=== PATIENT | female | born 1955 | race Caucasian/White ===

== ENCOUNTER 2020-02-15 12:47 | Outpatient (CLI) | payer OTHER, SELFPAY ==
--- NOTE | ~2020-02-15 | CT_ITS ---
EXAMINATION: CT abdomen pelvis wo con EXAM DATE: 02/15/2020 13:27 INDICATION: Acute bilateral flank pain. TECHNIQUE: Spiral CT of the abdomen and pelvis was performed without contrast. Axial, coronal and sag ittal images were reviewed. The dose-length product (DLP) for this examination was 982.00 mGy-cm. T he exposure was tailored according to patient size (auto mA exposure control), and iterative reconstr uction (ASIR) was used as additional dose reduction technique. Comparison is made to prior examinatio n from 05/05/2019. FINDINGS: Small region of left renal cortical scarring. There is no nephrolithiasis or hydronephrosi s. The uterus is unremarkable. The bladder is unremarkable. The liver, spleen, adrenal glands an d pancreas are unremarkable. Gallbladder is unremarkable. No biliary obstruction. There is no retr operitoneal or pelvic lymphadenopathy. There is mild scattered arteriosclerotic disease. The appendix is not positively visualized. There is no pericecal inflammatory change to suggest appe ndicitis. There is small sliding gastroesophageal hiatal hernia. There is expected amount of colon ic stool. No free intraperitoneal gas. The heart is normal in size. There are no pericardial or pleural effusions. There is a 4 mm right lower lobe noncalcified granuloma unchanged. There are no osteoblastic or osteolytic lesions identified. IMPRESSION: 1. Chronic findings as above. Reviewed, dictated and finalized at location G.
--- NOTE | ~2020-02-15 | XR_ITS ---
EXAMINATION: XR abdomen/kub 1V INDICATION: Acute flank pain TECHNIQUE: Supine views of the abdomen were obtained on 2 radiographs. COMPARISON: None FINDINGS: No abnormal calcifications are identified. The bowel gas pattern is normal. There is mild b ilateral hip osteoarthritis. Moderate lumbar spondylosis is noted. There are phleboliths in the pelvi s. IMPRESSION: 1. No radiographic correlate for the patient's symptoms. Reviewed, dictated and finalized at location A.
== END 2020-02-15 12:48 | disposition home or self-care (01) ==
PROVIDERS: Visit Provider Urology
DX: R10.9 Unspecified abdominal pain (principal)
CPT/HCPCS: 74018; 74176

== ENCOUNTER → 2020-06-02 14:35 | Outpatient (CLI) | payer OTHER, SELFPAY ==
--- NOTE | ~2020-06-02 | MM_ITS ---
EXAMINATION: MM screening mariusz BI w sunil HISTORY: Screening TECHNIQUE: Craniocaudal and mediolateral oblique 3-D tomosynthesis images were obtained and synthetic 2-D images were generated. CAD analysis was submitted and interpreted. COMPARISON: Comparison to multiple prior studies sequentially, with oldest reviewed study dated 05/09. BREAST PARENCHYMAL COMPOSITION: There are scattered areas of fibroglandular density. FINDINGS: There is no evidence of suspicious mass, calcification, or architectural distortion to sugg est malignancy in either breast. There has been no suspicious interval change. IMPRESSION: 1. No mammographic evidence of malignancy. 2. Recommend routine screening mammography in one year. BI-RADS Category 1: Negative Reviewed, dictated and finalized at location A.
== END ==
PROVIDERS: Visit Provider Advanced Practice Midwife
DX: Z12.31 Encounter for screening mammogram for malignant neoplasm of breast (principal)
CPT/HCPCS: 77063; 77067

== ENCOUNTER 2020-11-01 14:58 | Emergency (ER) | payer OTHER, SELFPAY ==
--- NOTE | 2020-11-01 15:01 | ED.GENADULT ---
HPI - General Adult General Chief complaint: Skin/Abscess/Foreign Body Stated complaint: INJURED R THUMB Time Seen by Provider: 11/01/20 15:02 Source: patient Mode of arrival: ambulatory Limitations: no limitations History of Present Illness HPI narrative: 65-year-old female patient presents to the [facility] with complaints of right thumb pain for the past 3 weeks. Patient states about 2 and half to 3 weeks ago she slightly cut the medial side of her right thumb with a sharp knife. Patient states it was not deep enough to need sutures. Patient states then about 2 weeks ago her dog kind of bit her by accident on the thumb as well. Patient states it has been sore last night her got some pus out of it. Patient states she has been just using lotion with some gloves on and this morning did put a little bit of Neosporin on it. Denies any fevers, body aches or chills. Denies any history of diabetes Related Data Home Medications Medication Instructions Recorded Confirmed bupropion HCl [Wellbutrin SR] 200 mg PO DAILY 09/27/19 11/01/20 gabapentin 600 mg PO BID 09/27/19 11/01/20 thyroid (pork) [Violet Thyroid] 30 mg PO DAILY 09/27/19 09/27/19 trazodone 100 mg PO HS PRN 09/27/19 11/01/20 Allergies Allergy/AdvReac Type Severity Reaction Status Date / Time Chocolate AdvReac Unknown INCREASES Uncoded 11/01/20 15:16 INFLAMMATION Review of Systems Review of Systems: Narrative: CONSTITUTIONAL: Denies fever, chills, or sweats. EYES: Denies visual changes, redness, or discharge. ENT: Denies rhinorrhea, congestion, sore throat, or otalgia. CARDIOVASCULAR: Denies chest pain, palpitations, or edema. RESPIRATORY: Denies cough or dyspnea. GASTROINTESTINAL: Denies abdominal pain, nausea, vomiting, or diarrhea. GENITOURINARY: Denies dysuria or hematuria. SKIN: Denies rash or itching. Positive wound to right thumb x3 weeks MUSCULOSKELETAL: Denies back pain, joint pain, or myalgia. NEUROLOGIC: Denies headache, numbness, or weakness. PSYCHIATRIC: Denies anxiety or depression. [facility] Past Medical History Medical History (Updated 11/01/20 @ 15:18 by MARÍA Castle) Abnormal uterine bleeding Arthritis Depression Fibromyalgia Hypercholesterolemia Hypothyroidism Lactose intolerance Lupus Lyme disease 1982 Musculoskeletal disorder Right knee medial meniscus tear Postmenopausal Seasonal allergies Sleep apnea Surgical History Surgical History (Updated 11/01/20 @ 15:04 by MARÍA Castle) Delivery by section Hx of tonsillectomy Family History Family History Mother Family history of Alzheimer's disease Father Family history of osteoarthritis Social History Social History Smoking status: Never smoker Alcohol intake: never Comments At the time of my signature I agree with nursing past medical history, surgical, social, and family history. There is no relevant family history pertinent to the presenting complaint. Exam Narrative: Exam Narrative: GENERAL: Well-appearing, well-nourished, and in no acute distress. HEAD: Normocephalic, atraumatic. EYES: PERRLA and EOMI. ENT: Nares clear, no rhinorrhea or epistaxis. Mucous membranes moist. NECK: Supple. No lymphadenopathy CHEST: Clear to auscultation. No respiratory distress. HEART: Regular rate and rhythm. No murmur heard. Normal peripheral pulses. ABDOMEN: Soft, nontender, nondistended, normal active bowel sounds. EXTREMITIES: Normal range of motion. No edema. SKIN: Warm, dry, no rash. Patient has what appears to be a paronychia to the medial side of the right thumb. There is a little tenderness as well as a slight erythema no active pus or draining at this time. No streaking up the hand. No warmth present. NEURO: No focal deficits. Alert and oriented x3. Course Vital Signs Vital signs: Vital Signs Temperature 36.0 C L 01
[2020-11-01 15:06] VITALS: BP 127/62; PULSE 76; RESP 16; TEMP 36; O2SAT 100
[2020-11-01 15:15] VITALS: BP 127/62; PULSE 76; RESP 16; TEMP 36; O2SAT 100
== END 2020-11-01 15:20 | disposition home or self-care (01) ==
PROVIDERS: Emergency Provider Nurse Practitioner Family; PCP Family Medicine
DX: L03.011 Cellulitis of right finger (principal); M19.90 Unspecified osteoarthritis, unspecified site; M79.7 Fibromyalgia; F32.9 Major depressive disorder, single episode, unspecified; E78.00 Pure hypercholesterolemia, unspecified; E03.9 Hypothyroidism, unspecified; G47.30 Sleep apnea, unspecified
CPT/HCPCS: 99213; G0463

== ENCOUNTER 2021-02-28 08:35 | Outpatient (CLI) | payer OTHER, SELFPAY ==
--- NOTE | ~2021-02-28 | US_ITS ---
EXAMINATION: US abdomen complete EXAM DATE: 02/28/2021 09:07 INDICATION: Epigastric pain. TECHNIQUE: Multiple grayscale and Doppler images of the complete abdomen were obtained (by a technolo gist who performed the scan) and subsequently reviewed. Comparison is made to prior examination from 02/09/2013. FINDINGS: The abdominal aorta is normal in caliber. Visualized portion IVC is patent. The pancreatic head a nd body are normal in appearance. The pancreatic tail is not visualized. The liver has normal echogenicity and contour. There are no focal liver lesions identified. There is no evidence of intrahepatic biliary duct dilation. Portal venous flow was seen in the hepatopedal , normal direction and has normal Doppler waveform. Common bile duct measures 3 mm, which is normal. The gallbladder wall is normal in thickness, with ex pected amount of distention. No sonographic evidence of pericholecystic fluid. There is no cholelit hiases. Technologist performing exam reports patient did not demonstrate sonographic Chambers's sign. Please note that this sign is less reliable in patients who have received pain medication. Right kidney: There is normal contour and echogenicity. It measures 13.1 x 4.7 x 6.0 centimeters. There are no focal renal lesions identified. There is no hydronephrosis. Left kidney: There is normal contour and echogenicity. It measures 12.2 x 6.3 x 5.5 centimeters. T here are no focal renal lesions identified. There is no hydronephrosis. The spleen measures 12 centimeters and is morphologically normal. IMPRESSION: Unremarkable complete abdominal ultrasound exam. Reviewed, dictated and finalized at location B.
== END 2021-02-28 08:36 | disposition home or self-care (01) ==
PROVIDERS: PCP Family Medicine; Visit Provider Family Medicine
DX: R10.13 Epigastric pain (principal)
CPT/HCPCS: 76700

== ENCOUNTER → 2021-09-07 16:17 | Outpatient (CLI) | payer OTHER, SELFPAY ==
--- NOTE | ~2021-09-07 | MM_ITS ---
EXAMINATION: MM screening mariusz BI w sunil HISTORY: Screening mammogram TECHNIQUE: Craniocaudal and mediolateral oblique 3-D tomosynthesis images were obtained and synthetic 2-D images were generated. CAD analysis was submitted and interpreted. COMPARISON: , 03/15/2019, 09/14/2017 bilateral screening mammogram examinations BREAST PARENCHYMAL COMPOSITION: There are scattered areas of fibroglandular density. FINDINGS: There is no evidence of suspicious mass, calcification, or architectural distortion to sugg est malignancy in either breast. There has been no suspicious interval change. IMPRESSION: 1. No mammographic evidence of malignancy. 2. Recommend routine screening mammography in one year. BI-RADS Category 1: Negative Reviewed, dictated and finalized at location A. TRIMMER
== END ==
PROVIDERS: Visit Provider Advanced Practice Midwife
DX: Z12.31 Encounter for screening mammogram for malignant neoplasm of breast (principal)
CPT/HCPCS: 77063; 77067

== ENCOUNTER 2021-12-01 19:11 | Emergency (ER) | payer OTHER, SELFPAY ==
[2021-12-01 19:18] VITALS: BP 148/81; PULSE 73; RESP 16; TEMP 36.2; O2SAT 100
--- NOTE | 2021-12-01 19:20 | ED.WOUNDLAC ---
HPI - Wound/Laceration General Chief Complaint: Wound/Laceration Stated Complaint: Cat bit Time Seen by Provider: 12/01/21 19:20 Source: patient Mode of arrival: ambulatory Limitations: no limitations History of Present Illness HPI narrative: 66-year-old female presented for complaint of cat bite to the right wrist, onset today around 1300. She states the cat is a feral cat, but is up-to-date on shots and her tetanus is up-to-date. She had leftover doxycycline and took 2 tablets. Endorses pain is throbbing, rates it 6 out of 10. States on think will be up to sleep. Bleeding is controlled. Related Data Home Medications Medication Instructions Recorded Confirmed bupropion HCl [Wellbutrin SR] 200 mg PO DAILY 09/27/19 11/01/20 gabapentin 600 mg PO BID 09/27/19 11/01/20 thyroid (pork) [Medora Thyroid] 30 mg PO DAILY 09/27/19 09/27/19 trazodone 100 mg PO HS PRN 09/27/19 11/01/20 Allergies Allergy/AdvReac Type Severity Reaction Status Date / Time Chocolate AdvReac Unknown INCREASES Uncoded 11/01/20 15:16 INFLAMMATION Review of Systems Review of Systems: CONSTITUTIONAL: Denies body aches, fever, chills, or sweats. EYES: Denies visual changes, redness, or discharge. ENT: Denies rhinorrhea, congestion, sore throat, or otalgia. CARDIOVASCULAR: Denies chest pain, palpitations, or edema. RESPIRATORY: Denies cough or dyspnea. GASTROINTESTINAL: Denies abdominal pain, nausea, vomiting, or diarrhea. GENITOURINARY: Denies dysuria or hematuria. SKIN: cat bite to write wrist MUSCULOSKELETAL: Denies back pain, joint pain, or myalgia. NEUROLOGIC: Denies headache, numbness, tingling, or weakness. PSYCH: Denies depression or anxiety. [facility] Past Medical History Medical History (Updated 12/01/21 @ 19:24 by Karen Travis APRN) Abnormal uterine bleeding Arthritis Depression Fibromyalgia Hypercholesterolemia Hypothyroidism Lactose intolerance Lupus Lyme disease 1983 Musculoskeletal disorder Right knee medial meniscus tear Postmenopausal Seasonal allergies Sleep apnea Surgical History Surgical History Delivery by section Hx of tonsillectomy Family History Family History Mother Family history of Alzheimer's disease Father Family history of osteoarthritis Social History Social History Smoking status: Never smoker Alcohol intake: never Comments At time of signature, I have reviewed and agree with nursing past medical, surgical, social and family history unless otherwise noted. Please see nursing chart for further information. There is no relevant family history pertinent to the presenting complaint Exam Narrative: GENERAL: Well-appearing, well-nourished, and in no acute distress. HEAD: Normocephalic, atraumatic. EYES: PERRLA, conjunctivae clear, and EOMI. ENT: Mucous membranes moist. Oropharynx without edema, erythema or lesions. NECK: Supple. No lymphadenopathy CHEST: Clear to auscultation. No respiratory distress. HEART: Regular rate and rhythm. SKIN: Warm, dry. right wrist dorsal surface puncture wound with mild swelling surrounding site, scattered lacerations over right hand dorsal and palmar surfaces, bleeding controlled NEURO: Alert and oriented x3. PSYCH: Normal mood and affect Course Course Emergency Course: Patient is aware of diagnosis, understands and agrees to treatment plan. Anticipatory guidance given. Patient agrees to follow-up as directed and is aware of reasons to seek care at the emergency department. Portions of this record may have been created with voice recognition software Level of Care: Express Care Visit Vital Signs Vital signs: Vital Signs Temperature 97.2 F L 12/01/21 19:18 Pulse Rate 73 12/01/21 19:18 Respiratory Rate 16 12/01/21 19:18 Blood Pressure 148/81 H 12/01/21
[2021-12-01 19:21] VITALS: BP 148/81; PULSE 73; RESP 16; TEMP 36.2; O2SAT 100
== END 2021-12-01 19:39 | disposition home or self-care (01) ==
PROVIDERS: Emergency Provider Nurse Practitioner Family; PCP Family Medicine
DX: S61.411A Laceration without foreign body of right hand, initial encounter (principal); S61.531A Puncture wound without foreign body of right wrist, initial encounter; W55.01XA Bitten by cat, initial encounter; M19.90 Unspecified osteoarthritis, unspecified site; M79.7 Fibromyalgia; E03.9 Hypothyroidism, unspecified; G47.30 Sleep apnea, unspecified; F32.A Depression, unspecified
CPT/HCPCS: 99213; G0463

== ENCOUNTER → 2022-01-11 11:46 | Outpatient (CLI) | payer OTHER, SELFPAY ==
--- NOTE | ~2022-01-11 | XR_ITS ---
EXAMINATION: XR knee RT 3V DATE: 01/11/2022 12:25 INDICATION: Right knee injury. TECHNIQUE: 3 views of right knee including standing views were obtained. COMPARISON: Right knee radiographs 08/05/2017 FINDINGS: Bone alignment is normal. No fracture. There is moderate osteoarthritis of medial compartme nt and mild osteoarthritis of lateral and patellofemoral compartments. No knee joint effusion. IMPRESSION: 1. Moderate right knee osteoarthritis. Reviewed, dictated and finalized at location A.
== END ==
PROVIDERS: PCP Family Medicine; Visit Provider Family Medicine
DX: M17.11 Unilateral primary osteoarthritis, right knee (principal)
CPT/HCPCS: 73562

== ENCOUNTER → 2022-01-16 12:03 | Outpatient (CLI) | payer OTHER, SELFPAY ==
--- NOTE | ~2022-01-16 | US_ITS ---
EXAMINATION: US venous doppler LE RT DATE: 01/16/2022 12:28 INDICATION: Right lower limb pain TECHNIQUE: Torres scale images without and with compression and Doppler images of the right lower extre mity veins were obtained. COMPARISON: None FINDINGS: The right common femoral vein, profunda femoral vein, femoral vein, popliteal vein, peronea l trunk, posterior tibial veins, and greater saphenous vein are patent. IMPRESSION: 1. Patent right lower extremity veins. No evidence of deep venous thrombosis. Reviewed, dictated and finalized at location B.
== END ==
PROVIDERS: PCP Family Medicine; Visit Provider Family Medicine
DX: S89.91XA Unspecified injury of right lower leg, initial encounter (principal)
CPT/HCPCS: 93971

== ENCOUNTER 2022-03-13 13:02 | Emergency (ER) | payer OTHER, SELFPAY ==
[2022-03-13 13:09] VITALS: BP 124/77; PULSE 84; RESP 16; TEMP 36.1; O2SAT 99
--- NOTE | 2022-03-13 13:12 | ED.URI ---
HPI - URI/Sore Throat General Chief Complaint: Upper Respiratory Infection Stated Complaint: CHEST CONGESTION Time Seen by Provider: 03/13/22 13:12 Source: patient and RN notes reviewed History of Present Illness HPI Narrative: Patient is a 66-year-old female who presents the urgent care with complaints of chest congestion and intermittent dyspnea. Patient states that she has had a cough with nasal congestion that started on Friday that has since moved to her chest. Patient states she has been using Mucinex. Denies any known fevers or exposures to COVID or influenza however states that she has had some chills and fatigue. No other acute complaints. No acute distress noted. Patient aware of the plan of care. Some parts of this dictation were generated by voice recognition software and may contain typographical and/or grammatical inaccuracies. Related Data Home Medications Medication Instructions Recorded Confirmed bupropion HCl [Wellbutrin SR] 200 mg PO DAILY 09/27/19 11/01/20 gabapentin 600 mg PO BID 09/27/19 11/01/20 thyroid (pork) [Ruby Thyroid] 30 mg PO DAILY 09/27/19 09/27/19 trazodone 100 mg PO HS PRN 09/27/19 11/01/20 duloxetine mg PO 03/13/22 famotidine 03/13/22 Allergies Allergy/AdvReac Type Severity Reaction Status Date / Time Chocolate AdvReac Unknown INCREASES Uncoded 11/01/20 15:16 INFLAMMATION Review of Systems Review of Systems: CONSTITUTIONAL: Reports of chills and fatigue EYES: Denies visual changes, redness, or discharge. ENT: Reports of congestion, postnasal drainage CARDIOVASCULAR: Denies chest pain, palpitations, or edema. RESPIRATORY: Reports of harsh cough with intermittent dyspnea and chest congestion GASTROINTESTINAL: Denies abdominal pain, nausea, vomiting, or diarrhea. GENITOURINARY: Denies dysuria or hematuria. SKIN: Denies rash or itching. MUSCULOSKELETAL: Denies back pain, joint pain, or myalgia. NEUROLOGIC: Denies headache, numbness, or weakness. All other systems reviewed are negative, except as documented in HPI. [facility] Past Medical History Medical History (Updated 03/13/22 @ 13:18 by MARÍA Funk) Abnormal uterine bleeding Arthritis Depression Fibromyalgia Hypercholesterolemia Hypothyroidism Lactose intolerance Lupus Lyme disease 1983 Musculoskeletal disorder Right knee medial meniscus tear Postmenopausal Seasonal allergies Sleep apnea Surgical History Surgical History Delivery by section Hx of tonsillectomy Family History Family History Mother Family history of Alzheimer's disease Father Family history of osteoarthritis Social History Social History Smoking status: Never smoker Alcohol intake: never Comments At the time of my signature, I reviewed and agree with the nursing past medical, surgical, social, and family history. There is no relevant family history pertinent to the patient complaint. Exam Narrative: GENERAL: This is a well-nourished, well-developed patient, in no apparent distress. HEAD: normocephalic, atraumatic. EYES: PERRL. Sclera clear/white. Vision is grossly intact. EARS: External ears normal, auditory canals clear and without drainage, TMs normal without perforation. Hearing grossly intact. NOSE: External nose normal with no obvious nasal discharge, nares without redness, no rhinorrhea. THROAT: Mucous membranes moist, posterior pharynx clear. Moderate postnasal drainage NECK: Neck supple, non-tender without lymphadenopathy CARDIOVASCULAR: Regular rate and rhythm RESPIRATORY: Bibasilar crackles with slight expiratory wheezes. Harsh cough noted throughout exam SKIN: warm, intact with no suspicious lesions or rash, good texture and turgor. NEURO: awake, alert, and oriented to person, place and time. There were no obvious focal neurologi
== END 2022-03-13 13:25 | disposition home or self-care (01) ==
PROVIDERS: Emergency Provider Nurse Practitioner Family; PCP Family Medicine
DX: J40 Bronchitis, not specified as acute or chronic (principal); M19.90 Unspecified osteoarthritis, unspecified site; M79.7 Fibromyalgia; E78.00 Pure hypercholesterolemia, unspecified; E03.9 Hypothyroidism, unspecified; G47.30 Sleep apnea, unspecified; F32.A Depression, unspecified
CPT/HCPCS: 99213; G0463

== ENCOUNTER → 2022-07-22 12:07 | Outpatient (CLI) | payer OTHER, SELFPAY ==
--- NOTE | ~2022-07-22 | XR_ITS ---
EXAMINATION:XR cervical spine 4-5V DATE: 07/22/2022 12:25 INDICATION: Neck pain TECHNIQUE: AP, lateral, lateral swimmers and odontoid views of the cervical spine are provided. COMPARISON: None FINDINGS: There is reversal of the normal cervical lordosis. There are 2 mm of anterolisthesis of C3 on C4 and C4 on C5. The odontoid is intact. No fracture is identified. There is severe loss of interv ertebral disc space height at C5-6 and C6-7. Small degenerative osteophytes project from the anterior endplates of multiple vertebral bodies. There is severe facet and uncovertebral joint osteoarthritis at multiple levels in the cervical spine. Prevertebral soft tissues are normal. IMPRESSION: 1. Severe cervical spondylosis without acute findings. Reviewed, dictated and finalized at location A.
== END ==
PROVIDERS: PCP Family Medicine; Visit Provider Family Medicine
DX: M47.812 Spondylosis without myelopathy or radiculopathy, cervical region (principal)
CPT/HCPCS: 72050

== ENCOUNTER → 2023-01-15 14:11 | Outpatient (CLI) | payer MEDICARE, SELFPAY ==
--- NOTE | ~2023-01-15 | DEXA_ITS ---
Bone Density Report Name: SUKHI SALOMON Age: 67 Sex: Female Ethnicity: White Date of : 1955 Indication: postmenopausal; screening for osteoporosis; parental hip fracture; height loss; prior fracture; anorexia or bulimia; Referring Provider: Leah Galloway Study: Bone densitometry was performed. Exam Date: January 15, 2023 Accession number: [id number] Bone Density: Region BMD T-score Z-score Classification AP Spine (L1, L4) 1.185 1.3 3.1 Normal Femoral Neck (Left) 1.008 1.4 2.9 Normal Total Hip (Left) 1.097 1.3 2.5 Normal Femoral Neck (Right) 1.076 2.0 3.6 Normal Total Hip (Right) 1.104 1.3 2.6 Normal Total Hip Mean 1.101 1.3 2.6 Normal World Health Organization criteria for BMD impression classify patients as: Normal (T-score at or above -1.0), Osteopenia (T-score between -1.0 and -2.5), or Osteoporosis (T-score at or below -2.5). 10-year Fracture Risk: FRAX not reported because: All T-scores for Spine Total, Hip Total, Femoral Neck at or above -1.0 Previous Exams: Region Exam Age BMD T-score BMD Change BMD Change Date g/cm2 vs Baseline vs Previous AP Spine(L1, L4) 01/15/2023 67 1.185 1.3 0.000 -0.005 03/23/2019 63 1.190 1.4 0.006 -0.011 06/27/2015 59 1.201 1.5 0.017 0.017 05/29/2009 53 1.185 1.3 Total Hip(Left) 01/15/2023 67 1.097 1.3 -0.022 -0.010 03/23/2019 63 1.107 1.3 -0.012 -0.048 06/27/2015 59 1.155 1.7 0.036* 0.036* 05/29/2009 53 1.119 1.4 Total Hip(Right) 01/15/2023 67 1.104 1.3 -0.036 -0.042* 03/23/2019 63 1.146 1.7 0.006 0.001 06/27/2015 59 1.146 1.7 0.005 0.005 05/29/2009 53 1.140 1.6 *Denotes significance at 95% confidence level, LSC for AP Spine = 0.022 g/cm2, LSC for Total Hip = 0.027 g/cm2 Clinical Information Provided by Patient: Has had a low trauma fracture Parent has had a hip fracture Has used the following medications: Vitamin D, Calcium Has the following medical conditions: Anorexia or Bulimia Patient maximum height was 69 Menopause Age: 53 Does not regularly consume dairy products Drinks caffeinated beverages Onset of menses at age 15 Number of children 1 Missed period for more than 6 months in a row Impression: The patient has normal bone mass. The patient has r
== END ==
PROVIDERS: PCP Family Medicine; Visit Provider Advanced Practice Midwife
DX: Z78.0 Asymptomatic menopausal state (principal)
CPT/HCPCS: 77080

== ENCOUNTER 2023-01-23 10:15 | Emergency (ER) | payer MEDICARE, SELFPAY ==
--- NOTE | ~2023-01-23 | US_ITS ---
EXAMINATION: US venous doppler UE RT DATE: 01/23/2023 12:01 INDICATION: Right upper limb pain. TECHNIQUE: Grayscale ultrasound images without and with compression and Doppler ultrasound images of the right upper extremity veins were obtained. COMPARISON: None. FINDINGS: The visualized portions of the right internal jugular vein, subclavian vein, axillary vein, brachial veins, basilic vein, cephalic vein, radial vein, and ulnar vein are patent. IMPRESSION: 1. No deep venous thrombosis. Reviewed, dictated and finalized at location L.
[2023-01-23 10:19] VITALS: BP 119/73; PULSE 70; RESP 16; TEMP 36.4; O2SAT 98
--- NOTE | 2023-01-23 10:59 | ED.GENADULT ---
HPI - General Adult General Chief complaint: Extremity Injury, Upper Stated complaint: right arm swelling Time Seen by Provider: 01/23/23 10:20 History of Present Illness HPI narrative: 67-year-old female presents to the emergency room for evaluation of right upper arm pain. Patient states that she had a massage yesterday, woke up this morning complaining of pain to her right bicep. Denies any injury or trauma. Patient does admit to history of thrombocythemia. States this morning the area was warm and swollen. Concerned over DVT. Denies any shortness of breath or difficulty breathing. No chest pain. No history of PEs. No recent injury or trauma. No history of recent cancer. Denies recent periods of immobility. Patient does endorse history of lupus and Lyme disease. Related Data Home Medications Medication Instructions Recorded Confirmed bupropion HCl 200 mg tablet,12 hr 200 mg PO DAILY 09/27/19 11/28/22 sustained-release (Wellbutrin SR) gabapentin 600 mg tablet 600 mg PO BID 09/27/19 11/28/22 thyroid (pork) 30 mg tablet 30 mg PO DAILY 09/27/19 11/28/22 (Jane Lew Thyroid) trazodone 100 mg tablet 100 mg PO HS PRN Sleep 09/27/19 11/28/22 duloxetine 30 mg capsule,delayed mg PO 03/13/22 11/28/22 release famotidine 20 mg tablet 03/13/22 11/28/22 Allergies Allergy/AdvReac Type Severity Reaction Status Date / Time Chocolate AdvReac Unknown INCREASES Uncoded 01/23/23 10:23 INFLAMMATION Review of Systems Review of Systems: CONSTITUTIONAL: Denies fever, chills, or sweats. EYES: Denies visual changes, redness, or discharge. ENT: Denies rhinorrhea, congestion, sore throat, or otalgia. CARDIOVASCULAR: Denies chest pain, palpitations, or edema. RESPIRATORY: Denies cough or dyspnea. GASTROINTESTINAL: Denies abdominal pain, nausea, vomiting, or diarrhea. GENITOURINARY: Denies dysuria or hematuria. SKIN: Denies rash or itching. MUSCULOSKELETAL: Denies back pain, joint pain, or myalgia. NEUROLOGIC: Denies headache, numbness, dizziness, or weakness. PSYCHIATRIC: Denies anxiety or depression. [facility] Past Medical History Medical History Abnormal uterine bleeding Arthritis Depression Fibromyalgia Hypercholesterolemia Hypothyroidism Lactose intolerance Lupus Lyme disease 1982 Musculoskeletal disorder Right knee medial meniscus tear Postmenopausal Seasonal allergies Sleep apnea Surgical History Surgical History Delivery by section Hx of tonsillectomy Family History Family History Mother Family history of Alzheimer's disease Father Family history of osteoarthritis Social History Social History Smoking status: Never smoker Alcohol intake: never Lack of Transportation: No Lack of Food: Never True Current Housing: I Have Housing Concerned About Future Housing: No Difficulty Paying Gas/Electric Bills: No Difficulty Paying for Meds: No Currently Unemployed: No Education: Master's Degree or Higher Difficulty w/ Childcare or Family Care: No Exam Narrative: GENERAL: Well-appearing, well-nourished, no physical limitations, and in no acute distress. HEAD: Normocephalic, atraumatic. EYES: Conjunctivae normal, PERRLA and EOMI. CHEST: Clear to auscultation. No respiratory distress. No wheezes rales or rhonchi. No tenderness. HEART: Regular rate and rhythm. No murmur heard. Normal peripheral pulses. BACK: No CVA tenderness; No cervical/thoracic/lumbar tenderness, step-offs, bony abnormality; FROM EXTREMITIES: Normal range of motion. No edema. No clubbing or cyanosis. RUE: mild TTP to bicep, no signs of injury. No STS. Skin PWD. SKIN: Warm, dry, no rash. No noted wounds NEURO: No focal deficits. Alert and oriented x3. MAEW. CN's II-XI intact bilaterally,
[2023-01-23 13:09] VITALS: BP 111/72; PULSE 66; RESP 16; O2SAT 98
[2023-01-23 15:20] VITALS: BP 120/70; PULSE 72; RESP 16; O2SAT 99
== END 2023-01-23 15:21 | disposition home or self-care (01) ==
PROVIDERS: Emergency Provider Nurse Practitioner Family; PCP Family Medicine
DX: M79.621 Pain in right upper arm (principal); E78.00 Pure hypercholesterolemia, unspecified; E03.9 Hypothyroidism, unspecified; M19.90 Unspecified osteoarthritis, unspecified site; M79.7 Fibromyalgia; G47.30 Sleep apnea, unspecified; F32.A Depression, unspecified
CPT/HCPCS: 93971; 99284

== ENCOUNTER → 2023-02-26 11:46 | Outpatient (CLI) | payer MEDICARE, SELFPAY ==
--- NOTE | ~2023-02-26 | MM_ITS ---
EXAMINATION: MM screening [facility] BI w sunil HISTORY: Screening mammogram TECHNIQUE: Craniocaudal and mediolateral oblique 3-D tomosynthesis images were obtained and synthetic 2-D images were generated. CAD analysis was submitted and interpreted. COMPARISON: 09/07/2021, 06/02/2020, 03/23/2019 BREAST PARENCHYMAL COMPOSITION: There are scattered areas of fibroglandular density. FINDINGS: No suspicious mass, calcification, or architectural distortion are identified in either hoda ast to suggest malignancy. There has been no suspicious interval change. IMPRESSION: 1. No mammographic evidence of malignancy. 2. Recommend routine screening mammography in one year. BI-RADS Category 1: Negative Reviewed, dictated and finalized at location A.
== END ==
PROVIDERS: PCP Family Medicine; Visit Provider Obstetrics & Gynecology
DX: Z12.31 Encounter for screening mammogram for malignant neoplasm of breast (principal)
CPT/HCPCS: 77063; 77067

== ENCOUNTER 2023-08-25 15:03 | Emergency (ER) | payer MEDICARE, SELFPAY ==
--- NOTE | ~2023-08-25 | XR_ITS ---
[XR ribs LT 2V w CXR 2V ] INDICATION: Status post fall from horse 5 days ago. Left chest pain. TECHNIQUE: Frontal projection of the upper left ribs, frontal projection of the lower left ribs, obli que projection of all the left ribs, frontal inspiratory chest x-ray for interpretation. FINDINGS: Possible left eighth rib fracture anteriorly. No pneumothorax. Heart size normal. Mild tho racic spondylosis. No significant effusion. 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 IMPRESSION: 1: Possible nondisplaced fracture left eighth rib anteriorly.. Reviewed, dictated and finalized at location A.
[2023-08-25 15:15] VITALS: BP 123/68; PULSE 80; RESP 16; TEMP 36.3; O2SAT 99
--- NOTE | 2023-08-25 15:16 | ED.FALL ---
HPI - Fall General Chief Complaint: Fall Stated Complaint: Rib pain Time Seen by Provider: 08/25/23 15:16 Source: patient Mode of arrival: ambulatory Limitations: no limitations History of Present Illness HPI Narrative: 67 yo F presents with c/o pain to L ribs for 5 days. States she fell off horse. Horse bucked and saddle was loose and she fell approx. 4ft from horse onto back. Did not hit head. Denies LOC. Has had sore area to anterior L chestwall since injury. Is concerned she has rib fracture. Ambulatory with steady gait. Denies SOB. All systems reviewed and negative except as noted above. Related Data Home Medications Medication Instructions Recorded Confirmed bupropion HCl 200 mg tablet,12 hr 200 mg PO DAILY 09/27/19 08/25/23 sustained-release (Wellbutrin SR) gabapentin 600 mg tablet 600 mg PO BID 09/27/19 08/25/23 trazodone 100 mg tablet 100 mg PO HS PRN Sleep 09/27/19 08/25/23 duloxetine 30 mg capsule,delayed 30 mg PO DAILY 03/13/22 08/25/23 release Allergies Allergy/AdvReac Type Severity Reaction Status Date / Time Chocolate AdvReac Unknown INCREASES Uncoded 01/23/23 10:23 INFLAMMATION Review of Systems Review of Systems: CONSTITUTIONAL: Denies fever, chills, or sweats. EYES: Denies visual changes, redness, or discharge. ENT: Denies rhinorrhea, congestion, sore throat, or otalgia. CARDIOVASCULAR: Denies chest pain, palpitations, or edema. RESPIRATORY: Denies cough or dyspnea. GASTROINTESTINAL: Denies abdominal pain, nausea, vomiting, or diarrhea. GENITOURINARY: Denies dysuria or hematuria. SKIN: Denies rash or itching. MUSCULOSKELETAL: Denies back pain, joint pain, or myalgia. Reports L sided anterior chestwall pain NEUROLOGIC: Denies headache, numbness, or weakness. PSYCHIATRIC: Denies anxiety or depression. All other systems reviewed are negative, except as documented in HPI. [facility] Past Medical History Medical History Abnormal uterine bleeding Arthritis Depression Fibromyalgia Hypercholesterolemia Hypothyroidism Lactose intolerance Lupus Lyme disease 1982 Musculoskeletal disorder Right knee medial meniscus tear Postmenopausal Seasonal allergies Sleep apnea Surgical History Surgical History Delivery by section Hx of tonsillectomy Family History Family History Mother Family history of Alzheimer's disease Father Family history of osteoarthritis Social History Social History Smoking status: Never smoker Alcohol intake: never Lack of Transportation: No Lack of Food: Never True Current Housing: I Have Housing Concerned About Future Housing: No Difficulty Paying Gas/Electric Bills: No Difficulty Paying for Meds: No Currently Unemployed: No Education: Master's Degree or Higher Difficulty w/ Childcare or Family Care: No Comments At time of signature, agree with nursing past medical, surgical, social and family history. There is no relevant family history pertinent to the presenting complaint. Exam Narrative: GENERAL: This is a well-nourished, well-developed patient, in no apparent distress. HEAD: normocephalic, atraumatic. EYES: PERRL. Sclera clear/white. Vision is grossly intact. EARS: External ears normal NOSE: External nose normal NECK: Neck supple, non-tender without lymphadenopathy, masses or thyromegaly. CARDIOVASCULAR: Regular rate and rhythm without murmurs, gallops, or rubs. RESPIRATORY: Clear to auscultation. Breath sounds equal bilaterally. No wheezes, rales, or rhonchi. SKIN: warm, Dry, intact with no suspicious lesions or rash, good texture and turgor. NEURO: awake, alert, and oriented to person, place and time. There were no obvious focal neurologic abnormalities. EXTREMITIES: No joint tendernes
== END 2023-08-25 16:02 | disposition home or self-care (01) ==
PROVIDERS: Emergency Provider Nurse Practitioner Family; PCP Family Medicine
DX: S22.32XA Fracture of one rib, left side, initial encounter for closed fracture (principal); V80.010A Animal-rider injured by fall from or being thrown from horse in noncollision accident, initial encounter; M19.90 Unspecified osteoarthritis, unspecified site; M79.7 Fibromyalgia; E78.00 Pure hypercholesterolemia, unspecified; E03.9 Hypothyroidism, unspecified; F32.A Depression, unspecified
CPT/HCPCS: 71046; 71100; 99213; G0463

== ENCOUNTER 2023-12-01 11:30 | Outpatient (CLI) | payer MEDICARE, SELFPAY ==
--- NOTE | ~2023-12-01 | XR_ITS ---
XR hand LT min 3V DATE: 12/01/2023 11:51 INDICATION: Metacarpophalangeal joint sprain TECHNIQUE: 3 views COMPARISON: None FINDINGS: No fracture or dislocation, periosteal reaction or bone destruction or erosive change or ch ondrocalcinosis is noted. IMPRESSION: No significant abnormality Reviewed, dictated and finalized at location B. AGE COLLECTOR IMPRESSION: No significant abnormality
== END 2023-12-01 11:31 | disposition home or self-care (01) ==
PROVIDERS: PCP Family Medicine; Visit Provider Plastic Surgery
DX: S63.642A Sprain of metacarpophalangeal joint of left thumb, initial encounter (principal); X58.XXXA Exposure to other specified factors, initial encounter
CPT/HCPCS: 73130

== ENCOUNTER → 2023-12-04 09:15 | Outpatient (CLI) | payer MEDICARE, SELFPAY ==
--- NOTE | ~2023-12-04 | MR_ITS ---
EXAMINATION: MR hand LT wo con DATE: 12/04/2023 09:48 INDICATION: Sprain of the metacarpophalangeal joints of the left thumb TECHNIQUE: Magnetic resonance imaging (MRI) of the left hand centered at the thumb was performed with out intravenous contrast excluding the majority of the carpus, the fifth digit and portions of the se cond-fourth digits. Sequences included axial, sagittal and coronal T1-weighted FSE, axial and sagitta l T2-weighted FS FSE and coronal PD-weighted FS FSE. COMPARISON: Radiograph dated 12/01/2023 FINDINGS: There is a complete tear/avulsion of the of the proximal, first metacarpal attachment of the ulnar co llateral ligament. There is no displacement of the torn ligament. The contour of the head of the firs t metatarsal at the site of the torn ligament suggests either a chronic erosion and/or small enthesop hyte. The remaining visualized collateral ligament complex at the metacarpophalangeal and interphalan geal joints are normal. Bone alignment is normal. No fracture or pathologic marrow replacing process. Mild polyarticular osteoarthritis at the first carpometacarpal and multiple metacarpophalangeal and interphalangeal joints are normal. The flexor and extensor tendons are normal. Intrinsic musculature of the hand is unremarkable. IMPRESSION: 1. Complete tear of the proximal metacarpal origin of the first metacarpophalangeal ulnar collateral ligament which is nondisplaced. Reviewed, dictated and finalized at location A. TENANCE ASSISTANT IMPRESSION: 1. Complete tear of the proximal metacarpal origin of the first metacarpophalan geal ulnar collateral ligament which is nondisplaced.
== END ==
PROVIDERS: PCP Plastic Surgery; Visit Provider Plastic Surgery
DX: S63.642A Sprain of metacarpophalangeal joint of left thumb, initial encounter (principal); X58.XXXA Exposure to other specified factors, initial encounter
CPT/HCPCS: 73218

== ENCOUNTER → 2023-12-29 13:10 | Outpatient (CLI) | payer MEDICARE, SELFPAY ==
--- NOTE | ~2023-12-29 | XR_ITS ---
EXAMINATION: XR thoracic spine 3V DATE: 12/29/2023 13:31 INDICATION: Thoracic back pain TECHNIQUE: AP, lateral and lateral swimmer's views of the thoracic spine were obtained. COMPARISON: 08/25/2023 FINDINGS: Bone alignment is normal. There is no fracture. There is mild loss of intervertebral disc s pace height throughout the thoracic spine. There is chronic mild anterior vertebral body wedging at t he lower thoracic/upper lumbar spine. The vertebral body heights are otherwise maintained. Severe cer vical spondylosis is noted. IMPRESSION: 1. Moderate thoracic spondylosis without acute findings. Reviewed, dictated and finalized at location B. E DEGREASER
== END ==
PROVIDERS: PCP Family Medicine; Visit Provider Family Medicine
DX: M47.894 Other spondylosis, thoracic region (principal)
CPT/HCPCS: 72072

== ENCOUNTER 2024-01-21 00:19 | Day surgery (SDC) | payer MEDICARE, SELFPAY ==
--- NOTE | 2024-01-12 14:17 | PC.NURSE ---
Report to the Outpatient Waiting Room, entrance under the green pavilion located off [facility], at time __07 on date __01/21/24 . Planned Procedure Time: __914 . Time changes happen often and if your time is changed the preop area will call you the afternoon before. - You and your visitor will be asked to self-screen and do not enter if you have any COVID symptoms. - A mask is optional within the hospital at this time. NOTHING EAT OR DRINK 8 HOURS PRIOR TO SURGERY PER DR OLMEDO Take the following medications with a SIP of water the morning of surgery: __WELLBUTRIN ,THYROID DO NOT STOP ANY OF YOUR OTHER PRESCRIPTION MEDICATIONS PRIOR TO SURGERY ?EXCEPT THE FOLLOWING Medications to discontinue per physician ___HOLD ALL VITAMINS AND SUPPLEMENTS 3 DAYS PRE OP.LAST DOSE 01/17/24 Please no make-up, nail brazilian, hairspray, perfume, deodorant, or body powder the day of surgery. No jewelry (including any body piercings) or valuables the day of surgery, leave them at home. Please take a shower or bath the night before, or the morning of, surgery with an antibacterial soap. Wear comfortable, loose fitting clothing. Children are encouraged to wear pajamas. - Jewelry must be removed prior to entering the operating room. Rings and piercings that are not removed may be cut off. - The hospital will not accept responsibility for valuables. - Please leave all valuables, including medications, at home the day of surgery. If you are going home after surgery, a licensed cdl team truck driver must drive you home. - NO public transportation without another adult if you receive anesthesia. - We recommend that an adult stay with you for 24 hours following discharge. - We also recommend that you do not drive, make important decision, drink alcoholic beverages, or take any drugs that were not prescribed by your health care provider for at least 24 hours after your discharge time. Follow any additional instructions given to you from your surgeon. If you or anyone in your household have experienced Covid symptoms in the past week, please notify your surgeon or the nurse liaison at the phone number below for possible testing. Telephone instructions given to __PATIENT and asked if any additional questions and then verbalized understanding. Patient advised to call surgeon office or pre surgery nurse liaison [phone] if any additional questions. Report to the Outpatient Waiting Room, entrance under the green pavilion located off [facility], at time on date . Planned Procedure Time: . Time changes happen often and if your time is changed the preop area will call you the afternoon before. - You and your visitor will be asked to self-screen and do not enter if you have any COVID symptoms. - A mask is optional within the hospital at this time. Patients may have clear liquids (water, carbonated beverages, clear teas, apple juice) until 3 hours prior to surgery with a maximum of 20 ounces. - No food from midnight until time of surgery - Infants may have breast milk until 4 hours before surgery, infant formula 6 hours prior to surgery. - Children will be allowed to drink immediately following surgery. If applicable, please bring a bottle or sippy cup to assist with drinking. Juice, water, soda, and popsicles are readily available. For infants on formula, please bring formula the day of surgery. Pacifiers are allowed. Take the following medications with a SIP of water the morning of surgery: DO NOT STOP ANY OF YOUR OTHER PRESCRIPTION MEDICATIONS PRIOR TO SURGERY ?EXCEPT THE FOLLOWING Medications to discontinue per physician Date to take last dose Please no make-up, nail brazilian, hairspray, perfume, deodorant, or body powder the day of surgery. No jewelry (including any body piercings) or valuables the day of
[2024-01-12 14:23] VITALS: BMI 35.1
[2024-01-21] VITALS (7 sets, daily range): BP systolic 103–136; BP diastolic 56–89; PULSE 63–75; RESP 12–20; TEMP 36.6; O2SAT 97–100; BMI 34.7
--- NOTE | ~2024-01-21 | XR_ITS ---
EXAMINATION: XR surgery orthopedic DATE: 01/21/2024 10:16 INDICATION: Left hand ligament repair TECHNIQUE: 5 fluoroscopic images of the left thumb were obtained during procedure performed by Dr. Ab levi. Radiologist was not present for the imaging or procedure. The amount of fluoroscopy time us ed during this procedure was 0.1 minutes. COMPARISON: None. FINDINGS: Images demonstrate lucent tracks at the base of the left first proximal phalanx and the head of the f irst metacarpal with location consistent with ulnar collateral ligament repair. Alignment appears nor mal. No fractures. Joint spaces are normal. IMPRESSION: 1. Fluoroscopy utilized during likely ulnar collateral ligament repair at the left first metacarpopha langeal joint. See procedure note for further detail. Reviewed, dictated and finalized at location A. IMPRESSION: 1. Fluoroscopy utilized during likely ulnar collateral ligament repair at the l eft first metacarpophalangeal joint. See procedure note for further detail.
--- NOTE | 2024-01-21 07:08 | PM.HPGS ---
History of Present Illness History of Present Illness Chief complaint: sprain metacarpophalangeal joint left thumb Narrative: Patient seen and examined in pre-operative holding area. No interval change in medical history or symptoms. Patient recalls previous discussion of benefits and alternatives to procedure. Continues to desire to proceed with left thumb ulnar collateral ligament repair possible reconstrutcion. Reviewed procedure, post-op expectations and risks including but not limited to bleeding, infection, injury to tendon/nerve/vessel, decreased hand function, stiffness, RSD, no change or worsening of symptoms, failure of repair, donor site complications. I discussed the possible use of assistants and their participation in the case. Patient stated understanding and signed the consent form wishing to proceed. Review of Systems Review of Systems: All systems reviewed & are unremarkable except as noted in HPI and below PMFSH Past Medical History Medical History Abnormal uterine bleeding Arthritis Depression Fibromyalgia Hypercholesterolemia Hypothyroidism Lactose intolerance Lupus Lyme disease 1983 Musculoskeletal disorder Right knee medial meniscus tear Postmenopausal Seasonal allergies Sleep apnea Surgical History Surgical History Delivery by section Hx of tonsillectomy Family History Family History Mother Family history of Alzheimer's disease Father Family history of osteoarthritis Social History Social History Smoking status: Never smoker Alcohol intake: current Drinks per week: 2 Lack of Transportation: No Lack of Food: Never True Current Housing: I Have Housing Concerned About Future Housing: No Difficulty Paying Gas/Electric Bills: No Difficulty Paying for Meds: No Currently Unemployed: No Education: Master's Degree or Higher Difficulty w/ Childcare or Family Care: No Living arrangements: with family Spiritual care concerns: No Meds Home Medications and Allergies Home Medications Medication Instructions Recorded Confirmed Type bupropion HCl 200 mg tablet,12 hr 200 mg PO DAILY 09/27/19 01/12/24 History sustained-release (Wellbutrin SR) trazodone 100 mg tablet 100 mg PO HS PRN Sleep 09/27/19 01/12/24 History duloxetine 30 mg capsule,delayed 60 mg PO HS 03/13/22 01/12/24 History release thyroid (pork) 30 mg tablet (AUT[employer]ER 30 mg PO DAILY 12/01/23 01/12/24 History Thyroid) ascorbic acid (vitamin C) 1,500 mg 1,500 mg PO DAILY 01/12/24 01/12/24 History tablet,extended release meloxicam 15 mg tablet 15 mg PO DAILY 01/12/24 01/12/24 History minerals 1 tablet PO DAILY 01/12/24 01/12/24 History omeprazole magnesium 20 mg 20 mg PO DAILY 01/12/24 01/12/24 History tablet,delayed release (Prilosec OTC) prasterone (dhea) 25 mg capsule 25 mg PO DAILY 01/12/24 01/12/24 History (DHEA) spironolactone 100 mg tablet 100 mg PO DAILY ACNE 01/12/24 01/12/24 History vitamin E 400 unit tablet 45 mg PO DAILY 01/12/24 01/12/24 History Allergies Allergy/AdvReac Type Severity Reaction Status Date / Time Chocolate AdvReac Unknown INCREASES Uncoded 01/12/24 14:02 INFLAMMATION Exam Narrative: unchanged Assessment and Plan Assessment and plan (1) Sprain of metacarpophalangeal joint of left thumb: Qualifiers: Encounter type: initial encounter Qualified Code(s): S63.642A - Sprain of metacarpophalangeal joint of left thumb, initial encounter Code(s): S63.642A - Sprain of metacarpophalangeal joint of left thumb, initial encounter Status: Acute Assessment and Plan: cont as above
--- NOTE | 2024-01-21 07:09 | P.OP_ITS ---
Procedure Note - Detailed Date of Procedure 01/21/24 Pre-op Diagnosis sprain metacarpophalangeal joint left thumb Post-op Diagnosis Same Procedure Performed left thumb UCL repair Surgeon Zulema Pizarro MD Inspector Brake Lining Jamel Mccall PA-C Anesthesia MAC Description of Procedure INFORMED CONSENT: The patient was seen and examined and marked in the pre-op area.? The patient signed the consent form. PROCEDURE IN DETAIL:The patient taken back to OR on the stretcher in supine position. Time out performed with anesthesia, surgeon and staff agreeing on patient's name site and surgery to be performed SCDs were placed on the lower extremities and inflated. A tourniquet was placed on {left} upper extremity and antibiotics given IV After anesthesia administered sedation I injected {6}cc 1%lido with epi and 0.5% marcaine plain for digital block in the palm. The?{left upper extremity}?was prepped and draped in sterile fashion the??{left upper extremity} was? exsanguinated with Esmarch bandage and tourniquet inflated to 250mmHg I made a sigmoid incision over the ulnar collateral ligament left thumb through skin and dermis with a 15 blade scalpel. Littler scissors were used to spread through subq down to adductor aponeurosis. A dorsal branch of dorsal radial nerve was identified and retracted dorsally and protected throughout the procedure. I made an incision in the adductor and proceeded with dissection to joint capsule. I made an incision in the ulnar MPJoint capsule and identiifed the completely torn ulnar collateral ligament that was detached proximally. I proceeded with placing 3-0 fiberwire through the ligament and then proceeded with placeing an arthrex swivel lock anchor proximally in standard fashion using the 3-0 fiberwire as well as internal brace while the thumb mpjoint was reduced. There was good resistance to radial deviation. I proceeded with placing another arthrex swivel lock in the proximal phalanx in standard fashion verifying k-wire placement with mini c-arm and secured one strand of the internal brace to the proximal phalanx with the swivel lock anchor. Placement and maintenance of reduction was verified on mini c-arm. I irrigated with noramal saline and repaired the capsule with 4-0 vicryl 5-0 prolene was used to repair the adductor aponeurosis. Skin was closed with 4-0 monocryl for dermis and subcuticular. A dressing of Dermabond, 4x4, meka, and a thumb spica splint was applied for patient safety, security, and comfort and secured with an cari bandage after the tourniquet was let down noting the hand was warm and well perfused. The patient was then awaken from anesthesia and transferred to the recovery room in stable condition.? Complications - none EBL- 0cc Disposition - home in stable conditions Jamel Mccall PA-C was essential for positioning, retraction, closure and dressing placement G Billing Surgery - Charge Forward: Surgery Billing ([id number] for jamel)
--- NOTE | 2024-01-21 08:24 | WPDANESEPPF ---
Anes - Initial Pre Proc Eval Procedure: Operation Date: 01/21/24 09:15 Proposed Procedures p Left Thumb Ulnar Collateral Ligament Repair, Possible Reconstruction - Zulema Pizarro MD Date/Time: 01/21/24 08:24 Surgeon: Zulema Pizarro MD Pre Op Diagnosis: sprain metacarpophalangeal joint left thumb Patient Data Age: 68 Gender: F Height: 1.73 m Weight: 104.8 kg Allergies Allergy/AdvReac Type Severity Reaction Status Date / Time Chocolate AdvReac Unknown INCREASES Uncoded 01/21/24 08:19 INFLAMMATION Home Medications Medication Instructions Recorded Confirmed Type bupropion HCl 200 mg tablet,12 hr 200 mg PO DAILY 09/27/19 01/12/24 History sustained-release (Wellbutrin SR) trazodone 100 mg tablet 100 mg PO HS PRN Sleep 09/27/19 01/12/24 History duloxetine 30 mg capsule,delayed 60 mg PO HS 03/13/22 01/12/24 History release thyroid (pork) 30 mg tablet (SCRUM MASTER 30 mg PO DAILY 12/01/23 01/21/24 History Thyroid) ascorbic acid (vitamin C) 1,500 mg 1,500 mg PO DAILY 01/12/24 01/12/24 History tablet,extended release meloxicam 15 mg tablet 15 mg PO DAILY 01/12/24 01/12/24 History minerals 1 tablet PO DAILY 01/12/24 01/12/24 History omeprazole magnesium 20 mg 20 mg PO DAILY 01/12/24 01/12/24 History tablet,delayed release (Prilosec OTC) prasterone (dhea) 25 mg capsule 25 mg PO DAILY 01/12/24 01/12/24 History (DHEA) spironolactone 100 mg tablet 100 mg PO DAILY ACNE 01/12/24 01/12/24 History vitamin E 400 unit tablet 45 mg PO DAILY 01/12/24 01/12/24 History oxycodone-acetaminophen 5 mg-325 1 tablet PO Q6H PRN pain #8 tabs 01/21/24 Rx mg tablet Patient hx anesthesia problems: none Family hx anesthesia problems: none Results Review: All pre-operative results and documents have been reviewed as part of the pre-operative evaluation. [facility] Past Medical History Medical History Abnormal uterine bleeding Arthritis Depression Fibromyalgia Hypercholesterolemia Hypothyroidism Lactose intolerance Lupus Lyme disease 1983 Musculoskeletal disorder Right knee medial meniscus tear Postmenopausal Seasonal allergies Sleep apnea Surgical History Surgical History Delivery by section Hx of tonsillectomy Family History Family History Mother Family history of Alzheimer's disease Father Family history of osteoarthritis Social History Social History Smoking status: Never smoker Alcohol intake: current Drinks per week: 2 Lack of Transportation: No Lack of Food: Never True Current Housing: I Have Housing Concerned About Future Housing: No Difficulty Paying Gas/Electric Bills: No Difficulty Paying for Meds: No Currently Unemployed: No Education: Master's Degree or Higher Difficulty w/ Childcare or Family Care: No Living arrangements: with family Spiritual care concerns: No Anes - Eval Final PreProcedure Day of Procedure 01/21/24 08:24 Patient weight: obese Heart: regular rate and rhythm Lungs: clear to auscultation Airway: Mallampati scale class II Neurological: alert and oriented Last oral intake: >/= 8 hours ASA classification: III Emergent: no Anesthetic plan: proceed Anesthesia type and monitoring: general LMA and standard monitoring Results Review: All pre-operative results and documents have been reviewed as part of the pre-operative evaluation. Informed Consent: The patient's anesthetic plan and its attendant risks and benefits were discussed with the patient/family/POA. Questions were solicited and answers provided to the satisfaction of the patient/family/POA.
[2024-01-21] MEDS: ceFAZolin 2 GM/D5W 50 ML 2 GM/50 ML BAG IVPB (09:05)
[2024-01-21] MEDS: LIDO 1%/EPINEPHRINE/PF 1:200,000 30 ML VIAL 10 ML XX (09:11)
[2024-01-21] MEDS: BUPivacaine HCL 0.5% 10 ML AMP INFILTRATE (09:11)
[2024-01-21] MEDS: LACTATED RINGERS 1,000 ML 30 ML IV CONT (10:05)
[2024-01-21] MEDS: fentaNYL CITRATE INJ (*CRX) 100 MCG/2 ML VIAL 25 MCG IV PUSH ×4 (10:17→10:27)
== END 2024-01-21 11:21 | disposition home or self-care (01) ==
PROVIDERS: PCP Family Medicine; Visit Provider Plastic Surgery
PROC: (CPT 26540; principal; 2024-01-21 09:15)
DX: S63.642A Sprain of metacarpophalangeal joint of left thumb, initial encounter (principal); V80.010A Animal-rider injured by fall from or being thrown from horse in noncollision accident, initial encounter; E78.00 Pure hypercholesterolemia, unspecified; E03.9 Hypothyroidism, unspecified; M79.7 Fibromyalgia; F32.A Depression, unspecified; G47.30 Sleep apnea, unspecified; M32.9 Systemic lupus erythematosus, unspecified; E66.9 Obesity, unspecified; Z68.34 Body mass index [BMI] 34.0-34.9, adult
CPT/HCPCS: 26540; 99199; C1713; J0690; J1100; J2250; J2405; J2704; J3010; J7120

== ENCOUNTER 2024-02-19 11:50 | Emergency (ER) | payer MEDICARE, SELFPAY ==
--- NOTE | ~2024-02-19 | XR_ITS ---
Right wrist Technique: PA, oblique, lateral, and ulnar deviation views were obtained. Clinical History: Pain Findings: No acute fracture or dislocation is seen. Prior ORIF hardware partially imaged at the dista l ulnar shaft. Osseous alignment is anatomic. Joint spaces are preserved. Soft tissues are unremarkab le. Impression: No acute abnormality. Prior ORIF of the distal ulnar shaft, partially included in the [id number]. Reviewed, dictated and finalized at location M. Impression: No acute abnormality. Prior ORIF of the distal ulnar shaft, partially included in the [id number].
[2024-02-19 12:11] VITALS: BP 115/74; PULSE 62; RESP 20; TEMP 36.4; O2SAT 97
--- NOTE | 2024-02-19 12:16 | ED.GENADULT ---
HPI - General Adult General Chief complaint: Extremity Problem,Nontraumatic Stated complaint: R WRIST PAIN Source: patient, RN notes reviewed and old records reviewed Mode of arrival: ambulatory Limitations: no limitations History of Present Illness HPI narrative: 68-year-old female presents to [facility] with complaints of right wrist pain that started few days ago. patient denies injury. Patient states has been picking up in tearing limbs down from a fall injury. Patient states also to be have slept on arm wrong. Patient not tried anything for pain. Related Data Home Medications Medication Instructions Recorded Confirmed bupropion HCl 200 mg tablet,12 hr 200 mg PO DAILY 09/27/19 02/19/24 sustained-release (Wellbutrin SR) trazodone 100 mg tablet 100 mg PO HS PRN Sleep 09/27/19 02/19/24 duloxetine 30 mg capsule,delayed 60 mg PO HS 03/13/22 02/19/24 release thyroid (pork) 30 mg tablet ([employer] 30 mg PO DAILY 12/01/23 02/19/24 Thyroid) ascorbic acid (vitamin C) 1,500 mg 1,500 mg PO DAILY 01/12/24 02/19/24 tablet,extended release minerals 1 tablet PO DAILY 01/12/24 02/19/24 omeprazole magnesium 20 mg 20 mg PO DAILY 01/12/24 02/19/24 tablet,delayed release (Prilosec OTC) prasterone (dhea) 25 mg capsule 25 mg PO DAILY 01/12/24 02/19/24 (DHEA) spironolactone 100 mg tablet 100 mg PO DAILY ACNE 01/12/24 02/19/24 vitamin E 400 unit tablet 45 mg PO DAILY 01/12/24 02/19/24 Allergies Allergy/AdvReac Type Severity Reaction Status Date / Time Chocolate AdvReac Unknown INCREASES Uncoded 02/19/24 12:28 INFLAMMATION Review of Systems Constitutional: Constitutional: Reports no additional constitutional complaints, Denies body ache(s), Denies chills, Denies fatigue, Denies fever(s) and Denies headache(s) Eyes: Eyes: Reports no additional eye complaints and Denies blurry vision ENT: Reports system reviewed and no additional complaints, except as documented, Denies vertigo, Denies dizziness, Denies ear discharge, Denies otalgia, Denies facial pain, Denies headache(s), Denies nasal congestion, Denies nasal discharge, Denies sinus pain, Denies sinus pressure and Denies sore throat Cardiovascular: Cardiovascular: Reports no additional cardiovascular complaints, Denies chest pain, Denies chest pain at rest, Denies rapid heart rate and Denies dyspnea Respiratory: Respiratory: Reports no additional respiratory complaints, Denies chest congestion, Denies cough, Denies pain on inspiration, Denies pain with cough and Denies dyspnea Gastrointestinal: Gastrointestinal: Denies abdominal pain, Denies diarrhea, Denies nausea and Denies vomiting Musculoskeletal: Musculoskeletal: Reports as per HPI Comments: Right wrist pain Integumentary/Breasts: Skin/Breast: Denies rash Neurologic: Reports system reviewed and no additional complaints, except as documented, Denies vertigo, Denies dizziness and Denies headache(s) Endocrine: Endocrine: Denies fatigue PMFSH Past Medical History Medical History Abnormal uterine bleeding Arthritis Depression Fibromyalgia Hypercholesterolemia Hypothyroidism Lactose intolerance Lupus Lyme disease 1982 Musculoskeletal disorder Right knee medial meniscus tear Postmenopausal Seasonal allergies Sleep apnea Surgical History Surgical History Delivery by section Hx of tonsillectomy Family History Family History Mother Family history of Alzheimer's disease Father Family history of osteoarthritis Social History Social History Smoking status: Never smoker Alcohol intake: current Drinks per week: 2 Lack of Transportation: No Lack of Food: Never True Current Housing: I Have Housing Concerned About Future Housing: No Difficulty Pay
== END 2024-02-19 12:54 | disposition home or self-care (01) ==
PROVIDERS: Emergency Provider Registered Nurse; PCP Family Medicine
DX: S66.911A Strain of unspecified muscle, fascia and tendon at wrist and hand level, right hand, initial encounter (principal); X58.XXXA Exposure to other specified factors, initial encounter; M19.90 Unspecified osteoarthritis, unspecified site; M79.7 Fibromyalgia; E78.00 Pure hypercholesterolemia, unspecified; E03.9 Hypothyroidism, unspecified
CPT/HCPCS: 73110; 99213; G0463

== ENCOUNTER 2024-03-19 10:00 | Outpatient (RCR) | payer MEDICARE, SELFPAY ==
--- NOTE | 2024-02-10 11:54 | OTOPEVAL1 ---
Assessment and note entered by Klaus Joe, GELACIO/Arley, CHT Evaluation Information Assessment Status Evaluation Diagnosis s/p left thumb UCL repair Onset 01/21/24 Subjective Information The injury occurred in July when she fell off a horse. Delayed repair (01/21/24). She presents today for fabrication of a removable splint. She is right handed. Reports no pain. Reported Pain Level Pain Score 0: Self Report Assessment OT Clinical Summary Patient presents ~3 weeks following left thumb UCL repair. Today a custom fitted forearm based thumb spica was fabricated to support and protect the repaired structures. Forearm based appeared to be the best option for the patient as she is very active in manual tasks at home. Continued follow up indicated to progress functional ROM, strength, and use of her left hand/thumb. Plan of Care Interventions Therapeutic Exercise,Manual Therapy,Therapeutic Activities,Hot Pack/Cold Pack,Paraffin OT Services Indicated Yes Treatment Frequency and 1-2x/week for 6 visits Duration These treatments will address the objective and functional deficits as defined above. The patient will be advanced safely and appropriately in order for the patient to progress towards his/her prior level of function. Additional exercises will be introduced and as well as a comprehensive home exercise program upon discharge, if needed, ?to ensure carryover of functional gains achieved in the clinic. This treatment plan has been reviewed and agreement upon by the patient.
--- NOTE | 2024-02-10 11:54 | OPREHPOC ---
Outpatient Therapy Plan of Care This is a Multidisciplinary Plan of Care that may contain components documented by all disciplines (PT, OT, and ST.) OT Problem 1 OT Problem #1 Knowledge Deficit OT Goal 1 Goal 1. Patient to be compliant with splint wearing schedule. 2. Patient to be independent with instructed materials. Target Visit 7 OT Problem 2 OT Problem #2 Impaired Range of Motion OT Goal 1 Goal 1. Patient to be able to complete composite flexion of the thumb, being able to touch the thumb to the base of digit V. Target Visit 7 OT Problem 3 OT Problem #3 Impaired Strength OT Goal 1 Goal 1. 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 Target Visit 7
--- NOTE | 2024-02-19 14:03 | PCOTNOTE ---
Patient called & cancelled scheduled appointment this date due to being at urgent care for her right wrist.
--- NOTE | 2024-03-26 11:50 | PCOTNOTE ---
Patient did not show up for scheduled appointment this date. Called patient to inform her of her missed appt and to remind her of her next.
--- NOTE | 2024-04-19 12:49 | OTOPDC ---
Assessment and note entered by Klaus Joe, GELACIO/Arley, CHT OT Discharge Notification 04/19/24 OT Clinical Summary Patient referred to OT following left thumb UCL repair. She did not show to her last appointment and we are unable to contact her. Therapy was overall going well. She had regained normal ROM of the thumb and had been working on light pinching tasks in the clinic. She is being discharged from OT services due to lack of attendance.
== END 2024-04-19 16:23 | disposition home or self-care (01) ==
LOC: ANHOT 10:00
PROVIDERS: PCP Family Medicine; Visit Provider Physician Assistant Surgical
DX: S63.642D Sprain of metacarpophalangeal joint of left thumb, subsequent encounter (principal)
CPT/HCPCS: 97018; 97110; 97165; 97763; L3806

== ENCOUNTER 2024-04-30 15:40 | Outpatient (CLI) | payer MEDICARE, SELFPAY ==
--- NOTE | ~2024-04-30 | MM_ITS ---
EXAMINATION: MM screening mariusz BI w sunil HISTORY: Screening TECHNIQUE: Craniocaudal and mediolateral oblique 3-D tomosynthesis images were obtained and synthetic 2-D images were generated. CAD analysis was submitted and interpreted. COMPARISON: 02/26/2023 BREAST PARENCHYMAL COMPOSITION: Not dense: There are scattered areas of fibroglandular density. FINDINGS: There is no evidence of suspicious mass, calcification, or architectural distortion to sugg est malignancy in either breast. There has been no suspicious interval change. IMPRESSION: 1. No mammographic evidence of malignancy. 2. Recommend routine screening mammography in one year. BI-RADS Category 1: Negative Reviewed, dictated and finalized at location B.
== END 2024-04-30 15:41 ==
LOC: MICIMG 15:41
PROVIDERS: PCP Family Medicine; Visit Provider Family Medicine
DX: Z12.31 Encounter for screening mammogram for malignant neoplasm of breast (principal)
CPT/HCPCS: 77063; 77067

== ENCOUNTER 2024-08-27 11:59 | Outpatient (CLI) | payer MEDICARE, SELFPAY ==
--- NOTE | ~2024-08-27 | XR_ITS ---
Left Knee Technique: AP, lateral, and sunrise views were obtained. Clinical History: Arthritis Findings: No fracture or dislocation is seen. There is mild medial compartment narrowing with mild me dial joint line osteophyte formation. There is minimal patellar spurring. Soft tissues are unremarkab le. No joint effusion is seen. Impression: Degenerative changes, as above, worst in the medial compartment. Reviewed, dictated and finalized at location M. Impression: Degenerative changes, as above, worst in the medial compartment.
--- NOTE | ~2024-08-27 | XR_ITS ---
Right Knee Technique: AP, lateral, and sunrise views were obtained. Clinical History: Arthritis Findings: No fracture or dislocation is seen. There is mild medial compartment narrowing. Minimal med ial joint line osteophyte formation present.. Soft tissues are unremarkable. No joint effusion is see n. Impression: Mild to mild/moderate degenerative change of the medial compartment. Reviewed, dictated and finalized at location M. Impression: Mild to mild/moderate degenerative change of the medial compartment.
== END 2024-08-27 12:00 | disposition home or self-care (01) ==
PROVIDERS: PCP Orthopaedic Surgery; Visit Provider Orthopaedic Surgery
DX: M17.0 Bilateral primary osteoarthritis of knee (principal)
CPT/HCPCS: 73564

== ENCOUNTER 2024-11-30 13:40 | Outpatient (CLI) | payer MEDICARE, SELFPAY ==
--- OUTSIDE RECORDS SUMMARY | 2024-11-30 13:39 | XMS_ITS | Data Portability ---
Author Organization [facility] [place] Address [address] [place] [address] Care Team Providers Care Exterminator Helper Termite Name Role Phone GERALD KHAN Primary Care Provider Assessment Encounter Date Assessment Date Assessment LastModified by Organization Details LastModified Time 07/17/2021 07/17/2021 pt jose f well f/u pending pathology Not available 07/18/2021 09:34:17 08/21/2022 08/21/2022 Annual gynecological exam performed. Patient will come back in a year unless there are new symptoms. Suggest Calcium with Vitamin D if not eating in diet. Patient advised to get annual flu shot. Recommend yearly physicals and preform monthly breast exams. Genetic testing is available for patients with family history of cancer. Engage in safe sexual practices, use condoms. Encouraged to have daily exercise. Avoid tobacco and illicit drugs, moderation of alcohol. If BMI greater than 25 dietary consult advised. If you have any questions please call or email. may have refill of steroid cream if needed Not available 08/21/2022 15:37:47 09/02/2023 09/02/2023 Annual gynecological exam performed. Patient will come back in a year unless there are new symptoms. [email or web address] Not available 09/02/2023 09:05:12 Plan of Treatment Reminders Order Date Submit Date Provider Last Modified By Organization Details Last Modified Time Details Appointments None recorded. Lab culture, urine 2019 020 [facility]), [address], [address], [place], [address], 0 12:16:16 culture, urine 2020 021 [facility] (Lab), [address], [place], [address], 1 22:42:07 urinalysis , dipstick 2020 021 lemuel [facility], [address], [address], [place], [address], 1 12:00:30 Referral None recorded. Procedures None recorded. Surgeries None recorded. Imaging MAMMO, screening, digital, bilateral 2022 023 [facility], [address], [address], [place], [address], 4 05:01:41 Medication Orders None recorded. Patient TargetsNo targets recorded. Patient InstructionsNo instructions recorded. Reason for Referral None Reported. Results Created Date Observation Date Name Description Value Unit Range Abnormal Flag Note LastModifiedBy Organization Detail LastModifiedTime 04/06/20 20 04/10/2020 pap, LB Pap test thin prep Negati ve for Intrae pithel ial Lesion or Malign shannon normal ACCES JUDY #: [id number] [facility] e: Cervi robles/E ndoce rvica l LMP: 10/27 Date Taken : 04/06 Speci men Type: ThinP rep Vial Date Repor barron: 2019 Clini robles Data: Cytot ech: Wilmar Silver x, CT( CP) Date Repor barron: 2019 Speci men Adequ acy: Satis facto ry for evalu ation Gener al Categ oriza tion: NEGAT ANDREINA FOR INTRA EPITH ELIAL LESIO N OR MALIG NIKKI Inter preta tion/ Resul t: Atrop hy This speci men has been checo zed by the ThinP rep Imagi ng Syste m, an inter activ e compu ter syste m which luis ts the lab in the scree arnold of ThinP rep Pap Test slide s. Follo wing imagi ng, the slide was revie wed by a Cytot stevie logis t and/o r Patho logis t. D N A A S S A Y S R E P O R T TEST NAME RESUL AGAPITO ----- ---- ----- -- HPV High Risk Jerad caballero (TMA) ThinP rep Vial The human papil lomav irus (HPV) High Risk Jerad caballero is an FDA-a pprov ed in-vi tro ampli fied nucle ic acid test for the quali tativ e detec tion of E6/E7 viral mRNA. Resul ts shoul d be corre lated with patie nt prese ntati on, histo ry, cervi robles cytol ogy and other clini robles and labor atory findi ngs. See https ://SeroMatch/s ites/ defau lt/fi les/ 018-0 3AW- [id number] _002_ 01.pd f for [facility] alan infor matnettie n. Test perfo rmed by [facility] [employer], d/b/a [facility], [address], [place] [address] , Abril Arredondo ra, DO, Labor atory [facility]. HPV High Risk *HPV NOT DETEC BARRON (TYPE S 16, 18, 31, 33, 35, 39, 45, 51, 52, 56, 58, 59, 66, 68) *HPV: The human papil lomav irus (HPV) High Risk Jerad caballero is an FDA-a pprov ed in-vi tro ampli fied nucle ic acid test for the quali tativ e detec tion of E6/E7 viral mRNA. Resul ts shoul d be corre lated with patie nt prese ntati on, histo ry, cervi robles cytol ogy and other clini robles and labor atory findi ngs. See https ://SeroMatch/s ites/ defau lt/fi les/ 018-0 3/AW- [id number] _002_ 01.pd f for [facility] er infor matio n. Test perfo rmed by [facility] [employer], d/b/a [facility], [address], [place] [address] , Abril Arredondo ra, DO, Labor ator [facility]. End of Repor t Techn ical servi steven provi ded by [facility] iated [facility]o logis [employer], d/[employer] [facility], [address] [place] [address] Mark Lawson MD, [facility]. Case revie wed and diagn osis rende red at [facility] [employer], [employer], d/[employer]/[facility], [address] [place] [address] Mark Lawson MD, [facility]. CONFI DENTI AL Not Available [facility]) [address] [place] [address] [address], [place], [address], 04/10/2020 14:23:57 04/06/20 20 04/07/2020 HPV DNA, high- risk HPV high risk NOT DETECT ED normal Not Available [facility]) [address] [place] [address] [address], [place], [address], 04/10/2020 14:23:58 04/07/20 20 04/09/2020 cultu re, urine specimen source Urine - Void Not Available [facility]) [address] [place] [address] [address], [place], [address], 04/09/2020 12:16:16 04/07/20 20 04/09/2020 cultu re, urine culture, urine See Below No growt h Not Available [facility]) [address] [place] [address] [address], [place], [address], 04/09/2020 12:16:16 07/11/20 21 07/11/2021 CULTU RE: URINE result report SEE RESULT S BELOW Test: Cultu re: Urine Speci men Sourc e: Urine Voide d Speci men Type: Urine Speci men Date: 2020 1:13 PM Resul t Date: 2020 9:39 PM Resul t Statu s: Final resul t Abnor mal: No Resul ting Lab: [facility] [address] [facility] [address] Tel: CULTU RE ----- ----- ----- --- No growt h in 1 day (dete ction level of 10,00 0 colon ies / ml.) Not Available [facility] (Lab) [address] [facility] [facility], [place], [address], 07/12/2021 22:42:07 07/11/20 21 07/11/2021 IMAGE GUIDE D PAP AND HPV REGAR DLESS image guided Pap, HPV regardless of Pap result SEE RESULT S BELOW CASE REPOR T: Cytol ogy Gynec ologi robles Repor t Case: [id number] Autho kieran shah Provi reynold: Halima Douglas, GUANACO Colle cted: 07/11 1310 Order ing Locat ion: [place] Patho logy Recei kaylan: 07/11 2357 First Scree n: Saurabh Manzanares , CT Rescr een: Cortney Wyatt, CT Speci men: Scree arnold Pap - Image d, Cervi x STATE MENT OF ADEQU ACY: Satis facto ry for evalu ation Trans forma tion zone compo nent canno t be defin itive ly ident ified due to the prese nce of atrop hy or other hormo nal heath es Parti ally obscu ring blood prese nt. FINAL DIAGN OSIS: Negat andreina for Intra epith elial Ruth n or Rachelle keller (NIL) Atrop hic cell damari kaminski Elect navjot gonzales marisela d by Cortney Wyatt, CT on 2020 at 6:39 AM ----- ----- ----- ----- ----- ----- ----- ----- ----- ----- ----- ----- ----- ----- ----- ----- ----- ---- HPV RESUL TS: HPV mRNA E6/E7 : No HPV mRNA Detec barron NOTE: This high risk HPV mRNA assay detec ts fourt een high- risk HPV types (16, 18, 31, 33, 35, 39, 45, 51, 52, 56, 58, 59, 66, 68) witho ut diffe renti ation . COMME NT: Note: This speci men was revie wed by a Cytot echno logis t and/o r Patho logis t (as indic ated in this repor t) after evalu ation using the Thinp rep Imagi ng Syste m. CLINI ROBLES INFOR MATIO N: Menst rual Statu s: LMP (if appli cable ): 010 Clini robles Histo ry/Pr eviou s Pap: Type of Neopl quinn (if appli cable ): Signi fican t Clini robles Findi ngs: Other Histo ry: Hormo alexandre (if appli cable ): PAP EDUCA DIANA L NOTE: The Pap Test is a scree arnold test with an inher ent false negat andreina rate. Liqui d-bas e sampl ing may decre ase, but will not elimi glenn, false negat andreina resul ts. A negat andreina resul t does not precl ude the prese nce and/o r devel opmen t of disea se, since the prese nce of abnor mal cells in the sampl e depen ds on the locat ion of the lesio n and sampl ing techn ique. Kin nued regul ar scree arnold is the best metho d of cance r preve ntion . If repor barron cytol ogic findi ng do not corre late with physi robles and/o r histo rical findi ngs, furth er inves tigat ion is recom judith d, as clini florencio yadav nted. Not Available [facility] (Lab) [address], [place], [address], 07/16/2021 07:41:56 07/11/20 21 07/11/2021 urina lysis , dipst ick Leukocytes + Not Available Antonio menjivar [address], [place], [address], 07/11/2021 11:57:23 07/17/20 21 07/17/2021 SURGI ROBLES PATHO LOGY surgical pathology SEE RESULT S BELOW CASE REPOR T: Surgi robles Patho logy Repor t Case: [id number] Autho kieran shah Provi reynold: Leah Lara, SALVAGE MEND WORKER Colle cted: 07/17 1454 Order ing Locat ion: [place] Patho logy Recei kaylan: 07/18 0051 Patho logis t: Harvey Dupont MD Speci men: labia bx FINAL DIAGN OSIS: Labia , biops y: -Psor iasif orm and spong iotic derma titis with parak erato sis, see comme nt. -Nega tive for dyspl quinn and carci noma. -PAS- D stain is negat andreina for funga l organ isms. -Mult iple addit ional level s exami bessy. Elect navjot gonzales marisela d by Harvey Dupont MD on 2020 at 10:02 AM ----- ----- ----- ----- ----- ----- ----- ----- ----- ----- ----- ----- ----- ----- ----- ----- ----- ---- COMME NT: The histo logic findi ngs are nonsp ecifi c. The diffe renti al diagn osis inclu aleah eczem atous proce sses, infec tious etiol ogies , and less likel y psori asis. There is no compe lling evide nce of liche n scler osus in this biops y. Recom mend clini robles corre latio n. This case was seen in intra depar tment al revie w with agree ment on the above diagn osis on . CLINI ROBLES INFOR MATIO N: not provi ded MICRO SCOPI C DESCR IPTIO N: A micro scopi c exami natio n was perfo rmed. GROSS DESCR IPTIO N: A. U. The speci men is label ed with the patie nt's name, demog julia cs and labi a BX . Recei kaylan in forma doris is a 0.3 cm piece of white -herrera tissu e. The entir e speci men is submi tted in one casse tte. Gross ed by Naheed batista Not Available [facility] (Lab) [address] [facility], [place], [address], 07/19/2021 11:05:16 08/21/20 22 08/21/2022 IMAGE GUIDE D PAP AND HPV REGAR DLESS image guided Pap, HPV regardless of Pap result SEE RESULT S BELOW CASE REPOR T: Cytol ogy Gynec ologi robles Repor t Case: [id number] Autho kieran shah Provi reynold: Leah Lara, RUSTAM Colle cted: 08/21 1738 Order ing Locat ion: [place] Patho logy Recei kaylan: 08/22 0428 First Scree n: Elma green, Ankush moreira, CT Speci men: Scree arnold Pap - Image d, Cervi x STATE MENT OF ADEQU ACY: Satis facto ry for evalu ation Trans forma tion zone compo nent canno t be defin itive ly ident ified due to the prese nce of atrop hy or other hormo nal heath es FINAL DIAGN OSIS: Negat andreina for Intra epith elial Lesnettie caballero or Rachelle keller (NIL) . Atrop hic nathen wetzel rn. Amy antonio d by Ankush Hooper am, CT on 2021 at 7:06 AM ----- ----- ----- ----- ----- ----- ----- ----- ----- ----- ----- ----- ----- ----- ----- ----- ----- ---- HPV RESUL TS: HPV mRNA E6/E7 : No HPV mRNA Detec barron NOTE: This high risk HPV mRNA assay detec ts fourt een high- risk HPV types (16, 18, 31, 33, 35, 39, 45, 51, 52, 56, 58, 59, 66, 68) witho ut diffe renti ation . COMME NT: Note: This speci men was revie wed by a Cytot echno logis t and/o r Patho logis t (as indic ated in this repor t) after evalu ation using the Thinp rep Imagi ng Syste m. CLINI ROBLES INFOR MATIO N: Menst rual Statu s: LMP (if appli cable ): Clini robles Histo ry/Pr eviou s Pap: Type of Neopl quinn (if appli cable ): Signi fican t Clini robles Findi ngs: Other Histo ry: Hormo alexandre (if appli cable ): PAP EDUCA DIANA L NOTE: The Pap Test is a scree arnold test with an inher ent false negat andreina rate. Liqui d-bas ed sampl ing may decre ase, but will not elimi glenn, false negat andreina resul ts. A negat andreina resul t does not precl ude the prese nce and/o r devel opmen t of disea se, since the prese nce of abnor mal cells in the sampl e depen ds on the locat ion of the lesio n and sampl ing techn ique. Kin nued regul ar scree arnold is the best metho d of cance r preve ntion . If repor barron cytol ogic findi ng do not corre late with physi robles and/o r histo rical findi ngs, furth er inves tigat ion is recom judith d, as clini florencio yadav nted. Not Available [facility] (Lab) [address], [place], [address], 08/27/2022 08:10:49 06/02/20 20 06/02/2020 MAMMO , scree arnold, bilat eral No observ ation record ed. [facility] [address], [place], [address], 06/20/2020 20:18:29 09/07/20 21 09/07/2021 MAMMO , scree arnold, bilat eral No observ ation record ed. [facility] [address], [place], [address], 09/13/2021 10:18:57 01/30/20 23 01/15/2023 DEXA, axial skele ton + verte bral fract ure asses sment No observ ation record ed. [facility] [address], [place], [address], 02/02/2023 23:41:45 02/06/20 DEXA, axial skele ton + verte bral fract ure asses sment No observ ation record ed. [facility] [address], [place], [address], 02/06/2023 15:57:04 02/27/20 23 02/26/2023 MAMMO , scree arnold, bilat eral No observ ation record ed. [email or web address] [facility] [address], [place], [address], 08/25/2023 14:15:39 02/27/20 23 02/26/2023 MAMMO , scree arnold, bilat eral No observ ation record ed. [facility] [address], [place], [address], 03/13/2023 05:29:32 Result Notes None recorded. Problems Name Problem SNOMED Code Status Onset Date Resolution Date Notes Provider Name and Address Organization Details Recorded Time Anxiety state 455155345 Completed 201307/10/2021 Anxiety; Recorded Elsewher e: No Locat ion: [facility] S ource: E[employer] gerber: N Panchitoti ce ID: 0001 Crispin lable Time: 10:30:00 AM Trena leon [facility] 14:49:06 Depressi ve disorder [id number] Completed 201307/10/2021 Depressi on;Recor ded Elsewher e: No Locat ion: [facility] N Panchitoti ce ID: 0001 Crispin lable Time: 10:30:00 AM Trena leon [facility] 14:49:20 Screenin g for malignan t neoplasm of rectum Completed 201507/10/2021 Encounte r for screenin g for malignan t neoplasm of rectum;R ecorded Elsewher e: No Locat ion: [facility] N Panchitoti ce ID: 0001 Crispin lable Time: 10:00:00 AM Trena leon [facility] 14:49:13 Evaluati on finding Completed 201607/10/2021 Unspecif ied abnormal cytologi robles findings in specimen s from cervix uteri;Re corded Elsewher e: No Locat ion: [facility]: N Panchitoti ce ID: 0001 Crispin lable Time: 11:15:00 AM Trena leon [facility] 14:49:11 Blood leukocyt e number above referenc e range [id number] Completed 201807/10/2021 Elevated white blood cell count, unspecif ied;Antony rded Elsewher e: No Locat ion: [facility] N Panchitoti ce ID: 0001 Crispin lable Time: 01:00:00 PM Trena leon [facility] 14:49:21 Sexually transmit barron infectio us disease 1932175 Completed 201307/10/2021 SPECIAL SCREEN EXAM HPV;Antony rded Elsewher e: No Locat ion: [facility] S ource: E[employer] gerber: N Dilan ce ID: 0001 Crispin lable Time: 11:30:00 AM Trena Lopez [facility] 14:49:31 Speciali zed medical examinat ion Completed 201307/10/2021 Gynecolo gical Examinat ion;Antony rded Elsewher e: No Locat ion: [facility] S ource: [employer] gerber: N Dilan ce ID: 0001 Crispin lable Time: 11:30:00 AM Trena Lopez [facility] 14:49:29 Atypical glandula r cells on cervical Papanico laou smear [id number] Completed 201407/10/2021 Abnormal glandula r Papanico laou smear of cervix;R ecorded Elsewher e: No Locat ion: [facility] S ource: [employer] gerber: Rico Kong ce ID: 0001 Crispin lable Time: 02:30:00 PM Trena Lopez [facility] 14:49:27 Adult health examinat ion Completed 201407/10/2021 ROUTINE MEDICAL EXAM;Rec orded Elsewher e: No Locat ion: [facility] S ource: E[employer] gerber: N Dilan ce ID: 0001 Crispin lable Time: 03:00:00 PM Trena Lopez [facility] 14:49:[address] Concept Completed 201607/10/2021 Encntr for sports intern exam (general ) (routine ) w/o abn findings ;Recorde d Elsewher e: No Locat ion: [facility] S ource: EHR [employer] gerber: N Dilan ce ID: 0001 Crispin lable Time: 10:00:00 AM Trena leon [facility] 14:49:[address] Concept Completed 201607/10/2021 Encntr for general adult medical exam w/o abnormal findings ;Recorde d Elsewher e: No Locat ion: [facility] S ource: EHR [employer] gerber: N Dilan ce ID: 0001 Crispin lable Time: 10:00:00 AM Trena leon [facility] 14:49:15 Body mass index 30+ - obesity [id number] Completed 201807/10/2021 Body mass index (BMI) 35.0-35. 9, adult;Re corded Elsewher e: No Locat ion: [facility] S ource: EHR [employer] gerber: N Dilan ce ID: 0001 Crispin lable Time: 01:00:00 PM Trena leon [facility] 14:49:03 Pregnanc y test negative [id number] Completed 201407/10/2021 Pregnanc y examinat ion or test, negative result;R ecorded Elsewher e: No Locat ion: [facility] S ource: EHR [employer] gerber: N Dilan ce ID: 0001 Crispin lable Time: 02:30:00 PM Trena leon [facility] 14:49:09 Obesity [id number] Completed 201307/10/2021 Obesity; Recorded Elsewher e: No Locat ion: [facility] S ource: EHR [employer] gerber: N Panchitoti ce ID: 0001 Crispin lable Time: 09:30:00 AM Trena leon [facility] 14:49:22 Leukocyt osis [id number] Completed 201107/10/2021 LEUKOCYT OSIS NOS;Antony rded Elsewher e: No Locat ion: [facility] S ource: EHR [employer] gerber: N Practi ce ID: 0001 Crispin lable Time: 10:00:00 AM Trena leon [facility] 14:49:02 Screenin g for malignan t neoplasm of cervix Completed 201107/10/2021 Screenin g for malignan t neoplasm s of the cervix;R ecorded Elsewher e: No Locat ion: [facility] S ource: EHR Set Up [employer] gerber: N Practi ce ID: 0001 Crispin lable Time: 10:00:00 AM Trena leon, [facility] 14:49:05 Ill-defi bessy intestin al infectio n Completed 201207/10/2021 No Show Fee;Prac elicia ID: 0001 Trena leon, [facility] 14:49:[address] Concept Completed 201807/10/2021 Encounte r for general adult medical exam w abnormal findings ;Practic e ID: 0001 [facility] 14:49:17 Problem Notes None recorded. Procedures Surgical History Date Name Laterality Status Provider Name and Address Organization Details Recorded Time 08/21/20 22 Date of Last Pap Smear completed Betty Argueta [facility] 08/21/2022 15:11:32 07/17/20 21 Punch Biopsies, Multiple completed Leah Galloway CNM [address], [place], [address], [facility] 07/18/2021 09:34:01 03/02/20 19 Date of Last Mammogram completed Trena Lopez [facility] 07/10/2021 15:00:36 07/06/20 15 Colposcopy completed Betty Argueta [facility] 07/23/2021 15:27:57 03/05/20 15 Colposcopy completed Betty Argueta [facility] 08/21/2022 13:45:32 10/27/18 91 delivery completed [facility] 04/05/2020 13:37:46 10/27/18 90 termination of [facility] 07/23/2021 15:29:40 10/27/18 90 Dilation and Curettage completed [facility] 04/05/2020 13:37:24 Imaging Results Imaging Date Name Status LastModified by Organiz ation Details LastModified Time 06/02/2020 MAMMO, screening, bilateral completed [facility] [address], [place], [address], 06/20/2020 20:18:29 09/07/2021 MAMMO, screening, bilateral completed [facility] [address], [place], [address], 09/13/2021 10:18:57 01/15/2023 DEXA, axial skeleton + vertebral fracture assessment completed [facility] [address], [place], [address], 02/02/2023 23:41:45 02/05/2023 DEXA, axial skeleton + vertebral fracture assessment completed [facility] [address], [place], [address], 02/06/2023 15:57:04 02/26/2023 MAMMO, screening, bilateral completed [address] [facility] [address], [place], [address], 08/25/2023 14:15:39 02/26/2023 MAMMO, screening, bilateral active [facility] [address], [place], [address], 03/13/2023 05:29:32 Procedure Notes None recorded. Medical Equipment None Reported. Allergies Allergen ID Allergen Name Allergen Category Reaction Reaction Severity Criticality Documentation Date Start Date Code Code System Note Provider Name and Address Organization Details Recorded Time 953 Product containin g penicilli n and antibioti c (product) medicatio n Not available Not available Not available 04/05/2020 01967 05 SNOMED Betty Argueta [place], [place] - [facility] 2 15:11:11 Medications Name Sig Start Date Stop Date Status Note LastModified by Organization Details LastModified Time prednison e 10 mg tablet TAKE 4 TABS DAILY DAYS 1-3, 3 TABS DAILY DAYS 4-6, 2 TABS DAILY DAYS 7-9, 1 TAB DAILY DAYS 10-12 08/21 completed Not Available Not Available Not Available esterifie d estrogens -methylte stosteron e 0.625 mg-1.25 mg tablet take 1 tablet by oral route for 21 consecut andreina days, followed by 7 days off 01/28 completed Prescrib ed Elsewher e: Yes Loca tion: [facility] odify By: jesusita castro DateTime : 04/28/20 14 01:00:41 PM Not Available Not Available Not Available trazodone 50 mg tablet take 1 tablet by oral route 3 times every day after meals 07/10 completed Prescrib ed Elsewher e: Yes Loca tion: [facility] odify By: ryland z Encoun ter DateTime : 03/02/20 19 01:00:00 PM Not Available Not Available Not Available fluconazo le 150 mg tablet take 1 tablet by oral route once 07/10 completed Prescrib ed Elsewher e: Yes Loca tion: [facility] odify By: ryland z Encoun ter DateTime : 03/02/20 19 01:00:00 PM Not Available Not Available Not Available fluconazo le 200 mg tablet PLEASE SEE ATTACHED FOR DETAILED DIRECTIO NS 07/10 completed Not Available Not Available Not Available spironola ctone 100 mg tablet TAKE 1 TABLET BY MOUTH EVERY DAY active Not Available Not Available No t Available nystatin 500,000 unit tablet TAKE 2 TABLETS TWICE A DAY BY ORAL ROUTE. 07/10 completed Not Available Not Available Not Available omeprazol e 40 mg capsule,d elayed release TAKE 1 CAPSULE BY MOUTH EVERY DAY BEFORE A MEAL 2020 active Not Available Not Available Not Avai lable vancomyci n 125 mg capsule take 1 capsule by oral route every 6 hours 07/10 completed Prescrib ed Elsewher e: Yes Loca tion: Trish gamez [facility] odify By: ryland camp DateTime : 03/02/20 19 01:00:00 PM Not Available Not Available Not Available baclofen 20 mg tablet take 1 tablet by oral route 4 times every day 04/28 completed Prescrib ed Elsewher e: Yes Loca tion: Francieelsielester gamez [facility] odify By: gerard camp DateTime : 01/16/20 12 08:05:30 PM Not Available Not Available Not Available [place] Thyroid 15 mg tablet 07/10 completed Prescrib ed Elsewher e: Yes Loca tion: Francieelsielester gamez [facility] odify By: gerard camp DateTime : 04/28/20 14 01:00:41 PM Not Available Not Available Not Available progester one 50 mg/mL intramusc ular oil inject 0.1 millilit er by intramus cular route every day 01/28 completed Prescrib ed Elsewher e: Yes Loca tion: Trish gamez [facility] odify By: jesusita castro DateTime : 04/28/20 14 01:00:41 PM Not Available Not Available Not Available famotidin e 20 mg tablet TAKE 1 TABLET BY MOUTH TWICE A DAY 08/21 completed Not Available Not Available Not Available amitripty line 25 mg tablet take 1 tablet by oral route every day at bedtime 01/28 completed Prescrib ed Elsewher e: No Locat ion: Trish ade [facility] odify By: jesusita castro DateTime : 07/19/20 14 08:45:00 AM Not Available Not Available Not Available Zoloft 50 mg tablet take 1 tablet by oral route every day 06/06 completed Prescrib ed Elsewher e: No Locat ion: Trish gamez [facility] javierify By: jesusita castro DateTime : 09/15/20 14 10:30:00 AM Not Available Not Available Not Available cefaclor 250 mg capsule TAKE 1 CAPSULE BY MOUTH TWICE A DAY 07/10 completed Not Available Not Available Not Available rifampin 150 mg capsule take by oral route every day up to 600 mg 1 hour before a meal or 2 hours after a meal 06/06 completed Prescrib ed Elsewher e: Yes Loca tion: Trish gamez [facility] odify By: jesusita castro DateTime : 07/19/20 14 08:45:00 AM Not Available Not Available Not Available trazodone 100 mg tablet TAKE 1 TABLET BY MOUTH EVERYDAY AT BEDTIME active Not Available Not Available No t Available doxycycli ne monohydra te 100 mg capsule TAKE 1 CAPSULE BY MOUTH TWICE A DAY 08/21 completed Not Available Not Available Not Available Ponaris nasal solution DIRECTED DAILY NASALLY 30 DAYS 07/10 completed Not Available Not Available Not Available triamcino lone acetonide 0.1 % topical ointment APPLY THIN COAT TO AFFECTED AREA TWICE A DAY active Not Available Not Available No t Available Flagyl 375 mg capsule take 1 capsule by oral route every 6 hours 07/19 completed Prescrib ed Elsewher e: Yes Loca tion: Trish gamez [facility] odify By: gerard camp DateTime : 04/28/20 14 01:00:41 PM Not Available Not Available Not Available Wellbutri n 75 mg tablet take 1 tablet by oral route 3 times every day 07/10 completed Prescrib ed Elsewher e: Yes Loca tion: Trish gamez [facility] odify By: jesusita castro DateTime : 06/10/20 16 10:00:00 AM Not Available Not Available Not Available ranitidin e 150 mg capsule take 1 capsule by oral route 2 times every day 07/10 completed Prescrib ed Elsewher e: Yes Loca tion: Trish gaemz [facility] odify By: ryland z Encoun ter DateTime : 03/02/20 19 01:00:00 PM Not Available Not Available Not Available gabapenti n 100 mg capsule take 1 by oral route 2 times every day 07/10 completed Prescrib ed Elsewher e: Yes [facility] odify By: cmselia z Encoun ter DateTime : 03/02/20 19 01:00:00 PM Not Available Not Available Not Available albuterol sulfate HFA 90 mcg/actua tion aerosol inhaler TAKE 2 PUFFS BY MOUTH 4 TIMES A DAY NEEDED FOR SHORTNES S OF BREATH OR WHEEZING active Not Available Not Available No t Available sertralin e 20 mg/mL oral concentra te take 2.5 millilit er by oral route every day and mix with 4 oz. (1/2 cup) of water, brennan brandi, lemon/li me soda, lemonade or orange juice ONLY 07/06 completed Prescrib ed Elsewher e: Yes Loca tion: [facility] odify By: sameer malikunter DateTime : 06/06/20 15 03:00:00 PM Not Available Not Available Not Available fludrocor tisone 0.1 mg tablet TAKE 1 TABLET BY MOUTH EVERY FRIDAY/W /FRIDAY, MAY INCREASE TO 1 TABLET EVERY DAY IF NEEDED 07/10 completed Not Available Not Available Not Available amoxicill in 875 mg-potass ium clavulana te 125 mg tablet TAKE 1 TABLET BY MOUTH EVERY 12 HOURS FOR 7 DAYS 08/21 completed Not Available Not Available Not Available Denta 5000 Plus 1.1 % cream BRUSH WITH TWICE DAILY 07/10 completed Not Available Not Available Not Available bupropion HCl SR 200 mg tablet,12 hr sustained -release TAKE 1 TABLET BY MOUTH EVERY DAY IN THE MORNING active Not Available Not Available No t Available Testim 50 mg/5 gram (1 %) transderm al gel apply by topical route every day (1 tube = 50 mg) 06/06 completed Prescrib ed Elsewher e: Yes Loca tion: [facility] odify By: jesusita Gamez ncounter DateTime : 04/28/20 14 01:00:41 PM Not Available Not Available Not Available duloxetin e 30 mg capsule,d elayed release TAKE 1 CAPSULE BY MOUTH EVERY DAY active Not Available Not Available No t Available duloxetin e 60 mg capsule,d elayed release TAKE 1 CAPSULE BY MOUTH EVERY DAY FOR 90 DAYS active Not Available Not Available No t Available [place] Thyroid 08/21 completed Not Available Not Available Not Available fluconazo le 07/10 completed Not Available Not Available Not Available fludrocor tisone 07/10 completed Not Available Not Available Not Available Flagyl 07/10 completed Not Available Not Available Not Available trazodone 08/21 completed Not Available Not Available Not Available Wellbutri n 08/21 completed Not Available Not Available Not Available gabapenti n 07/10 completed Not Available Not Available Not Available sodium fluoride 1.1 % dental paste BRUSH TEETH WITH MEDICATE D TOOTHPAS TE TWICE DAILY 07/10 completed Not Available Not Available Not Available Savella 12.5 mg tablet take 2 tablet by oral route 2 times every day 04/28 completed Prescrib ed Elsewher e: Yes Loca tion: [facility] odify By: gerard camp DateTime : 01/17/20 12 10:00:00 AM Not Available Not Available Not Available heparin (porcine) 5,000 unit/mL (1 mL) injection cartridge inject 1 millilit er by subcutan eous route every 12 hours 01/28 completed Prescrib ed Elsewher e: Yes Loca tion: [facility] odify By: jesusita castro DateTime : 07/06/20 15 02:30:00 PM Not Available Not Available Not Available SALVAGE [employer] Thyroid 30 mg tablet TAKE 5 TABLETS EVERY DAY BY ORAL ROUTE IN THE MORNING. active Not Available Not Available No t Available Aczone 7.5 % topical gel with pump 07/10 completed Not Available Not Available Not Available Aklief 0.005 % topical cream active Not Available Not Available Not Available Vitals Date Recorded Body height Body mass index (BMI) Body weight Systolic blood pressure Diastolic blood pressure Provider Name and Address Organization Details Last Updated DateTime 07/11/2021 173.99 cm 35.5 kg/m2 541717.3 9 g 137 mm[Hg] 53 mm[Hg] Trena Lopez [facility] 1 11:44:31 Date Recorded Body height Body mass index (BMI) Body weight Systolic blood pressure Diastolic blood pressure Provider Name and Address Organization Details Last Updated DateTime 07/17/2021 173.99 cm 35.7 kg/m2 880526.9 8 g 111 mm[Hg] 73 mm[Hg] Betty Argueta [facility] 1 12:58:48 Date Recorded Body height Body mass index (BMI) Body weight Systolic blood pressure Diastolic blood pressure Provider Name and Address Organization Details Last Updated DateTime 04/06/2020 173.99 cm 34.9 kg/m2 733403.0 2 g 111 mm[Hg] 71 mm[Hg] Sabine Choi [facility] 0 14:54:35 Date Recorded Body height Body mass index (BMI) Body weight Systolic blood pressure Diastolic blood pressure Provider Name and Address Organization Details Last Updated DateTime 08/21/2022 173.99 cm 34.6 kg/m2 814517.8 4 g 118 mm[Hg] 76 mm[Hg] Betty Argueta [facility] 2 15:09:57 Date Recorded Body weight Systolic blood pressure Diastolic blood pressure Provider Name and Address Organization Details Last Updated DateTime 09/02/2023 806288.27 g 126 mm[Hg] 72 mm[Hg] Lindsay Ramirez [facility] 09/02/2023 14:10:24 Social History Question Answer Notes LastModified by Organizat ion Details LastModified Time Tobacco Smoking Status Never Smoker Betty Argueta [facility], [facility] 08/21/2022 15:12:42 Do You Have An Advance Directive? Yes [email or web address] Information not available 08/21/2022 What Is Your Level Of Alcohol Consumption? Occasional [email or web address] Information not available 07/11/2021 How Many Years Have You Consumed Alcohol? 40 [email or web address] Information not available 07/11/2021 Are You Blind Or Do You Have Difficulty Seeing? No [email or web address] Information not available 07/11/2021 What Is Your Level Of Caffeine Consumption? Heavy [email or web address] Information not available 07/11/2021 In The 14 Days Before Symptom Onset, Have You Had Close Contact With A Laboratory-confir med COVID-19 While That Case Was Ill? No [email or web address] Information not available 07/11/2021 In The 14 Days Before Symptom Onset, Have You Had Close Contact With A Person Who Is Under Investigation For COVID-19 While That Person Was Ill? No [email or web address] Information not available 07/11/2021 Have You Been To An Area Known To Be High Risk For COVID-19? No Information not available 07/11/2021 Are You Deaf Or Do You Have Serious Difficulty Hearing? No [email or web address] Information not available 07/11/2021 What Type Of Diet Are You Following? GLUTENFREE [email or web address] Information not available 07/11/2021 What Is The Highest Grade Or Level Of School You Have Completed Or The Highest Degree You Have Received? 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 Yes [email or web address] Information not available 07/11/2021 Do You Use Protection During Sex? No Information not available 07/11/2021 Do You Use Your Seat Belt Or Car Seat Routinely? Yes [email or web address] Information not available 07/11/2021 Do You Have Smoke And Carbon Monoxide Detectors In Your Home? Yes [email or web address] Information not available 07/11/2021 How Much Tobacco Do You Smoke? No [email or web address] Information not available 07/11/2021 Do You Feel Stressed (tense, Restless, Nervous, Or Anxious, Or Unable To Sleep At Night)? DI0744-5 [email or web address] Information not available 07/11/2021 Do You Use Any Illicit Or Recreational Drugs? No Information not available 08/21/2022 Do You Use Sunscreen Routinely? Yes [email or web address] Information not available 08/21/2022 Have You Used IV Drugs? No [email or web address] Information not available 07/11/2021 Sex: Unknown Functional Status Question Answer Note LastModified by Organizat ion Details LastModified Time Do you have difficulty walking or climbing stairs? No [email or web address] Information not available 08/21/2022 Are you able to walk? YESWOREST [email or web address] Information not available 07/11/2021 Are you able to care for yourself? Yes [email or web address] Information not available 08/21/2022 Do you have difficulty dressing or bathing? No [email or web address] Information not available 08/21/2022 What is your exercise level? Heavy [email or web address] Information not available 07/11/2021 Mental Status None recorded. Family History Relationship Description Onset Age of this Age Resolved Age Notes LastModified by Organization Details LastModified Time Maternal Grandmother Malignant tumor of cervix [email or web address] Not available 2019 13:36:03 Maternal Grandmother Diabetes mellitus type 2 [email or web address] Not available 2019 13:36:18 Paternal Grandmother Mental disorder psychi atric diseas e jgumber Not available 04/05/2020 13:36:42 Notes:Cancer risk form compl ete 07/10/2021 Medical History Condition Response Allergies (Food, seasonal, environmental ) Y Other Y Breast Cancer N Drug/Latex Allergies/Reactions Y Blood Transfusion N Dermatologic Disorders N Lung Disease N Defects or Inherited Disease N Breast Problem N Gestational Diabetes N Hematologic disorders N Anesthesia Complications N History of STI Y Deep Vein Thrombosis Y Polycystic ovary syndrome N Anxiety Disorder Y Autoimmune disease N Arthritis N Infertility N Polyps N Acid Reflux (GERD) Y History of abnormal pap Y Cancer N Stroke N Varicosities N Neurologic/Epilepsy Y Endometriosis N High Cholesterol N Headaches N Fibromyalgia N Kidney Disease N Heart Problems N Kidney or Bladder Problems N Thyroid Problems Y GI Problems N Eating Disorder N Anemia N Art (IVF or FET) N Psychiatric Illness N Diabetes N Pulmonary (TB, Asthma) N Hepatitis/Liver Disease N No Past Medical History N Eczema N Urinary Tract Infection N Abuse/Domestic Violence N Asthma Y Trauma/Violence N Depression/ depression Y Heart Disease N Pre-Eclampsia N Hypertension N Osteoporosis N Thrombophilias Y Gynecological History Statement/Question Response Date of Last Mammogram 03/02/2019 Date of LMP 10/27/2008 N STIs/STDs Y If Post Menopausal, Age at Menopause 54 Abnormal Pap Yes On BCP's at Conception? N HPV Vaccine Y Colposcopy 03/05/2015 Current Control Method Menopause 54 Age at First Child 22 Sexually Active? N Date of DEXA bone scan Age of first menstrual cycle 15 Date of Last Pap Smear 08/21/2022 Sexual Problems? N LMP Definite N 06/06/2015 Obstetrics History GPAL:G 4 P 2 0 2 2 Type Value Full Term 2 Induced 1 Spontaneous 1 Living 2 Total 4 Past Encounters Encounter ID Performer Location Encounter Start Date Encounter Closed Date Diagnosis/Indication Diagnosis SNOMED-CT Code Diagnosis ICD10 Code Diagnosis Note [id number] Halimaaiden Valles [facility] [address] [address] 04/06/2020 14:44:37 04/06/2020 16:24:16 Gynecologic examination 72230092 Z01.419 Take Calcium with Vitamin D 12-1500mg daily. Do monthly self breast exams. It is advised to get annual flu shot in the fall and she could obtain at [facility] or [facility]. If you haven't received the Tdap vaccine in the last 10 years you should obtain one as well. Have mammogram yearly, bone density every 2-3 years and colonoscop y every 5-10 years depending on findings and history. History of recent UTI. Will send urine for culture. Engage in daily exercise of low impact aerobic exercise 45-60 minutes 4-5 times weekly. Avoid tobacco and illicit drugs as well as using moderation with alcohol intake less than 1-2 8 oz beverages daily. This lifestyle behavior pattern will lead to less health conditions and longer life span. If BMI greater than 25 weight watchers or dietary consult advised. Questions have been answered. Patient appears to understand instructio ns, but if you have any further questions call or respond to this email.p [id number] Halima Valles [place] [address] [address] 07/11/2021 11:36:42 07/11/2021 13:52:44 Routine gynecologic examination done 3653190346 9101 Z01.419 Leukocytes in urine 2757 45369 R82.79 No symptoms. Will await culture. Gynecologi c examination 33374230 Z01.419 Take Calcium with Vitamin D 12-1500mg daily. Do monthly self breast exams. It is advised to get annual flu shot in the fall and she could obtain at [facility] or [facility]. If you haven't received the Tdap vaccine in the last 10 years you should obtain one as well. Have mammogram yearly, bone density every 2-3 years and colonoscop y every 5-10 years depending on findings and history. Engage in daily exercise of low impact aerobic exercise 45-60 minutes 4-5 times weekly. Avoid tobacco and illicit drugs as well as using moderation with alcohol intake less than 1-2 8 oz beverages daily. This lifestyle behavior pattern will lead to less health conditions and longer life span. If BMI greater than 25 weight watchers or dietary consult advised. Questions have been answered. Patient appears to understand instructio ns, but if you have any further questions call or respond to this email. Vaginitis [id number] N76.0 Biopsy to be scheduled. Discussed possibilit y of lichen sclerosus. Will go ahead and treat with diflucan d/t history of yeast and itching. [id number] Leah Galloway CNM [facility] [address],[place] [address] 07/17/2021 12:41:22 07/18/2021 22:54:49 Lesion of vulva 723895921 N90.89 [id number] Leah Galloway CNM [place] [address],[place] [address] 08/21/2022 14:59:54 08/21/2022 16:04:22 Gynecologic examination 29494495 Z01.419 [id number] CELINE Narayan [place] [address],[place] [address] 09/02/2023 13:22:48 09/02/2023 15:01:59 Gynecologic examination 88370755 Z01.419 WWEpostmen opausalpap updatedSTI testing declinedma mmogram order given - due 4dex a UTD - due next ologu susannah UTD / PCPUTD with routine labsRTC in 1 yr or sooner if needed Take Calcium with Vitamin D daily.Do monthly self breast exams.It is advised to get annual flu shot in the fall and she could obtain at [facility] or [facility]. If you haven't received the Tdap vaccine in the last 10 years you should obtain one as well.Have mammogram yearly, bone density every 2-3 years and colonoscop y every 5-10 years depending on findings and history.En ray in daily exercise of low impact aerobic exercise 45-60 minutes 4-5 times weekly. Avoid tobacco and illicit drugs as well as using moderation with alcohol intake less than 1-2 8 oz beverages daily. This lifestyle behavior pattern will lead to less health conditions and longer life span. If BMI greater than 25 weight watchers or dietary consult advised.Qu estions have been answered. Patient appears to understand instructio ns, but if you have any further questions call or respond to this email Screening for malignant neoplasm of breast 567487324 Z12.39 Health Concerns Section Related Observation LastModified by Organization Detai ls LastModified Time None Recorded Concern Status LastModified by Organization Details LastModified Time None Recorded Advance Directives Directive Y: Payers Encounter Date Sequence Insurance Name Policy Number Policy López Covered Member ID López Member ID Guarantor Name 04/06/2020 1 [employer] - CHOICE (POS II) [id number] 201 Deirdre Joya Abusharbain [id number] Deirdre Joya Abusharbain 07/11/2021 1 [employer] - CHOICE (POS II) [id number] 201 Deirdre Joya Abusharbain [id number] Deirdre Joya Abusharbain 07/17/2021 1 [employer] - CHOICE (POS II) [id number] 201 Deirdre Joya Abusharbain [id number] Deirdre Joya Abusharbain 08/21/2022 1 [employer] - CHOICE (POS II) [id number] 201 Deirdre Joya Abusharbain [id number] Deirdre Joya Abusharbain 09/02/2023 1 [employer] (MEDICARE REPLACEMENT PPO) [id number] Deirdre Yadavjose alfredo [id number] Deirdre Joya Abmariluarbjefe Notes Date Note Type Note Provider Name and Address Organization Details Recorded Time 04/06/2020 text/html Annual GYNReport ed bypatient.Menstrua l cycle:Normal menses Urinary symptoms:No hematuria; No incontinence; History of frequent UTI. Has seen urologist. Finished abx 1 month ago. Feels like she might have another one starting. Vulva:No genital lesion Vagina:Normal vaginal discharge Breast:No breast pain; No breast lump; No nipple discharge Sexual complaints:No sexual complaints; No pain during intercourse; Normal libido Menopausal Symptoms:No menopausal symptoms; Normal vaginal lubrication Psychological symptoms:No depression; No anxiety; No PMDD Halima leon [facility] 04/06/2020 16:12:38 07/11/2021 text/html Annual GYNReport ed bypatient.Urinary symptoms:No hematuria; No incontinence Vulva:No genital lesion Vagina:Normal vaginal discharge Breast:No breast pain; No breast lump; No nipple discharge Sexual complaints:No sexual complaints; No pain during intercourse; Normal libido Menopausal Symptoms:No menopausal symptoms; Normal vaginal lubrication Psychological symptoms:No depression; No anxiety; No PMDD Right labial irritation Halima leon [facility] 07/11/2021 13:06:36 07/17/2021 text/html pt here for labi al biopsy per CNM, reviewed risks including bleeding and infection consent signed Leah Galloway CNM [address], [place], [address], [facility] 07/18/2021 09:34:30 08/21/2022 text/html Annual GYNReport ed bypatient.Menstrua l cycle:menopause Urinary symptoms:No hematuria; No incontinence Vulva:No genital lesion Vagina:Normal vaginal discharge Breast:No breast pain; No breast lump; No nipple discharge Sexual complaints:No sexual complaints; No pain during intercourse; Normal libido Menopausal Symptoms:No menopausal symptoms; Normal vaginal lubrication Psychological symptoms:No depression; No anxiety; No PMDD Preventive measures:Encourage self breast examination; Encourage regular exercise; Encourage no tobacco use; Encourage regular mammograms starting age 42Notes:saw derm 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 08/21/2022 15:37:54 09/02/2023 text/html Annual Senior Policy Associate Post-MenopausalRep orted bypatient.Menopaus al Symptoms:no menopausal symptoms; normal vaginal lubrication Vaginal Bleeding:history of menopause having occurred; no history of post menopausal bleeding Urinary Symptoms:no hematuria; no incontinence; no nocturia; no urinary frequency Vulva:no genital lesion; no vulvar atrophy Vagina:normal vaginal discharge; no vaginal atrophy Breast:no breast lump; no nipple discharge; no breast pain Sexual Complaints:no sexual complaints Psychological Symptoms:no depression; no anxiety Preventive Measures:encourage regular mammograms starting age 40; encourage self breast examination; encourage regular exercise; encourage no tobacco use; mammogram performed within the past yearNotes:hx of ab pap 2015last pap 07/2022 - normalmammogram UTD - ologuard UTD / PCPdexa UTD - 01/2023 CELINE Narayan [address], [place], [address], [facility] 09/02/2023 14:46:04 OBGyn Episode Ob Episode Information Episode Created Date Number of Fetuses Patient Bloodtype Patient rh Status Prepregnancy Weight lbs Domestic Partner Domestic Partner Phone Father Name Iv Rn Status 04/06/20 20 1 CLOSED Fetus Data First Name Last Name Admitted to NICU Weight (g) Sex Living Outcome Pediatric Complications Fetus ID Race Codes Race Delivery Type 4309.12 4 F Full Term 2186 Primary Jose Calculation Initial Jose Date Initial Exam Date Initial Exam Provider Initial Ultrasound Date Last Menstrual Period Date Ultra Sound Weeks Gestation 0 Eighteen To Twenty Week Jose Update Ultra Sound Date Fundal Height At Umbil Quickening Date Ultra Sound Latest Weeks Gestation Final Jose Confirmed By Final Jose Confirmed Date Final Jose Date Ultra Sound Latest Days Gestation 0 0 Menstrual History Last Menstrual Date Menses Monthly On Bcp Conception Prior Menses Frequency Hcg Plus Date Menarche Onset Age Delivery Information Delivery Date Delivery Type Labor Anesthesia Weeks Gestation Incision Type Labor Labor Length Hrs Delivered By Post Complications Tubal Sterilization Discharge Date Comments 12/25/199 1 40 Discharge Information Feeding Method Contraceptive Method Maternal HG B and HCT Levels Ob Episode Information Episode Created Date Number of Fetuses Patient Bloodtype Patient rh Status Prepregnancy Weight lbs Domestic Partner Domestic Partner Phone Father Name Iv Rn Status 04/06/20 20 1 CLOSED Fetus Data First Name Last Name Admitted to NICU Weight (g) Sex Living Outcome Pediatric Complications Fetus ID Race Codes Race Delivery Type 3175.14 4 F Full Term 2187 Vaginal Delivery Jose Calculation Initial Jose Date Initial Exam Date Initial Exam Provider Initial Ultrasound Date Last Menstrual Period Date Ultra Sound Weeks Gestation 0 Eighteen To Twenty Week Jose Update Ultra Sound Date Fundal Height At Umbil Quickening Date Ultra Sound Latest Weeks Gestation Final Jose Confirmed By Final Jose Confirmed Date Final Jose Date Ultra Sound Latest Days Gestation 0 0 Menstrual History Last Menstrual Date Menses Monthly On Bcp Conception Prior Menses Frequency Hcg Plus Date Menarche Onset Age Delivery Information Delivery Date Delivery Type Labor Anesthesia Weeks Gestation Incision Type Labor Labor Length Hrs Delivered By Post Complications Tubal Sterilization Discharge Date Comments 9 40 given up for adoption Discharge Information Feeding Method Contraceptive Method Maternal HG B and HCT Levels Ob Episode Information Episode Created Date Number of Fetuses Patient Bloodtype Patient rh Status Prepregnancy Weight lbs Domestic Partner Domestic Partner Phone Father Name Iv Rn Status 04/06/20 20 1 CLOSED Fetus Data First Name Last Name Admitted to NICU Weight (g) Sex Living Outcome Pediatric Complications Fetus ID Race Codes Race Delivery Type , Spontane ous [id number] Jose Calculation Initial Jose Date Initial Exam Date Initial Exam Provider Initial Ultrasound Date Last Menstrual Period Date Ultra Sound Weeks Gestation 0 Eighteen To Twenty Week Jose Update Ultra Sound Date Fundal Height At Umbil Quickening Date Ultra Sound Latest Weeks Gestation Final Jose Confirmed By Final Jose Confirmed Date Final Jose Date Ultra Sound Latest Days Gestation 0 0 Menstrual History Last Menstrual Date Menses Monthly On Bcp Conception Prior Menses Frequency Hcg Plus Date Menarche Onset Age Delivery Information Delivery Date Delivery Type Labor Anesthesia Weeks Gestation Incision Type Labor Labor Length Hrs Delivered By Post Complications Tubal Sterilization Discharge Date Comments 0 Discharge Information Feeding Method Contraceptive Method Maternal HG B and HCT Levels Ob Episode Information Episode Created Date Number of Fetuses Patient Bloodtype Patient rh Status Prepregnancy Weight lbs Domestic Partner Domestic Partner Phone Father Name Iv Rn Status 07/10/20 21 1 CLOSED Fetus Data First Name Last Name Admitted to NICU Weight (g) Sex Living Outcome Pediatric Complications Fetus ID Race Codes Race Delivery Type , Induced [id number] Jose Calculation Initial Jose Date Initial Exam Date Initial Exam Provider Initial Ultrasound Date Last Menstrual Period Date Ultra Sound Weeks Gestation 0 Eighteen To Twenty Week Jose Update Ultra Sound Date Fundal Height At Umbil Quickening Date Ultra Sound Latest Weeks Gestation Final Jose Confirmed By Final Jose Confirmed Date Final Jose Date Ultra Sound Latest Days Gestation 0 0 Menstrual History Last Menstrual Date Menses Monthly On Bcp Conception Prior Menses Frequency Hcg Plus Date Menarche Onset Age Delivery Information Delivery Date Delivery Type Labor Anesthesia Weeks Gestation Incision Type Labor Labor Length Hrs Delivered By Post Complications Tubal Sterilization Discharge Date Comments 199 0 Discharge Information Feeding Method Contraceptive Method Maternal HG B and HCT Levels
--- OUTSIDE RECORDS SUMMARY | 2024-11-30 13:39 | XMS_ITS | Patient Health Summary ---
Author Organization [facility] Yapp Address [address] [facility] [place] [address] Care Team Providers Care Tv Technician Name Role Phone Luis Dudley MD Primary Care Provider [phone] Note from [facility],non-owned Affiliates and Associated Physician Practices is amultiple site organization consisting of ambulatory clinics and hospital sitesin [place], [place], [place] and [place]. This disclosure is being madepursuant to the Care Everywhere program and may not contain all information available regarding this patient. Last updated 18.[facility] Allergies * Penicillins Medications * Be aware that medications may not be up to date on this document. Alwaysverify current medications with the patient. * Naproxen Sodium 220 MG CAPS Take 660 mg by mouth 2 times daily. * omeprazole (PRILOSEC) 20 MG capsule(Started 08/29/2009) Take 1 Cap by mouth daily before breakfast. 2 refills left * DULoxetine (CYMBALTA) 30 MG capsule Take 90 mg by mouth daily. * baclofen (LIORESAL) 20 MG tablet Take 20 mg by mouth 3 times daily. Take 1 tab by mouth 3 times daily * vitamin D, ergocalciferol, (DRISDOL) 70091 UNIT capsule(Started 12/20/2010) Take 1 Cap by mouth. Take 1 tab daily on Friday for 16 weeks then 1 per month 4 refills left * traZODone (DESYREL) 50 MG tablet(Started 12/25/2010) Take 1 Tab by mouth at bedtime. 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 Immunizations * PNEUMOCOCCAL PPSV23(Given 06/01/2010) * TETANUS(Given 10/27/2007) Social History Tobacco Use Types Packs/Day Years Used Date Smoking Tobacco: Never Smokeless Tobacco: Never Alcohol Use Standard Drinks/Week Comments Yes 0 (1 standard drink = 0.6 oz pur e alcohol) RARE Sex and Gender Information Value Date Recorded Sex Assigned at Not on file Gender Identity Not on file Sexual Orientation Not on file Last Filed Vital Signs Vital Sign Reading Time Taken Comments Blood Pressure 126/82 09/27/2019 2:51 PM SPORTS BOOK BOARD ATTENDANT Pulse 122 09/27/2019 2:51 PM SPORTS BOOK BOARD ATTENDANT Temperature 37.1 ??C (98.7 ??F) 09/27/2019 2:51 PM CS T Respiratory Rate 18 09/27/2019 2:51 PM SPORTS BOOK BOARD ATTENDANT Oxygen Saturation 96% 09/27/2019 2:51 PM SPORTS BOOK BOARD ATTENDANT Inhaled Oxygen Concentration - - Weight 103 kg (227 lb) 09/27/2019 2:51 PM SPORTS BOOK BOARD ATTENDANT Height 172.7 cm (5' 8 ) 09/27/2019 2:51 PM SPORTS BOOK BOARD ATTENDANT Body Mass Index 34.52 09/27/2019 2:51 PM SPORTS BOOK BOARD ATTENDANT Procedures * PATHOLOGY TISSUE(Performed 12/15/2015) * HCG URINE QUALITATIVE - POCT (IP) [facility](Performed 12/15/2015) * IGG SUBCLASS 4(Performed 10/14/2015) * CBC W/O DIFFERENTIAL(Performed 10/14/2015) * COMPREHENSIVE METABOLIC PANEL(Performed 10/14/2015) * VITAMIN D 25-HYDROXY(Performed 12/06/2010) Performed for Pain in joint, multiple sites * CYCLIC CITRULLINATED PEPTIDE(CCP) AB IGG(Performed 12/06/2010) Performed for Pain in joint, multiple sites * C-REACTIVE PROTEIN SENSITIVE(Performed 12/06/2010) Performed for Pain in joint, multiple sites * LUPUS ERYTHEMATOSUS PANEL(Performed 12/06/2010) Performed for Pain in joint, multiple sites * ERYTHROCYTE SEDIMENTATION RATE(Performed 12/06/2010) Performed for Pain in joint, multiple sites * VITAMIN B12 FOLATE PANEL(Performed 12/06/2010) Performed for Pain in joint, multiple sites * RPR(Performed 12/06/2010) Performed for Pain in joint, multiple sites * TSH(Performed 12/06/2010) Performed for Pain in joint, multiple sites * CBC W AUTO DIFFERENTIAL(Performed 11/08/2010) * COMPREHENSIVE METABOLIC PANEL(Performed 11/08/2010) * LIPID PROFILE(Performed 11/08/2010) * COMPREHENSIVE METABOLIC PANEL(Performed 08/29/2009) Performed for Encounter for Long-Term (Current) Use of Other Medications, Neck Stiffness * ERYTHROCYTE SEDIMENTATION RATE(Performed 08/29/2009) Performed for Encounter for Long-Term (Current) Use of Other Medications, Neck Stiffness * CBC W AUTO DIFFERENTIAL(Performed 08/29/2009) Performed for Encounter for Long-Term (Current) Use of Other Medications, Neck Stiffness * XR CHEST 2VW(Performed 06/06/2009) Performed for Abnormal Radiographic Examination Results * PATHOLOGY TISSUE (12/15/2015 1:53 PM SPORTS BOOK BOARD ATTENDANT) Surgical Pathology Tissue CLINICAL HISTORY: Abdominal pain. FINAL DIAGNOSIS: STOMACH, BIOPSY (A): - ? ANTRAL AND OXYNTIC MUCOSA WITH CHANGES CONSISTENT WITH REACTIVE/CHEMICAL GASTROPATHY - ? NO HELICOBACTER PYLORI IDENTIFIED - ? NO INTESTINAL METAPLASIA OR DYSPLASIA IDENTIFIED ESOPHAGUS, GE JUNCTION, BIOPSY (B): - ? FOCI OF PANCREATIC HETEROTOPIA PRESENT - ? COLUMNAR (CARDIA TYPE) MUCOSA WITH FOVEOLAR HYPERPLASIA AND MILD CHRONIC INFLAMMATION - ? SQUAMOUS MUCOSA WITH REACTIVE CHANGES - ? NO DYSPLASIA OR MALIGNANCY IDENTIFIED GROSS DESCRIPTION: The specimens are received fixed in formalin in two containers for gross and microscopic examination. ??Both containers are labeled with the patient's name, Deirdre Tyler . Specimen A, gastric bx , consists of four soft, herrera-pink tissue fragments ranging in greatest dimension from 0.5 to 0.2 cm, with an aggregate measurement of 0.6 x 0.5 x 0.2 cm. The specimen is submitted in toto as A1. Specimen B, esophageal GE junction bx , consists of multiple soft, herrera-pink tissue fragments ranging in greatest dimension from 0.2 to <0.1 cm, with an aggregate measurement of 0.6 x 0.4 x 0.2 cm. ??The specimen is submitted in toto as B1. MNR for YC/edk MICROSCOPIC DESCRIPTION: Microscopic examination supports the diagnosis. JL The performance characteristics of all immunohistochemical and indirect immunofluorescence stains (if any) cited in this report were determined by the Histopathology Laboratory of [facility].?? Some of these tests were developed by our own laboratory and have not been cleared or approved by the US Food and Drug Administration.?The FDA does not require this test to go through premarket FDA review.?These tests are used for clinical purposes. They should not be regarded as investigational or for research.?? This laboratory is certified under the Clinical Laboratory Improvement Amendments (CLIA) as qualified to perform high complexity clinical laboratory testing. This case has been personally reviewed and interpreted by the attending (teaching) pathologist. Final Diagnosis performed by Jason Keith MD. Electronically signed 12/18/2015 [facility] ([facility]) Other (qualifier value) 12/15/2015 1:53 PM SPORTS BOOK BOARD ATTENDANT 12/15/2015 2:23 PM SPORTS BOOK BOARD ATTENDANT Narrative [facility] ([facility]) - 12/18/2015 11:39 AM SPORTS BOOK BOARD ATTENDANT PROBLEM LIST: The problems are not reviewed yet. Please review them in the Problem List activity and refresh this SmartLink. PRE-OP DIAGNOSIS: ??abd pain OPERATIVE PROCEDURE / FINDINGS: ??Procedure(s) with comments: EUS /reschedule EGD W/BIOPSY - Esophageal GE Junction ??Biopsy ??Gastric Biopsy ??Gastritis ??Esophagitis POST-OP DIAGNOSIS: * No post-op diagnosis entered * Collection Date->12/15/15 Collection Time-> 1:53 PM Specimen A->Stomach random gastric biopsies Specimen B->Esophagus biopsies from the esophagus at the GE junction Janes Iverson MD LAB - PATHOLOGY/CYTO LOGY ORDERABLES [facility] ([facility]) * HCG URINE QUALITATIVE - POCT (IP) [facility] (12/15/2015 10:56 AM SPORTS BOOK BOARD ATTENDANT) NEGATIVE [facility] RALS ([place]AG[place]) Comment:Corrugator Operator Helper: ISRAEL BENJAMIN 12/15/2015 10:5 6 AM SPORTS BOOK BOARD ATTENDANT Janes Iverson MD LAB - POINT OF CARE ORDERABLES [facility] [place]URI ([place]) * IGG SUBCLASS 4 (10/14/2015 10:37 AM SPORTS BOOK BOARD ATTENDANT) Pathologist [facility] IgG Subclass 4 13.9 4.0 - 86.0 mg/dL [facility] ([facility]) Comment: Test Performed at: [facility] [address] ??[phone] RACHEL BIRD MD,PHD Blood specimen (specimen) BLOOD SPECIMEN / Unknown 10/14/2015 10:37 AM SPORTS BOOK BOARD ATTENDANT 10/14/2015 10:37 AM SPORTS BOOK BOARD ATTENDANT Janes Iverson MD LAB - CHEMISTRY ORDE RABLES [facility] ([facility]) * (ABNORMAL) CBC W/O DIFFERENTIAL (10/14/2015 10:37 AM SPORTS BOOK BOARD ATTENDANT) [facility] WBC 4.9 3.8 - 10.8 Thousand/u L [facility] ([facility]) RBC 4.78 3.80 - 5.10 Million/uL [facility] ([facility]) Hemoglobin 14.9 11.7 - 15.5 g/dL [facility] ([facility]) Hematocrit 45.6(H) 35.0 - 45.0 % [facility] ([facility]) MCV 95.4 80.0 - 100.0 fL [facility] ([facility]) MCH 31.2 27.0 - 33.0 pg [facility] ([facility]) MCHC 32.7 32.0 - 36.0 g/dL [facility] ([facility]) RDW-CV 13.4 11.0 - 15.0 % [facility] ([facility]) Platelet 250 140 - 400 Thousand/u L [facility] ([facility]) Comment: Test Performed at: [facility] [address] [place], [place] ??[phone] CLAUDY SHAHID DO,MPH Blood specimen (specimen) BLOOD SPECIMEN / Unknown 10/14/2015 10:37 AM SPORTS BOOK BOARD ATTENDANT 10/14/2015 10:37 AM SPORTS BOOK BOARD ATTENDANT Janes Iverson MD LAB - HEMATOLOGY ORD ERABLES [facility] ([facility]) * (ABNORMAL) COMPREHENSIVE METABOLIC PANEL (10/14/2015 10:37 AM SPORTS BOOK BOARD ATTENDANT) Only the most recent of3 resultswithin the time period is included. Glucose 89 65 - 99 mg/dL [facility] ([facility]) Comment: ? Fasting reference interval BUN 15 7 - 25 mg/dL [facility] ([facility]) Creatinine 0.79 0.50 - 1.05 mg/dL [facility] ([facility]) Comment: For patients >49 years of age, the reference limit for Creatinine is approximately 13% higher for people identified as -Afghan. eGFR non- 83 > OR = 60 mL/min/1 .73m2 [facility] ([facility]) eGFR 96 > OR = 60 mL/min/1 .73m2 [facility] ([facility]) BUN/Creatinine Ratio NOT APPLICABLE 6 - 22 (calc) [facility] ([facility]) Sodium 136 135 - 146 mmol/L [facility] ([facility]) Potassium 4.5 3.5 - 5.3 mmol/L [facility] ([facility]) Chloride 102 98 - 110 mmol/L [facility] ([facility]) CO2 23 19 - 30 mmol/L [facility] ([facility]) Calcium 9.8 8.6 - 10.4 mg/dL [facility] ([facility]) Protein Total 7.3 6.1 - 8.1 g/dL [facility] ([facility]) Albumin 4.4 3.6 - 5.1 g/dL [facility] ([facility]) Globulin 2.9 1.9 - 3.7 g/dL (calc) [facility] ([facility]) Albumin/Globulin Ratio 1.5 1.0 - 2.5 (calc) [facility] ([facility]) Bilirubin Total 0.5 0.2 - 1.2 mg/dL [facility] ([facility]) Alkaline Phosphatase 55 33 - 130 U/L [facility] ([facility]) AST 28 10 - 35 U/L [facility] ([facility]) ALT 42(H) 6 - 29 U/L [facility] ([facility]) Comment: Test Performed at: [facility] [address] [place], [place] ??[phone] CLAUDY SHAHID DO,MPH Blood specimen (specimen) BLOOD SPECIMEN / Unknown 10/14/2015 10:37 AM SPORTS BOOK BOARD ATTENDANT 10/14/2015 10:37 AM SPORTS BOOK BOARD ATTENDANT Janes Iverson MD LAB - CHEMISTRY GABE BULLOCK [facility] ([facility]) * LUPUS ERYTHEMATOSUS PANEL (12/06/2010 3:17 PM SPORTS BOOK BOARD ATTENDANT) LILIANE Screen NEGATIVE NEGATIVE [facility] Comment: Test Performed at: [facility] [address] ??[phone] CLAUDY SHAHID DO,MPH dsDNA Antibody 1 IU/mL [facility] Comment: ? IU/mL ? Interpretation ? < or = 4 ?Negative ? 5-9 ? Indeterminate ? > or = 10 ?? Positive Sjogren's Antibodies (SSA) <1.0 NEG <1.0 NEG AI [facility] Hepatitis C Virus RNA Qualitative <1.0 NEG <1.0 NEG AI [facility] SM Antibody <1.0 NEG <1.0 NEG AI [facility] STORAGE WORKER Antibody <1.0 NEG <1.0 NEG AI [facility] Chromatin Nucleosomal Antibody <1.0 NEG <1.0 NEG AI [facility] Complement C3 143 90 - 180 mg/dL [facility] Complement C4 31 16 - 47 mg/dL [facility] Complement Total CH50 TNP U/mL [facility] Comment: * Test not performed. ?* * No suitable specimen received. * BLOOD SPECIMEN / Unknown 12/06/2010 3:17 PM SPORTS BOOK BOARD ATTENDANT 12/07/2010 5:23 AM SPORTS BOOK BOARD ATTENDANT Luis Dudley MD LAB - SEROLOGY ORDER WINIFRED Performing Organization Address [facility] de Phone Number [facility] [address] [place] [address] * (ABNORMAL) C-REACTIVE PROTEIN SENSITIVE (12/06/2010 3:17 PM SPORTS BOOK BOARD ATTENDANT) C-Reactive Protein High Sensitivity 3.9(H) mg/L [facility] Comment: Higher relative cardiovascular risk according to AHA/CDC guidelines. Consider retesting in 1 to 2 weeks to exclude a benign transient elevation in the baseline CRP value secondary to infection or inflammation. For ages >17 Years: cCRP mg/L ?Risk According to AHA/CDC Guidelines <1.0 ? Lower relative cardiovascular risk. 1.0-3.0 ?Average relative cardiovascular risk. 3.1-10.0 ? Higher relative cardiovascular risk. ? Consider retesting in 1 to 2 weeks to ? exclude a benign transient elevation ? in the baseline CRP value secondary ? to infection or inflammation. >10.0 ?Persistent elevation, upon retesting, ? may be associated with infection and ? inflammation. Test Performed at: [facility] ??[phone] CLAUDY SHAHID DO,MPH BLOOD SPECIMEN / Unknown 12/06/2010 3:17 PM SPORTS BOOK BOARD ATTENDANT 12/07/2010 5:23 AM SPORTS BOOK BOARD ATTENDANT Luis Dudley MD LAB - CHEMISTRY ORDFranco BULLOCK Performing Organization Address [facility] Co de Phone Number [facility] [address] [place] [address] * RPR (12/06/2010 3:17 PM SPORTS BOOK BOARD ATTENDANT) [facility] RPR NON-REACT ANDREINA NON - REACTIVE [facility] Comment: Test Performed at: [facility] [address] [facility] [place] [place] ??[phone] CLAUDY SHAHID DO,MPH BLOOD SPECIMEN / Unknown 12/06/2010 3:17 PM SPORTS BOOK BOARD ATTENDANT 12/07/2010 5:23 AM SPORTS BOOK BOARD ATTENDANT Luis Dudley MD LAB - CHEMISTRY GABE BULLOCK Performing Organization Address [facility] de Phone Number [facility] [phone] [place] [address] * (ABNORMAL) VITAMIN D 25-HYDROXY (12/06/2010 3:17 PM SPORTS BOOK BOARD ATTENDANT) [facility] Vitamin D, 25 Hydroxy 17(L) 30 - 100 ng/mL [facility] Vitamin D, 25 Hydroxy D2 <4 ng/mL [facility] Vitamin D, 25 Hydroxy D3 17 ng/mL [facility] Comment: 25-OHD3 indicates both endogenous production and supplementation. 25-OHD2 is an indicator of exogenous sources such as diet or supplementation. Therapy is based on measurement of Total 25-OHD, with levels <20 ng/mL indicative of Vitamin D deficiency while levels between 20 ng/mL and 30 ng/mL suggest insufficiency. Optimal levels are >/=30 ng/mL. Test Performed at: [facility] [address] ??[phone] BULMARO ZAVALA MD,FCAP BLOOD SPECIMEN / Unknown 12/06/2010 3:17 PM SPORTS BOOK BOARD ATTENDANT 12/07/2010 5:23 AM SPORTS BOOK BOARD ATTENDANT Luis Dudley MD LAB - CHEMISTRY GABE BULLOCK Performing Organization Address [facility] Co de Phone Number [facility] [phone] [place] [phone] * CYCLIC CITRUL PEPTIDE AB IGG (CCP) (12/06/2010 3:17 PM SPORTS BOOK BOARD ATTENDANT) [facility] Cyclic Citrullinated Peptide Antibody IgG <16 UNITS [facility] Comment: Reference Range Negative: ?<20 Weak Positive: ? 20-39 Moderate Positive: ?? 40-59 Strong Positive: ? >59 Test Performed at: [facility] [address] [place], [place] ??[phone] CLAUDY SHAHID DO,MPH BLOOD SPECIMEN / Unknown 12/06/2010 3:17 PM SPORTS BOOK BOARD ATTENDANT 12/07/2010 5:23 AM SPORTS BOOK BOARD ATTENDANT Luis Dudley MD LAB - CHEMISTRY G[facility] Performing Organization Address [facility] de Phone Number [facility] [address] [place] [address] * SED RATE WESTERGREN AUTO (12/06/2010 3:17 PM SPORTS BOOK BOARD ATTENDANT) Only the most recent of2 resultswithin the time period is included. Erythrocyte Sedimentation Rate Westergren 22 < OR = 30 mm/h [facility] Comment: Test Performed at: [facility] [address] [place], [place] ??[phone] CLAUDY SHAHID DO,MPH BLOOD SPECIMEN / Unknown 12/06/2010 3:17 PM SPORTS BOOK BOARD ATTENDANT 12/07/2010 5:23 AM SPORTS BOOK BOARD ATTENDANT Luis Dudley MD LAB - HEMATOLOGY [facility] Performing Organization Address [facility] de Phone Number [facility] [address] [place] [address] * VITAMIN B12 FOLATE PANEL (12/06/2010 3:17 PM SPORTS BOOK BOARD ATTENDANT) Vitamin B12 593 200 - 1100 pg/mL [facility] Folate 15.3 ng/mL [facility] Comment: ? Reference Range ? Low: ? <3.4 ? Borderline: ?3.4-5.4 ? Normal: ?>5.4 Test Performed at: [facility] [address] [place] ??[phone] CLAUDY SHAHID DO,MPH BLOOD SPECIMEN / Unknown 12/06/2010 3:17 PM SPORTS BOOK BOARD ATTENDANT 12/07/2010 5:23 AM SPORTS BOOK BOARD ATTENDANT Luis Dudley MD LAB - CHEMISTRY GABE BULLOCK Performing Organization Address [facility] de Phone Number [facility] [address] [place] [address] * TSH (12/06/2010 3:17 PM SPORTS BOOK BOARD ATTENDANT) [facility] TSH 1.17 mIU/L [facility] Comment: Reference Range > or = 20 Years ??0.40-4.50 ? Ranges First trimester ?0.20-4.70 Second trimester ?? 0.30-4.10 Third trimester ?0.40-2.70 Test Performed at: [facility] [address] [place] ??[phone] CLAUDY SHAHID DO,MPH BLOOD SPECIMEN / Unknown 12/06/2010 3:17 PM SPORTS BOOK BOARD ATTENDANT 12/07/2010 5:23 AM SPORTS BOOK BOARD ATTENDANT Luis Dudley MD LAB - CHEMISTRY GABE BULLOCK Performing Organization Address [facility] de Phone Number [facility] [address] [place] [address] * CBC W AUTO DIFFERENTIAL (11/08/2010 1:05 PM SPORTS BOOK BOARD ATTENDANT) Only the most recent of2 resultswithin the time period is included. [facility] White Blood Cell Count 5.0 3.8 - 10.8 Thousand/u L [facility] RBC 4.25 3.80 - 5.10 Million/uL [facility] Hemoglobin 13.8 11.7 - 15.5 g/dL [facility] Hematocrit 39.6 35.0 - 45.0 % [facility] MCV 93.3 80.0 - 100.0 fL [facility] MCH 32.4 27.0 - 33.0 pg [facility] MCHC 34.8 32.0 - 36.0 g/dL [facility] RDW 12.6 11.0 - 15.0 % [facility] Platelet Count 265 140 - 400 Thousand/u L [facility] Neutrophil Absolute 3020 1500 - 7800 cells/uL [facility] Lymphocytes Absolute 1550 850 - 3900 cells/uL [facility] Absolute Monocytes 265 200 - 950 cells/uL [facility] Eosinophils Absolute 150 15 - 500 cells/uL [facility] Basophils Absolute 15 0 - 200 cells/uL [facility] Granulocytes % 60.4 % [facility] Lymphocytes % 31.0 % [facility] Monocytes % 5.3 % [facility] Eosinophils % 3.0 % [facility] Basophils % 0.3 % [facility] Comment: Test Performed at: [employer] [address] [place], [place] ??[phone] CLAUDY SHAHID DO,MPH 11/08/2010 1:05 PM SPORTS BOOK BOARD ATTENDANT 11/09/2010 6:21 AM SPORTS BOOK BOARD ATTENDANT Luis Dudley MD LAB - HEMATOLOGY ORD ERABLES Performing Organization Address [facility] de Phone Number [facility] [address] [place] [address] * (ABNORMAL) LIPID PROFILE (11/08/2010 1:05 PM SPORTS BOOK BOARD ATTENDANT) Cholesterol 251(H) 125 - 200 mg/dL [facility] Comment: Test Performed at: [employer] [address] [place], [place] ??[phone] CLAUDY SHAHID DO,MPH HDL Cholesterol 55 > OR = 46 mg/dL [facility] Triglycerides 153(H) <150 mg/dL [facility] LDL Calculated 165(H) <130 mg/dL (calc) [facility] Comment: Desirable range <100 mg/dL for patients with CHD or diabetes and <70 mg/dL for diabetic patients with known heart disease. CHOL/HDLC RATIO 4.6 < OR = 5.0 (calc) [facility] 11/08/2010 1:05 PM SPORTS BOOK BOARD ATTENDANT 11/09/2010 6:21 AM SPORTS BOOK BOARD ATTENDANT Luis Dudley MD LAB - CHEMISTRY ORDFranco BULLOCK Performing Organization Address [facility] de Phone Number [facility] [address] [place] [address] * XR CHEST PA AND LATERAL (06/06/2009) Anatomical Region Laterality Modality Chest Other Luis Dudley MD [facility]NOSTIC [facility] Care Teams Tv Technician Relationship Specialty Start Date End Date Luis Dudley MD [address] [facility] [address] [place] [id number] PCP - General 05/26/09
--- OUTSIDE RECORDS SUMMARY | 2024-11-30 13:39 | XMS_ITS | Referral Summary ---
Author Organization [facility] lto Address [address] [place] [address] Care Team Providers Care Aircraft Maintenance Supervisor Name Role Phone Unavailable Primary Care Provider Unavailabl e Allergies Active Allergy Reactions Criticality Noted Date Comments Penicillins Rash Reaction: Rash, Medications buPROPion SR (WELLBUTRIN SR) 200 mg 12 hr tablet bupropion HCl SR 200 mg tablet,12 hr sustained-release TAKE 1 TABLET BY MOUTH EVERY DAY IN THE MORNING [address] (CYMBALTA) 60 mg capsule duloxetine 60 mg capsule,delayed release TAKE 1 CAPSULE BY MOUTH EVERY DAY FOR 90 DAYS 9 Active traZODone (DESYREL) 100 mg tablet trazodone 100 mg tablet TAKE 1 TABLET BY MOUTH EVERYDAY AT BEDTIME 3 Active spironolactone (ALDACTONE) 100 mg tablet spironolactone 100 mg tablet TAKE 1 TABLET BY MOUTH EVERY DAY 3 Active PERFECT BIND MACHINE OPERATOR Thyroid 30 mg tablet PERFECT BIND MACHINE OPERATOR Thyroid 30 mg tablet TAKE 5 TABLETS EVERY DAY BY ORAL ROUTE IN THE MORNING. 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 03/01/2013 Chronic infection of sinus 06/30/2012 Notalgia 05/11/2012 Bunion 02/13/2012 Acquired hallux rigidus 12/26/2011 Pain of foot 12/23/2011 Fibromyalgia 02/13/2010 Cervicalgia 02/13/2010 Social History Tobacco Use Types Packs/Day Years Used Date Smoking Tobacco: Never Tobacco Cessation:Counseling Given: Not Answered Comments Unknown Sex and Gender Information Value Date Recorded Sex Assigned at Not on file Legal Sex Female 7:13 PM AUDIOVISUAL LIBRARIAN Gender Identity Not on file Sexual Orientation Not on file Last Filed Vital Signs Vital Sign Reading Time Taken Comments Blood Pressure 96/65 04/02/2023 9:12 AM CDT Pulse 62 04/02/2023 9:12 AM CDT Temperature 36.8 ??C (98.3 ??F) 04/02/2023 9:12 AM CD T Respiratory Rate - - Oxygen Saturation - - Inhaled Oxygen Concentration - - Weight 105.3 kg (232 lb 3.2 oz) 04/02/2023 9:12 AM CDT Height 174 cm (5' 8.5 ) 04/02/2023 9:12 AM CDT Body Mass Index 34.79 04/02/2023 9:12 AM CDT Plan of Treatment Not on file Insurance [facility] on file [employer] MEDICARE A[employer] MEDICARE
--- OUTSIDE RECORDS SUMMARY | 2024-11-30 13:39 | XMS_ITS | Encounter Summary ---
Author Organization [facility] Address [address] [place] [address]. [place] [address] [place] [address] Care Team Providers Care Advanced Manufacturing Technician Name Role Phone Cliff Syed MD Primary Care Provider [phone] Encounter Details Date Type Department Care Team (Late st Contact Info) Description 06/27/2019 RX Orders Only [facility] [address] [place] [address] Ethel Montoya, PharmD Social History Tobacco Use Types Packs/Day Years Used Date Smoking Tobacco: Never Assessed Comments Unknown Sex and Gender Information Value Date Recorded Sex Assigned at Not on file Legal Sex Female 2:53 PM CDT Gender Identity Not on file Sexual Orientation Not on file documented as of this encounter Plan of Treatment Not on file documented as of this encounter Visit Diagnoses Not on filedocumented in this encounter Care Teams Advanced Manufacturing Technician Relationship Specialty Start Date End Date Cliff Syed MD [address] [place] [address] PCP - General FAMILY PRACTICE 03/25/19 documented as of this encounter
--- OUTSIDE RECORDS SUMMARY | 2024-11-30 13:39 | XMS_ITS | Clinical Summary ---
Author Organization [facility] Address [address] [place] [address] Care Team Providers Care Professor Of Oceanography Name Role Phone Luis Dudley MD Primary Care Provider [phone] Source Comments [facility],non-owned Affiliates and Associated Physician Practices is amultiple site organization consisting of ambulatory clinics and hospital sitesin [place], [place], [place] and [place]. This disclosure is being madepursuant to the Care Everywhere program and may not contain all information available regarding this patient. Last updated 18.[facility] Allergies Active Allergy Reactions Criticality Noted Date Comments Penicillins 05/26/2009 Medications * Be aware that medications may not be up to date on this document. Alwaysverify current medications with the patient. Medication Sig Dispensed Refills Start Date End Date Status Naproxen Sodium 220 MG CAPSIndications:Abnor mal radiographic examination Take 660 mg by mouth 2 times daily. Active omeprazole (PRILOSEC) 20 MG capsuleIndications:Dy spepsia Take 1 Cap by mouth daily before breakfast. 30 2 08/29/2009 Active Additional Information Patient not taking.Reported on 09/27/2019 DULoxetine (CYMBALTA) 30 MG capsule Take 90 mg by mouth daily. Active baclofen (LIORESAL) 20 MG tablet Take 20 mg by mouth 3 times daily. Take 1 tab by mouth 3 times daily Active vitamin D, ergocalciferol, (DRISDOL) 76074 UNIT capsuleIndications:Vi tamin d deficiency Take 1 Cap by mouth. Take 1 tab daily on Friday for 16 weeks then 1 per month 16 Cap 4 12/20/2010 Active traZODone (DESYREL) 50 MG tablet Take 1 Tab by mouth at bedtime. 30 Tab 9 12/25/2010 Active gabapentin (NEURONTIN) 100 MG capsule Take 100 mg by mouth 3 times daily Active Active Problems Problem Noted Date Diagnosed Date Neck pain 11/21/2010 Overview (11/21/2010): Dr. Doyle treats, ?fibromyalgia Ulnar shaft fracture 01/08/2010 Overview (03/20/2015): Fall Stiffness of joint, not else where classified, other specified site 07/11/2009 Overview (06/01/2010): Neck and upper body/torso. 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 Immunizations Name Administration Dates Next Due PNEUMOCOCCAL PPSV23 06/01/2010 TETANUS 10/27/2007 Family History Medical History Relation Name Comments Heart Failure Father Diabetes Maternal Grandmother Arthritis Paternal Grandmother Cancer Paternal Grandmother Relation Name Status Comments Father (Age 73) Maternal Grandmother Mother Alive Paternal Grandmother Social History Tobacco Use Types Packs/Day Years [...] Comments Blood Pressure 126/82 09/27/2019 2:51 PM GALVANIZER Pulse 122 09/27/2019 2:51 PM GALVANIZER Temperature 37.1 ??C (98.7 ??F) 09/27/2019 2:51 PM CS T Respiratory Rate 18 09/27/2019 2:51 PM GALVANIZER Oxygen Saturation 96% 09/27/2019 2:51 PM GALVANIZER Inhaled Oxygen Concentration - - Weight 103 kg (227 lb) 09/27/2019 2:51 PM GALVANIZER Height 172.7 cm (5' 8 ) 09/27/2019 2:51 PM GALVANIZER Body Mass Index 34.52 09/27/2019 2:51 PM GALVANIZER Plan of Treatment Health Maintenance Due Date Last Done Comments BONE DENSITY TESTING 1955 COLOGUARD (AGES 45-75) - COL ON CA SCREENING 1957 COLON MONITORING 1957 COLONOSCOPY - COLON CA SCREENING 1957 CT COLONOGRAPHY - COLON CA SCREENING 1957 Colorectal Cancer Screening 1957 FIT - COLON CA SCREENING 1957 FLEX SIG - COLON CA SCREENING 1957 HEPATITIS C SCREENING 10/13/1975 ZOSTER VACCINE (1 of 2) 2007 PNEUMOCOCCAL VACCINE 50+ (2 of 2 - PCV) 06/01/2011 06/01/2010 MAMMOGRAM 11/21/2012 11/21/2010, 11/21/2010, 04/04/2009 LIPID TESTING 11/08/2015 11/08/2010 DTAP/TDAP/TD VACCINES (2 - T d or Tdap) 10/27/2017 10/27/2007 SCREENING FOR DIABETES 09/27/2019 5, 11/08/2010, 08/29/2009 COVID-19 VACCINE (1 - 2023-2 5 season) 2024 INFLUENZA VACCINE (#1) 2024 DEPRESSION SCREENING 10/27/2024 Respiratory Syncytial Virus (RSV) Vaccine Pt: or over 60 yrs (1 - 1-dose 75+ series) 2032 HEPATITIS B VACCINE Aged Out No longe r eligible based on patient's age to complete this topic HIB VACCINE Aged Out No longer eligi ble based on patient's age to complete this topic HPV VACCINE Aged Out No longer eligi ble based on patient's age to complete this topic MENINGOCOCCAL (Group B) VACCINE Aged Out No longer eligible b ased on patient's age to complete this topic MENINGOCOCCAL VACCINE Aged Out No bry winnie eligible based on patient's age to complete this topic Procedures Procedure Name Priority Date/Time Associated Diagnosis Comments COMPREHENSIVE METABOLIC PANEL Routine 10/14/2015 10:37 AM GALVANIZER LIPID PROFILE 11/08/2010 1:05 PM GALVANIZER from Last 3 Months or Most Recently Relevant to Health Maintenance Results * (ABNORMAL) COMPREHENSIVE METABOLIC PANEL (10/14/2015 10:37 AM GALVANIZER) [facility] Glucose 89 65 - 99 mg/dL [facility] ([facility]) Comment: ? Fasting reference interval BUN 15 7 - 25 mg/dL [facility] ([facility]) Creatinine 0.79 0.50 - 1.05 mg/dL [facility] ([facility]) Comment: For patients >49 years of age, the reference limit for Creatinine is approximately 13% higher for people identified as -Chinese. eGFR non- 83 > OR = 60 mL/min/1 .73m2 [facility] ([facility]) eGFR 96 > OR = 60 mL/min/1 .73m2 [facility] ([facility]) BUN/Creatinine Ratio NOT APPLICABLE 6 - 22 (calc) [facility] ([facility]) Sodium 136 135 - 146 mmol/L [facility] ([facility]) Potassium 4.5 3.5 - 5.3 mmol/L [facility] ([facility]) Chloride 102 98 - 110 mmol/L [facility] ([facility]) CO2 23 19 - 30 mmol/L [facility] ([facility]) Calcium 9.8 8.6 - 10.4 mg/dL [facility] ([facility]) Protein Total 7.3 6.1 - 8.1 g/dL [facility] ([facility]) Albumin 4.4 3.6 - 5.1 g/dL [facility] ([facility]) Globulin 2.9 1.9 - 3.7 g/dL (calc) [facility] ([facility]) Albumin/Globulin Ratio 1.5 1.0 - 2.5 (calc) [facility] ([facility]) Bilirubin Total 0.5 0.2 - 1.2 mg/dL [facility] ([facility]) Alkaline Phosphatase 55 33 - 130 U/L [facility] ([facility]) AST 28 10 - 35 U/L [facility] ([facility]) ALT 42(H) 6 - 29 U/L [facility] ([facility]) Comment: Test Performed at: [facility] [address] ??[phone] CLAUDY SHAHID DO,MPH Blood specimen (specimen) BLOOD SPECIMEN / Unknown 10/14/2015 10:37 AM GALVANIZER 10/14/2015 10:37 AM GALVANIZER Janes Iverson MD LAB - CHEMISTRY [facility] Performing Organization Address City/[facility] Co de Phone Number [facility] ([facility]) * (ABNORMAL) LIPID PROFILE (11/08/2010 1:05 PM GALVANIZER) Cholesterol 251(H) 125 - 200 mg/dL [facility] Comment: Test Performed at: [facility] [address] [address] [facility] ??[phone] CLAUDY SHAHIDDO,MPH HDL Cholesterol 55 > OR = 46 mg/dL [facility] Triglycerides 153(H) <150 mg/dL [facility] LDL Calculated 165(H) <130 mg/dL (calc) [facility] Comment: Desirable range <100 mg/dL for patients with CHD or diabetes and <70 mg/dL for diabetic patients with known heart disease. CHOL/HDLC RATIO 4.6 < OR = 5.0 (calc) [facility] 11/08/2010 1:05 PM GALVANIZER 11/09/2010 6:21 AM GALVANIZER Luis Dudley MD LAB - CHEMISTRY [facility] Performing Organization Address [facility]/ZIP Co de Phone Number [facility] [address] [place] [address] from Last 3 Months or Most Recently Relevant to Health Maintenance Care Teams Professor Of Oceanography Relationship Specialty Start Date End Date Luis Dudley MD [address] [address] PCP - General 05/26/09
--- OUTSIDE RECORDS SUMMARY | 2024-11-30 13:39 | XMS_ITS | Encounter Summary ---
Author Organization [facility] Address [address] [place] [address]. [place] [address] [place] [address] Care Team Providers Care Sky Cap Name Role Phone Cliff Syed MD Primary Care Provider [phone] Encounter Details Date Type Department Care Team (Late st Contact Info) Description 04/08/2019 Hospital Orders Only [facility] [address] [place] [address] Cliff Syed MD [address] [place] [address] Social History Tobacco Use Types Packs/Day Years [...] on filedocumented in this encounter Care Teams Sky Cap Relationship Specialty Start Date End Date Cliff Syed MD [address] [place] [address] PCP - General FAMILY PRACTICE 03/25/19 documented as of this encounter
--- OUTSIDE RECORDS SUMMARY | 2024-11-30 13:39 | XMS_ITS | Referral Summary ---
Author Organization [facility] Address [address] [place] [address] Care Team Providers Care Senior Quality Control Technician Name Role Phone Luis Dudley MD Primary Care Provider [phone] Source Comments [facility],non-owned Affiliates and Associated Physician Practices is amultiple site organization consisting of ambulatory clinics and hospital sitesin [place], [place], [place] and [place]. This disclosure is being madepursuant to the Care Everywhere program and may not contain all information available regarding this patient. Last updated 18.[facility] Allergies Active Allergy Reactions Criticality Noted Date [...] times daily Active vitamin D, ergocalciferol, (DRISDOL) 61788 UNIT capsuleIndications:Vi tamin d deficiency Take 1 [...] Next Due PNEUMOCOCCAL PPSV23 06/01/2010 TETANUS 10/27/2007 Social History Tobacco Use Types Packs/Day Years [...] Comments Blood Pressure 126/82 09/27/2019 2:51 PM ACCOUNTANT TAX Pulse 122 09/27/2019 2:51 PM ACCOUNTANT TAX Temperature 37.1 ??C (98.7 ??F) 09/27/2019 2:51 PM CS T Respiratory Rate 18 09/27/2019 2:51 PM ACCOUNTANT TAX Oxygen Saturation 96% 09/27/2019 2:51 PM ACCOUNTANT TAX Inhaled Oxygen Concentration - - Weight 103 kg (227 lb) 09/27/2019 2:51 PM ACCOUNTANT TAX Height 172.7 cm (5' 8 ) 09/27/2019 2:51 PM ACCOUNTANT TAX Body Mass Index 34.52 09/27/2019 2:51 PM ACCOUNTANT TAX Plan of Treatment Not on file Procedures Procedure Name Priority Date/Time Associated Diagnosis Comments COMPREHENSIVE METABOLIC PANEL Routine 10/14/2015 10:37 AM ACCOUNTANT TAX LIPID PROFILE 11/08/2010 1:05 PM ACCOUNTANT TAX from Last 3 Months or Most Recently Relevant to Health Maintenance Results * (ABNORMAL) COMPREHENSIVE METABOLIC PANEL (10/14/2015 10:37 AM ACCOUNTANT TAX) Glucose 89 65 - 99 mg/dL [facility] ([facility]) Comment: ? Fasting reference interval BUN 15 7 - 25 mg/dL [facility] ([facility]) Creatinine 0.79 0.50 - 1.05 mg/dL [facility] ([facility]) Comment: For patients >49 years of age, the reference limit for Creatinine is approximately 13% higher for people identified as -Uruguayan. eGFR non- 83 > OR = 60 mL/min/1 .73m2 [facility] ([facility]) eGFR 96 > OR = 60 mL/min/1 .73m2 [facility] ([facility]) BUN/Creatinine Ratio NOT APPLICABLE 6 - 22 (calc) [facility] ([facility]) Sodium 136 135 - 146 mmol/L [facility] ([facility]) Potassium 4.5 3.5 - 5.3 mmol/L [facility] ([facility]) Chloride 102 98 - 110 mmol/L [facility] ([facility]) CO2 23 19 - 30 mmol/L [facility] ([facility]) Calcium 9.8 8.6 - 10.4 mg/dL [facility] ([facility]) Protein Total 7.3 6.1 - 8.1 g/dL [facility] ([facility]) Albumin 4.4 3.6 - 5.1 g/dL [facility] ([facility]) Globulin 2.9 1.9 - 3.7 g/dL (calc) [facility] ([facility]) Albumin/Globulin Ratio 1.5 1.0 - 2.5 (calc) [facility] ([facility]) Bilirubin Total 0.5 0.2 - 1.2 mg/dL [facility] ([facility]) Alkaline Phosphatase 55 33 - 130 U/L [facility] ([facility]) AST 28 10 - 35 U/L [facility] ([facility]) ALT 42(H) 6 - 29 U/L [facility] ([facility]) Comment: Test Performed at: [facility] [place] [address] [place], [place] ??[phone] CLAUDY SHAHID DO,MPH Blood specimen (specimen) BLOOD SPECIMEN / Unknown 10/14/2015 10:37 AM ACCOUNTANT TAX 10/14/2015 10:37 AM ACCOUNTANT TAX Janes Iverson MD LAB - CHEMISTRY [facility] ([facility]) * (ABNORMAL) LIPID PROFILE (11/08/2010 1:05 PM ACCOUNTANT TAX) Cholesterol 251(H) 125 - 200 mg/dL [facility] Comment: Test Performed at: [facility] [address] [place], [place] ??[phone] CLAUDY SHAHID DO,MPH HDL Cholesterol 55 > OR = 46 mg/dL [facility] Triglycerides 153(H) <150 mg/dL [facility] LDL Calculated 165(H) <130 mg/dL (calc) [facility] Comment: Desirable range <100 mg/dL for patients with CHD or diabetes and <70 mg/dL for diabetic patients with known heart disease. CHOL/HDLC RATIO 4.6 < OR = 5.0 (calc) [facility] 11/08/2010 1:05 PM ACCOUNTANT TAX 11/09/2010 6:21 AM ACCOUNTANT TAX Luis Dudley MD LAB - CHEMISTRY [facility]OCK Performing Organization Address [facility] Co de Phone Number [facility] [address] [place] [phone] from Last 3 Months or Most Recently Relevant to Health Maintenance Care Teams Senior Quality Control Technician Relationship Specialty Start Date End Date Luis Dudley MD [address] [address] PCP - General 05/26/09
--- OUTSIDE RECORDS SUMMARY | 2024-11-30 13:39 | XMS_ITS | Clinical Summary ---
Author Organization [facility] [address] [facility] Address [address] [place] [address] Care Team Providers Care Oil Lease Operator Name Role Phone Unavailable Primary Care Provider [...] TABLET BY MOUTH EVERY DAY 3 Active BROACH TROUBLE SHOOTER Thyroid 30 mg tablet BROACH TROUBLE SHOOTER Thyroid 30 mg tablet TAKE 5 TABLETS [...] of foot 12/23/2011 Fibromyalgia 02/13/2010 Cervicalgia 02/13/2010 Surgical History Surgery Date Site/Laterality Comments NM DELIVERY ONLY Section - 1990 (Added by TW Conv) NM DILATION & CURETTAGE DX&/ THER NONOBSTETRIC Dilation And Curettage - 1989 (Added by TW Conv) SINUS SURGERY Sinus Surgery - 1993 (Added by TW Conv) SECTION TONSILLECTOMY Medical History Medical History Date Comments 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 - (Added by TW Conv) Disease of pancreas Pancreatic d isorder - (Added by TW Conv) Family History Medical History Relation Name Comments Cancer Maternal Grandmother Diabetes Maternal Grandmother Cancer Paternal Grandmother Relation Name Status Comments Maternal Grandmother Paternal Grandmother Social History Tobacco Use Types Packs/Day Years Used Date Smoking Tobacco: Never Tobacco Cessation:Counseling Given: Not Answered Comments Unknown Sex and Gender Information Value Date Recorded Sex Assigned at Not on file Legal Sex Female 7:13 PM OWNER 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 Gender Identity Not on file Sexual Orientation Not on file Obstetrics History Last Filed Vital Signs Vital Sign Reading [...] 04/02/2023 9:12 AM CDT Plan of Treatment Health Maintenance Due Date Last Done Comments Breast Cancer Screening-Mammogram 1957 Colon Cancer Screening-Colonoscopy 1957 Depression Screening 1957 Fall Risk Assessment 1957 Hepatitis C Screening 1957 Osteoporosis Screening-Bone Density Scan 1957 Hepatitis B Screening 1975 Well Visit 65+ 2022 Zoster Vaccine (2 of 2) 02/04/2023 12/10/2022 Covid-19 Vaccine (6 - 2023-2 5 season) 2024 11/18/2022, 07/18/2022, 04/16/2022, Additional history exists Influenza Vaccine (#1) 2024 07/18/2022, 2020 DTaP/Tdap/Td Vaccine (2 - Td or Tdap) 08/12/2027 08/12/2017, 04/26/2014 Pneumococcal vaccine 65+ Completed 023, 08/20/2021, 04/01/2018, Additional history exists Insurance AETNA MEDICARE on file AETNA MEDICARE AETNA MEDICARE
--- OUTSIDE RECORDS SUMMARY | 2024-11-30 13:39 | XMS_ITS | Clinical Summary ---
Author Organization [facility] Address [address] [place] [address] [place] [address] Care Team Providers Care Sewing Demonstrator Name Role Phone Cliff Syed MD Primary Care Provider [phone] Allergies Active Allergy Reactions Criticality Noted Date Comments Chocolate Rash Medium 04/15/2019 Yeast Rash Medium 04/15/2019 Medications acetaZOLAMIDE 250 MG tabletIndications :Muscle Cramps Take 1,250 mg by mouth 2 (two) times daily. 04/19/20 Active thyroid (ED,CUTTER BARREL DRUM) 30 MG OR tabletIndications :Thyroid Disease Take 30 mg by mouth daily. 04/19/20 Active loratadine (CLARITIN) 10 MG tabletIndications :Allergic Reaction Take 30 mg by mouth 2 (two) times a day. TAKE 30 MINUTES PRIOR TO VANCOMYCIN INFUSION TO PREVENT RASH 04/19/20 Active Cranberry 400 MG TabIndications:Pr evention of Bacteriuria Take 400 mg by mouth daily. 04/19/20 Active Succimer (DIMERCAPTOSUCCIN IC ACID) CrystalsIndicatio ns:Renal Pain Take 700 mg by mouth daily. 04/19/20 Active diphenhydrAMINE HCl, Sleep, 25 MG TabIndications:Al lergic Reaction Take 50 mg by mouth 2 (two) times daily. TAKE 30 MINUTES PRIOR TO VANCOMYCIN DOSE 04/19/20 Active EPINEPHrine (EPIPEN 2-WILSON) 0.3 MG/0.3ML injectionIndicati ons:Anaphylaxis Inject 0.3 mg into the muscle as needed for Anaphylaxis. 04/19/20 Active erythromycin 5 MG/GM (0.5%) ophthalmic ointmentIndicatio ns:Drainage Place 1 Application into both eyes every 4 (four) hours as needed (DRAINAGE). 2 DROPS EACH EYE 04/19/20 Active Estradiol 0.5 MG/0.5GM GelIndications:Ho rmone Replacement Therapy Place 0.5 mLs vaginally daily. 04/19/20 Active fluconazole 200 MG tabletIndications :Yeast Infection (Inactive) Take 200 mg by mouth daily as needed (YEAST OUTBREAK). 04/19/20 Active fludrocortisone 0.1 MG tabletIndications :Hypotension Take 0.1 mg by mouth 3 (three) times a week. 04/19/20 Active Gabapentin, Once-Daily, 300 MG TabIndications:Ne uropathic Pain Take 600 mg by mouth 3 (three) times daily with meals. 04/19/20 Active heparinIndication s:Patency Maintenance of Indwelling Catheter 3-5 mLs by Intracatheter route see administration instructions. 100 UNITS/ML 3-5 ML AFTER IV MED OR LAB DRAW. 04/19/20 Active M2 MAGNESIUM ORIndications:Vit robert and/or Mineral Deficiency Take 145 mg by mouth 2 (two) times daily. 04/19/20 Active METHYLCOBALAMIN IJIndications:Vit robert B12 Deficiency Anemia Inject 0.2 mLs into the skin every 3 (three) days. 25 MG/ML 04/19/20 Active MUPIROCIN CALCIUM NAIndications:Pre vention of Bacterial Infection 1 spray by Each Nostril route 4 (four) times daily. 04/19/20 Active nystatin 565369 units tabletIndications :Yeast Take 500,000 Units by mouth 4 (four) times daily as needed (YEAST OUTBREAK). 04/19/20 Active ofloxacin 0.3 % ophthalmic solutionIndicatio ns:Drainage Place 2 drops into both eyes every 4 (four) hours. 04/19/20 Active progesterone 100 MG capsuleIndication s:Hormone Replacement Therapy Take 200 mg by mouth nightly at bedtime. 04/19/20 Active cholestyramine 4 G packetIndications :Vitamin Deficiency Take 4 g by mouth 2 (two) times daily with meals. 04/19/20 Active ranitidine 150 MG tabletIndications :Esophageal reflux Take 150 mg by mouth nightly at bedtime. 04/19/20 Active Sodium Chloride Flush (SALINE FLUSH IV)Indications:PI CC AWS SOFTWARE DEVELOPMENT ENGINEER Inject 10 mLs into the vein see administration instructions. 10 ML BEFORE AND AFTER INFUSION AND BEFORE BLOOD DRAW VIA PICC LINE. 20 ML AFTER BLOOD DRAW. 04/19/20 Active Sulfacetamide in Bakuchiol (SODIUM SULFACETAMIDE WASH) 10 % LiquidIndications :EYE DRAINAGE Place 1 drop into both eyes every 3 (three) hours as needed (EYE DRAINAGE). 04/19/20 Active cimetidine 200 MG tabletIndications :Allergic Reaction Take 200 mg by mouth 2 (two) times daily. ONE HOUR BEFORE VANCOMYCIN DOSE 04/19/20 Active testosterone 1% gelIndications:Ho rmone Replacement Therapy Place 0.5 mLs onto the skin 2 (two) times daily. 04/19/20 Active trazodone 100 MG tabletIndications :Sleep Disturbance Take 100 mg by mouth nightly at bedtime. 04/19/20 Active Pyridoxine HCl (VITAMIN B6 OR)Indications:Vi tamin B Deficiency Take 500 mg by mouth daily. 04/19/20 Active buPROPion 100 MG tabletIndications :Depression Take 100 mg by mouth daily. 04/19/20 Active ursodiol 300 MG capsuleIndication s:liver disorder Take 300 mg by mouth 2 (two) times daily. 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 Occluded PICC line 06/01/2019 Social History Tobacco Use Types Packs/Day Years Used Date Smoking Tobacco: Never Assessed Comments Unknown Sex and Gender Information Value Date Recorded Sex Assigned at Not on file Legal Sex Female 2:53 PM CDT Gender Identity Not on file Sexual Orientation Not on file Last Filed Vital Signs Vital Sign Reading Time Taken Comments Blood Pressure 112/68 09/06/2019 12:51 PM RESIDENTIAL PROGRAM WORKER Pulse 72 09/06/2019 12:51 PM RESIDENTIAL PROGRAM WORKER Temperature 35.8 ??C (96.5 ??F) 09/06/2019 12:[address] Respiratory Rate 18 09/06/2019 12:51 PM RESIDENTIAL PROGRAM WORKER Oxygen Saturation 98% 09/06/2019 12:51 PM RESIDENTIAL PROGRAM WORKER Inhaled Oxygen Concentration - - Weight 107.5 kg (237 lb) 04/15/2019 10:55 AM CDT Height 175.3 cm (5' 9 ) 04/15/2019 10:55 AM CDT Body Mass Index 35 04/15/2019 10:55 AM CDT Plan of Treatment Health Maintenance Due Date Last Done Comments Colorectal Cancer Screening Colonoscopy (10 Years) 1957 Hepatitis C 1975 DTaP, Tdap and Td Vaccines ( 1 - Tdap) 1976 Mammogram Screening 1997 Zoster Vaccines (1 of 2) 2007 Dexa Scan (General) 2022 Pneumococcal Vaccine: 65+ Ye ars (2 of 2 - PCV) 2022 06/01/2010 COVID-19 Vaccine ( - 2023-2 5 season) 2024 Influenza Adult (#1) 2024 RSV Immunization or 60+ Years (1 - 1-dose 75+ series) 2032 Meningococcal B Vaccine Aged Out No l onger eligible based on patient's age to complete this topic Meningococcal Vaccine Aged Out No bry winnie eligible based on patient's age to complete this topic RSV Immunizations Under 20 Months Aged Out No longer eligible based on patient's age to complete this topic Insurance Care Teams Sewing Demonstrator Relationship Specialty Start Date End Date Cliff Syed MD [address] [place] [address] PCP - General FAMILY PRACTICE 03/25/19
--- OUTSIDE RECORDS SUMMARY | 2024-11-30 13:39 | XMS_ITS | Encounter Summary ---
Author Organization [facility] Address [address] [place] [address]. [place] [address] [place] [address] Care Team Providers Care Hand Sewer Name Role Phone Cliff Syed MD Primary Care Provider [phone] Encounter Details Date Type Department Care Team (Late st Contact Info) Description 06/01/2019 Therapy Plan [facility] [address] [place] [address] Cliff Syed MD [address] [place] [address] Social History Tobacco Use Types Packs/Day Years [...] on filedocumented in this encounter Care Teams Hand Sewer Relationship Specialty Start Date End Date Cliff Syed MD [address] [place] [address] PCP - General FAMILY PRACTICE 03/25/19 documented as of this encounter
--- OUTSIDE RECORDS SUMMARY | 2024-11-30 13:39 | XMS_ITS | Data Portability ---
Author Organization [employer], [facility] Address [address] [address] Assessment No assessment recorded. Plan of Treatment Reminders Order Date Submit Date Provider Last Modified By Organization Details Last Modified Time Details Appointments None record ed. Lab None record ed. Referral None record ed. Procedures None record ed. Surgeries None record ed. Imaging XR, knee - rm 10 022 01/30/20 ksavides Not available 09:03:15 Medication Orders None record ed. Patient TargetsNo targets recorded. Patient InstructionsNo instructions recorded. Reason for Referral None Reported. Results Created Date Observation Date Name Description Value Unit Range Abnormal Flag Note LastModifiedBy Organization Detail LastModifiedTime 01/31/20 22 01/16/2022 US, lower extre mity No observ ation record ed. BARCODE Not Available 2021 09:43:14 Result Notes None recorded. Problems No Known Problems Procedures Surgical History None recorded. Imaging Results Imaging Date Name Status LastModified by Organiz ation Details LastModified Time 01/16/2022 US, lower extremity completed BARCODE Information not available 01/30/2022 09:43:14 Procedure Notes None recorded. Medical Equipment None Reported. Allergies No known drug allergies Medications Name Sig Start Date Stop Date Status Note LastModified by Organization Details LastModified Time nystatin 500,000 unit tablet TAKE 2 TABLETS TWICE A DAY BY ORAL ROUTE. 01/29 completed Not Available Not Available Not Available omeprazole 40 mg capsule,del ayed release TAKE 1 CAPSULE BY MOUTH EVERY DAY BEFORE A MEAL 01/29 completed Not Available Not Available Not Available famotidine 20 mg tablet TAKE 1 TABLET BY MOUTH TWICE A DAY active Not Available Not Available No t Available cefaclor 250 mg capsule TAKE 1 CAPSULE BY MOUTH TWICE A DAY 01/29 completed Not Available Not Available Not Available trazodone 100 mg tablet TAKE 1 TABLET BY MOUTH EVERYDAY AT BEDTIME active Not Available Not Available No t Available Ponaris nasal solution DIRECTED DAILY NASALLY 30 DAYS 01/29 completed Not Available Not Available Not Available triamcinolo ne acetonide 0.1 % topical ointment APPLY THIN COAT TO AFFECTED AREA TWICE A DAY 01/29 completed Not Available Not Available Not Available [place] Thyroid 30 mg tablet TAKE 6 TABLETS BY MOUTH EVERY DAY active Not Available Not Available No t Available fludrocorti sone 0.1 mg tablet TAKE 1 TABLET BY MOUTH EVERY FRIDAY//, MAY INCREASE TO 1 TABLET EVERY DAY IF NEEDED 01/29 completed Not Available Not Available Not Available amoxicillin 875 mg-potassiu m clavulanate 125 mg tablet TAKE 1 TABLET BY MOUTH EVERY 12 HOURS FOR 7 DAYS active Not Available Not Available No t Available bupropion HCl SR 200 mg tablet,12 hr sustained-r elease TAKE 1 TABLET BY MOUTH TWICE A DAY active Not Available Not Available No t Available duloxetine 30 mg capsule,del ayed release TAKE 1 CAPSULE BY MOUTH EVERY DAY active Not Available Not Available No t Available Aczone 7.5 % topical gel with pump 01/29 completed Not Available Not Available Not Available Vitals Date Recorded Body height Body mass index (BMI) Body weight Heart rate Systolic blood pressure Diastolic blood pressure Provider Name and Address Organization Details Last Updated DateTime 2 175.26 cm 34 kg/m2 953153. 25 g 66 /min 117 mm[Hg] 77 mm[Hg] [facility] 2 15:28:24 Date Recorded Body height Body mass index (BMI) Body weight Provider Name and Address Organization Details Last Updated DateTime 02/05/2022 175.26 cm 34 kg/m2 478307.25 g [facility] 02/05/2022 11:47:24 Social History None recorded. Functional Status None recorded. Mental Status None recorded. Family History Nothing Reported. Medical History Condition Response Other Cancer N Coronary Artery Disease N HIV or AIDS N Gout N Kidney Stones N Hyperthyroidism N Breast Cancer N Head Trauma/Injury N Hernia N Lung Cancer N COPD N Blood Clots N Depression N Lung Disease N Hypothyroidism N Pacemaker N Parkinson's N Anxiety Disorder N Arthritis N Alcohol / Substance Abuse N Kidney Cancer N Cancer N Stroke N Melanoma N Neck Injury N Leg or Foot Ulcers N High Cholesterol N Skin Cancer N Liver Disease N Rheumatoid Arthritis N Fibromyalgia N Headaches N Concussion N Kidney Disease N Heart Problems N Chronic use of Pain Medication N Prostate Cancer N Migraines N Thyroid Problems N Alzheimers N Autoimmune Disorder N Anemia N Multiple Sclerosis N Tendon Tear N Ulcers N Heart Attack ([place]) N Osteopenia N Diabetes N Bleeding Disorder N Seizures/Epilepsy N Cardiac Stent N Tuberculosis N A-FIB N Urinary Tract Infection N Back Problems N Diverticulitis N Asthma N Lupus N Peripheral Vascular Disease N Sleep Disorder N GERD/Reflux N Hepatitis N Aneurysm N Thyroid Cancer N Heart Disease N Pulmonary Embolism N Hypertension N Osteoporosis N Gynecological HistoryNo gynecological history recorded. Obstetrics History GPAL:G 0 P 0 0 0 0 Past Encounters Encounter ID Performer Location Encounter Start Date Encounter Closed Date Diagnosis/Indication Diagnosis SNOMED-CT Code Diagnosis ICD10 Code Diagnosis Note [facility] [id number] [place] [place] [id number] 01/29/2022 15:04:11 01/30/2022 09:03:15 Pain of right knee joint 7390726336 22340 M25.561 [id number] [facility] [id number] [place] [place] [id number] 02/05/2022 11:35:46 02/05/2022 15:17:12 Health Concerns Section Related Observation LastModified by Organization Detai ls LastModified Time None Recorded Concern Status LastModified by Organization Details LastModified Time None Recorded Advance Directives Directive None Recorded Payers Encounter Date Sequence Insurance Name Policy Number Policy López Covered Member ID López Member ID Guarantor Name 01/29/2022 1 [employer]) [id number] Deirdre M Abusharbain [id number] Deirdre Abusharbain 02/05/2022 1 [employer]) [id number] Deirdre M Abusharbain [id number] Deirdre Abusharbain OBGyn Episode No OBEpisode recorded.
--- OUTSIDE RECORDS SUMMARY | 2024-11-30 13:39 | XMS_ITS | Encounter Summary ---
Author Organization [facility] Address [address] [place] [address]. [place] [address] [place] [address] Care Team Providers Care Red Cap Name Role Phone Cliff Syed MD Primary Care Provider [phone] Encounter Details Date Type Department Care Team (Late st Contact Info) Description 12/28/2018 Abstract [facility] CONVERSION [id number] [place] [address] , Generic MD Fransisca Social History Tobacco Use Types Packs/Day Years [...] on filedocumented in this encounter Care Teams Red Cap Relationship Specialty Start Date End Date Cliff Syed MD [address] [place] [address] PCP - General FAMILY PRACTICE 03/25/19 documented as of this encounter
--- NOTE | 2024-11-30 13:51 | ECG_ITS ---
Test Date: 2024-11-30 13:59:02 Measurements Intervals [place] Rate: 70 P: 41 AL: 153 QRS: 31 QRSD: 86 T: 42 QT: 377 QTc: 409 Interpretive Statements SINUS RHYTHM LOW QRS VOLTAGE IN PRECORDIAL LEADS CANNOT R/O SEPTAL INFARCT, AGE INDETERMINATE ABNORMAL ECG No previous ECG available for comparison Electronically Signed On 11-30-2024 14:03:10 AIRCRAFT DISPATCHER by Harley Benedict D.O.
[2024-11-30 14:28] LABS: Hematocrit 40.7 % (37.0-47.0); Hemoglobin 13.9 g/dL (12.0-15.0)
[2024-11-30 16:25] LABS: Albumin Level 4.6 g/dL (3.5-5.1); Estimated Glomerular Filt Rate > 60
== END 2024-11-30 13:41 | disposition home or self-care (01) ==
PROVIDERS: PCP Orthopaedic Surgery; Visit Provider Orthopaedic Surgery
DX: M17.0 Bilateral primary osteoarthritis of knee (principal); R94.31 Abnormal electrocardiogram [ECG] [EKG]
CPT/HCPCS: 36415; 82040; 82565; 85014; 85018; 93005

== ENCOUNTER 2025-04-15 11:56 | Outpatient (CLI) | payer MEDICARE, SELFPAY ==
[2025-04-15 13:21] LABS: Basophils Percent Auto 0.6 % (0.2-1.2); Eosinophils Absolute Auto 0.1 K/mm3 (0-0.3); Eosinophils Percent Auto 2.8 % (0-4.4); Hematocrit 42.6 % (37.0-47.0); Hemoglobin 14.5 g/dL (12.0-15.0); Immature Granulocyte Absolute 0.02 K/mm3 (0.00-0.031); Immature Granulocyte Percent A 0.4 % (0-0.5); Lymphocytes Absolute Auto 1.47 K/mm3 (0.9-3.2); Lymphocytes Percent Auto 29.3 % (18.3-44.2); Mean Corpuscular Hemoglobin 31.6 pg (26-34); Mean Corpuscular Volume 92.8 fl (80-100); Mean Platelet Volume 9.7 fl (7.4-10.4); Monocytes Absolute Auto 0.6 K/mm3 (0.1-0.6); Neutrophils Absolute Auto 2.8 K/mm3 (1.3-6.7); Neutrophils Percent Auto 55.9 % (45.5-73.1); Platelet Count Result 197 k/mm3 (150-375); Red Blood Count 4.59 M/mm3 (4.2-5.4); Red Cell Distribution Width 12.6 % (11.5-14.5)
[2025-04-15 13:29] LABS: Albumin Level 4.7 g/dL (3.5-5.1)
[2025-04-15 13:32] LABS: Anion Gap 7 mmol/L (4-12); Blood Urea Nitrogen 13 mg/dL (7-17); Calcium 9.8 mg/dL (8.4-10.2); Carbon Dioxide 29 mmol/L (22-30); Chloride 101 mmol/L (98-107); Estimated Glomerular Filt Rate > 60; Glucose 92 mg/dL (65-110); Potassium 4.8 mmol/L (3.4-5.0); Sodium 137 mmol/L (137-145)
[2025-04-15 13:36] LABS: Hemoglobin A1C 5.3 % (<5.7)
[2025-04-15 13:41] LABS: Urine Cotinine NEGATIVE
[2025-04-15 14:33] LABS: MRSA (PCR) NOT DETECTED (NOT DETECTE)
== END 2025-04-15 11:57 | disposition home or self-care (01) ==
LOC: ANHSURGERY 12:02
PROVIDERS: Anesthesiology; PCP Family Medicine; Visit Provider Orthopaedic Surgery
DX: Z01.818 Encounter for other preprocedural examination (principal); Z51.81 Encounter for therapeutic drug level monitoring; M17.12 Unilateral primary osteoarthritis, left knee
CPT/HCPCS: 36415; 80048; 80307; 82040; 83036; 85025; 87641

== ENCOUNTER 2025-05-12 00:52 | Day surgery (SDC) | payer MEDICARE, SELFPAY ==
[2025-04-15 12:15] VITALS: BP 131/69; PULSE 63; RESP 16; TEMP 36.8; O2SAT 98; BMI 35.4
--- NOTE | 2025-04-15 12:39 | PC.NURSE ---
Report to the Outpatient Waiting Room, entrance under the green pavilion located off [facility], at time __8:30AM____ on date ___05/12/25____. Planned Procedure Time: ___10:30AM____.? Time changes happen often and if your time is changed the preop area will call you the afternoon before. - You and your visitor will be asked to self-screen and do not enter if you have any COVID symptoms. Please call surgeon if you need to reschedule. - A mask is optional within the hospital at this time. Patients may have clear liquids (water, carbonated beverages, clear teas, apple juice) until 3 hours prior to surgery (7:30am) with a maximum of 20 ounces. - No food from midnight until time of surgery and no smoking, or chewing tobacco (or any form of nicotine). No chewing gum, candy or mints. Take only the following medications with a SIP of water on the morning of surgery: __BUPROPION, PRASTERONE(DHEA), THYROID MEDICATION DO NOT STOP ANY OF YOUR OTHER PRESCRIPTION MEDICATIONS PRIOR TO SURGERY EXCEPT THE FOLLOWING HOLD MOUNJARO 10 DAYS PRE-OP PER ANESTHESIA. LAST DOSE 05/01/25. Medications to discontinue per physician ____HOLD MELOXICAM (ALL NSAIDS) AND ALL VITAMINS/SUPPLEMENTS 7 DAYS PRE-OP PER DR GUZMAN.__ Date to take last dose 05/04/25 Please no make-up, nail georgian, hairspray, perfume, deodorant, or body powder the day of surgery.? No jewelry (including any body piercings) or valuables the day of surgery, leave them at home.? Please take a shower or bath the night before, or the morning of, surgery with an antibacterial soap.? Wear comfortable, loose fitting clothing.? - Jewelry must be removed prior to entering the operating room.? Rings and piercings that are not removed may be cut off. - The hospital will not accept responsibility for valuables.? - Please leave all valuables, including medications, at home the day of surgery. If you are going home after surgery, a licensed otr flatbed company truck driver must drive you home.? - NO public transportation without another adult if you receive anesthesia. - We recommend that an adult stay with you for 24 hours following discharge. - We also recommend that you do not drive, make important decision, drink alcoholic beverages, or take any drugs that were not prescribed by your health care provider for at least 24 hours after your discharge time. Follow any additional instructions given to you from your surgeon. Telephone instructions given to ____PATIENT and asked if any additional questions and then verbalized understanding. Patient advised to call surgeon office or pre surgery nurse liaison [phone] if any additional questions.
[2025-05-12] VITALS (18 sets, daily range): BP systolic 107–153; BP diastolic 65–96; PULSE 61–91; RESP 12–20; TEMP 36.1–36.6; O2SAT 92–100
--- NOTE | ~2025-05-12 | XR_ITS ---
[id number] Ordering provider: Fidel Fine MD History: . POST-OP, LEFT TKA . Comparison: None. FINDINGS/impression: Left total knee arthroplasty. Subcutaneous soft tissues postoperative changes. Reviewed, dictated and finalized at location A.
--- OUTSIDE RECORDS SUMMARY | 2025-05-12 00:56 | XMS_ITS | Referral Summary ---
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 Gender Identity Not on file Sexual Orientation Not on file Last Filed Vital Signs Vital Sign Reading Time Taken Comments Blood Pressure 96/65 04/02/2023 9:12 AM CDT Pulse 62 04/02/2023 9:12 AM CDT Temperature 36.8 C (98.3 F) 04/02/2023 9:12 AM CDT Respiratory Rate - - Oxygen Saturation - - Inhaled Oxygen Concentration - - Weight 105.3 kg (232 lb 3.2 oz) 04/02/2023 9:12 AM CDT Height 174 cm (5' 8.5) 04/02/2023 9:12 AM CDT Body Mass Index 34.79 04/02/2023 9:12 AM CDT Plan of Treatment Not on file Insurance [employer] MEDICARE on file [facility] MEDICARE AET[employer] MEDICARE [facility] MEDIC[facility] Address: [facility] [id number] [place] [phone]
--- OUTSIDE RECORDS SUMMARY | 2025-05-12 00:56 | XMS_ITS | Data Portability ---
Author Organization [facility] Address [address] [place] [address] Care Team Providers Care Bacteriologist Industrial Name Role Phone GERALD KHAN Primary Care [...] Details Appointments None recorded. Lab culture, urine 2020 021 [facility] (Lab), [address], [place], [address], 09/16/202 1 22:42:07 urinalysis , dipstick 2020 021 [facility] [place], [address], [address], [place], [address], 1 12:00:30 culture, urine 2019 020 [place] [facility] ([facility]), [address], [place], [address], 0 12:16:16 Referral None recorded. Procedures None recorded. Surgeries None recorded. Imaging MAMMO, screening, digital, bilateral 2022 023 [facility], [address], [place], [address], 4 05:01:41 Medication Orders None recorded. Patient TargetsNo targets recorded. Patient InstructionsNo instructions recorded. Reason for Referral None Reported. Results Created Date Observation Date Name Description Value Unit Range Abnormal Flag Note LastModifiedBy Organization Detail LastModifiedTime 04/06/20 20 04/10/2020 pap, LB Pap test thin prep Negati ve for Intrae pithel ial Lesion or Malign shannon normal ACCES JUDY #: [id number] Sourc e: Cervi robles/E ndoce rvica l LMP: [...] which luis ts the lab in [facility] of ThinP rep Pap Test slide s. Follo wing imagi ng, the slide was revie wed by a Cytot echno logis t and/o r Patho logis tClaudette Caballero A A S S A Y S R E P O R T TEST NAME NGUYEN ALTMAN ----- ---- ----- -- HPV High Risk [...] and labor atory findi ngs. See https ://[employer] Registry/s ites/ defau lt/fi les/2 018-0 3/AW- 04404 _002_ 01.pd f for [facility] waqas infor matnettie n. Test perfo rmed by [facility] d/[facility], [address], [place] [address] , Abril Arredondo ra, DO, Labor atory [facility]. HPV High Risk *HPV NOT DETEC [...] and labor atory findi ngs. See https ://[employer] Registry/s ites/ defau lt/fi les/2 018-0 3/AW- 14018 _002_ 01.pd f for [facility] infor matio n. Test perfo rmed by [facility], d/b/a [facility], [address], [place] [address] , Abril Arredondo ra, DO, [facility]. End of t Techn ical servi steven provi ded by [facility] iated Patho logis [facility], [facility], d/b/a [facility], [address] [place] [address] Mark Lawson MD, [facility]. Case revie wed and diagn osis rende red at [facility] iated Patho logis [employer], [facility], d/b/a [facility], [address] [place] [address] Mark Lawson MD, [facility]. CONFI DENTI AL Not Available [email or web address] ([facility]) [address] [place] [address] [address], [place], [address], 04/10/2020 14:23:57 04/06/20 20 04/07/2020 HPV DNA, high- risk HPV high risk NOT DETECT ED normal Not Available [facility] ([facility]) [address] [place] [address] [address], [place], [address], 04/10/2020 14:23:58 04/07/20 20 04/09/2020 cultu re, urine specimen source Urine - Void Not Available [email or web address] ([facility]) [address] [place] [address] [address], [place], [address], 04/09/2020 12:16:16 04/07/20 20 04/09/2020 cultu re, urine culture, urine See Below No growt h Not Available [facility] ([facility]) [address] [place] [address] [address], [place], [address], 04/09/2020 12:16:16 07/11/20 21 07/11/2021 CULTU RE: URINE result report SEE RESULT S BELOW Test: Cultu re: Urine Speci men Sourc e: Urine Voide d Speci men Type: Urine Speci men Date: 2020 1:13 PM Resul t Date: 2020 9:39 PM Resul t Statu s: Final resul t Abnor mal: No Resul ting Lab: [facility] [address] [facility] [address] Tel: CULTU RE ----- ----- ----- --- No growt h in 1 day (dete ction level of 10,00 0 colon ies / ml.) Not Available [facility] (Lab) [address], [place], [address], 07/12/2021 22:42:07 07/11/20 21 07/11/2021 IMAGE GUIDE [...] Rachelle keller (NIL) Atrop hic cell damari rn Elect navjot gonzales marisela d by Cortney [...] as clini florencio yadav nted. Not Available [facility] (Lab) [address], [place], [address], 07/16/2021 07:41:56 07/11/20 21 07/11/2021 urina lysis , dipst ick Leukocytes + Not Available Antonio menjivar [address], [place], [address], 07/11/2021 11:57:23 07/17/20 21 07/17/2021 SURGI ROBLES PATHO LOGY surgical pathology SEE RESULT S BELOW CASE REPOR T: Surgi robles Patho logy Repor t Case: [id number] Autho chrishieu pablo Provi reynold: Leah Lara, [employer] Colle cted: 07/17 1454 Order ing Locat [...] ed with the patie nt's name, demog raphjonathon cs and labi a BX. Recei kaylan in forma doris is a 0.3 cm piece of white -herrera tissu e. The entir e speci men is submi tted in one casse tte. Gross ed by Naheed batista Not Available [facility] (Lab) [address], [place], [address], 07/19/2021 11:05:16 08/21/20 22 08/21/2022 IMAGE GUIDE D PAP AND HPV REGAR DLESS image guided Pap, HPV regardless of Pap result SEE RESULT S BELOW CASE REPOR T: Cytol ogy Gynec ologi robles Repor t Case: [id number] Autho kieran g Provi reynold: Leah Lara, [employer] Colle cted: 08/21 1738 Order ing Locat ion: [place] [facility] Recei kaylan: 08/22 0428 First Scree n: Elma z, Willi am, CT Speci men: Scree arnold Pap - [...] or Rachelle keller (NIL) . Atrop hic cell damari kaminski. Amy gonzales marisela d by Elma green, Willi am, CT on 2021 at 7:06 AM [...] Thinp rep Imagi ng Syste m. CLINI ROLBES INFOR MATIO N: Menst rual Statu s: [...] as clini florencio yadav nted. Not Available [facility] (Lab) [address], [place], [address], 08/27/2022 08:10:49 06/02/20 20 06/02/2020 MAMMO , scree arnold, bilat eral No observ ation record ed. [facility] [address], [place], [address], 06/20/2020 20:18:29 09/07/20 21 09/07/2021 MAMMO , scree arnold, bilat eral No observ ation record ed. [facility] [address], [place], [address], 09/13/2021 10:18:57 01/30/20 23 01/15/2023 DEXA, axial skele ton + verte bral fract ure asses sment No observ ation record ed. [facility] [address], [place], [address], 02/02/2023 23:41:45 02/06/20 DEXA, axial skele ton + verte bral fract ure asses sment No observ ation record ed. [facility] [address], [place], [address], 02/06/2023 15:57:04 02/27/20 23 02/26/2023 MAMMO , scree arnold, bilat eral No observ ation record ed. [email or web address] [address], [place], [address], 08/25/2023 14:15:39 02/27/20 23 02/26/2023 MAMMO , scree arnold, bilat eral No observ ation record ed. [facility] [address], [place], [address], 03/13/2023 05:29:32 Result Notes None recorded. Problems Name Problem SNOMED Code Status Onset Date Resolution Date Notes Provider Name and Address Organization Details Recorded Time Anxiety state 452147482 Completed 201307/10/2021 Anxiety; Recorded Elsewher e: No Locat ion: [facility] S ource: [employer] Supervisor gerber: N Panchitoti ce ID: 0001 Crispin lable Time: 10:30:00 AM Trena leon [facility] 14:49:06 Depressi ve disorder [id number] Completed 201307/10/2021 Depressi on;Recor ded Elsewher e: No Locat ion: [facility] S ource: [facility] gerber: N Panchitoti ce ID: 0001 Crispin lable Time: 10:30:00 AM Trena Lopez [facility] 14:49:20 Screenin g for malignan t neoplasm of rectum Completed 201507/10/2021 Encounte r for screenin g for malignan t neoplasm of rectum;R ecorded Elsewher e: No Locat ion: [facility] S ource: [facility] gerber: N Panchitoti ce ID: 0001 Crispin lable Time: 10:00:00 AM Trena leon [facility] 14:49:13 Evaluati on finding Completed 201607/10/2021 Unspecif ied abnormal cytologi robles findings in specimen s from cervix uteri;Re corded Elsewher e: No Locat ion: [facility] N Panchitoti ce ID: 0001 Crispin lable Time: 11:15:00 AM Trena leon [facility] 14:49:11 Blood leukocyt e number above referenc e range [id number] Completed 201807/10/2021 Elevated white blood cell count, unspecif ied;Antony rded Elsewher e: No Locat ion: [facility] S ource: [employer] gerber: N Practi ce ID: 0001 Crispin lable Time: 01:00:00 PM Trena leon [facility] 14:49:21 Sexually transmit barron infectio us disease [id number] Completed 201307/10/2021 SPECIAL SCREEN EXAM HPV;Antony rded Elsewher e: No Locat ion: [facility] S ource: [employer] gerber: N Dilan ce ID: 0001 Crispin lable Time: 11:30:00 AM Trena leon [facility] 14:49:31 Speciali zed medical examinat ion Completed 201307/10/2021 Gynecolo gical Examinat ion;Antony rded Elsewher e: No Locat ion: [facility] S ource: [employer] gerber: N Dilan ce ID: 0001 Crispin lable Time: 11:30:00 AM Trena leon [facility] 14:49:29 Atypical glandula r cells on cervical Papanico laou smear [id number] Completed 201407/10/2021 Abnormal glandula r Papanico laou smear of cervix;R ecorded Elsewher e: No Locat ion: [facility] S ource: [employer] gerber: N Dilan ce ID: 0001 Crispin lable Time: 02:30:00 PM Trena leon [facility] 14:49:27 Adult health examinat ion Completed 201407/10/2021 ROUTINE MEDICAL EXAM;Rec orded Elsewher e: No Locat ion: [facility] S ource: [employer] gerber: N Dilan ce ID: 0001 Crispin lable Time: 03:00:00 PM Trena leon [facility] 14:49:[address] Concept Completed 201607/10/2021 Encntr for pearler exam (general ) (routine ) w/o abn findings ;Recorde d Elsewher e: No Locat ion: [facility] S ource: [employer] gerber: N Panchitosania ce ID: 0001 Crispin lable Time: 10:00:00 AM Trena leon [facility] 14:49:[address] Concept Completed 201607/10/2021 Encntr for general adult medical exam w/o abnormal findings ;Recorde d Elsewher e: No Locat ion: [facility] S ource: [employer] gerber: N Dilan ce ID: 0001 Crispin lable Time: 10:00:00 AM Trena leon [facility] 14:49:15 Body mass index 30+ - obesity 196297860 Completed 201807/10/2021 Body mass index (BMI) 35.0-35. 9, adult;Re corded Elsewher e: No Locat ion: [facility] S ource: [employer] gerber: N Dilan ce ID: 0001 Crispin lable Time: 01:00:00 PM Trena leon [facility] 14:49:03 Pregnanc y test negative [id number] Completed 201407/10/2021 Pregnanc y examinat ion or test, negative result;R ecorded Elsewher e: No Locat ion: [facility] S ource: [employer] gerber: N Dilan ce ID: 0001 Crispin lable Time: 02:30:00 PM Trena leon [facility] 14:49:09 Obesity [id number] Completed 201307/10/2021 Obesity; Recorded Elsewher e: No Locat ion: [facility] S ource: [employer] gerber: N Panchitosania ce ID: 0001 Crispin lable Time: 09:30:00 AM Trena leon [facility] 14:49:22 Leukocyt osis 576163539 Completed 201107/10/2021 LEUKOCYT OSIS NOS;Antony rded Elsewher e: No Locat ion: [facility] S ource: [employer] gerber: N Practi ce ID: 0001 Crispin lable Time: 10:00:00 AM [facility] 14:49:02 Screenin g for malignan t neoplasm of cervix Completed 201107/10/2021 Screenin g for malignan t neoplasm s of the cervix;R ecorded Elsewher e: No Locat ion: [facility] S ource: [employer] gerber: N Practi ce ID: 0001 Crispin lable Time: 10:00:00 AM Trena leon, [facility] 14:49:05 Ill-defi bessy intestin al infectio n Completed 201207/10/2021 No Show Fee;Prac elicia ID: 0001 Trena leon, [facility] 14:49:[address] Concept Completed 201807/10/2021 Encounte r for general adult medical exam w abnormal findings ;Practic e ID: 0001 Trena Lopez [facility] 14:49:17 Problem Notes None recorded. Procedures Surgical History Date Name Laterality Status Provider Name and Address Organization Details Recorded Time 08/21/20 22 Date of Last Pap Smear completed Betty Argueta [facility] 08/21/2022 15:11:32 07/17/20 21 Punch Biopsies, Multiple completed Leah Galloway CNM [address], [place], [address], [facility] 07/18/2021 09:34:01 03/02/20 19 Date of Last Mammogram completed Trena John [facility] 07/10/2021 15:00:36 07/06/20 15 Colposcopy completed [facility] 07/23/2021 15:27:57 03/05/20 15 Colposcopy completed [facility] 08/21/2022 13:45:32 10/27/[address] [facility] 04/05/2020 13:37:46 10/27/18 90 termination of completed [facility] 07/23/2021 15:29:40 10/27/18 90 [address] completed [facility] 04/05/2020 13:37:24 Imaging Results None recorded. Procedure Notes None recorded. Medical Equipment None Reported. Allergies Allergen ID Allergen Name Allergen Category Reaction Reaction Severity Criticality Documentation Date Start Date Code Code System Note Provider Name and Address Organization Details Recorded Time 953 Product containin g penicilli n (product) medicatio n Not available Not available Not available 04/05/2020 09329 8001 SNOMED [facility] 2 15:11:11 Medications Name Sig Start [...] ed Elsewher e: Yes Loca tion: Trish [facility] Mahnaz gandara By: jesusita castro DateTime : 04/28/20 14 01:00:41 PM Not Available Not Available Not Available trazodone 50 mg tablet take 1 tablet by oral route 3 times every day after meals 07/10 completed Prescrib ed Elsewher e: Yes Loca tion: Trish gamez [facility] odify By: ryland Lopes ter DateTime : 03/02/20 19 01:00:00 PM Not Available Not Available Not Available fluconazo le 150 mg tablet take 1 tablet by oral route once 07/10 completed Prescrib ed Elsewher e: Yes Loca tion: Trish gamez [facility] odify By: ryland Lopes ter DateTime : 03/02/20 19 01:00:00 PM [...] Elsewher e: Yes Loca tion: Trish gamez [facility] odify By: ryland Lopes ter DateTime : 03/02/20 19 01:00:00 PM Not Available Not Available Not Available baclofen 20 mg tablet take 1 tablet by oral route 4 times every day 04/28 completed Prescrib ed Elsewher e: Yes Loca tion: Trish gamez [facility]ify By: gerard camp DateTime : 01/16/20 12 08:05:30 PM Not Available Not Available Not Available [place] Thyroid 15 mg tablet 07/10 completed Prescrib ed Elsewher e: Yes Loca tion: Trish gamez [facility]ify By: gerard camp DateTime : 04/28/20 14 01:00:41 PM Not Available Not Available Not Available progester one 50 mg/mL intramusc ular oil inject 0.1 millilit er by intramus cular route every day 01/28 completed Prescrib ed Elsewher e: Yes Loca tion: [facility] odify By: jesusita castro DateTime : 04/28/20 14 01:00:41 PM Not Available Not Available Not Available famotidin e 20 mg tablet TAKE 1 TABLET BY MOUTH TWICE A DAY 08/21 completed Not Available Not Available Not Available amitripty line 25 mg tablet take 1 tablet by oral route every day at bedtime 01/28 completed Prescrib ed Elsewher e: No [facility] By: jesusita castro DateTime : 07/19/20 14 08:45:00 AM Not Available Not Available Not Available Zoloft 50 mg tablet take 1 tablet by oral route every day 06/06 completed Prescrib ed Elsewher e: No Locat ion: [facility] odify By: jesusita castro DateTime : 09/15/20 14 [...] Prescrib ed Elsewher e: Yes [facility] By: jesusita castro DateTime : 07/19/20 [...] Prescrib ed Elsewher e: Yes [facility] By: gerard camp DateTime : 04/28/20 14 01:00:41 PM Not Available Not Available Not Available Wellbutri n 75 mg tablet take 1 tablet by oral route 3 times every day 07/10 completed Prescrib ed Elsewher e: Yes Loca tion: Trish gamez [facility] odify By: jesusita Gamez ncounter DateTime : 06/10/20 16 10:00:00 AM Not Available Not Available Not Available ranitidin e 150 mg capsule take 1 capsule by oral route 2 times every day 07/10 completed Prescrib ed Elsewher e: Yes Loca tion: Trish gamez [facility] odify By: ryland z Encoun ter DateTime : 03/02/20 19 01:00:00 PM Not Available Not Available Not Available gabapenti n 100 mg capsule take 1 by oral route 2 times every day 07/10 completed Prescrib ed Elsewher e: Yes Loca tion: Trish gamez [facility] odify By: ryland z Encoun ter DateTime [...] Elsewher e: Yes Loca tion: Trish gamez [facility] odify By: amkramila Gamez ncounter DateTime : 06/06/20 15 03:00:00 PM Not [...] ed Elsewher e: Yes [facility] By: jesusita castro DateTime : 04/28/20 14 01:00:41 PM Not Available Not Available Not Available duloxetin e 30 mg capsule,d elayed release TAKE 1 CAPSULE BY MOUTH EVERY DAY active Not Available Not Available No t Available duloxetin e 60 mg capsule,d elayed release TAKE 1 CAPSULE BY MOUTH EVERY DAY FOR 90 DAYS active Not Available Not Available No t Available [place] Thyroid 08/21 completed Not Available Not Available [...] Prescrib ed Elsewher e: Yes Loca tion: [facility] odify By: gerard camp DateTime : 01/17/20 12 10:00:00 AM Not Available Not Available Not Available heparin (porcine) 5,000 unit/mL (1 mL) injection cartridge inject 1 millilit er by subcutan eous route every 12 hours 01/28 completed Prescrib ed Elsewher e: Yes Loca tion: [facility] odify By: jesusita castro DateTime : 07/06/20 02:30:00 PM Not Available Not Available Not Available [employer] Thyroid 30 mg tablet TAKE 5 TABLETS EVERY DAY BY ORAL ROUTE IN THE MORNING. active Not Available Not Available No t Available Aczone 7.5 % topical gel with pump 07/10 completed Not Available Not Available Not Available Aklief 0.005 % topical cream active Not Available Not Available Not Available Vitals Date Recorded Body height Body mass index (BMI) Body weight Systolic And Diastolic Provider Name and Address Organization Details Last Updated DateTime 04/06/2020 173.99 cm 34.9 kg/m2 028537.02 g 111/71 mm[Hg] Sabine Choi [facility] 04/06/2020 14:54:35 Date Recorded Body height Body mass index (BMI) Body weight Systolic And Diastolic Provider Name and Address Organization Details Last Updated DateTime 07/11/2021 173.99 cm 35.5 kg/m2 581469.39 g 137/53 mm[Hg] Trena Lopez [facility] 07/11/2021 11:44:31 Date Recorded Body height Body mass index (BMI) Body weight Systolic And Diastolic Provider Name and Address Organization Details Last Updated DateTime 07/17/2021 173.99 cm 35.7 kg/m2 203692.98 g 111/73 mm[Hg] Betty Argueta [facility] 07/17/2021 12:58:48 Date Recorded Body height Body mass index (BMI) Body weight Systolic And Diastolic Provider Name and Address Organization Details Last Updated DateTime 08/21/2022 173.99 cm 34.6 kg/m2 278609.84 g 118/76 mm[Hg] Betty Argueta [facility] 08/21/2022 15:09:57 Date Recorded Body weight Systolic And Diastolic Provider Name and Address Organization Details Last Updated DateTime 09/02/2023 189861.27 g 126/72 mm[Hg] Lindsay Ramirez [facility] 09/02/2023 14:10:24 Social History Question Answer Notes LastModified by Organizat ion Details LastModified Time Tobacco Smoking Status Never Smoker Betty Argueta [facility] 08/21/2022 15:12:42 Do You Have An Advance Directive? Yes [email or web address] Information n ot available 08/21/2022 How Many Years Have You Consumed Alcohol? 40 [email or web address] Information not available 07/11/2021 Are You Blind Or Do You Have Difficulty Seeing? No [email or web address] Information n ot available 07/11/2021 What Is Your Level Of Caffeine Consumption? Heavy [email or web address] Information not available 07/11/2021 In The 14 Days Before Symptom Onset, Have You Had Close Contact With A Laboratory-confirm ed COVID-19 While That Case Was Ill? No Information n ot available 07/11/2021 In The 14 Days Before Symptom Onset, Have You Had Close Contact With A Person Who Is Under Investigation For COVID-19 While That Person Was Ill? No [email or web address] Information not available 07/11/2021 Have You Been To An Area Known To Be High Risk For COVID-19? No [email or web address] Information not available 07/11/2021 Are You Deaf Or Do You Have Serious Difficulty Hearing? No [email or web address] Information not available 07/11/2021 What Type Of Diet Are You Following? GLUTENFREE Information n ot available 07/11/2021 What Is The Highest Grade Or Level Of School You Have Completed Or The Highest Degree You Have Received? [id number] [email or web address] Information not available 07/11/2021 Are There Any Guns Present In Your Home? Yes Information not available 07/11/2021 Do You Use Protection During Sex? No [email or web address] Information not available 07/11/2021 Do You Use Your Seat Belt Or Car Seat Routinely? Yes [email or web address] Information not available 07/11/2021 Do You Have Smoke And Carbon Monoxide Detectors In Your Home? Yes [email or web address] Information not available 07/11/2021 How Much Tobacco Do You Smoke? No [email or web address] Information not available 07/11/2021 Do You Use Sunscreen Routinely? Yes [email or web address] Information not available 08/21/2022 Have You Used IV Drugs? No [email or web address] Information not available 07/11/2021 Do You Have Difficulty Walking Or Climbing Stairs? No [email or web address] Information not available 08/21/2022 Sex: Unknown Functional Status Question Answer Note LastModified by Organizat ion Details LastModified Time Do you use any illicit or recreational drugs? No Information not available 08/21/2022 What is your level of alcohol consumption? Occasional [email or web address] Information not available 07/11/2021 Are you able to walk? YESWOREST [email or web address] Information not available 07/11/2021 Are you able to care for yourself? 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 No [email or web address] Information not available 08/21/2022 What is your exercise level? Heavy [email or web address] Information not available 07/11/2021 Mental Status Question Answer Note LastModified by Organization D etails LastModified Time Do you feel stressed (tense, restless, nervous, or anxious, or unable to sleep at night)? [id number] [email or web address] Information not available 07/11/2021 Family History Relationship Description Onset Age of [...] (Food, seasonal, environmental ) Y Other Y Drug/Latex Allergies/Reactions Y Blood Transfusion N Breast Cancer N Dermatologic Disorders N Lung Disease N Defects or Inherited Disease N Breast Problem N Gestational Diabetes N Hematologic disorders N Anesthesia Complications N History of STI Y Deep Vein Thrombosis Y Polycystic ovary syndrome N Anxiety Disorder Y Autoimmune disease N Arthritis N Infertility N Polyps N Acid Reflux (GERD) Y History of abnormal pap Y Cancer N Varicosities N Stroke N Neurologic/Epilepsy Y Endometriosis N High Cholesterol N Fibromyalgia N Headaches N Kidney Disease N Heart Problems N Thyroid Problems Y Kidney or Bladder Problems N GI Problems N Eating Disorder N Anemia [...] Code Diagnosis ICD10 Code Diagnosis Note [id number] Halima Valles, [facility] [address] [address] 04/06/2020 14:44:37 04/06/2020 16:24:16 Gynecologic examination [id number] Z01.419 Take Calcium with Vitamin D 12-1500mg daily. Do monthly self breast exams. It is advised to get annual flu shot in the fall and she could obtain at [facility] or [facility] clinic. If you haven't received the Tdap [...] questions call or respond to this email.p [id number] Halima Valles [facility] [address],[place] [address] 07/11/2021 11:36:42 07/11/2021 13:52:44 Routine gynecologic examination done [id number] 9101 Z01.419 Leukocytes in urine 2757 49403 R82.79 No symptoms. Will await culture. Gynecologi c examination [id number] Z01.419 Take Calcium with Vitamin D 12-1500mg daily. Do monthly self breast exams. It is advised to get annual flu shot in the fall and she could obtain at [facility] or [facility] clinic. If you haven't received the Tdap [...] call or respond to this email. Vaginitis [id number] N76.0 Biopsy to be scheduled. Discussed possibilit y of lichen sclerosus. Will go ahead and treat with diflucan d/t history of yeast and itching. [id number] [facility] [address],[place] [address] 07/17/2021 12:41:22 07/18/2021 22:54:49 Lesion of vulva 790090887 N90.89 [id number] Leah Galloway CNM [place] [address],[place] [address] 08/21/2022 14:59:54 08/21/2022 16:04:22 Gynecologic examination [id number] Z01.419 [id number] CELINE Narayan [place] [address],[place] [address] 09/02/2023 13:22:48 09/02/2023 15:01:59 Gynecologic examination [id number] Z01.419 WWEpostmen opausalpap updatedSTI testing declinedma mmogram order given - due 4dex a UTD - due next ologu susannah UTD / PCPUTD with routine labsRTC in 1 yr or sooner if needed Take Calcium with Vitamin D daily.Do monthly self breast exams.It is advised to get annual flu shot in the fall and she could obtain at [facility] or [facility] care clinic. If you haven't received the [...] email Screening for malignant neoplasm of breast [id number] Z12.39 Health Concerns Section Related Observation LastModified by Organization Detai ls LastModified Time None Recorded Concern Status LastModified by Organization Details LastModified Time None Recorded Advance Directives Directive Y: Payers Insurance Date Sequence Insurance Name Policy Number Policy López Covered Member ID López Member ID Guarantor Name 09/02/2023 1 [employer] (POS II) [id number] Deirdre Joya Jayson [id number] Deirdre Joya Jayson 10/13/2023 1 [employer] (MEDICARE REPLACEMEN T/ADVANTAG E - PPO) [id number] Deirdre Joya Carlos Kim [id number] Deirdre Joya Jayson Notes Date Note Type Note Provider Name [...] depression; No anxiety; No PMDD Halima leon [facility] 04/06/2020 16:12:38 07/11/2021 text/html Annual GYNReport ed bypatient.Urinary symptoms:No hematuria; No incontinence Vulva:No genital lesion Vagina:Normal vaginal discharge Breast:No breast pain; No breast lump; No nipple discharge Sexual complaints:No sexual complaints; No pain during intercourse; Normal libido Menopausal Symptoms:No menopausal symptoms; Normal vaginal lubrication Psychological symptoms:No depression; No anxiety; No PMDD Right labial irritation Halima leon [facility] 07/11/2021 13:06:36 07/17/2021 text/html pt here for labi al biopsy per CNM, reviewed risks including bleeding and infection consent signed Leah Galloway CNM [address], [place], [address], [facility] 07/18/2021 09:34:30 08/21/2022 text/html Annual GYNReport [...] steroid cream for vaginal psoriasis, went to [place] v[place] Leah Galloway CNM [address], [place], [address], [facility] 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 09/02/2023 14:46:04 OBGyn Episode Ob Episode Information Episode Created Date Number of Fetuses Patient Bloodtype Patient rh Status Prepregnancy Weight lbs Domestic Partner Domestic Partner Phone Father Name Meeting/Event Planner Status 04/06/20 20 1 CLOSED Fetus Data [...] Post Complications Tubal Sterilization Discharge Date Comments 1 40 Discharge Information Feeding Method Contraceptive Method Maternal HG B and HCT Levels Ob Episode Information Episode Created Date Number of Fetuses Patient Bloodtype Patient rh Status Prepregnancy Weight lbs Domestic Partner Domestic Partner Phone Father Name Meeting/Event Planner Status 04/06/20 20 1 CLOSED Fetus Data [...] Domestic Partner Domestic Partner Phone Father Name Meeting/Event Planner Status 04/06/20 20 1 CLOSED Fetus Data [...] Domestic Partner Domestic Partner Phone Father Name Meeting/Event Planner Status 07/10/20 21 1 CLOSED Fetus Data First Name Last Name Admitted to NICU Weight (g) Sex Living Outcome Pediatric Complications Fetus ID Race Codes Race Delivery Type , Induced [id number] Jose Calculation Initial Jose Date Initial Exam [...]
--- OUTSIDE RECORDS SUMMARY | 2025-05-12 00:56 | XMS_ITS | Clinical Summary ---
Author Organization [facility] [address] [facility] lto Address [address] [place] [address] Care Team Providers Care Reporting Coordinator Name Role Phone Unavailable Primary Care Provider [...] TABLET BY MOUTH EVERY DAY 3 Active SANDWICH PEDDLER Thyroid 30 mg tablet SANDWICH PEDDLER Thyroid 30 mg tablet TAKE 5 TABLETS [...] 02/13/2010 Surgical History Surgery Date Site/Laterality Comments [place] DELIVERY ONLY Section - 1990 (Added by TW Conv) [place] DILATION & CURETTAGE DX&/ THER NONOBSTETRIC Dilation [...] on file Legal Sex Female 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
--- OUTSIDE RECORDS SUMMARY | 2025-05-12 00:56 | XMS_ITS | Clinical Summary ---
Author Organization [facility] Address [address] [place] [address] Care Team Providers Care Veterans Rehabilitation Counselor Name Role Phone Cliff Syed MD Primary Care Provider [phone] Allergies Active Allergy Reactions Criticality Noted Date Comments Chocolate Rash Medium 04/15/2019 Yeast Rash Medium 04/15/2019 Medications acetaZOLAMIDE 250 MG tabletIndications :Muscle Cramps Take 1,250 mg by mouth 2 (two) times daily. 04/19/20 Active thyroid (ED,BRIDGE RIGGER) 30 MG OR tabletIndications :Thyroid Disease Take [...] 4 (four) times daily. 04/19/20 Active nystatin 007886 units tabletIndications :Yeast Take 500,000 Units by [...] Sodium Chloride Flush (SALINE FLUSH IV)Indications:PI CC EQUIPMENT ENGINEER Inject 10 mLs into the vein [...] Comments Blood Pressure 112/68 09/06/2019 12:51 PM CIGAR TOBACCO REHANDLER Pulse 72 09/06/2019 12:51 PM CIGAR TOBACCO REHANDLER Temperature 35.8 C (96.5 F) 09/06/2019 12:51 PM CIGAR TOBACCO REHANDLER Respiratory Rate 18 09/06/2019 12:51 PM CIGAR TOBACCO REHANDLER Oxygen Saturation 98% 09/06/2019 12:51 PM CIGAR TOBACCO REHANDLER Inhaled Oxygen Concentration - - Weight 107.5 kg (237 lb) 04/15/2019 10:55 AM CDT Height 175.3 cm (5' 9) 04/15/2019 10:55 AM CDT Body Mass Index 35 04/15/2019 10:55 AM CDT Plan of Treatment Health Maintenance Due Date Last Done Comments Colorectal Cancer Screening Colonoscopy (10 Years) 1957 Hepatitis C 1975 DTaP, Tdap and Td Vaccines ( 1 - Tdap) 1976 Mammogram Screening 1997 Zoster Vaccines (1 of 2) 2007 Pneumococcal Vaccine: 50+ Ye ars (2 of 2 - PCV) 06/01/2011 06/01/2010 Dexa Scan (General) 2022 COVID-19 Vaccine (1 - 2023-2 5 season) 2024 RSV Immunization or 60+ Years (1 [...] patient's age to complete this topic Insurance AETNA [facility] Care Teams Veterans Rehabilitation Counselor Relationship Specialty Start Date End Date Cliff Syed MD [address] [place] [address] PCP - General FAMILY PRACTICE 03/25/19
--- OUTSIDE RECORDS SUMMARY | 2025-05-12 00:56 | XMS_ITS | Encounter Summary ---
Author Organization [facility] Address [address] [place] [address] Care Team Providers Care Linen Clerk Name Role Phone Cliff Syed MD Primary Care Provider Encounter Details Date Type Department Care Team (Late st Contact Info) Description 04/08/2019 Hospital Orders Only [facility] [address] [place] [address] Cliff Syed MD [address] [place] [address] Social History Tobacco Use Types Packs/Day Years [...] on filedocumented in this encounter Care Teams Linen Clerk Relationship Specialty Start Date End Date Cliff Syed MD [address] [place] [address] PCP - General FAMILY PRACTICE 03/25/19 documented as of this encounter
--- OUTSIDE RECORDS SUMMARY | 2025-05-12 00:56 | XMS_ITS | Encounter Summary ---
Author Organization [facility] Address [address] [place] [address] Care Team Providers Care Pinked Edge Sewing Machine Operator Name Role Phone Cliff Syed MD Primary Care Provider [phone] Encounter Details Date Type Department Care Team (Late st Contact Info) Description 12/28/2018 Abstract [facility] CONVERSION [address] [place] [address] , Generic ConversionMD Social History Tobacco Use Types Packs/Day Years [...] on filedocumented in this encounter Care Teams Pinked Edge Sewing Machine Operator Relationship Specialty Start Date End Date Cliff Syed MD [address] [place] [address] PCP - General FAMILY PRACTICE 03/25/19 documented as of this encounter
--- OUTSIDE RECORDS SUMMARY | 2025-05-12 00:56 | XMS_ITS | Data Portability ---
Author Organization DOTTIE - [facility] Address [address] [place] [address] Assessment No assessment recorded. Plan of Treatment Reminders Order Date Submit Date Provider Last Modified By Organization Details Last Modified Time Details Appointments None recorded. Lab LILIANE (antinucle ar antibodies ) screen, ifa, serum 2023 024 amalic [employer] [facility], [facility] [address], [place], [address], 4 07:43:59 CBC w/ auto diff 2023 024 amalic Not available 4 07:43:59 CMP, serum or plasma 2023 024 amalic Not available 4 07:43:59 HbA1c (hemoglobi n A1c), blood 2023 024 amalic Not available 4 07:43:59 TSH + free T4, serum 2023 024 amalic Not available 4 07:43:59 T3, total, serum 2023 024 amalic Not available 4 07:43:59 T3, reverse, serum 2023 024 amalic Not available 4 07:43:59 LILIANE + rf (antinucle ar antibodies + rheumatoid factor), quantitati ve, serum 2023 024 amalic Not available 4 08:00:27 hla-B27, blood 2023 024 amalic Not available 4 08:00:27 ESR (erythrocy te sedimentat ion rate), blood 2023 024 amalic Not available 4 08:00:27 CRP, high sensitivit y, serum or plasma 2023 024 amalic Not available 4 08:00:27 CBC w/ auto diff 2023 024 amalic Not available 4 08:00:28 CMP, serum or plasma 2023 024 amalic Not available 4 08:00:28 lipid panel, serum 2023 024 amalic Not available 4 08:00:28 HbA1c (hemoglobi n A1c), blood 2023 024 amalic Not available 4 08:00:28 TSH + free T4, serum 2023 024 amalic Not available 4 08:00:27 T3, total, serum 2023 024 amalic Not available 4 08:00:27 T3, reverse, serum 2023 024 amalic Not available 4 08:00:27 LILIANE + rf (antinucle ar antibodies + rheumatoid factor), quantitati ve, serum 2022 023 smimms Not available 3 18:23:25 hla-B27, blood 2022 023 smimms Not available 3 18:23:25 ESR (erythrocy te sedimentat ion rate), blood 2022 023 FERNANDA Not available 3 12:58:00 CRP, high sensitivit y, serum or plasma 2022 023 FERNANDA Not available 3 12:57:59 Referral physical therapist referral 2023 024 Pending sale to [facility], [address], [place], [address], 4 08:03:53 physical therapist referral 2022 023 Pending sale to [facility], [address], [place], [address], 3 07:19:32 physical therapist referral 2022 023 Pending sale to [facility], [address], [place], [address], 3 12:25:27 Procedures None recorded. Surgeries None recorded. Imaging XR, thoracic spine, 3 view 2023 024 [facility], [address], [place], [address], 4 07:17:21 XR, cervical spine 2021 022 [facility], [address], [place], [address], 2 17:21:07 XR, knee, 3 view 2021 022 [facility], [address], [place], [address], 2 13:46:44 US, duplex, venous, lower extremity 2021 022 [facility], [address], [place], [address], 2 14:13:59 Medication Orders compounded medication 2023 024 [facility]acy #[id number], [address], [place], [address], 4 12:27:26 compounded medication 2022 023 rlo [facility]armacy #[id number], [address] [place], [address], 4 17:54:32 Naltrexone 3.0 mg 2021 [facility], [address] [place] [address], [address], 15:25:34 compounded medication 2021 [facility], [facility], [address] [place], [address], 15:25:25 [employer] Thyroid 30 mg tablet 2021 [id number] [address] [place], [address], 16:27:53 Patient TargetsNo targets recorded. Patient Instructions Encounter Date Encounter Id Patient Instructions Last Modified By Organization Details Last Modified Time 07/16/2022 [id number] cervical spondylosis: care instructions cwessling Not available 07/16/2022 16:27:48 neck arthritis: exercises cwessling Not available 07/16/2022 16:27:48 10/12/2024 [id number] knee arthritis: care instructions cwessling Not available 10/12/2024 18:35:14 Reason for Referral Physical Therapist Referral for Cervical spondylosis Referring Physician: [facility], Encounter Date: 03/11/2023 Physical Therapist Referral for Chronic back pain Referring Physician: [facility], Encounter Date: 03/11/2023 Physical Therapist Referral for Chronic back pain Referring Physician: [facility], Encounter Date: 12/29/2023 Results Created Date Observation Date Name Description Value Unit Range Abnormal Flag Note LastModifiedBy Organization Detail LastModifiedTime 03/11/2003/11/2023 RHEUM ATOID FACTO R (RF), QUANT ITATI VE rheumatoid factor, quantitative interpretati on Negati ve negati ve Not Available [facility] (Lab) [address], [place], [address], 03/13/2023 12:57:59 03/11/20 23 03/11/2023 RHEUM ATOID FACTO R (RF), QUANT ITATI VE rf, quantitation <10 IU/mL <=14 Not Available [facility] (Lab) [address], [place], [address], 03/13/2023 12:57:59 03/11/20 23 03/11/2023 CRP, HIGH SENSI TIVIT Y (HSCR P) C-reactive protein, high sensitivity 5.67 mg/L 0.00-3 .00 high Risk Accor ding To AHA/C DC Guide lines : < 1.0 mg/L Low Cardi ovasc ular Risk 1.0-3 .0 mg/L [place] ge Cardi ovasc ular Risk > 3.0 mg/L High Cardi ovasc ular Risk > 10.0 mg/L Acute Infla mmati on Not Available [facility] (Lab) [address], [place], [address], 03/13/2023 12:57:59 03/11/20 23 03/11/2023 SEDIM ENTAT ION RATE, ESR sedimentatio n rate 3 mm/ho ur (based on docume nted legal sex) 0-30 Not Available [facility] (Lab) [address], [place], [address], 03/13/2023 12:58:00 03/11/2003/11/2023 LILIANE SCREE N/REF YOUNG TITER /BROOK COLEMAN anti-nuclear antibody Negati ve negati ve LILIANE titer s and patte rns are perfo rmed using an immun ofluo resce nce assay techn ology . Follo w up testi ng for posit andreina speci mens, if requi red, is perfo rmed using multi plex bead techn ology . Not Available [facility] (Lab) [address] [facility], [place], [address], 03/13/2023 12:58:00 03/11/20 23 03/11/2023 HLA-B 27 ANTIG EN hla B27 Negati ve Not Available [facility] (Lab) [address], [place], [address], 03/13/2023 12:58:01 03/11/20 23 03/11/2023 HLA-B 27 ANTIG EN comment hla B27 HLA-B 27 is negat andreina by flow cytom etric scree arnold test. Not Available [facility] (Lab) [address], [place], [address], 03/13/2023 12:58:01 02/25/20 24 02/27/2024 LILIANE SCREE N, IFA, W/REF L TITER AND LULÚ RN LILIANE screen, ifa POSITI VE negati ve abnormal LILIANE IFA is a first line scree n for detec ting the prese nce of up to appro ximat daniel 150 autoa ntibo dies in vario us autoi mmune disea ses. A posit andreina LILIANE IFA resul t is sugge stive of autoi mmune disea se and refle xes to titer and lulú kaminski. Furth er labor atory testi ng may be consi dered if clini florencio indic ated. For addit ional infor willian cosby e refer to http: //[facility] guille [email or web address].Que stDia gnost ics.c om/fa q/FAQ 177 (This link is being provi ded for infor zurdo mi/ educa jennifer l purpo ses only. ) Not Available [employer] [facility] [address], [place], [address], 02/27/2024 09:40:47 02/25/20 24 02/27/2024 ANTIN UCLEA R ANTIB ODIES TITER AND LULÚ RN LILIANE titer 1:80 titer high A low level LILIANE titer may be prese nt in pre-c linic al autoi mmune disea ses and brent[place] l indiv idual s. Refer ence Range <1:40 Negat andreina 1:40- 1:80 Low Antib juwan Level >1:80 [place] barron Antib juwan Level Not Available [address], [address], 02/27/2024 09:40:47 02/25/20 24 02/27/2024 ANTIN UCLEA R ANTIB ODIES TITER AND PATTE RN LILIANE pattern Nuclea r, Speckl ed abnormal Speck led patte rn is assoc iated with mixed conne ctive tissu e disea se (MCTD ), syste mikayla lupus eryth emato chase (SLE) , Sjogr en's syndr ome, derma tomyo sitis , and syste mikayla scler osis/ polym yosit is overl ap. AC-2, 4,5,2 9: Speck led Inter natio nal Conse nsus on LILIANE Patte rns (http s://d [email or web address] g/10. 1515/ [facility] [place]- 2017- 0052) Not Available [address], [address], 02/27/2024 09:40:47 02/25/20 24 02/27/2024 RHEUM ATOID FACTO R rheumatoid factor <10 IU/mL <14 normal Not Available [address], [address], 02/27/2024 09:40:48 10/22/20 24 10/26/2024 TSH+F REE T4 TSH 0.73 mIU/L 0.40-4 .50 normal Not Available [address], [address], 10/26/2024 17:33:55 10/22/20 24 10/26/2024 TSH+F REE T4 T4, free 1.0 NG/dL 0.8-1. 8 normal Not Available [address] [place], [address], 10/26/2024 17:33:55 10/22/20 24 10/26/2024 COMPR EHENS ANDREINA METAB OLIC PANEL glucose 105 mg/dL 65-99 high Fasti ng refer ence inter lizzy For someo ne witho ut known diabe ed, a gluco se value betwe en 100 and 125 mg/dL is consi stent with predi abete s and shoul d be confi rmed with a follo w-up test. Not Available [facility] [address] [place], [address], 10/26/2024 17:33:55 10/22/20 24 10/26/2024 COMPR EHENS ANDREINA METAB OLIC PANEL urea nitrogen (BUN) 9 mg/dL 7-25 normal Not Available [address] [address] [place], [address], 10/26/2024 17:33:55 10/22/20 24 10/26/2024 COMPR EHENS ANDREINA METAB OLIC PANEL creatinine 0.83 mg/dL 0.50-1 .05 normal Not Available [facility] [address] [address] [place], [address], 10/26/2024 17:33:55 10/22/20 24 10/26/2024 COMPR EHENS ANDREINA METAB OLIC PANEL eGFR 77 mL/mi n/1.7 3m2 > or = 60 normal Not Available [address] [address] [place], [address], 10/26/2024 17:33:55 10/22/20 24 10/26/2024 COMPR EHENS ANDREINA METAB OLIC PANEL BUN/creatini ne ratio SEE NOTE: (calc ) 6-22 Not Repor barron: BUN and Creat inine are withi n refer ence range . Not Available [facility] [address] [address] [place], [address], 10/26/2024 17:33:55 10/22/20 24 10/26/2024 COMPR EHENS ANDREINA METAB OLIC PANEL sodium 140 mmol/ L 135-14 6 normal Not Available [facility] [address] [place], [address], 10/26/2024 17:33:55 10/22/20 24 10/26/2024 COMPR EHENS ANDREINA METAB OLIC PANEL potassium 4.5 mmol/ L 3.5-5. 3 normal Not Available [address], [address], 10/26/2024 17:33:55 10/22/20 24 10/26/2024 COMPR EHENS ANDREINA METAB OLIC PANEL chloride 104 mmol/ L 98-110 normal Not Available [address], [address], 10/26/2024 17:33:55 10/22/20 24 10/26/2024 COMPR EHENS ANDREINA METAB OLIC PANEL carbon dioxide 27 mmol/ L 20-32 normal Not Available [address], [address], 10/26/2024 17:33:55 10/22/20 24 10/26/2024 COMPR EHENS ANDREINA METAB OLIC PANEL calcium 9.0 mg/dL 8.6-10 .4 normal Not Available [address], [address], 10/26/2024 17:33:55 10/22/20 24 10/26/2024 COMPR EHENS ANDREINA METAB OLIC PANEL protein, total 6.9 g/dL 6.1-8. 1 normal Not Available [address] [place], [address], 10/26/2024 17:33:55 10/22/20 24 10/26/2024 COMPR EHENS ANDREINA METAB OLIC PANEL albumin 4.7 g/dL 3.6-5. 1 normal Not Available [address] [place], [address], 10/26/2024 17:33:55 10/22/20 24 10/26/2024 COMPR EHENS ANDREINA METAB OLIC PANEL globulin 2.2 g/dL_ (calc ) 1.9-3. 7 normal Not Available [address], [address], 10/26/2024 17:33:55 10/22/20 24 10/26/2024 COMPR EHENS ANDREINA METAB OLIC PANEL albumin/glob ulin ratio 2.1 (calc ) 1.0-2. 5 normal Not Available [address], [address], 10/26/2024 17:33:55 10/22/20 24 10/26/2024 COMPR EHENS ANDREINA METAB OLIC PANEL bilirubin, total 0.4 mg/dL 0.2-1. 2 normal Not Available [address], [address], 10/26/2024 17:33:55 10/22/20 24 10/26/2024 COMPR EHENS ANDREINA METAB OLIC PANEL alkaline phosphatase 64 U/L 37-153 normal Not Available [address], [address], 10/26/2024 17:33:55 10/22/20 24 10/26/2024 COMPR EHENS ANDREINA METAB OLIC PANEL AST 21 U/L 10-35 normal Not Available [address], [address], 10/26/2024 17:33:55 10/22/20 24 10/26/2024 COMPR EHENS ANDREINA METAB OLIC PANEL ALT 29 U/L 6-29 normal Not Available [address], [address], 10/26/2024 17:33:55 10/22/20 24 10/26/2024 T3 REVER SE, LC/MS /MS T3 reverse, lc/MS/MS 12 NG/dL 8-25 This test was devel chel and its checo tical perfo rmanc e doris cteri stics have been deter mined by [employer] ostic s. It has not been clear ed or appro kaylan by FDA. This assay has been valid ated pursu ant to the CLIA regul ation s and is used for clini amarilys purpo ses. Not Available [facility] [address] [place], [address], 10/26/2024 17:33:56 10/22/20 24 10/26/2024 CBC (INCL UDES DIFF/ PLT) white blood cell count 4.5 thous and/u L 3.8-10 .8 normal Not Available [facility] [address], [address], 10/26/2024 17:33:56 10/22/20 24 10/26/2024 CBC (INCL UDES DIFF/ PLT) red blood cell count 4.56 samira on/uL 3.80-5 .10 normal Not Available [facility] [address] [place], [address], 10/26/2024 17:33:56 10/22/20 24 10/26/2024 CBC (INCL UDES DIFF/ PLT) hemoglobin 14.3 g/dL 11.7-1 5.5 normal Not Available [facility] [address], [address], 10/26/2024 17:33:56 10/22/20 24 10/26/2024 CBC (INCL UDES DIFF/ PLT) hematocrit 43.3 % 35.0-4 5.0 normal Not Available [facility] [address], [address], 10/26/2024 17:33:56 10/22/20 24 10/26/2024 CBC (INCL UDES DIFF/ PLT) MCV 95.0 fL 80.0-1 00.0 normal Not Available [facility] [address], [address], 10/26/2024 17:33:56 10/22/20 24 10/26/2024 CBC (INCL UDES DIFF/ PLT) MCH 31.4 pg 27.0-3 3.0 normal Not Available [address], [address], 10/26/2024 17:33:56 10/22/20 24 10/26/2024 CBC (INCL UDES DIFF/ PLT) MCHC 33.0 g/dL 32.0-3 6.0 normal For adult s, a sligh t decre ase in the calcu lated MCHC value (in the range of 30 to 32 g/dL) is most likel y not clini florencio signi salo t; leonides er, it shoul d be inter prete d with cauti on in corre latio n with other red cell jane eters and the patie nt's clini amarilys condi tion. Not Available [address], [address], 10/26/2024 17:33:56 10/22/20 24 10/26/2024 CBC (INCL UDES DIFF/ PLT) RDW 12.8 % 11.0-1 5.0 normal Not Available [address], [address], 10/26/2024 17:33:56 10/22/20 24 10/26/2024 CBC (INCL UDES DIFF/ PLT) platelet count 221 thous and/u L 140-40 0 normal Not Available [address], [address], 10/26/2024 17:33:56 10/22/20 24 10/26/2024 CBC (INCL UDES DIFF/ PLT) MPV 10.0 fL 7.5-12 .5 normal Not Available [address], [address], 10/26/2024 17:33:56 10/22/20 24 10/26/2024 CBC (INCL UDES DIFF/ PLT) absolute neutrophils 2592 cells /uL 1500-7 800 normal Not Available [address], [address], 10/26/2024 17:33:56 10/22/20 24 10/26/2024 CBC (INCL UDES DIFF/ PLT) absolute lymphocytes 1368 cells /uL 850-39 00 normal Not Available [address] [place], [address], 10/26/2024 17:33:56 10/22/20 24 10/26/2024 CBC (INCL UDES DIFF/ PLT) absolute monocytes 392 cells /uL 200-95 0 normal Not Available [address], [address], 10/26/2024 17:33:56 10/22/20 24 10/26/2024 CBC (INCL UDES DIFF/ PLT) absolute eosinophils 131 cells /uL 15-500 normal Not Available [address], [address], 10/26/2024 17:33:56 10/22/20 24 10/26/2024 CBC (INCL UDES DIFF/ PLT) absolute basophils 18 cells /uL 0-200 normal Not Available [address], [address], 10/26/2024 17:33:56 10/22/20 24 10/26/2024 CBC (INCL UDES DIFF/ PLT) neutrophils 57.6 % normal Not Available [address], [address], 10/26/2024 17:33:56 10/22/20 24 10/26/2024 CBC (INCL UDES DIFF/ PLT) lymphocytes 30.4 % normal Not Available [address], [address], 10/26/2024 17:33:56 10/22/20 24 10/26/2024 CBC (INCL UDES DIFF/ PLT) monocytes 8.7 % normal Not Available [address] [address] [place], [address], 10/26/2024 17:33:56 10/22/20 24 10/26/2024 CBC (INCL UDES DIFF/ PLT) eosinophils 2.9 % normal Not Available [facility] [address] [address] [place], [address], 10/26/2024 17:33:56 10/22/20 24 10/26/2024 CBC (INCL UDES DIFF/ PLT) basophils 0.4 % normal Not Available [facility] [address] [address] [place], [address], 10/26/2024 17:33:56 10/22/20 24 10/26/2024 LILIANE SCREE N, IFA, W/REF L TITER AND PATTE RN LILIANE screen, ifa NEGATI VE negati ve normal LILIANE IFA is a first line scree n for detec ting the prese nce of up to appro ximat daniel 150 autoa ntibo dies in vario us autoi mmune disea ses. A negat andreina LILIANE IFA resul t sugge sts an LILIANE-a ssoci ated autoi mmune disea se is not prese nt at this time, but is not defin itive . If there is high clini amarilys suspi cion for Sjogr en's syndr ome, testi ng for anti- SS-A/ Ro antib juwan shoul d be consi dered . Anti- Michelle-1 antib juwan shoul d be consi dered for clini florencio suspe cted infla mmato ry myopa david . AC-0: Negat andreina Inter natio nal Conse nsus on LILIANE Patte rns (http s://d oi.or g/10. 1515/ [facility] [place]- 2017- 0052) For addit ional infor zurdo caballero, willian e refer to http: //martina han n.Que stDia gnost ics.c om/fa q/FAQ 177 (This link is being provi ded for infor zurdo nal/ educa jennifer l purpo ses only. ) Not Available [employer] [facility] [address] [place], [address], 10/26/2024 17:33:56 10/22/20 24 10/26/2024 T3, TOTAL T3, total 146 NG/dL 76-181 normal Not Available [facility] [address] [place], [address], 10/26/2024 17:33:57 10/22/20 24 10/26/2024 HEMOG LOBIN A1C hemoglobin A1C 5.3 %_of_ total _HGB <5.7 normal For the purpo se of screade barrett for the prese nce of diabe ed: <5.7% Consi stent with the absen ce of diabe ed 5.7-6 .4% Consi stent with incre ased risk for diabe ed (pred iabet es) > or =6.5% Consi stent with diabe ed This assay resul t is consi stent with a decre ased risk of diabe ed. Curre ntly, no conse nsus exist s [place] benz use of hemog lobin A1c for diagn osis of diabe ed in child rosie. Accor ding to Ameri can Diabe ed Assoc iatio n (ADA) guide lines , hemog lobin A1c <7.0% repre sents optim al contr ol in non-p regna nt diabe tic patie nts. Diffe rent metri cs may apply to speci fic patie nt popul ation s. Stand ards of Medic al Care in Diabe ed(A DA). Not Available [employer] [facility] [address] [place], [address], 10/26/2024 17:33:57 01/12/20 22 01/11/2022 XR, knee, 3 view No observ ation record ed. [facility] [address], [place], [address], 01/12/2022 10:50:53 01/17/20 22 01/16/2022 US, duple x, venou s, lower extre mity No observ ation record ed. [facility] [address], [place], [address], 01/16/2022 20:39:32 07/22/20 22 07/22/2022 XR, cervi amarilys spine No observ ation record ed. [facility] [address], [place], [address], 07/24/2022 13:16:20 07/22/20 22 07/22/2022 XR, cervi amarilys spine No observ ation record ed. [facility] [address], [place], [address], 07/23/2022 21:47:44 01/17/20 23 01/15/2023 bone densi ty No observ ation record ed. [facility] [address], [place], [address], 02/12/2023 16:33:01 01/18/20 23 01/15/2023 bone densi ty No observ ation record ed. [facility] [address], [place], [address], 01/18/2023 00:00:42 01/25/20 23 01/23/2023 US, doppl er, venou s No observ ation record ed. [facility] [address], [place], [address], 01/24/2023 15:47:10 02/27/20 23 02/26/2023 MAMMO , scree arnold, bilat eral No observ ation record ed. [facility] [address], [place], [address], 02/27/2023 07:31:43 08/25/20 23 08/25/2023 XR, ribs, bilat eral, 3 view No observ ation record ed. [address] , [place], [address], 12/29/2023 12:19:51 12/01/19 24 12/01/2023 XR, hand No observ ation record ed. [address], [place], [address], 12/02/2023 01:21:20 12/30/19 24 12/29/2023 XR, thora cic spine , 3 view No observ ation record ed. [facility] [address], [place], [address], 12/31/2023 11:07:24 01/21/20 24 01/21/2024 XR, hand No observ ation record ed. [address], [place], [address], 01/25/2024 20:13:57 02/19/20 24 02/19/2024 XR, wrist No observ ation record ed. [address] , [place], [address], 02/20/2024 18:58:31 05/03/20 24 04/30/2024 MAMMO , scree arnold, bilat eral No observ ation record ed. [facility] [address], [place], [address], 05/04/2024 14:04:31 12/07/19 25 jennifer rossi am No observ ation record ed. [facility] Not Available 2024 23:35:32 01/26/20 25 01/17/2025 lisbet can cardi olite stres s test (PROC ) No observ ation record ed. [facility] [address], [place], [address], 01/25/2025 19:49:28 Result Notes None recorded. Problems Name Problem SNOMED Code Status Onset Date Resolution Date Notes Provider Name and Address Organization Details Recorded Time Long-term drug therapy Active 2023 William Pompa MD [address] [place] [address], [phone] , [facility] 4 12:26:51 Obesity 939744809 Active 2023 William Pompa MD [address] [place] [address], [phone] , [facility] 4 12:26:53 Electrocar diogram abnormal 649278798 Active 2024 William Pompa MD [address] [place] [address], [phone] , [facility] 5 23:25:09 Bronchitis 27591211 Active 2019 William Pompa MD [address] [place] [address], [phone] , [facility] 0 14:58:31 Chronic sinusitis 89871125 Active 2019 William Popma MD [address] [place] [address], [address] , [facility] 0 14:58:37 Lyme disease 34459742 Active 2019 William Pompa MD [address] [place] [address], [phone] , [facility] 0 14:58:39 Epigastric pain 53239901 Active 2020 William Pompa MD [address] [place] [address], [address] , [facility] 1 17:53:40 Dysphagia 75632071 Active 2020 William Pompa MD [address] [place] [address], [address] , [facility] 1 13:49:12 Derangemen t of right knee [id number] 9109 Active 2021 William Pompa MD [address] [place] [address], [phone] , [facility] 2 19:42:19 Hypothyroi dism 02175313 Active 2021 William Pompa MD [address] [place] [address], [address] , [facility] 2 16:09:02 Cervical spondylosi s 352713292 Active 2021 William Pompa MD [address] [place] [address], [phone] , [facility] 2 16:24:17 History of Schatzkis ring [id number] 9103 Active 2021 William Pompa MD [address] [place] [address], [address] , [facility] 2 16:24:19 Chronic back pain [id number] Active 2022 William Pompa MD [address] [place] [address], [id number] , [facility] 3 16:07:29 Problem Notes None recorded. Medical Equipment None Reported. Allergies No known drug allergies Medications Name Sig Start Date Stop Date Status Note LastModified by Organization Details LastModified Time Readisorb Liposomal Glutathione 5 ml in morning before food 2017 active Not Available Not Available Not Avai lable Multiminera l Reacted 2 q day on non chelation days. 2017 active Not Available Not Available Not Avai lable Multiminera l Reacted 2 q day on non chelation days. 2017 active Not Available Not Available Not Avai lable compounded medication INJECT 0.2ML SUBCUTANE OUSLY EACH DAY 2024 active Not Available Not Available Not Avai lable compounded medication active Not Available Not Available N ot Available compounded medication METHYLCOB ALAMIN 25MG/ML PFS (STERILE WATER FOR INJECTION WATER SOLUTION, BD INSULIN SYRINGE ULTRA-FIN E/0) 0.2 ml q 3 days 03/11 completed Not Available Not Available Not Available compounded medication INJECT 0.2ML SUBCUTANE OUSLY EACH DAY 2023 active Not Available Not Available Not Avai lable compounded medication inject one s.c. q 3 days 12/09 completed Not Available Not Available Not Available Naltrexone 3.0 mg 1qd 01/10 completed Not Available Not Available Not Available OrthoBiotic 2 q day 01/10 completed Not Available Not Available Not Available Multiminera l Reacted 2 q day on non chelation days. 2017 active Not Available Not Available Not Avai lable Naltrexone 3.0 mg 1qd 03/11 completed Not Available Not Available Not Available Eupatorium Compound 1 sc 02/02 completed Not Available Not Available Not Available Multiminera l Reacted 2 q day on non chelation days. 02/02 completed Not Available Not Available Not Available OrthoBiotic 2 qd 2017 active Not Available Not Available Not Avai lable compounded medication METHYLCOB ALAMIN 25MG/ML PFS (STERILE WATER FOR INJECTION WATER SOLUTION, BD INSULIN SYRINGE ULTRA-FIN E/0) 0.2 ml q day 12/28 completed Not Available Not Available Not Available Pneumodoron 2 10 drops qid 02/02 completed Not Available Not Available Not Available compounded medication TAKE 1 CAPSULE BY MOUTH DAILY 2021 active Not Available Not Available Not Avai lable compounded medication inject 1 SQ everyday 02/02 completed Not Available Not Available Not Available Methyl B Complex 2qd 2017 active Not Available Not Available Not Avai lable Readisorb Liposomal Glutathione 5 ml in morning before food 2017 active Not Available Not Available Not Avai lable compounded medication METHYLCOB ALAMIN 25MG/ML PFS (STERILE WATER FOR INJECTION WATER SOLUTION, BD INSULIN SYRINGE ULTRA-FIN E/0) 0.2 ml q 3 days 03/11 completed Not Available Not Available Not Available Readisorb Liposomal Glutathione 5 ml in morning before food 2018 active Not Available Not Available Not Avai lable Methyl B Complex 2qd 2017 active Not Available Not Available Not Avai lable OrthoBiotic 2 qd 2018 active Not Available Not Available Not Avai lable compounded medication 0.2 ml q 3 days 07/16 completed Not Available Not Available Not Available compounded medication TAKE 1 CAPSULE BY MOUTH DAILY 2024 active Not Available Not Available Not Avai lable naltrexone 1.5 mg 1qam 01/10 completed Not Available Not Available Not Available OrthoBiotic 2 qd 04/14 completed Not Available Not Available Not Available compounded medication 200 1m 2d; 12c bid 10/12 completed Not Available Not Available Not Available Methyl B Complex 2qd 2017 active Not Available Not Available Not Avai lable compounded medication inject 1 SQ everyday 11/04 completed Not Available Not Available Not Available Methyl B Complex 2qd 02/02 completed Not Available Not Available Not Available Meteoric Iron/Prunus 1sc 02/02 completed Not Available Not Available Not Available Methyl B Complex 2qd 2018 active Not Available Not Available Not Avai lable compounded medication METHYLCOB ALAMIN 25MG/ML PFS (STERILE WATER FOR INJECTION WATER SOLUTION, BD INSULIN SYRINGE ULTRA-FIN E/0) 0.2 ml q day 03/11 completed Not Available Not Available Not Available compounded medication INJECT 0.2ML SUBCUTANE OUSLY EACH DAY 10/12 completed Not Available Not Available Not Available compounded medication apply bid to cervical spine 03/11 completed Not Available Not Available Not Available Readisorb Liposomal Glutathione 5 ml in morning before food 2017 active Not Available Not Available Not Avai lable OrthoBiotic 2 qd 2017 active Not Available Not Available Not Avai lable Readisorb Liposomal Glutathione 5 ml in morning before food 02/02 completed Not Available Not Available Not Available OrthoBiotic 2 qd 02/02 completed Not Available Not Available Not Available Pneumodoron 1 10 drops qid 02/02 completed Not Available Not Available Not Available OrthoBiotic 2 qd 2017 active Not Available Not Available Not Avai lable compounded medication TAKE 1 CAPSULE BY MOUTH DAILY 01/10 completed Not Available Not Available Not Available compounded medication 200 1m 2d; 12c bid 2023 active Not Available Not Available Not Avai lable Readisorb Liposomal Glutathione 5 ml in morning before food 04/14 completed Not Available Not Available Not Available compounded medication TAKE 1 CAPSULE BY MOUTH ONCE DAILY DIRECTED -- HZ VERIFIED WITH OFFICE IDENTITY OF RX AND QUANTITY 12/28 completed Not Available Not Available Not Available Multiminera l Reacted 2 q day on non chelation days. 2018 active Not Available Not Available Not Avai lable tetracyclin e 500 mg capsule 04/14 completed Not Available Not Available Not Available Hamilton Thyroid 60 mg tablet 2.5 tablets orally once daily 12/28 completed Not Available Not Available Not Available prednisone 10 mg tablet TAKE 4 TABS DAILY DAYS 1-3, 3 TABS DAILY DAYS 4-6, 2 TABS DAILY DAYS 7-9, 1 TAB DAILY DAYS 10-12 07/16 completed Not Available Not Available Not Available doxycycline hyclate 100 mg capsule 2 bid 11/04 completed Not Available Not Available Not Available Normal Saline Flush 0.9 % injection syringe 11/04 completed Not Available Not Available Not Available clarithromy raul 250 mg tablet TAKE 2 TABLETS BY MOUTH TWICE DAILY 02/02 completed Not Available Not Available Not Available cefpodoxime 200 mg tablet 12/09 completed Not Available Not Available Not Available azithromyci n 250 mg tablet 01/10 completed Not Available Not Available Not Available ofloxacin 0.3 % eye drops 02/02 completed Not Available Not Available Not Available hydrocodone 5 mg-acetamin ophen 325 mg tablet 02/02 completed Not Available Not Available Not Available minocycline 100 mg capsule 06/19 completed Not Available Not Available Not Available fluconazole 200 mg tablet 01/10 completed Not Available Not Available Not Available meloxicam 15 mg tablet TAKE 1 TABLET BY MOUTH EVERY DAY 2024 active Not Available Not Available Not Avai lable atovaquone 250 mg-proguani l 100 mg tablet 01/10 completed Not Available Not Available Not Available spironolact one 100 mg tablet TAKE 1 TABLET BY MOUTH EVERY DAY active Not Available Not Available No t Available sodium chloride 0.45 % intravenous solution 03/09 completed Not Available Not Available Not Available nystatin 500,000 unit tablet Take 2 tablets twice a day by oral route. 01/10 completed Not Available Not Available Not Available Tazicef 1 gram solution for injection 04/14 completed Not Available Not Available Not Available vancomycin 5 gram intravenous solution 11/04 completed Not Available Not Available Not Available acetaminoph en 300 mg-codeine 30 mg tablet 02/02 completed Not Available Not Available Not Available trimethopri m 100 mg tablet 02/02 completed Not Available Not Available Not Available ciprofloxac in 500 mg tablet 02/02 completed Not Available Not Available Not Available sulfamethox azole 800 mg-trimetho prim 160 mg tablet 02/02 completed Not Available Not Available Not Available omeprazole 40 mg capsule,del ayed release TAKE 1 CAPSULE BY MOUTH EVERY DAY BEFORE A MEAL active Not Available Not Available No t Available tramadol 50 mg tablet 04/14 completed Not Available Not Available Not Available vancomycin 1,000 mg intravenous injection 11/04 completed Not Available Not Available Not Available water for injection, sterile injection solution 03/09 completed Not Available Not Available Not Available oxycodone-a cetaminophe n 5 mg-325 mg tablet TAKE 1 TABLET BY MOUTH EVERY 6 HOURS NEEDED FOR PAIN 10/12 completed Not Available Not Available Not Available Guaiatussin AC 10 mg-100 mg/5 mL oral liquid Take 10 mL every 4 hours by oral route. 02/02 completed Not Available Not Available Not Available famotidine 20 mg tablet TAKE 1 TABLET BY MOUTH TWICE A DAY 03/11 completed Not Available Not Available Not Available Vitamin C 1,000 mg tablet Take 1 tablet every day by oral route. 02/02 completed Not Available Not Available Not Available cefaclor 250 mg capsule TAKE 1 CAPSULE BY MOUTH TWICE A DAY 01/10 completed Not Available Not Available Not Available rifampin 150 mg capsule 2 bid 02/02 completed Not Available Not Available Not Available trazodone 100 mg tablet TAKE 1 TABLET BY MOUTH EVERYDAY AT BEDTIME active Not Available Not Available No t Available sulfacetami de sodium 10 % eye drops 11/04 completed Not Available Not Available Not Available benzonatate 100 mg capsule 11/04 completed Not Available Not Available Not Available doxycycline monohydrate 100 mg capsule TAKE 1 CAPSULE BY MOUTH TWICE A DAY 07/16 completed Not Available Not Available Not Available cephalexin 500 mg capsule TAKE ONE CAPSULE (500MG) BY MOUTH EVERY 8 HOURS 10/12 completed Not Available Not Available Not Available erythromyci n 5 mg/gram (0.5 %) eye ointment 11/04 completed Not Available Not Available Not Available Ponaris nasal solution DIRECTED DAILY NASALLY 30 DAYS 01/10 completed Not Available Not Available Not Available cyanocobala min (vit B-12) 1,000 mcg/mL injection solution 01/10 completed Not Available Not Available Not Available triamcinolo ne acetonide 0.1 % topical ointment APPLY THIN COAT TO AFFECTED AREA TWICE A DAY active Not Available Not Available No t Available meropenem 1 gram intravenous solution 03/09 completed Not Available Not Available Not Available ursodiol 300 mg capsule 11/04 completed Not Available Not Available Not Available Bicillin L-A 2,400,000 unit/4 mL intramuscul ar syringe 04/14 completed Not Available Not Available Not Available gabapentin 300 mg capsule TAKE 1 CAPSULE 3 TIMES DAILY, GRADUALLY INCREASE TO 2 CAPSULES 3 TIMES DAILY IF NEEDED 02/02 completed Not Available Not Available Not Available vancomycin 500 mg intravenous solution 11/04 completed Not Available Not Available Not Available water for injection, sterile intravenous solution 11/04 completed Not Available Not Available Not Available mupirocin 2 % topical ointment MIX 1/2 1 INCH OF OINTMENT WITH SALINE AND IRRIGATE SINUSES ONCE DAILY X 7 DAYS,THEN ONCE PER MONTH 02/02 completed Not Available Not Available Not Available lidocaine HCl 20 mg/mL (2 %) injection solution 04/14 completed Not Available Not Available Not Available sodium chloride 0.9 % intravenous solution 11/04 completed Not Available Not Available Not Available vancomycin 10 gram intravenous solution 11/04 completed Not Available Not Available Not Available hydroxychlo roquine 200 mg tablet TAKE 1 TABLET BY MOUTH TWICE DAILY 02/02 completed Not Available Not Available Not Available epinephrine 0.3 mg/0.3 mL injection, auto-inject or 04/14 completed Not Available Not Available Not Available methylpredn isolone 4 mg tablets in a dose pack TAKE 6 TABLETS ON DAY 1 DIRECTED ON PACKAGE AND DECREASE BY 1 TAB EACH DAY FOR A TOTAL OF 6 DAYS 02/02 completed Not Available Not Available Not Available albuterol sulfate HFA 90 mcg/actuati on aerosol inhaler TAKE 2 PUFFS BY MOUTH 4 TIMES A DAY NEEDED FOR SHORTNESS OF BREATH OR WHEEZING 07/16 completed Not Available Not Available Not Available ceftriaxone 10 gram solution for injection 11/04 completed Not Available Not Available Not Available fludrocorti sone 0.1 mg tablet TAKE 1 TABLET BY MOUTH EVERY FRIDAY//, MAY INCREASE TO 1 TABLET EVERY DAY IF NEEDED 07/16 completed Not Available Not Available Not Available naproxen 500 mg tablet 04/14 completed Not Available Not Available Not Available diazepam 5 mg tablet 02/02 completed Not Available Not Available Not Available progesteron e micronized 100 mg capsule 11/04 completed Not Available Not Available Not Available amoxicillin 875 mg-potassiu m clavulanate 125 mg tablet TAKE 1 TABLET BY MOUTH EVERY 12 HOURS FOR 7 DAYS 01/10 completed Not Available Not Available Not Available ceftriaxone 2 gram solution for injection 11/04 completed Not Available Not Available Not Available Denta 5000 Plus 1.1 % cream BRUSH WITH TWICE DAILY 02/02 completed Not Available Not Available Not Available bupropion HCl SR 200 mg tablet,12 hr sustained-r elease TAKE 1 TABLET BY MOUTH EVERY DAY IN THE MORNING FOR 90 DAY active Not Available Not Available No t Available clobetasol 0.05 % lotion 04/14 completed Not Available Not Available Not Available cholestyram ine (with sugar) 4 gram oral powder 01/10 completed Not Available Not Available Not Available bupropion HCl XL 150 mg 24 hr tablet, extended release 03/17 completed Not Available Not Available Not Available tinidazole 250 mg tablet 04/14 completed Not Available Not Available Not Available nitrofurant oin monohydrate /macrocryst als 100 mg capsule 02/02 completed Not Available Not Available Not Available duloxetine 30 mg capsule,del ayed release TAKE 1 CAPSULE BY MOUTH EVERY DAY 03/11 completed Not Available Not Available Not Available duloxetine 60 mg capsule,del ayed release TAKE 1 CAPSULE BY MOUTH EVERY DAY FOR 90 DAYS active Not Available Not Available No t Available SOLITARIO-e 400 mg tablet Take 1 tablet twice a day by oral route. 02/02 completed Not Available Not Available Not Available Boostrix Tdap 2.5 Lf unit-8 mcg-5 Lf/0.5 mL intramuscul ar syringe 04/14 completed Not Available Not Available Not Available Hamilton Thyroid take 9 30mg tablets dailly 04/14 completed Not Available Not Available Not Available fluconazole 1 daily 04/14 completed Not Available Not Available Not Available minocycline 100 mg bid 04/14 completed Not Available Not Available Not Available sodium fluoride 1.1 % dental paste BRUSH TEETH WITH MEDICATED TOOTHPAST E TWICE DAILY 02/02 completed Not Available Not Available Not Available heparin, porcine (PF) 100 unit/mL intravenous syringe 11/04 completed Not Available Not Available Not Available alpha lipoic acid 300 mg capsule Take 1 capsule twice a day by oral route. 02/02 completed Not Available Not Available Not Available [employer] Thyroid 30 mg tablet TAKE 5 TABLETS EVERY DAY BY ORAL ROUTE IN THE MORNING. active Not Available Not Available No t Available DHEA 10 mg-47 mg calcium tablet 02/02 completed Not Available Not Available Not Available Aczone 7.5 % topical gel with pump 01/10 completed Not Available Not Available Not Available Aklief 0.005 % topical cream APPLY TO THE AFFECTED AREA(S) BY TOPICAL ROUTE ONCE DAILY IN THE EVENING active Not Available Not Available No t Available Amzeeq 4 % topical foam APPLY TO THE AFFECTED AREA(S) BY TOPICAL ROUTE ONCE DAILY 03/11 completed Not Available Not Available Not Available Vitals Date Recorded Body height Heart rate Body mass index (BMI) Body weight Body temperature Systolic And Diastolic Provider Name and Address Organization Details Last Updated DateTime 4 172.72 cm 67 /min 35.5 kg/m2 042787. 18 g 97.2 [degF] 131/84 mm[Hg] [facility] 4 11:00:33 Date Recorded Body height Body mass index (BMI) Body weight Body temperature Heart rate Systolic And Diastolic Provider Name and Address Organization Details Last Updated DateTime 2 172.72 cm 35.3 kg/m2 905252. 43 g 97.5 [degF] 72 /min 109/68 mm[Hg] [facility] 2 12:18:53 Date Recorded Body height Body mass index (BMI) Body weight Body temperature Heart rate Systolic And Diastolic Provider Name and Address Organization Details Last Updated DateTime 3 172.72 cm 35.7 kg/m2 738704. 21 g 97.8 [degF] 70 /min 106/66 mm[Hg] [facility] 3 15:27:49 Date Recorded Body height Body mass index (BMI) Body weight Heart rate Body temperature Systolic And Diastolic Provider Name and Address Organization Details Last Updated DateTime 2 172.72 cm 35.6 kg/m2 827726. 61 g 78 /min 97.5 [degF] 108/69 mm[Hg] [facility] 2 14:41:54 Date Recorded Body height Body mass index (BMI) Body weight Heart rate Body temperature Systolic And Diastolic Provider Name and Address Organization Details Last Updated DateTime 4 172.72 cm 34.5 kg/m2 413203. 47 g 65 /min 97.2 [degF] 109/70 mm[Hg] Tyra Naik [facility] 4 17:53:35 Social History Question Answer Notes LastModified by Organizat ion Details LastModified Time Tobacco Smoking Status Never Smoker Shoshana DOTTIE [facility] 03/05/2021 13:17:40 What Was The Date Of Your Most Recent Tobacco Screening? 03/02/2018 Information not available 03/05/2021 How Much Tobacco Do You Smoke? No Information not available 03/05/2021 Sex: Unknown Functional Status None recorded. Mental Status None recorded. Family History Nothing Reported. Medical History Condition Response Coronary Artery Disease N Gout N Kidney Stones N Blood Diseases N Hyperthyroidism N Hypothyroidism N Depression N COPD N Developmental or Behavioral Disorders N Anxiety Disorder N Muscle, Joint, or Bone Problems N Vision or Eye Problems N Arthritis N Head Injury/Concussion N Congenital Anomalies N Cancer N Stroke N ADHD N Bladder or Kidney Problems N Hospital Admission other than N High Cholesterol N Liver Disease N Headaches N Fibromyalgia N Kidney Disease N Ear or Hearing Problems N Thyroid Problems N Skin Problems N Anemia N Constipation N Mental Illness N Diabetes N Bedwetting N Seizures/Epilepsy N Heart Problems/Murmur N Tuberculosis N Diverticulitis N Asthma N Allergies N Reflux/GERD N Heart Disease N Pulmonary Embolism N Hypertension N Osteoporosis N Chicken Pox N Autism Spectrum Disorder (ASD) N Gynecological HistoryNo gynecological history recorded. Obstetrics History GPAL:G 0 P 0 0 0 0 Past Encounters Encounter ID Performer Location Encounter Start Date Encounter Closed Date Diagnosis/Indication Diagnosis SNOMED-CT Code Diagnosis ICD10 Code Diagnosis Note [id number] William Pompa MD Main Office [address] [place] [address] 03/02/2018 14:09:24 03/02/2018 15:32:48 Toxic effect of heavy metal 88747487 T56.91XD Lyme disease 71504050 A6 9.20 Bacterial overgrowth syndrome 10236624 A04.9 Obesity 203142684 E66.9 Candidiasis 95633853 B37 .9 Exposure t o potentially harmful entity 707702785 Z77.098 Diabetes insipidus 72926 004 E23.2 [id number] William Pompa MD Main Office [address] [place] [address] 04/14/2018 11:49:37 04/14/2018 13:31:52 Toxic effect of heavy metal 20215113 T56.91XD Lyme disease 37266509 A6 9.20 Bacterial overgrowth syndrome 02765839 A04.9 Obesity 506331032 E66.9 Candidiasis 48024236 B37 .9 Exposure t o potentially harmful entity 995319194 Z77.098 Diabetes insipidus 31550 004 E23.2 Nutritiona l deficiency disorder 62019561 E63.[address] of mercury AND/OR its compounds 66406139 T56.1X1D [id number] William Pompa MD Main Office [address] [place] [address] 06/19/2018 14:14:38 06/19/2018 15:29:18 Lyme disease 59882831 A69.20 Bacterial overgrowth syndrome 87441966 A04.9 Obesity 551930166 E66.9 Candidiasis 53553824 B37 .9 Exposure t o potentially harmful entity 088507859 Z77.098 Diabetes insipidus 68990 004 E23.2 Nutritiona l deficiency disorder 32469777 E63.[address] of mercury AND/OR its compounds 19412014 T56.1X1D 5,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 [id number] William Pompa MD Main Office [address] [place] [address] 08/11/2018 18:07:13 08/11/2018 18:45:09 Toxic effect of mercury AND/OR its compounds 03775406 T56.1X1D Bacterial overgrowth syndrome 93619146 A04.9 Lyme disease 29279778 A6 9.20 Obesity 922574277 E66.9 Candidiasis 14135072 B37 .9 Exposure t o potentially harmful entity 394766306 Z77.098 Diabetes insipidus 82909 004 E23.2 Nutritiona l deficiency disorder 68337324 E63.9 5,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 02968479 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 [id number] William Pompa MD Main Office [address] [place] [id number] 3 12/09/2018 13:53:33 12/09/2018 15:53:48 Toxic effect of mercury AND/OR its compounds 45465791 T56.1X1D Bacterial overgrowth syndrome 20624755 A04.9 Lyme disease 17906183 A6 9.20 Obesity 811484884 E66.9 Candidiasis 20909830 B37 .9 Exposure t o potentially harmful entity 455278267 Z77.098 Diabetes insipidus 60389 004 E23.2 Nutritiona l deficiency disorder 95690586 E63.9 5,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 17226406 E72.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 D8814E homozygous [id number] William Pompa MD Main Office [address] [place] [id number] 3 03/09/2019 12:34:39 03/09/2019 15:15:34 Toxic effect of mercury AND/OR its compounds 86926298 T56.1X1D Bacterial overgrowth syndrome 75535549 A04.9 Lyme disease 80039521 A6 9.20 Obesity 413118360 E66.9 Candidiasis 52510465 B37 .9 Exposure t o potentially harmful entity 947651559 Z77.098 Diabetes insipidus 11924 004 E23.2 Nutritiona l deficiency disorder 41239394 E63.9 5,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 64802420 E72.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 [id number] William Pompa MD Main Office [address] [place] [id number] 3 11/04/2019 13:38:50 11/04/2019 15:05:56 Bronchitis 39762265 J40 Chronic sinusitis 347744 00 J32.9 Lyme disease 95795439 A6 9.20 [id number] William Pompa MD Main Office [address] [place] [id number] 3 02/02/2021 15:51:04 02/02/2021 18:15:24 Epigastric pain 65319193 R10.13 History of Lyme disease 764005220 Z86.19 Hypothyroidism 68196416 E03.9 [id number] William Pompa MD Main Office [address] [place] [id number] 3 03/05/2021 13:01:02 03/05/2021 13:58:24 Epigastric pain 96710285 R10.13 History of Lyme disease 619956078 Z86.19 Hypothyroidism 50474533 E03.9 Dysphagia 06787514 R13.1 0 Lyme disease 71787116 A6 9.20 [id number] William Pompa MD Main Office [address] [place] [address] 3 01/10/2022 12:02:50 01/10/2022 13:21:16 Injury of knee 415054510 S89.91XA [id number] William Pompa MD Main Office [address] [place] [address] 3 07/16/2022 14:33:10 07/16/2022 16:32:40 Epigastric pain 88558370 R10.13 History of Lyme disease 185230368 Z86.19 Hypothyroidism 59108884 E03.9 Dysphagia 01483818 R13.1 0 Lyme disease 73764971 A6 9.20 History of Schatzkis ring 6030868467 8401548 Z87.19 Cervical spondylosis 387 769386 M47.812 [id number] William Pompa MD Main Office [address] [place] [id number] 3 03/11/2023 14:20:27 03/11/2023 16:22:58 Chronic back pain 764091783 M54.9 Cervical spondylosis 387 226030 M47.812 [id number] William Pompa MD Main Office [address] [place] [id number] 3 12/29/2023 10:52:04 12/29/2023 12:35:50 Chronic back pain 939929682 M54.9 Cervical spondylosis 387 080757 M47.812 Hypothyroidism 10382973 E03.9 History of Schatzkis ring 0914483971 4222376 Z87.19 Obesity 033237195 E66.9 Long-term drug therapy 841769183 Z79.899 [id number] William Pompa MD Main Office [address] [place] [id number] 3 10/12/2024 17:45:45 10/12/2024 18:49:16 Osteoarthritis of knee 151049376 M17.9 Cervical spondylosis 387 088288 M47.812 Hypothyroidism 96983118 E03.9 History of Schatzkis ring 7892116807 0136610 Z87.19 Obesity 028671743 E66.9 Long-term drug therapy 031478892 Z79.899 Anti-nucle ar factor detected 929485387 R76.8 Pre-surger y evaluation 003456904 Z01.818 Health Concerns Section Related Observation LastModified by Organization Detai ls LastModified Time None Recorded Concern Status LastModified by Organization Details LastModified Time None Recorded Advance Directives Directive None Recorded Payers Insurance Date Sequence Insurance Name Policy Number Policy López Covered Member ID López Member ID Guarantor Name 10/01/2024 1 *SELF PAY* Duane Tyler 10/01/2024 1 [employer] (MEDICARE REPLACEMEN T/ADVANTAG E - PPO) [id number] Deirdre Tyler [id number] Deirdre Tyler 12/24/2023 1 [employer] (PPO) [id number] Deirdre Tyler [id number] Deirdre Tyler Notes Date Note Type Note Provider Name and Address Organization Details Recorded Time 2 text/html kicked by own horse ca. 12-29-21 R calf laterally has hurt the entire time and cannot bear weight.Did not fall on it. William Pompa MD [address] [place], [address], [facility] 01/10/2022 13:18:42 2 text/html Needs Thyroid RF Now 5/d of [place] 30 q am01/10/2022 Right knee injury turned out to be a subtle tibial plateau fracture - was treated with 4 weeks on crutches Deo Aj MD. DJD neck recently worse - last X rayed ca. 2013. Sting pain there with certain movements. Stiffness. < 2020 had successful dilatation of Schatzky's ring Jose Adamse MD. Feels her Lyme disease has gone into remission since her last iv treatment in 2019, and inflammatory symptoms have not recurred. William Pompa MD [address] [place], [address], [facility] 07/16/2022 16:28:05 3 text/html Neck pain lot of pain since early 06/2022 X ray shows severe spondylosesStabbing pain bilateral cervical and trapezius areas. Entire spine hurts < walking. Walking behind orthopedic technician is best> heat (slightly2-3h morning stiffness.Feels her Lyme is in remission since 10/2019 William Pompa MD [address] [place], [address], [facility] 03/11/2023 16:16:08 4 text/html YearlyBack and neck painNow low thoracic pain since 07/2024 fall from horse. William Pompa MD [address] [place], [address], [facility] 12/29/2023 12:27:42 4 text/html R knee replacement scheduled for 12/2023 Reji Fine MD at [facility] has gotten painful. has had to reduce walking from 15-20k steps/day to 10-12k.No chest pain or dyspnea. William Pompa MD [address] [place], [address], [facility] 10/12/2024 18:35:35 OBGyn Episode No OBEpisode recorded.
--- OUTSIDE RECORDS SUMMARY | 2025-05-12 00:57 | XMS_ITS | Encounter Summary ---
Author Organization [facility] Address [address] [place] [address] Care Team Providers Care Programmable Logic Controller Assembler Name Role Phone Cliff Syed MD Primary Care Provider [phone] Encounter Details Date Type Department Care Team (Late st Contact Info) Description 06/01/2019 Therapy Plan [facility] [address] [place] [address] Cliff Syed MD [address] [place] [address] Social History Tobacco Use Types [...] on filedocumented in this encounter Care Teams Programmable Logic Controller Assembler Relationship Specialty Start Date End Date Cliff Syed MD [address] [place] [address] PCP - General FAMILY PRACTICE 03/25/19 documented as of this encounter
--- OUTSIDE RECORDS SUMMARY | 2025-05-12 00:57 | XMS_ITS | Encounter Summary ---
Author Organization [facility] Address [address] [place] [address] Care Team Providers Care Driveway Sealer Name Role Phone Cliff Syed MD Primary Care Provider [phone] Encounter Details Date Type Department Care Team (Late st Contact Info) Description 06/27/2019 RX Orders Only [facility] [address] [place] [address] Ethel Montoya, PharmD Social History Tobacco Use [...] on filedocumented in this encounter Care Teams Driveway Sealer Relationship Specialty Start Date End Date Cliff Syed MD [address] [place] [address] PCP - General FAMILY PRACTICE 03/25/19 documented as of this encounter
--- OUTSIDE RECORDS SUMMARY | 2025-05-12 00:57 | XMS_ITS | Clinical Summary ---
Author Organization [facility] Address [address] [place] [address] Care Team Providers Care Outdoor Adventure Guides Name Role Phone Luis Dudley MD Primary Care Provider Source Comments [facility],non-owned Affiliates and Associated Physician Practices is amultiple site organization consisting of ambulatory clinics and hospital sitesin [place], [place], [place] and [place]. This disclosure is being madepursuant to the Care Everywhere program and may not contain all information available regarding this patient. Last updated 18.[employer] [facility] Allergies Active Allergy Reactions Criticality Noted Date Comments Penicillins 05/26/2009 Medications * Be aware that medications may not be up to date on this document. Alwaysverify current medications with the patient. Naproxen Sodium 220 MG CAPSIndications: Abnormal radiographic examination Take 660 mg by mouth 2 times daily. Active omeprazole (PRILOSEC) 20 MG capsuleIndicatio ns:Dyspepsia Take 1 Cap by mouth daily before breakfast. 30 2 9 Active Additional Information Patient not taking.Reported on 09/27/2019 DULoxetine (CYMBALTA) 30 MG capsule Take 90 mg by mouth daily. Active baclofen (LIORESAL) 20 MG tablet Take 20 mg by mouth 3 times daily. Take 1 tab by mouth 3 times daily Active vitamin D, ergocalciferol, (DRISDOL) 56900 UNIT capsuleIndicatio ns:Vitamin d deficiency Take 1 Cap by mouth. Take 1 tab daily on Friday for 16 weeks then 1 per month 16 Cap 4 1 Active traZODone (DESYREL) 50 MG tablet Take 1 Tab by mouth at bedtime. 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 Immunizations Immunization Administration Dates Next Due PNEUMOCOCCAL PPSV23 06/01/2010 [...] = 0.6 oz pur e alcohol) RARE Comments No Sex and Gender Information Value Date Recorded Sex Assigned at Not on file Legal Sex Female 6:47 AM [employer] Gender Identity Not on file Sexual Orientation Not on file Occupation Industry Job Start Date Job End Date Not on file Not on file Not on file Not on file Last Filed Vital Signs Vital Sign Reading Time Taken Comments Blood Pressure 126/82 09/27/2019 2:51 PM [employer] Pulse 122 09/27/2019 2:51 PM [employer] Temperature 37.1 C (98.7 F) 09/27/2019 2:51 PM [employer] Respiratory Rate 18 09/27/2019 2:51 PM [employer] Oxygen Saturation 96% 09/27/2019 2:51 PM [employer] Inhaled Oxygen Concentration - - Weight 103 kg (227 lb) 09/27/2019 2:51 PM [employer] Height 172.7 cm (5' 8) 09/27/2019 2:51 PM [employer] Body Mass Index 34.52 09/27/2019 2:51 PM [employer] Plan of Treatment Health Maintenance Due Date Last Done Comments BONE DENSITY TESTING 1955 COLOGUARD (AGES 45-75) - COLON CA SCREENING 1957 COLON MONITORING 1957 COLONOSCOPY - COLON CA SCREENING 1957 CT COLONOGRAPHY - COLON CA SCREENING 1955 Colorectal Cancer Screening 1955 FIT - COLON CA SCREENING 1957 FLEX SIG - COLON CA SCREENING 1957 HEPATITIS C SCREENING 10/13/1975 ZOSTER VACCINE (1 of 2) 2007 PNEUMOCOCCAL VACCINE 50+ (2 of 2 - PCV) 06/01/2011 06/01/2010 MAMMOGRAM 11/21/2012 11/21/2010, 10/28, 04/04/2009 LIPID TESTING 11/08/2015 11/08/2010 DTAP/TDAP/TD VACCINES (2 - Td or Tdap) 10/27/2017 10/27/2007 SCREENING FOR DIABETES 08/16/2022 9, 08/10/2019, 08/02/2019, Additional history exists COVID-19 VACCINE ( - 2023- season) 2024 DEPRESSION SCREENING 10/27/2024 INFLUENZA VACCINE (#1) 2025 Respiratory Syncytial Virus (RSV) Vaccine Pt: or [...] complete this topic MENINGOCOCCAL (Group B) VACCINE SHARED DECISION-MAKING Aged Out No longer eligible based on patient's age to complete this topic MENINGOCOCCAL GROUPS A/C/Y/W VACCINE Aged Out No longer eligible based on patient's age to complete this topic Procedures Procedure Name Priority Date/Time Associated Diagnosis Comments COMPREHENSIVE METABOLIC PANEL Routine 10/14/2015 10:37 AM [employer] LIPID PROFILE 11/08/2010 1:05 PM [employer] from Last 3 Months or Most Recently Relevant to Health Maintenance Results * (ABNORMAL) COMPREHENSIVE METABOLIC PANEL (10/14/2015 10:37 AM W[employer] ARC) Pathologist [facility] Glucose 89 65 - 99 mg/dL [facility] ([facility]) Comment: Fasting reference interval BUN 15 7 - 25 mg/dL [facility]) Creatinine 0.79 0.50 - 1.05 mg/dL [facility] Comment: For patients >49 years of age, the reference limit for Creatinine is approximately 13% higher for people identified as -Bhutanese. eGFR non- 83 > OR = 60 mL/min/1 .73m2 [facility]) eGFR 96 > OR = 60 mL/min/1 .73m2 [facility]) BUN/Creatinine Ratio NOT APPLICABLE 6 - 22 (calc) [facility] Sodium 136 135 - 146 mmol/L [facility]) Potassium 4.5 3.5 - 5.3 mmol/L [facility] Chloride 102 98 - 110 mmol/L [facility]) CO2 23 19 - 30 mmol/L [facility] Calcium 9.8 8.6 - 10.4 mg/dL [facility]) Protein Total 7.3 6.1 - 8.1 g/dL [facility]) Albumin 4.4 3.6 - 5.1 g/dL [facility]) Globulin 2.9 1.9 - 3.7 g/dL (calc) [facility]) Albumin/Globulin Ratio 1.5 1.0 - 2.5 (calc) [facility]) Bilirubin Total 0.5 0.2 - 1.2 mg/dL [facility]) Alkaline Phosphatase 55 33 - 130 U/L [facility]) AST 28 10 - 35 U/L [facility]) ALT 42(H) 6 - 29 U/L [facility] ([facility]) Comment: Test Performed at: [facility] [address] [place] [address] CLAUDY SHAHID DO,MPH Blood specimen (specimen) BLOOD SPECIMEN / Unknown 10/14/2015 10:37 AM [employer]C 10/14/2015 10:37 AM [employer] Janes Iverson MD LAB - CHEMISTRY ORDERABLES Cinda demetra Result Performing Organization Address [facility] Co de Phone Number [facility] ([facility]) [address] * (ABNORMAL) LIPID PROFILE (11/08/2010 1:05 PM [employer]) Cholesterol 251(H) 125 - 200 mg/dL [facility] Comment: Test Performed at: [facility] [address] [place] [address] CLAUDY SHAHID DO,MPH HDL Cholesterol 55 > OR = 46 mg/dL [facility] Triglycerides 153(H) <150 mg/dL [facility] LDL Calculated 165(H) <130 mg/dL (calc) [facility] Comment: Desirable range <100 mg/dL for patients with CHD or diabetes and <70 mg/dL for diabetic patients with known heart disease. CHOL/HDLC RATIO 4.6 < OR = 5.0 (calc) [facility] 11/08/2010 1:05 PM [employer] 11/09/2010 6:21 AM [employer] Luis Dudley MD LAB - CHEMISTRY ORDERABLES Fi nal Result Performing Organization Address [facility] de Phone Number [facility] [address] [place] [address] from Last 3 Months or Most Recently Relevant to Health Maintenance Insurance [employer] Care Teams Outdoor Adventure Guides Relationship Specialty Start Date End Date Luis Dudley MD [address] [address] PCP - General 05/26/09
--- OUTSIDE RECORDS SUMMARY | 2025-05-12 00:57 | XMS_ITS | Patient Health Record ---
Author Organization [facility] [employer] Address [address] [place] [address] Care Team Providers Care Farm Equipment Technician Name Role Phone Aletha RAZO, Evangelical Primary Care Provider Jelena Yue Talley Unavailable [phone] Allergies No Known Allergies Results Component Value Reference Range Notes UDT Reviewed date:04/08/2025 01:01:56 PM Interpretation: Performing Lab: Notes/Report: THC n 0 - 50 ng/ml Cocaine n 0 - 300 ng/ml Amphetamine n 0 - 1000 ng/ml Buprenorphine (BUP) n 0 - 10 ng/ml Secobarbital (Bar) n 0 - 300 ng/ml Oxazepam (BZO) n 0 - 300 ng/ml 0-fcziqivhtx-6,9-fjtrpwmo-6,3-diphenylpyrrolidine (GREGG P) n 0 - 300 ng/ml Methamphetamine (MET) n 0 - 1000 ng/ml Methylenedioxymethamphetamine (MDMA) n 0 - 500 ng/ml Morphine (MOP 300/[id number]) n 0 - 300 ng/ml Methadone (MTD) n 0 - 300 ng/ml Phencyclidine (PCP) n 0 - 25 ng/ml Nortriptyline (TCA) n 0 - 1000 ng/ml Oxycodone n 0 - 300 ng/ml x n 0 - 300 ng/ml Reason For Referral No Information Medications Medication SIG (Take, Route, Frequency, Duration) Notes Start Date End Date Status buPROPion HCl ER (SR) 200 MG 1 tablet in the morning Oral Once a day; Duration: 30 days Active Spironolactone 100 MG Oral; Duration: 90 Days Active Sertraline HCl 50 MG 0.5 tablet once a day for 7 days, 1 tablet once a day for 14 days, 1.5 tablets once a day for 7 days Orally daily; Duration: 28 days stopping duloxetine 04/07/2025 Active Sertraline HCl 100 MG 1 tablet Orally Once a day; Duration: 30 days start after 50 mg bottle finished 05/06/2025 Active traZODone HCl 100 MG 1 tablet at bedtime Oral Once a day; Duration: 90 days Active [employer] Thyroid 30 MG Oral; Duration: 30 Days Active Meloxicam 15 MG TAKE 1 TABLET BY MOUTH EVERY DAY Oral; Duration: 30 Days Active Immunizations Vaccine Route Administration Date Status Comme nts Zoster Unknown 07/03/2023 Administered Tdap Unknown 08/12/2017 Administered Td (adult) Unknown 04/26/2014 Administered Pneumococcal polysaccharide PPV23 Unknown 08/20/2021 Ad ministered Pneumococcal conjugate PCV 13 Unknown 04/01/2018 Admini stered Pfizer-Biontech Covid-19 Vac cine 1st dose Unknown 04/16/2022 Administered Pfizer Biontech Covid-19 Vac cine 2nd dose Unknown 08/20/2021 Administered Novel [id number], preservative free Unknown 07/18/2021 Administered Patti Covid-19 Vaccine Unknown 01/02/2021 Administere d Influenza, unspecified formulation Unknown 07/03/2023 A dministered Hep A, Adult Unknown 02/19/2001 Administered Social History Tobacco Use: Social History Observation Description Date Details (start date - stop date) Never Smoker NA - NA Sex Assigned At : Social History Observation Description Sex Assigned At Female Household Question Answer Notes Marital status: Tobacco Control (Standard) Question Answer Notes Tobacco use: Nonsmoker AUDIT-C (Standard) Question Answer Notes Did you have a drink contain ing alcohol in the past year? Yes How often did you have a dri nk containing alcohol in the past year? 2 to 4 times a month (2 points) How many drinks did you have on a typical day when you were drinking in the past year? 5 or 6 drinks (2 points) How often did you have six o r more drinks on one occasion in the past year? 2 to 4 times a month (2 points) Points 6 Interpretation Positive Section Notes: Substance Use Do you or have you ever smoked tobacco?: Never smoker How much tobacco do you smoke?: None Do you or have you ever used e-cigarettes or vape?: Never used electronic cigarettes What was the date of your most recent tobacco screening?: 10/30/2023 Has tobacco cessation counseling been provided?: No What is your level of alcohol consumption?: Occasional How many years have you consumed alcohol?: 4040 Do you use any illicit or recreational drugs?: Yes Which illicit or recreational drugs have you used?: Marijuana Have you used IV drugs?: No What is your level of caffeine consumption?: Occasional Education and Occupation What is the highest grade or level of school you have completed or the highest degree you have received?: Doctoral degree (example:PhD, [employer]) Are you currently employed?: No (Notes: retired) Who is your employer?: Retired Marriage and Sexuality What is your relationship status?: Are you sexually active?: No Do you use protection during sex?: No How many children do you have?: 1 Home and Environment Are there any guns present in your home?: Yes Advance Directive Do you have an advance directive?: Yes Do you have a medical power of patent attorney?: Yes Substance Use Do you or have you ever smoked tobacco?: Never smoker How much tobacco do you smoke?: None Do you or have you ever used e-cigarettes or vape?: Never used electronic cigarettes What was the date of your most recent tobacco screening?: 10/30/2023 Has tobacco cessation counseling been provided?: No What is your level of alcohol consumption?: Occasional How many years have you consumed alcohol?: 40 Do you use any illicit or recreational drugs?: Yes Which illicit or recreational drugs have you used?: Marijuana Have you used IV drugs?: No What is your level of caffeine consumption?: Occasional Education and Occupation What is the highest grade or level of school you have completed or the highest degree you have received?: Doctoral degree (example:PhD, [employer]) Are you currently employed?: No (Notes: retired) Who is your employer?: Retired Marriage and Sexuality What is your relationship status?: Are you sexually active?: No Do you use protection during sex?: No How many children do you have?: 1 Home and Environment Are there any guns present in your home?: Yes Advance Directive Do you have an advance directive?: Yes Do you have a medical power of patent attorney?: Yes Problems Problem Type SNOMED Code ICD Code Onset Dates Problem Status W/U Status Risk Notes Problem Mild recurrent major depression (58653704) Major depressive disorder, recurrent, mild (F33.0) 4 Active confirmed Problem Moderate recurrent major depression (10678624) Major depressive disorder, recurrent, moderate (F33.1) Active confirmed Problem Generalized anxiety disorder (54804158) Generalized anxiety disorder (F41.1) 4 Active confirmed Problem Primary insomnia (8427329) Primary insomnia (F51.01) 4 Active confirmed Problem Posttraumatic stress disorder (65783520) PTSD (post-traumatic stress disorder) (F43.10) Active confirmed Problem Alcohol abuse (12643123) Alcohol abuse (F10.10) Active confirmed Problem 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 Problem 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 Vital Signs Heart Rate 80 /min 04/06/2025 Height-cm 175.26 cm 04/06/2025 Blood pressure diastolic 77 mm Hg 04/06/2025 Weight-kg 104.33 kg 04/06/2025 Height 69.00 in 04/06/2025 Blood pressure systolic 120 mm Hg 04/06/2025 Weight 230 lbs 04/06/2025 BMI 33.96 kg/m2 04/06/2025 Encounters Encounter Location Date Provider Diagnosis [facility] [email or web address] [address] 04/06/2025 Yue Comer PTSD (post-traumatic stress disorder) F43.10 ; Major depressive disorder, recurrent, moderate F33.1 ; Alcohol abuse F10.10 ; Primary insomnia F51.01 ; Post-Lyme disease syndrome B94.8 ; Borreliosis A69.20 ; Encounter for screening for depression Z13.31 and Encounter for screening for cardiovascular disorders Z13.6 [email or web address] [address] 12/22/2024 Yue Comer Major depressive disorder, recurrent, mild F33.0 [facility] [email or web address] [address] 12/23/2024 Yue Comer Primary insomnia F51.01 [facility] [email or web address] [address] 05/09/2025 Yue Comer Assessments Encounter Date Diagnosis (ICD Code) Assessment Notes Treatment Notes Treatment Clinical Notes Section Notes 04/06/2025 PTSD (post-traumatic stress disorder) (ICD-10 - F43.10) 12/22/2024 Major depressive disorder, recurrent, mild (ICD-10 - F33.0) 12/23/2024 Primary insomnia (ICD-10 - F51.01) 04/06/2025 Major depressive disorder, recurrent, moderate (ICD-10 - F33.1) 04/06/2025 Alcohol abuse (ICD-10 - F10.10) 04/06/2025 Primary insomnia (ICD-10 - F51.01) 04/06/2025 Post-Lyme disease syndrome (ICD-10 - B94.8) 04/06/2025 Borreliosis (ICD-10 - A69.20) 04/06/2025 Encounter for screening for depression (ICD-10 - Z13.31) 04/06/2025 Encounter for screening for cardiovascular disorders (ICD-10 - Z13.6) 04/06/2025 Other Learning About Depression Screening material was printed 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 Post-Traumatic Stress Disorder (PTSD) Assessment: Patient experienced a severe PTSD episode on Friday night, triggered by a recent trip to [place] where she felt isolated and disconnected due to language barriers. Symptoms included itching, panic, breathing difficulties, body stiffness, and dissociative experiences. Patient reports a history of at least 40 severe episodes in her lifetime. Current medications (bupropion SR, trazodone, duloxetine) appear insufficient for managing PTSD symptoms, particularly trauma-linked anxiety and panic attacks. Patient engages in self-harm behaviors (cutting with fingernails, stabbing foot with pencils) during episodes, with the most recent incident on Mother's Day. She is currently in therapy for PTSD with [facility] in [place]. Plan: - Discontinue duloxetine 60mg: - Reduce to every other day for one week - Start sertraline: - Week 1: 25mg daily - Week 2: Increase to 50mg daily - Week 3: Continue 50mg daily while duloxetine clears - Week 4: Increase to 75mg daily - Goal: 100mg daily for PTSD management - Continue current therapy for PTSD - Follow-up in 5-6 weeks Alcohol Use for Coping Assessment: Patient reports using alcohol to manage PTSD symptoms and panic attacks. During severe episodes, she may consume up to 10 drinks (Mother's Day), though more recently limited to 5 drinks. Pattern of use is approximately 4 times a month or less, with consumption of about 6 drinks per day over 2 days during episodes. Patient drinks one drink every 2 hours to keep the panic low. This pattern of alcohol use for symptom management is concerning and may interfere with treatment efficacy. Plan: - Educate patient on risks of using alcohol to manage PTSD symptoms - Encourage development of alternative coping strategies - Monitor alcohol use at follow-up appointments Chronic Pain Assessment: Patient reports a history of chronic pain related to previous Lyme disease infection (1992) and current neck issues. Pain has improved with duloxetine treatment. 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 Current pain levels are reported as pretty good with medication management. Plan: - Monitor pain levels during medication transition from duloxetine to sertraline - Continue current pain management strategies Sleep Disturbances Assessment: Patient reports disturbed sleep since the recent PTSD episode, including waking up with a dissociative outer space feeling and racing heart. Trazodone has been helpful for sleep management overall, but recent trauma-related symptoms are interfering with sleep quality. Plan: - Continue trazodone 100mg at bedtime - Monitor sleep quality during medication transition and PTSD treatment Depression Assessment: Patient reports that depression symptoms seem well-managed with current medication regimen (bupropion SR, duloxetine). However, recent PTSD exacerbation may impact mood stability. Plan: - Continue bupropion SR 200mg - Monitor mood symptoms during medication transition from duloxetine to sertraline Plan Of Treatment No Information Insurance Providers Payer Name Payer Address Payer Phone Subscriber Number Group Number Insured Name Patient Relationship to Insured Coverage Start Date Coverage End Date Aetna Medicare Replacemen t/Advantag e - Ppo [address] [place] [phone] [id number] DEIRDRE BRADY Self - patient is the insured Medical (General) History Medical History History ICD Code Past Psychiatric History: An xiety Disorder,Panic Disorder,PTSD, Major Depressive Disorder Problems: Generalized anxiety disorder Primary insomnia Lyme disease Surgical History Surgery Date(Month/Year) Tonsilectomy/adenoids 10/27/1962 Sinus surgery 10/27/1982
--- OUTSIDE RECORDS SUMMARY | 2025-05-12 00:57 | XMS_ITS | Data Portability ---
Author Organization [employer], [facility] Address [address] [address] Assessment No assessment recorded. Plan of Treatment [...] Abnormal Flag Note LastModifiedBy Organization Detail LastModifiedTime 01/31/2001/16/2022 , [facility] No observ ation record ed. BARCODE Not Available 2021 09:43:14 Result Notes None recorded. Problems No Known Problems Medical Equipment None Reported. Allergies No known [...] completed Not Available Not Available Not Available William Thyroid 30 mg tablet TAKE 6 TABLETS BY MOUTH EVERY DAY active Not Available Not Available No t Available fludrocorti sone 0.1 mg tablet TAKE 1 TABLET BY MOUTH EVERY FRIDAY// RIDAY, MAY INCREASE TO 1 TABLET EVERY DAY [...] index (BMI) Body weight Heart rate Systolic And Diastolic Provider Name and Address Organization Details Last Updated DateTime 01/29/2022 175.26 cm 34 kg/m2 831097.2 5 g 66 /min 117/77 mm[Hg] [employer] 01/29/2022 15:28:24 Date Recorded Body height Body mass index (BMI) Body weight Provider Name and Address Organization Details Last Updated DateTime 02/05/2022 175.26 cm 34 kg/m2 517224.25 g [employer] 02/05/2022 11:47:24 Social History None recorded. Functional Status None recorded. Mental Status None recorded. Family History Nothing Reported. Medical History Condition Response Other Cancer N Coronary Artery Disease N HIV or AIDS N Gout N Kidney Stones N Hyperthyroidism N Breast Cancer N Head Trauma/Injury N Hernia N Lung Cancer N COPD N Depression N Blood Clots N Lung Disease N Hypothyroidism N Pacemaker [...] Tendon Tear N Ulcers N Heart Attack ([place]) N Osteopenia N Diabetes N Bleeding Disorder [...] SNOMED-CT Code Diagnosis ICD10 Code Diagnosis Note Abimael Aj MD [facility] [address] [facility] [address] [place] [address] 01/29/2022 15:04:11 01/30/2022 09:03:15 Pain of right knee joint [id number] 84892 M25.561 [id number] Abimael Aj MD [facility] [address] [facility] [address] [place] [address] 02/05/2022 11:35:46 02/05/2022 15:17:12 Health Concerns Section Related Observation LastModified by Organization Detai ls LastModified Time None Recorded Concern Status LastModified by Organization Details LastModified Time None Recorded Advance Directives Directive None Recorded Payers Insurance Date Sequence Insurance Name Policy Number Policy López Covered Member ID López Member ID Guarantor Name 02/11/2022 1 [employer] (PPO) [id number] Deirdre M Abusharbain [id number] Deirdre Abusharbain OBGyn Episode No OBEpisode recorded.
--- NOTE | 2025-05-12 06:47 | P.PNAN_ITS ---
Anes - Initial Pre Proc Eval Procedure: Operation Date: 05/12/25 07:30 Proposed Procedures p Left Total Knee Arthroplasty - Fidel Fine MD Date/Time: 05/12/25 06:47 Surgeon: Fidel Fine MD Pre Op Diagnosis: Prim O A Lt Knee Patient Data Age: 69 Gender: F Height: 1.73 m Weight: 105.5 kg Last Vital Signs Temp 36.8 C 04/15/25 12:15 Pulse 63 04/15/25 12:15 Resp 16 04/15/25 12:15 BP 131/69 04/15/25 12:15 Pulse Ox 98 04/15/25 12:15 O2 Del Method Room Air 04/15/25 12:15 Allergies Allergy/AdvReac Type Severity Reaction Status Date / Time Chocolate AdvReac Unknown INCREASES Uncoded 04/15/25 12:06 INFLAMMATION Home Medications ?Medication ?Instructions ?Recorded ?Confirmed ?Type bupropion HCl 200 mg tablet,12 hr 200 mg PO DAILY 09/27/19 04/15/25 History sustained-release (Wellbutrin SR) trazodone 100 mg tablet 100 mg PO HS PRN Sleep 09/27/19 04/15/25 History thyroid (pork) 30 mg tablet (HAND LACER 30 mg PO DAILY 12/01/23 04/15/25 History Thyroid) ascorbic acid (vitamin C) 1,500 mg 1,500 mg PO DAILY 01/12/24 04/15/25 History tablet,extended release minerals 1 tablet PO DAILY 01/12/24 04/15/25 History omeprazole magnesium 20 mg 20 mg PO DAILY 01/12/24 04/15/25 History tablet,delayed release (Prilosec OTC) prasterone (DHEA) 25 mg capsule 25 mg PO EVERY OTHER DAY 01/12/24 04/15/25 History (DHEA) spironolactone 100 mg tablet 100 mg PO DAILY ACNE 01/12/24 04/15/25 History vitamin E 400 unit tablet 45 mg PO DAILY 01/12/24 04/15/25 History meloxicam 15 mg tablet 15 mg PO DAILY 09/17/24 04/15/25 History duloxetine 60 mg capsule,delayed 60 mg PO HS 04/15/25 04/15/25 History release tirzepatide 5 mg/0.5 mL 5 mg subcut WEEKLY 04/15/25 04/15/25 History subcutaneous pen injector (Robin) Patient hx anesthesia problems: post op nausea/vomiting Family hx anesthesia problems: none Results Review: All pre-operative results and documents have been reviewed as part of the pre- operative evaluation. [facility] Past Medical History Medical History Depression Lupus Hypothyroidism Arthritis Fibromyalgia Musculoskeletal disorder Right knee medial meniscus tear Lyme disease 1982 Postmenopausal Abnormal uterine bleeding Lactose intolerance Sleep apnea Hypercholesterolemia Seasonal allergies Surgical History Surgical History Delivery by section Hx of tonsillectomy Family History Family History Mother Family history of Alzheimer's disease Father Family history of osteoarthritis Social History Social History Smoking status: Never smoker Alcohol intake: current Drinks per week: 2 Do You Feel Safe in your Home?: Yes Lack of Transportation: No Lack of Food: Never True Current Housing: I Have Housing Concerned About Future Housing: No Difficulty Paying Gas/Electric Bills: No Difficulty Paying for Meds: No Currently Unemployed: No Education: Master's Degree or Higher Difficulty w/ Childcare or Family Care: No Living arrangements: with family Additional living arrangements comments: [facility] Spiritual care concerns: No Anes - Eval Final PreProcedure Day of Procedure 05/12/25 06:47 Patient weight: obese Heart: regular rate and rhythm Lungs: clear to auscultation Airway: Mallampati scale class II Neurological: alert and oriented Last oral intake: >/= 8 hours ASA classification: III Emergent: no Anesthetic plan: proceed Anesthesia type and monitoring: general LMA and standard monitoring Results Review: All pre-operative results and documents have been reviewed as part of the pre- operative evaluation. Informed Consent: The patient's anesthetic plan and its attendant risks and benefits were discussed with the patient/family/POA. Questions were solicited and answers provided to the satisfaction of the patient/family/POA.
--- NOTE | 2025-05-12 07:11 | WPDHPUPDATE1 ---
History and Physical Update Update Date/Time: 05/12/25 07:11 History and Physical has been reviewed, including an updated exam of the patient. There are NO changes in the patient's condition. Risks, benefits, and alternatives have been discussed and questions answered. Patient agrees to proceed with procedure.
[2025-05-12] MEDS: ACETAMINOPHEN 500 MG TABLET 1000 MG PO (07:20)
[2025-05-12] MEDS: LACTATED RINGERS 1,000 ML 30 ML IV CONT ×2 (07:20→09:51)
[2025-05-12] MEDS: TRANEXAMIC ACID 1,000MG/ISO100 1,000 MG/100 ML BAG 200 MG IVPB (07:20)
[2025-05-12] MEDS: ceFAZolin 2 GM in SODIUM CHLORIDE 0.9% IV 50 ML 100 ML IVPB (07:33)
[2025-05-12] MEDS: SODIUM CHLORIDE 0.9% IV 37.7 ML, MORPHINE SULFATE INJ (*CRX) 2 MG, ROPivacaine HCL 1% 2... INFILTRATE (08:12)
[2025-05-12] MEDS: TRANEXAMIC ACID 1,000 MG/10 ML AMPUL 1000 MG IV PUSH (09:33)
--- NOTE | 2025-05-12 09:45 | P.OP_ITS ---
Procedure Note - Detailed Date of Procedure 05/12/25 Pre-op Diagnosis Left knee degenerative arthritis. Post-op Diagnosis Same Procedure Performed Calipered, kinematically aligned total knee replacement left knee. Surgeon Fidel Fine MD Anesthesia General Findings According to the calipered kinematic alignment principles, the knee was balanced by the following verification checks incorporating 6 caliper measurements, using an insert goniometer to select the insert thickness, and adjusting the tibial r esection following the kinematic alignment algorithm (see figure 160.10 published in [employer] chapter on kinematic alignment total knee arthroplasty.) The steps verified the femoral and tibial components were kinematically aligned coincident to the patient's pre arthritic joint lines, which closely restored the [place] tibial compartment forces and ligament laxities without ligament release. The [place] [employer] knee, designed specifically for kinematic alignment, fit optimally. Excellent bone quality. No releases required. The record of verification checks were documented and scanned into the chart. Distal Femoral Resection: Distal Medial 6 mm(cartilage worn), Distal Lateral 8 mm Target thickness of 8mm Unworn, 6mm Worn (No Cartilage). Posterior Femoral Resection: Posterior Medial 5 mm(cartilage worn), Posterior Lateral 7 mm. Target thickness of 7mm Unworn, 5mm Worn (No Cartilage). Description of Procedure General anesthesia was administered. A well-padded tourniquet was placed high on the thigh. The limb was prepped and draped in the usual sterile fashion. The limb was exsanguinated and the tourniquet inflated to 300 mmHgduring exposure and cementation. A longitudinal incision was created over the midline of the knee. Sharp dissection was taken through subcutaneous tissues. Electrocautery was used for hemostasis. A trivector approach to the knee joint was performed. The ACL, anterior horns of the menisci, and fat pad were excised, and a subperiosteal dissection was carried along the posterior medial border of the tibia. Starting midway between the top of the notch in the anterior femoral cortex, I drilled a 9 mm diameter hole parallel to the anterior cortex to minimize flexion of the femoral component and promote patella tracking. I verified the existence of a 5-10 mm bone bridge between the posterior aspect of the hole and the anterior limit of the intercondylar notch. An intraosseous positioning chaka was inserted 10 cm into the femur perpendicular to the distal joint line and parallel to the anterior cortex. I used a distal femoral referencing guide that compensated 2 mm when the cartila ge was worn on the distal medial femoral condyle, and 2 mm when the cartilage was worn on the distal lateral femoral condyle. The basis for setting the distal and posterior femoral resection guide is knowing that the varus and valgus grade II to IV Kellegren-Richard osteoarthritic knees have negligible bone wear at 0? and 90? and that the mean full-thickness cartilage wear approximates 2 mm. I measured the thickness of distal femoral resections with a caliper to +/- 0.5 mm. The thickness of each resection was adjusted to match the thickness of the respective condyle of the femoral component within 0.5 mm of target after compensating for cartilage wear and kerf. When the distal resection was 1-2 mm too thin, a recut guide was used to adjust the cut. When the distal resection was too thick, a 1 or 2 mm thick washer was fixed to the back of the 4-in-1 chamfer block to deon a corrective gap between the femoral component and distal femur. I set posterior femoral referencing guide at 0? orientation to position the pin holes for the 4 in 1 chamfer block. The juanis wing measured the width of the distal femoral resection and selected the size of the 4 in 1 chamfer block and femoral component. The AP sizer confirmed the size. I measured the thickness of the posterior femoral resections with a caliper before making the anterior and chamfer cuts. I adjusted the thicknesses of each resection to match the thickness of the respective condyle of the femoral component within +/-0.5 mm after compensating for cartilage wear and curve. When a posterior resection femoral resection was 1-2 mm too thick or thin a corrective correction was made by shifting or rotating the 4 in 1 chamfer block as needed. The chamfer block was secured in the correct position with compression screws. The anterior and chamfer femoral resections were made. These caliper measurements and corrections verified that the femoral component was set coincident with the patient's pre-arthritic distal and posterior femoral joint lines. I removed all the medial and lateral femoral and tibial osteophytes to restore the pre arthritic length of the medial and lateral collateral ligaments. I monica AP lines along the major axis of the lateral tibial plateau in between the tibial spines which identified the flexion extension plane of the knee. A conventional extramedullary tibial resection guide was applied to the ankle. An juanis wing was placed medially in the saw slot. The varus valgus angle of the tibial resection guide was adjusted until the guide paralleled the proximal tibial articular surface after compensating for cartilage and bone wear. The slope of flexion extension angle of the tibial resection guide was adjusted until the juanis wing paralleled the slope of the medial tibia after compensating for wear. The AP axis of the tibial resection guide was adjusted parallel to the two lines. The proximal tibia was resected, partially releasing the insertion of the posterior cruciate ligament. The thickness of the medial and lateral lateral tibial condyle was measured at the base of the tibial spines. I visually verified the slope of the medial border of the resection was parallel to the patient's pre arthritic slope after compensating for cartilage and bone wear. I removed the remnants of the posterior horns of the menisci and posterior osteophytes and cauterized the inferior lateral genicular vessels. The Aquamantys bipolar device was also used to for additional hemostasis. When the knee had a preoperative flexion contracture of 20? or more I teased the capsule off the posterior femur with a curved 3 quarter-inch osteotome. I administered the posterior femoral periosteal injection by delivering 10 cc using a 20 gauge spinal needle at the most medial and 10 cc at the most lateral femoral spur surface which reduced the risk of injury to the posterior neurovascular structures. I followed 6 options in a decision tree to fine tune the varus valgus and posterior slope orientation of the tibial component to restore the patient's pre arthritic tibial joint line and limb alignment. First, I adjusted the varus- valgus orientation of the proximal tibia resection working in 1 degree to 2 degree increments until there was negligible medial and lateral lift off of the distal femoral and proximal tibial resection from the spacer block during a varus valgus laxity assessment in extension. I selected the largest anatomic shape trial tibial base plate that fit within the cortical boundary of the proximal tibial resection. The base plate was best fit parallel to the cortical boundary which set the Internal-external orientation of the anterior to posterior and medial to lateral positions. The best fit method set the AP axis of the tibial base plate and insert parallel to the flexion extension plane of the pre arthritic knee. I pinned the trial tibial base plate, prepared the cruciate slot, and fixed the base plate to the tibia with the cruciate stem. I inserted the trial femoral component. The knee was placed in full extension. Varus valgus laxity is of the knee with trial components were assessed. When asymmetric laxity was observed a 1-2 deg ree varus or valgus recut guide was used to fine tune the tibial resection until the laxity was 1 degree or less in full extension like the [place] knee. The following steps determined the optimal insert thickness within +/-1 mm. First I inserted an insert goniometer that matched the thickness of the spacer block. I reduced the patella and then with the knee in maximum extension, I verified the knee hyperextended a few degrees and had negligible varus valgus laxity, like the pre arthritic knee. Next, I measured the external tibial orientation which was the angle the insert goniometer intersected the sagittal line on the medial condyle of the femoral trial component. Then with the knee in 15-30 degrees flexion I verified a 3-4 mm gap in the lateral compartment and no gap in the medial compartment during a 2nd varus valgus laxity test. Next, I placed the knee in 90? of flexion and the foot resting on the operating table and measured the internal tibial orientation. I repeated the steps until I identified the insert thickness that provided the highest external tibia orientation in extension and the highest internal tibial orientation at 90? flexion without anterior lift-off of the insert from the tibial base plate. The insert with this thickness was implanted. I applied a posterior drawer test with the tibia distracted by gravity and verified no posterior subluxation of the tibia relative to the femur. The thickness of the [place] patella was measured with a caliper. The lateral patellar facet was resected using the oscillating saw. The patella remained centered on the trochlea and tracked well throughout the entire arc of flexion and extension. I used pulse lavage to clean the bony surfaces of debris and dried bone. I cemented the tibial, femoral, and patellar components using 1 bag of methylmethacrylate with Gentamycin, then rechecked the stability at full extension, 15-30 degrees, and 90? flexion and verified jainism of the entire arc of motion of the knee. The circulating nurse confirmed the sponge and needle counts were correct. I used pulse lavage to rinse the joint and wound. The extensor mechanism was closed with interrupted #1 Vicryl suture and #1 running Stratafix suture. The subcutaneous layer was closed with interrupted #1 Vicryl suture followed by 2-0 Stratafix and 3-0 Stratafix. Steri-Strips placed on the skin. Silver impreg nated occlusive dressing applied to the wound. A light gauze wrap and Ricardo bandage were placed. The patient was transferred to the recovery room in stable condition. There were no complications. Implants Medacta GMK spheriKA Femoral component SpheriKA size 4+, tibial component size 4, vitamin-E flex insert, thickness 11mm. Estimated Blood Loss 200 Drains No Pathology None sent Complications No immediate complications Condition Stable Disposition PACU [facility] Billing Surgery - Charge Forward: Surgery Billing
[2025-05-12] MEDS: fentaNYL CITRATE INJ (*CRX) 100 MCG/2 ML VIAL 25 MCG IV PUSH ×7 (09:57→11:15)
[2025-05-12] MEDS: KETOROLAC 30 MG/ML VIAL (*BKC) IV PUSH (10:02)
--- NOTE | 2025-05-12 10:30 | WPDANESPNB ---
Anes - Peripheral Nerve Block Date/Time: 05/12/25 10:30 I have discussed with the patient/family/POA the placement of a peripheral nerve block for post-operative pain management, including associated risks, benefits, complications, and side effects. Alternative methods of post-operative analgesia were detailed. Questions were solicited and answers provided to the satisfaction of the patient/family/POA. Time-Out: A pre-procedural Time-Out was completed immediately before starting the procedure and confirmed: Patient Identification, Site, Procedure, Patient Position and the Availability of Requisite Equipment. Clinical Indications: Acute post-operative pain management requested by the operative surgeon. Nerve Block Insertion Note Anes-nerve block: adductor canal left Patient position: supine Skin prep: chlorhexidine Needle: 22 gauge, stimulating, insulated echogenic needle. Needle length: 80 mm Technique: ultrasound Injectate: bupivacaine 0.5% with epi 5 mcg/ml (30cc - no epi) Observations: tolerated well Complications: none Procedure start time:: 1023 Procedure end time:: 102
--- NOTE | 2025-05-12 11:00 | SUR.PHASEI ---
Patient meets PACU discharge criteria, unit bed unavailable at this time. Patient placed in extended recovery status.
[2025-05-12] MEDS: oxyCODONE/ACETAMINOPHEN (*CRX) 10-325 MG TABLET 1 TAB PO ×2 (13:11→20:15)
[2025-05-12] MEDS: SODIUM CHLORIDE 0.9% IV 1,000 ML 125 ML IV CONT (13:12)
--- NOTE | 2025-05-12 14:57 | ADMGEN ---
This patient, Deirdre Tyler, was admitted to [facility] Surg Room 305-01. Patient/family oriented to hospital policies and general routines including ID bracelet, bed and alarms, visiting hours, pain management, procedures, bathroom and other care routines, personal items, smoking policy, room service/diet, and visiting hours. Information on how to activate the Rapid Response Team has been discussed. Patient/Family are encouraged to report perceived risks to care and to ask questions if they do not understand what they are told or what they should do. received report from Emma.
[2025-05-12] MEDS: ceFAZolin 2 GM/D5W 50 ML 2 GM/50 ML BAG IVPB (16:30)
[2025-05-12] MEDS: SENNA/DOCUSATE SODIUM TABLET 2 TAB PO (16:30)
[2025-05-12] MEDS: ASPIRIN 81 MG ENTERIC TABLET PO (16:31)
[2025-05-12] MEDS: MELOXICAM 7.5 MG TABLET PO (16:31)
[2025-05-12] MEDS: DULoxetine HCL 60 MG CAPSULE.DR PO (20:23)
[2025-05-12] MEDS: HYDROmorphone HCL INJ (*CRX) 2 MG/ML VIAL 0.5 MG IV PUSH (22:05)
[2025-05-13] MEDS: ceFAZolin 2 GM/D5W 50 ML 2 GM/50 ML BAG IVPB ×2 (00:43→06:10)
[2025-05-13] MEDS: ACETAMINOPHEN 325 MG TABLET 650 MG PO ×2 (00:45→06:10)
[2025-05-13 02:03] VITALS: BP 108/61; PULSE 73; RESP 18; TEMP 36.6; O2SAT 96
[2025-05-13] MEDS: oxyCODONE/ACETAMINOPHEN (*CRX) 10-325 MG TABLET 1 TAB PO (04:43)
[2025-05-13] MEDS: THYROID 30 MG TABLET PO (04:44)
[2025-05-13 06:03] VITALS: BP 122/67; PULSE 62; RESP 16; TEMP 36.6; O2SAT 97
[2025-05-13 06:03] LABS: Hematocrit 34.2 % (37.0-47.0); Hemoglobin 11.3 g/dL (12.0-15.0); Immature Granulocyte Percent A 0.4 % (0-0.5); Lymphocytes Absolute Auto 1.40 K/mm3 (0.9-3.2); Mean Corpuscular HGB Conc 33.0 g/dl (32-36); Mean Corpuscular Hemoglobin 31.7 pg (26-34); Mean Corpuscular Volume 96.1 fl (80-100); Nucleated Red Blood Cells Absolute Auto 0.000 K/mm3 (0.0-0.012); Nucleated Red Blood Cells Perc 0.0 % (0.0-0.2); Platelet Count Result 160 k/mm3 (150-375); Red Blood Count 3.56 M/mm3 (4.2-5.4); White Blood Count 9.3 K/mm3 (4.5-10.0)
[2025-05-13 07:06] LABS: Anion Gap 6 mmol/L (4-12); Blood Urea Nitrogen 12 mg/dL (7-17); Calcium 8.2 mg/dL (8.4-10.2); Carbon Dioxide 27 mmol/L (22-30); Chloride 106 mmol/L (98-107); Estimated CRCL calculation 75 ml/min; Estimated Glomerular Filt Rate > 60; Glucose 99 mg/dL (65-110); Potassium 4.1 mmol/L (3.4-5.0); Sodium 139 mmol/L (137-145)
[2025-05-13] MEDS: traMADol HCL (*CRX) 50 MG TABLET PO (08:17)
[2025-05-13] MEDS: ASCORBIC ACID 500 MG TABLET 1500 MG PO (08:18)
[2025-05-13] MEDS: SPIRONOLACTONE 50 MG TABLET 100 MG PO (08:18)
[2025-05-13] MEDS: ASPIRIN 81 MG ENTERIC TABLET PO (08:18)
[2025-05-13] MEDS: VITAMIN E 400 UNIT CAPSULE PO (08:18)
[2025-05-13] MEDS: buPROPion HCL SR (12HR) 100 MG TABCR 200 MG PO (08:18)
[2025-05-13] MEDS: PANTOPRAZOLE 40 MG TABLET PO (08:18)
[2025-05-13] MEDS: MELOXICAM 7.5 MG TABLET PO (08:19)
[2025-05-13] MEDS: SENNA/DOCUSATE SODIUM TABLET 2 TAB PO (08:19)
[2025-05-13 10:12] VITALS: O2SAT 96
== END 2025-05-13 10:35 | disposition home or self-care (01) ==
LOC: ANHSURGERY 09:50 → ANH3MEDSUR 12:27
PROVIDERS: PCP Family Medicine; Visit Provider Orthopaedic Surgery
PROC: (CPT 27447; principal; 2025-05-12 07:30)
DX: M17.12 Unilateral primary osteoarthritis, left knee (principal); G89.18 Other acute postprocedural pain; E66.9 Obesity, unspecified; Z68.35 Body mass index [BMI] 35.0-35.9, adult
CPT/HCPCS: 27447; 64447; 36415; 73560; 80048; 85025; 86850; 86900; 86901; 97110; 97116; 97161; 97165; 97530; 97535; J0690; A9270; C1713; C1776; J0166; J1100; J1171; J1885; J2270; J2405; J2704; J2795; J3010; J7030; J7120; J7512

== ENCOUNTER 2025-05-19 10:11 | Outpatient (CLI) | payer MEDICARE, SELFPAY ==
--- NOTE | ~2025-05-19 | US_ITS ---
EXAMINATION:US venous doppler LE LT INDICATION:Localized edema TECHNIQUE: Multiple grayscale, color flow and Doppler images of the left lower extremity deep venous systems were obtained and reviewed. COMPARISON:No prior studies for comparison. FINDINGS: The common femoral, superficial femoral and popliteal veins demonstrate normal respiratory variation, augmentation and compressibility. Color flow is also seen within the posterior tibial, gr eater saphenous and profunda veins. There is deep venous thrombosis of the left peroneal veins. IMPRESSION: 1: Deep venous thrombosis of the left peroneal veins. Reviewed, dictated and finalized at location A.
--- OUTSIDE RECORDS SUMMARY | 2025-05-19 10:16 | XMS_ITS | Data Portability ---
Author Organization [employer], [facility] Address [address] [address] Assessment No assessment recorded. Plan of Treatment [...] Note LastModifiedBy Organization Detail LastModifiedTime 01/31/2001/16/2022 , [facility] No observ ation record ed. BARCODE [...] Updated DateTime 01/29/2022 175.26 cm 34 kg/m2 845157.2 5 g 66 /min 117/77 mm[Hg] [email or web address] 01/29/2022 15:28:24 Date Recorded Body height Body mass index (BMI) Body weight Provider Name and Address Organization Details Last Updated DateTime 02/05/2022 175.26 cm 34 kg/m2 151804.25 g [employer] 02/05/2022 11:47:24 Social History None recorded. Functional Status None recorded. Mental Status None recorded. Family History Nothing Reported. Medical History Condition Response Coronary Artery Disease N HIV or AIDS N Other Cancer N Gout N Kidney Stones N Hyperthyroidism N Breast Cancer N Hernia N Head Trauma/Injury N Lung Cancer N Blood Clots N COPD N Depression N Lung Disease N Hypothyroidism N Pacemaker N Parkinson's N Anxiety Disorder N Arthritis N Alcohol / Substance Abuse N Kidney Cancer N Cancer N Stroke N Melanoma N Neck Injury N Leg or Foot Ulcers N High Cholesterol N Skin Cancer N Liver Disease N Rheumatoid Arthritis N Headaches N Fibromyalgia N Concussion N Kidney Disease N Heart Problems N Chronic use of Pain Medication N Prostate Cancer N Migraines N Thyroid Problems N Alzheimers N Autoimmune Disorder N Anemia N Multiple Sclerosis N Tendon Tear N Ulcers N Heart Attack ([place]) N Osteopenia N Diabetes N Bleeding Disorder [...] Diagnosis Note Abimael Aj MD [facility] [address] [address] [facility] [address] [facility] [place] [address] 01/29/2022 15:04:11 01/30/2022 09:03:15 Pain of right knee joint [id number] 43620 M25.561 [id number] Abimael Aj MD [facility] [address] [facility] [address] [facility] [place] [address] 02/05/2022 11:35:46 02/05/2022 15:17:12 Health Concerns Section Related Observation LastModified by Organization Detai ls LastModified Time None Recorded Concern Status LastModified by Organization Details LastModified Time None Recorded Advance Directives Directive None Recorded Payers Insurance Date Sequence Insurance Name Policy Number Policy López Covered Member ID López Member ID Guarantor Name 02/11/2022 1 [employer] (PP[employer]) [id number] Deirdre M Abusharbain [id number] Deirdre Abusharbain OBGyn Episode No OBEpisode recorded.
--- OUTSIDE RECORDS SUMMARY | 2025-05-19 10:16 | XMS_ITS | Data Portability ---
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 Lab culture, urine 2020 021 [facility] (Lab), [address], [place], [address], 09/16/202 1 22:42:07 urinalysis , dipstick 2020 021 [email or web address], [address], [address], [place], [address], 1 12:00:30 culture, urine 2019 020 [facility] ([facility]), [address], [place], [address], 0 12:16:16 Referral None recorded. Procedures None recorded. Surgeries None recorded. Imaging MAMMO, screening, digital, bilateral 2022 023 [facility], [address], [address], [place], [address], 4 05:01:41 Medication Orders None recorded. Patient [...] which luis ts the lab [facility] of ThinP rep Pap Test slide s. Follo wing imagi ng, the slide was revie wed by a Cytot echno logis t and/o r Patho logis tClaudette Caballero A A S S A Y S R E P O R T TEST NAME NGUYEN LATMAN ----- ---- ----- -- HPV High Risk [...] and labor atory findi ngs. See https ://Zigswitch/s ites/ defau lt/fi les/2 018-0 3/AW- 59343 _002_ 01.pd f for [facility] waqas infor matnettie n. Test perfo rmed by [facility], d/b/a [facility], [address], [place] [address] , Abril Arredondo ra, DO, Labor atory [facility]. HPV High Risk *HPV NOT DETEC BARRON [...] and labor atory findi ngs. See https ://Zigswitch/s ites/ defau lt/fi les/2 018-0 3/AW- 42297 _002_ 01.pd f for [facility] infor matio n. Test perfo rmed by Assoc [facility] log[facility], d/b/a [facility], [address], [place] [address] , Abril Arredondo ra, DO, [facility]. End of t Techn ical servi steven provi ded by [facility] iated Patho logis [employer], [facility], d/b/a [facility], [address] [place] [address] Mark Lawson MD, [facility]. Case revie wed and diagn osis rende red at [facility] iated Patho logis [employer], [employer], d/b/a [facility], [address] [place] [address] Mark Lawson MD, [facility]. CONFI DENTI AL Not Available [facility] ([facility]) [address] [place] [address] [address], [place], [address], 04/10/2020 14:23:57 04/06/20 20 04/07/2020 HPV DNA, high- risk HPV high risk NOT DETECT ED normal Not Available [facility]) [address] [place] [address] [address], [place], [address], 04/10/2020 14:23:58 04/07/20 20 04/09/2020 cultu re, urine specimen source Urine - Void Not Available [facility] ([facility]) [address] [place] [address] [address], [place], [address], 04/09/2020 12:16:16 04/07/20 20 04/09/2020 cultu re, urine culture, urine See Below No growt h Not Available [facility] ([facility]) [address] [place] [address] [address], [place], [address], 04/09/2020 12:16:16 07/11/20 21 07/11/2021 CULTU RE: URINE result report SEE RESULT S BELOW Test: Cultu re: Urine Speci men Sourc e: Urine Voide d Speci men Type: Urine Speci men Date: 2020 1:13 PM Resul t Date: 2020 9:39 PM Resul t Statu s: Final resul t Abnor mal: No Resul ting Lab: [facility] [address] [facility] [address] Tel: CULTU RE ----- ----- ----- --- No growt h in 1 day (dete ction level of 10,00 0 colon ies / ml.) Not Available [facility] (Lab) [address] [facility] [address], [place], [address], 07/12/2021 22:42:07 07/11/20 21 07/11/2021 IMAGE GUIDE [...] as clini florencio yadav nted. Not Available [facility] (Lab) [address], [place], [address], 07/16/2021 07:41:56 07/11/20 21 07/11/2021 urina lysis , dipst ick Leukocytes + Not Available Antonio menjivar [address], [place], [address], 07/11/2021 11:57:23 07/17/20 21 07/17/2021 SURGI ROBLES PATHO LOGY surgical pathology SEE RESULT S BELOW CASE REPOR T: Surgi robles Patho logy Repor t Case: [id number] Autho chrishieu pablo Provi reynold: Leah Lara, ELECTROPHYSIOLOGY NURSE PRACTITIONER Colle cted: 07/17 1454 Order ing Locat [...] Gross ed by Naheed batista Not Available [facility] (Lab) [address] [facility] [address], [place], [address], 07/19/2021 11:05:16 08/21/20 22 08/21/2022 IMAGE GUIDE D PAP AND HPV REGAR DLESS image guided Pap, HPV regardless of Pap result SEE RESULT S BELOW CASE REPOR T: Cytol ogy Gynec ologi robles Repor t Case: [id number] Autho kieran g Provi reynold: Leah Lara, ELECTROPHYSIOLOGY NURSE PRACTITIONER Colle cted: 08/21 1738 Order ing Locat [...] as clini florencio yadav nted. Not Available [facility] (Lab) [address], [place], [address], 08/27/2022 08:10:49 06/02/20 20 06/02/2020 MAMMO , scree arnold, bilat eral No observ ation record ed. [facility] [address], [place], [address], 06/20/2020 20:18:29 09/07/20 21 09/07/2021 MAMMO , scree arnold, bilat eral No observ ation record ed. [facility] [address], [place], [address], 09/13/2021 10:18:57 01/30/20 23 01/15/2023 DEXA, axial skele ton + verte bral fract ure asses sment No observ ation record ed. [facility] [address], [place], [address], 02/02/2023 23:41:45 02/06/20 DEXA, axial skele ton + verte bral fract ure asses sment No observ ation record ed. [facility] [address], [place], [address], 02/06/2023 15:57:04 02/27/20 23 02/26/2023 MAMMO , scree arnold, bilat eral No observ ation record ed. [email or web address] [facility] [address], [place], [address], 08/25/2023 14:15:39 02/27/20 23 02/26/2023 MAMMO , scree arnold, bilat eral No observ ation record ed. [facility] [address], [place], [address], 03/13/2023 05:29:32 Result Notes None recorded. Problems Name Problem SNOMED Code Status Onset Date Resolution Date Notes Provider Name and Address Organization Details Recorded Time Leukocyt osis 424922666 Completed 201107/10/2021 LEUKOCYT OSIS NOS;Antony rded Elsewher e: No Locat ion: [facility] S ource: EHR Cutter Machine gerber: N Practi ce ID: 0001 Crispin lable Time: 10:00:00 AM Trena leon, [facility] 14:49:02 Screenin g for malignan t neoplasm of cervix Completed 201107/10/2021 Screenin g for malignan t neoplasm s of the cervix;R ecorded Elsewher e: No Locat ion: [facility] S ource: EHR Cutter Machine gerber: N Practi ce ID: 0001 Crispin lable Time: 10:00:00 AM Trena leon, [facility] 14:49:05 Ill-defi bessy intestin al infectio n Completed 201207/10/2021 No Show Fee;Panchito elicia ID: 0001 Trena Lopez [facility], [facility] 14:49:07 Sexually transmit barron infectio us disease [id number] Completed 201307/10/2021 SPECIAL SCREEN EXAM HPV;Antony rded Elsewher e: No Locat ion: [facility] S ource: EHR Cutter Machine gerber: N Practi ce ID: 0001 Crispin lable Time: 11:30:00 [facility] 14:49:31 Speciali zed medical examinat ion Completed 201307/10/2021 Gynecolo gical Examinat ion;Antony rded Elsewher e: No Locat ion: [facility] S ource: EHR Cutter Machine gerber: N Practi ce ID: 0001 Crispin lable Time: 11:30:00 AM Trena leon, [facility] 14:49:29 Obesity 525235090 Completed 201307/10/2021 Obesity; Recorded Elsewher e: No Locat ion: [facility] S ource: EHR Cutter Machine gerber: N Practi ce ID: 0001 Crispin lable Time: 09:30:00 AM Trena leon [facility] 14:49:22 Anxiety state 065740573 Completed 201307/10/2021 Anxiety; Recorded Elsewher e: No Locat ion: [facility] S ource: EHR Cutter Machine gerber: N Practi ce ID: 0001 Crispin lable Time: 10:30:00 AM Trena leon [facility] 14:49:06 Depressi ve disorder 45676287 Completed 201307/10/2021 Depressi on;Recor ded Elsewher e: No Locat ion: [facility] S ource: EHR Cutter Machine gerber: N Practi ce ID: 0001 Crispin lable Time: 10:30:00 AM Trena leon [facility] 14:49:20 Adult health examinat ion Completed 201407/10/2021 ROUTINE MEDICAL EXAM;Rec orded Elsewher e: No Locat ion: [facility] S ource: EHR Cutter Machine gerber: N Panchitoti ce ID: 0001 Crispin lable Time: 03:00:00 PM Trena leon [facility] 14:49:10 Atypical glandula r cells on cervical Papanico laou smear [id number] Completed 201407/10/2021 Abnormal glandula r Papanico laou smear of cervix;R ecorded Elsewher e: No Locat ion: [facility] S ource: EHR Cutter Machine gerber: N Practi ce ID: 0001 Crispin lable Time: 02:30:00 PM Trena leon [facility] 14:49:27 Pregnanc y test negative [id number] Completed 201407/10/2021 Pregnanc y examinat ion or test, negative result;R ecorded Elsewher e: No Locat ion: Trish gamez [facility] S ource: EHR Cutter Machine gerber: N Practi ce ID: 0001 Crispin lable Time: 02:30:00 PM Trena leon [facility] 14:49:09 Screenin g for malignan t neoplasm of rectum Completed 201507/10/2021 Encounte r for screenin g for malignan t neoplasm of rectum;R ecorded Elsewher e: No [facility] S ource: EHR Cutter Machine gerber: N Practi ce ID: 0001 Crispin lable Time: 10:00:00 AM Trena leon [facility] 14:49:13 Evaluati on finding Completed 201607/10/2021 Unspecif ied abnormal cytologi robles findings in specimen s from cervix uteri;Re corded Elsewher e: No Locat ion: [facility] S ource: EHR Cutter Machine gerber: N Practi ce ID: 0001 Crispin lable Time: 11:15:00 AM Trena leon [facility] 14:49:[address] Concept Completed 201607/10/2021 Encntr for pump installation and servicer exam (general ) (routine ) w/o abn findings ;Recorde d Elsewher e: No Locat ion: [facility] S ource: EHR Cutter Machine gerber: N Practi ce ID: 0001 Crispin lable Time: 10:00:00 AM Trena leon [facility] 14:49:[address] Concept Completed 201607/10/2021 Encntr for general adult medical exam w/o abnormal findings ;Recorde d Elsewher e: No Locat ion: [facility] S ource: EHR Cutter Machine gerber: N Practi ce ID: 0001 Crispin lable Time: 10:00:00 AM Trena leon [facility] 14:49:15 Blood leukocyt e number above referenc e range [id number] Completed 201807/10/2021 Elevated white blood cell count, unspecif ied;Antony rded Elsewher e: No Locat ion: [facility] S ource: EHR Cutter Machine gerber: N Panchitoti ce ID: 0001 Crispin lable Time: 01:00:00 PM Trena leon [facility] 14:49:21 Body mass index 30+ - obesity 479126303 Completed 201807/10/2021 Body mass index (BMI) 35.0-35. 9, adult;Re corded Elsewher e: No Locat ion: [facility] S ource: EHR Cutter Machine gerber: N Panchitoti ce ID: 0001 Crispin lable Time: 01:00:00 PM Trena leon [facility] 14:49:[address] Concept Completed 201807/10/2021 Encounte r for general adult medical exam w abnormal findings ;Practic e ID: 0001 Trena leon [facility] 14:49:17 Problem Notes None recorded. Procedures Surgical History Date Name Laterality Status Provider Name and Address Organization Details Recorded Time 08/21/20 22 Date of Last Pap Smear completed Betty Argueta [facility] 08/21/2022 15:11:32 07/17/20 21 Punch Biopsies, Multiple completed Leah Galloway CNM [address], [place], [address], [facility] 07/18/2021 09:34:01 03/02/20 19 Date of Last Mammogram completed rTena Lopez [facility] 07/10/2021 15:00:36 07/06/20 15 Colposcopy completed [facility] 07/23/2021 15:27:57 03/05/20 15 Colposcopy completed [facility] 08/21/2022 13:45:32 10/27/[address] [facility] 04/05/2020 13:37:46 10/27/18 90 termination of completed [facility] 07/23/2021 15:29:40 10/27/18 90 Dilation and Curettage completed [facility] 04/05/2020 13:37:24 Imaging Results None recorded. Procedure Notes None recorded. Medical Equipment None Reported. Allergies Allergen ID Allergen Name Allergen Category Reaction Reaction Severity Criticality Documentation Date Start Date Code Code System Note Provider Name and Address Organization Details Recorded Time 953 Product containin g penicilli n (product) medicatio n Not available Not available Not available 04/05/2020 18244 8001 SNOMED [facility] 2 15:11:11 Medications Name Sig Start [...] ed Elsewher e: Yes Loca tion: Trish [facility] Mahnaz gandara By: jesusita castro DateTime : 04/28/20 14 01:00:41 PM Not Available Not Available Not Available trazodone 50 mg tablet take 1 tablet by oral route 3 times every day after meals 07/10 completed Prescrib ed Elsewher e: Yes Loca tion: Trish gamez [facility] odify By: ryland Lopes ter DateTime : 03/02/20 19 01:00:00 PM Not Available Not Available Not Available fluconazo le 150 mg tablet take 1 tablet by oral route once 07/10 completed Prescrib ed Elsewher e: Yes Loca tion: Trish gamez [facility] odify By: ryland Lopes ter DateTime [...] Prescrib ed Elsewher e: Yes Loca tion: Tirsh gamez [facility] odify By: ryland Lopes ter DateTime : 03/02/20 19 01:00:00 PM Not Available Not Available Not Available baclofen 20 mg tablet take 1 tablet by oral route 4 times every day 04/28 completed Prescrib ed Elsewher e: Yes Loca tion: Trish gamez [facility] odify By: gerard camp DateTime : 01/16/20 12 08:05:30 PM Not Available Not Available Not Available [place] Thyroid 15 mg tablet 07/10 completed Prescrib ed Elsewher e: Yes Loca tion: Trish gamez [facility] odify By: gerard camp DateTime : 04/28/20 14 01:00:41 PM Not Available Not Available Not Available progester one 50 mg/mL intramusc ular oil inject 0.1 millilit er by intramus cular route every day 01/28 completed Prescrib ed Elsewher e: Yes Loca tion: [facility] odify By: jesusita castro DateTime : 04/28/20 14 01:00:41 PM Not Available Not Available Not Available famotidin e 20 mg tablet TAKE 1 TABLET BY MOUTH TWICE A DAY 08/21 completed Not Available Not Available Not Available amitripty line 25 mg tablet take 1 tablet by oral route every day at bedtime 01/28 completed Prescrib ed Elsewher e: No [facility] By: jesusita castro DateTime : 07/19/20 14 08:45:00 AM Not Available Not Available Not Available Zoloft 50 mg tablet take 1 tablet by oral route every day 06/06 completed Prescrib ed Elsewher e: No Locat ion: [facility] odify By: jesusita castro DateTime : 09/15/20 [...] Prescrib ed Elsewher e: Yes [facility] By: jesusita castro DateTime [...] Prescrib ed Elsewher e: Yes [facility] By: gerard camp DateTime : 04/28/20 14 01:00:41 PM Not Available Not Available Not Available Wellbutri n 75 mg tablet take 1 tablet by oral route 3 times every day 07/10 completed Prescrib ed Elsewher e: Yes Loca tion: Trish gamez [facility] odify By: jesusita Gamez ncounter DateTime : 06/10/20 16 10:00:00 AM Not Available Not Available Not Available ranitidin e 150 mg capsule take 1 capsule by oral route 2 times every day 07/10 completed Prescrib ed Elsewher e: Yes Loca tion: Trish gamez [facility] odify By: ryland z Encoun ter DateTime : 03/02/20 19 01:00:00 PM Not Available Not Available Not Available gabapenti n 100 mg capsule take 1 by oral route 2 times every day 07/10 completed Prescrib ed Elsewher e: Yes Loca tion: Trish gamez [facility] odify By: ryland z Encoun ter [...] Elsewher e: Yes Loca tion: Trish gamez [facility] odify By: amkramila Gamez ncounter DateTime [...] Prescrib ed Elsewher e: Yes [facility] By: jesusita castro DateTime [...] Not Available Not Available No t Available [place] Thyroid 08/21 completed Not Available Not Available [...] Prescrib ed Elsewher e: Yes Loca tion: [facility] odify By: gerard camp DateTime : 01/17/20 12 10:00:00 AM Not Available Not Available Not Available heparin (porcine) 5,000 unit/mL (1 mL) injection cartridge inject 1 millilit er by subcutan eous route every 12 hours 01/28 completed Prescrib ed Elsewher e: Yes Loca tion: [facility] odify By: jesusita castro DateTime : 07/06/20 02:30:00 PM Not Available Not Available Not Available ELECTROPHYSIOLOGY NURSE PRACTITIONER Thyroid 30 mg tablet TAKE 5 TABLETS [...] Updated DateTime 04/06/2020 173.99 cm 34.9 kg/m2 308429.02 g 111/71 mm[Hg] Sabine Choi [facility] 04/06/2020 14:54:35 Date Recorded Body height Body mass index (BMI) Body weight Systolic And Diastolic Provider Name and Address Organization Details Last Updated DateTime 07/11/2021 173.99 cm 35.5 kg/m2 130627.39 g 137/53 mm[Hg] Trena Lopez [facility] 07/11/2021 11:44:31 Date Recorded Body height Body mass index (BMI) Body weight Systolic And Diastolic Provider Name and Address Organization Details Last Updated DateTime 07/17/2021 173.99 cm 35.7 kg/m2 875283.98 g 111/73 mm[Hg] Betty Argueta [facility] 07/17/2021 12:58:48 Date Recorded Body height Body mass index (BMI) Body weight Systolic And Diastolic Provider Name and Address Organization Details Last Updated DateTime 08/21/2022 173.99 cm 34.6 kg/m2 576208.84 g 118/76 mm[Hg] Betty Argueta [facility] 08/21/2022 15:09:57 Date Recorded Body weight Systolic And Diastolic Provider Name and Address Organization Details Last Updated DateTime 09/02/2023 001226.27 g 126/72 mm[Hg] Lindsay Ramirez [facility] 09/02/2023 14:10:24 Social History Question Answer Notes LastModified by Organizat ion Details LastModified Time Tobacco Smoking Status Never Smoker Betty Argueta [facility] 08/21/2022 15:12:42 Do You Have An Advance Directive? Yes [email or web address] Information n ot available 08/21/2022 How Many Years Have You Consumed Alcohol? 40 [email or web address] Information not available 07/11/2021 Are You Blind Or Do You Have Difficulty Seeing? No [email or web address] Information n ot available 07/11/2021 What Is Your Level Of Caffeine Consumption? Heavy [email or web address] Information not available 07/11/2021 In The 14 Days Before Symptom Onset, Have You Had Close Contact With A Laboratory-confirm ed COVID-19 While That Case Was Ill? No Information n ot available 07/11/2021 In The 14 Days Before Symptom Onset, Have You Had Close Contact With A Person Who Is Under Investigation For COVID-19 While That Person Was Ill? No [email or web address] Information not available 07/11/2021 Have You Been To An Area Known To Be High Risk For COVID-19? No [email or web address] Information not available 07/11/2021 Are You Deaf Or Do You Have Serious Difficulty Hearing? No [email or web address] Information not available 07/11/2021 What Type Of Diet Are You Following? GLUTENFREE [email or web address] Information n ot available 07/11/2021 What Is The Highest Grade Or Level Of School You Have Completed Or The Highest Degree You Have Received? OR52987-7 [email or web address] Information not available 07/11/2021 Are There Any Guns Present In Your Home? Yes [email or web address] Information not available 07/11/2021 Do You Use Protection During Sex? No [email or web address] Information not available 07/11/2021 Do You Use Your Seat Belt Or Car Seat Routinely? Yes [email or web address] Information not available 07/11/2021 Do You Have Smoke And Carbon Monoxide Detectors In Your Home? Yes [email or web address] Information not available 07/11/2021 How Much Tobacco Do You Smoke? No [email or web address] Information not available 07/11/2021 Do You Use Sunscreen Routinely? Yes [email or web address] Information not available 08/21/2022 Have You Used IV Drugs? No [email or web address] Information not available 07/11/2021 Do You Have Difficulty Walking Or Climbing Stairs? No Information not available 08/21/2022 Sex: Unknown Functional Status Question Answer Note LastModified by Organizat ion Details LastModified Time Do you use any illicit or recreational drugs? No [email or web address] Information not available 08/21/2022 What is your level of alcohol consumption? Occasional [email or web address] Information not available 07/11/2021 Are you able to walk? YESWOREST Information not available 07/11/2021 Are you able to care for yourself? 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 No [email or web address] Information not available 08/21/2022 What is your exercise level? Heavy [email or web address] Information not available 07/11/2021 Mental Status Question Answer Note LastModified by Organization D etails LastModified Time Do you feel stressed (tense, restless, nervous, or anxious, or unable to sleep at night)? MY1867-0 [email or web address] Information not available 07/11/2021 Family History Relationship [...] ICD10 Code Diagnosis Note [id number] Halima Valles, [facility] [address] [address] 04/06/2020 14:44:37 04/06/2020 16:24:16 Gynecologic examination [id number] Z01.419 Take Calcium with Vitamin D 12-1500mg daily. Do monthly self breast exams. It is advised to get annual flu shot in the fall and she could obtain at [facility] or [facility] clinic. If you haven't received the Tdap [...] questions call or respond to this email.p [id number] Halima Valles [facility] [address],[place] [address] 07/11/2021 11:36:42 07/11/2021 13:52:44 Routine gynecologic examination done [id number] 9101 Z01.419 Leukocytes in urine 2757 25289 R82.79 No symptoms. Will await culture. Gynecologi c examination 37061718 Z01.419 Take Calcium with Vitamin D 12-1500mg daily. Do monthly self breast exams. It is advised to get annual flu shot in the fall and she could obtain at [facility] or [facility] clinic. If you haven't received the Tdap [...] call or respond to this email. Vaginitis [id number] N76.0 Biopsy to be scheduled. Discussed possibilit y of lichen sclerosus. Will go ahead and treat with diflucan d/t history of yeast and itching. [id number] [facility] [address] [address] 07/17/2021 12:41:22 07/18/2021 22:54:49 Lesion of vulva 222149817 N90.89 [id number] Leah Galloway CNM [facility] [address] [address] 08/21/2022 14:59:54 08/21/2022 16:04:22 Gynecologic examination [id number] Z01.419 [id number] CELINE Narayan Ord [address],[place] [address] 09/02/2023 13:22:48 09/02/2023 15:01:59 Gynecologic examination [id number] Z01.419 WWEpostmen opausalpap updatedSTI testing declinedma mmogram order given - due 4dex a UTD - due next ologu susannah UTD / PCPUTD with routine labsRTC in 1 yr or sooner if needed Take Calcium with Vitamin D daily.Do monthly self breast exams.It is advised to get annual flu shot in the fall and she could obtain at [facility] or [facility] care clinic. 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 For urinary symptoms, patient reportsno hematuriaandno incontinence(history of frequent uti. has seen urologist. finished abx 1 month ago. feels like she might have another one starting.). For vulva, patient reportsno genital lesion. For vagina, patient reportsnormal vaginal discharge.Breast symptomsFor breast, patient reportsno breast pain,no breast lump, andno nipple discharge.Endocrine symptomsFor sexual complaints, patient reportsno sexual complaints,no pain during intercourse, andnormal libido. For menopausal symptoms, patient reportsno menopausal symptomsandnormal vaginal lubrication.Psychological symptomsFor psychological symptoms, patient reportsno depression,no anxiety, andno pmdd. Halima leon [facility] 04/06/2020 16:12:38 1 text/html Annual GYNReported by PatientGenitourinary symptomsFor urinary symptoms, patient reportsno hematuriaandno incontinence. For vulva, patient reportsno genital lesion. For vagina, patient reportsnormal vaginal discharge.Breast symptomsFor breast, patient reportsno breast pain,no breast lump, andno nipple discharge.Endocrine symptomsFor sexual complaints, patient reportsno sexual complaints,no pain during intercourse, andnormal libido. For menopausal symptoms, patient reportsno menopausal symptomsandnormal vaginal lubrication.Psychological symptomsFor psychological symptoms, patient reportsno depression,no anxiety, andno pmdd. Right labial irritation Halima Valles carolyn [facility] 07/11/2021 13:06:36 1 text/html ROS as noted in the HPI pt here for labial biopsy per CNM, reviewed risks including bleeding and infection consent signed Leah Galloway CNM [address], [place], [address], [place] [facility] 07/18/2021 09:34:30 2 text/html Annual GYNReported by PatientGenitourinary symptomsFor urinary symptoms, patient reportsno hematuriaandno incontinence. For vulva, patient reportsno genital lesion. For vagina, patient reportsnormal vaginal discharge. For menstrual cycle, (menopause).Breast symptomsFor breast, patient reportsno breast pain,no breast lump, andno nipple discharge.Endocrine symptomsFor sexual complaints, patient reportsno sexual complaints,no pain during intercourse, andnormal libido. For menopausal symptoms, patient reportsno menopausal symptomsandnormal vaginal lubrication.Psychological symptomsFor psychological symptoms, patient reportsno depression,no anxiety, andno pmdd.Preventative measuresFor preventive measures, patient reportsencourage self breast examination,encourage regular exercise,encourage no tobacco use, andencourage regular mammograms starting age 42.saw derm they told her to cont steroid cream for vaginal psoriasis, [facility] as noted in the HPI Leah Galloway CNM [address], [place], [address], [facility] 08/21/2022 15:37:54 3 text/html Annual Drum Printer Post-MenopausalReported by PatientGenitourinary symptomsFor menopausal symptoms, patient reportsno menopausal symptomsandnormal vaginal lubrication. For vaginal bleeding, patient reportshistory of menopause having occurredandno history of post menopausal bleeding. For urinary symptoms, patient reportsno hematuria,no incontinence,no nocturia, andno urinary frequency. For vulva, patient reportsno genital lesionandno vulvar atrophy. For vagina, patient reportsnormal vaginal dischargeandno vaginal atrophy.Breast symptomsFor breast, patient reportsno breast lump,no nipple discharge, andno breast pain.Psychological symptomsFor sexual complaints, patient reportsno sexual complaints. For psychological symptoms, patient reportsno depressionandno anxiety.Preventative measuresFor preventive measures, patient reportsencourage regular mammograms starting age 40,encourage self breast examination,encourage regular exercise,encourage no tobacco use, andmammogram performed within the past year.hx of ab pap 2015last pap 07/2022 - normalmammogram UTD - ologuard UTD / PCPdexa UTD - 01/2023 CELINE Narayan [address], [place], [address], [facility] 09/02/2023 14:46:04 OBGyn Episode Ob Episode Information Episode Created Date Number of Fetuses Patient Bloodtype Patient rh Status Prepregnancy Weight lbs Domestic Partner Domestic Partner Phone Father Name Quitline Counselor Status 04/06/20 20 1 CLOSED Fetus Data [...] Domestic Partner Domestic Partner Phone Father Name Quitline Counselor Status 04/06/20 20 1 CLOSED Fetus Data [...] Domestic Partner Domestic Partner Phone Father Name Quitline Counselor Status 04/06/20 20 1 CLOSED Fetus Data [...] Domestic Partner Domestic Partner Phone Father Name Quitline Counselor Status 07/10/20 21 1 CLOSED Fetus Data First Name Last Name Admitted to NICU Weight (g) Sex Living Outcome Pediatric Complications Fetus ID Race Codes Race Delivery Type , Induced [id number] Jose Calculation Initial Jose Date Initial Exam [...]
--- OUTSIDE RECORDS SUMMARY | 2025-05-19 10:16 | XMS_ITS | Encounter Summary ---
Author Organization [facility] Address [address] [place] [address] Care Team Providers Care Grove Superintendent Name Role Phone Cliff Syed MD Primary Care Provider [phone] Encounter Details Date Type Department Care Team (Late st Contact Info) Description 12/28/2018 Abstract [facility] CONVERSION [address] [place] [address] , Generic ConversionMD Social History Tobacco Use [...] on filedocumented in this encounter Care Teams Grove Superintendent Relationship Specialty Start Date End Date Cliff Syed MD [address] [place] [address] PCP - General FAMILY PRACTICE 03/25/19 documented as of this encounter
--- OUTSIDE RECORDS SUMMARY | 2025-05-19 10:16 | XMS_ITS | Clinical Summary ---
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 [address] [place] [phone] AETNA MEDICARE
--- OUTSIDE RECORDS SUMMARY | 2025-05-19 10:16 | XMS_ITS | Encounter Summary ---
Author Organization [facility] Address [address] [place] [address] Care Team Providers Care Sales Incentive Analyst Name Role Phone Cliff Syed MD Primary Care Provider [phone] Encounter Details Date Type Department Care Team (Late st Contact Info) Description 06/01/2019 Therapy Plan [facility] [address] [place] [address] Cliff Syed MD [address] [place] [address] Social History Tobacco Use Types [...] on filedocumented in this encounter Care Teams Sales Incentive Analyst Relationship Specialty Start Date End Date Cliff Syed MD [address] [place] [address] PCP - General FAMILY PRACTICE 03/25/19 documented as of this encounter
--- OUTSIDE RECORDS SUMMARY | 2025-05-19 10:16 | XMS_ITS | Encounter Summary ---
Author Organization [facility] Address [address] [place] [address] Care Team Providers Care Aix Architect Name Role Phone Cliff Syed MD Primary Care Provider [phone] Encounter Details Date Type Department Care Team (Late st Contact Info) Description 04/08/2019 Hospital Orders Only [facility] Day [facility] [address] [place] [address] Cliff Syed MD [address] [place] [address] Social History Tobacco Use Types [...] on filedocumented in this encounter Care Teams Aix Architect Relationship Specialty Start Date End Date Cliff Syed MD [address] [place] [address] PCP - General FAMILY PRACTICE 03/25/19 documented as of this encounter
--- OUTSIDE RECORDS SUMMARY | 2025-05-19 10:16 | XMS_ITS | Clinical Summary ---
Author Organization [facility] Address [address] [place] [address] Care Team Providers Care Glove Turner And Former Name Role Phone Cliff Syed MD Primary Care Provider [phone] Allergies Active Allergy Reactions Criticality Noted Date Comments Chocolate Rash Medium 04/15/2019 Yeast Rash Medium 04/15/2019 Medications acetaZOLAMIDE 250 MG tabletIndications :Muscle Cramps Take 1,250 mg by mouth 2 (two) times daily. 04/19/20 Active thyroid (ED,FOUNTAIN DISPENSER) 30 MG OR tabletIndications :Thyroid Disease Take [...] 4 (four) times daily. 04/19/20 Active nystatin 943937 units tabletIndications :Yeast Take 500,000 Units by [...] Sodium Chloride Flush (SALINE FLUSH IV)Indications:PI CC STUDENT NURSE Inject 10 mLs into the vein see [...] Comments Blood Pressure 112/68 09/06/2019 12:51 PM TRUCK CRANE OPERATOR Pulse 72 09/06/2019 12:51 PM TRUCK CRANE OPERATOR Temperature 35.8 C (96.5 F) 09/06/2019 12:51 PM TRUCK CRANE OPERATOR Respiratory Rate 18 09/06/2019 12:51 PM TRUCK CRANE OPERATOR Oxygen Saturation 98% 09/06/2019 12:51 PM TRUCK CRANE OPERATOR Inhaled Oxygen Concentration - - Weight 107.5 [...] age to complete this topic Insurance AETNA [facility] Care Teams Glove Turner And Former Relationship Specialty Start Date End Date Cliff Syed MD [address] [place] [address] PCP - General FAMILY PRACTICE 03/25/19
--- OUTSIDE RECORDS SUMMARY | 2025-05-19 10:16 | XMS_ITS | Referral Summary ---
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
--- OUTSIDE RECORDS SUMMARY | 2025-05-19 10:16 | XMS_ITS | Patient Health Record ---
Author Organization [facility] Address [address] [place] [address] Care Team Providers Care Food Prep Worker Name Role Phone Aletha RAZO, Ep[employer]alian Primary Care Provider Jelena Yue Talley Unavailable [phone] Allergies No Known Allergies Results Component Value Reference Range Notes UDT Reviewed date:04/08/2025 01:01:56 PM Interpretation: Performing Lab: Notes/Report: THC n 0 - 50 ng/ml Cocaine n 0 - 300 ng/ml Amphetamine n 0 - 1000 ng/ml Buprenorphine (BUP) n 0 - 10 ng/ml Secobarbital (Bar) n 0 - 300 ng/ml Oxazepam (BZO) n 0 - 300 ng/ml 4-toexdfnnkc-0,1-ogkqvzmv-1,3-diphenylpyrrolidine (GREGG P) n 0 - 300 ng/ml Methamphetamine (MET) n 0 - 1000 ng/ml Methylenedioxymethamphetamine (MDMA) n 0 - 500 ng/ml Morphine (MOP 300/YPI2124) n 0 - 300 ng/ml Methadone (MTD) n 0 - 300 ng/ml Phencyclidine (PCP) n 0 - 25 ng/ml Nortriptyline (TCA) n 0 - 1000 ng/ml Oxycodone n 0 - 300 ng/ml x n 0 - 300 ng/ml Reason For Referral No Information Medications Medication SIG (Take, Route, Frequency, Duration) Notes Start Date End Date Status Spironolactone 100 MG Oral; Duration: 90 Days [...] Once a day; Duration: 90 days Active SOLE LEVELER Thyroid 30 MG Oral; Duration: 30 Days Active Meloxicam 15 MG TAKE 1 TABLET BY MOUTH EVERY DAY Oral; Duration: 30 Days Active buPROPion HCl ER (SR) 200 MG TAKE 1 TABLET BY MOUTH EVERY DAY IN THE MORNING; Duration: 30 Active Immunizations Vaccine Route Administration Date Status Comme nts Hep A, Adult Unknown 02/19/2001 Administered Influenza, unspecified formulation Unknown 07/03/2023 A dministered Patti Covid-19 Vaccine Unknown 01/02/2021 Administere d Novel [id number], preservative free Unknown 07/18/2021 Administered Pfizer Biontech Covid-19 Vac cine 2nd dose Unknown 08/20/2021 Administered Pfizer-Biontech Covid-19 Vac cine 1st dose Unknown 04/16/2022 Administered Pneumococcal conjugate PCV 13 Unknown 04/01/2018 Admini stered Pneumococcal polysaccharide PPV23 Unknown 08/20/2021 Ad ministered Td (adult) Unknown 04/26/2014 Administered Tdap Unknown 08/12/2017 Administered Zoster Unknown 07/03/2023 Administered Social History Tobacco Use: Social History [...] Do you have a medical power of attorney at law?: Yes Substance Use Do you or have [...] Do you have a medical power of attorney at law?: Yes Problems Problem Type SNOMED Code ICD Code Onset Dates Problem Status W/U Status Risk Notes Problem Mild recurrent major depression (90548303) Major depressive disorder, recurrent, mild (F33.0) 4 Active confirmed Problem Moderate recurrent major depression (83800848) Major depressive disorder, recurrent, moderate (F33.1) Active confirmed Problem Generalized anxiety disorder (60439411) Generalized anxiety disorder (F41.1) 4 Active confirmed Problem Primary insomnia (8684200) Primary insomnia (F51.01) 4 Active confirmed Problem Posttraumatic stress disorder (88515132) PTSD (post-traumatic stress disorder) (F43.10) Active confirmed Problem Alcohol abuse (85533296) Alcohol abuse (F10.10) Active confirmed Problem 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 Problem 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 Vital Signs Heart Rate 80 /min 04/06/2025 Height-cm 175.26 cm 04/06/2025 Blood pressure diastolic 77 mm Hg 04/06/2025 Weight-kg 104.33 kg 04/06/2025 Height 69.00 in 04/06/2025 Blood pressure systolic 120 mm Hg 04/06/2025 Weight 230 lbs 04/06/2025 BMI 33.96 kg/m2 04/06/2025 Encounters Encounter Location Date Provider Diagnosis [facility] [address] [address] 04/06/2025 Yue Comer PTSD (post-traumatic stress disorder) F43.10 ; Major depressive disorder, recurrent, moderate F33.1 ; Alcohol abuse F10.10 ; Primary insomnia F51.01 ; Post-Lyme disease syndrome B94.8 ; Borreliosis A69.20 ; Encounter for screening for depression Z13.31 and Encounter for screening for cardiovascular disorders Z13.6 [facility] [address] [address] 12/22/2024 Yue Comer Major depressive disorder, recurrent, mild F33.0 [facility] [address] [address] 12/23/2024 Yue Comer Primary insomnia F51.01 [facility] [address] [address] 05/09/2025 Yue Comer Assessments Encounter Date Diagnosis [...] night, triggered by a recent trip to [place] where she felt isolated and disconnected due [...] therapy for PTSD with [facility] in [place]. Plan: - Discontinue duloxetine 60mg: - Reduce [...] Replacemen t/Advantag e - Ppo [address] [place] [phone] [id number] DEIRDRE BRADY Self - patient is the insured Medical (General) History Medical History History ICD Code Past Psychiatric History: An xiety Disorder,Panic Disorder,PTSD, Major Depressive Disorder Problems: Generalized anxiety disorder Primary insomnia Lyme disease Surgical History Surgery Date(Month/Year) Tonsilectomy/adenoids 10/27/1962 Sinus surgery 10/27/1982
--- OUTSIDE RECORDS SUMMARY | 2025-05-19 10:16 | XMS_ITS | Data Portability ---
Author Organization [facility] Address [address] [place] [address] Assessment No assessment recorded. Plan of Treatment Reminders Order Date Submit Date Provider Last Modified By Organization Details Last Modified Time Details Appointments None recorded. Lab LILIANE (antinucle ar antibodies ) screen, ifa, serum 2023 024 amalic [facility], Critical [facility] hospital Jr Begum, [address], [place], [address], 4 07:43:59 CBC w/ auto diff 2023 [...] 12:57:59 Referral physical therapist referral 2023 024 [facility] [place], [address], [place], [address], 4 08:03:53 physical therapist referral 2022 023 [facility] [place], [address], [place], [address], 3 07:19:32 physical therapist referral 2022 023 [facility] [place], [address], [place], [address], 3 12:25:27 Procedures None recorded. Surgeries None recorded. Imaging XR, thoracic spine, 3 view 2023 024 [facility], [address], [place], [address], 4 07:17:21 XR, cervical spine 2021 022 [facility], [address], [place], [address], 2 17:21:07 XR, knee, 3 view 2021 022 [facility], [address], [place], [address], 2 13:46:44 US, duplex, venous, lower extremity 2021 022 [facility], [address], [place], [address], 2 14:13:59 Medication Orders compounded medication [address] [id number], [address], [place], [address], 4 12:27:26 compounded medication 2022 023 rlo [facility]3790, [address] [place], [address], 4 17:54:32 Naltrexone 3.0 mg 2021 [facility], [address] [place] [address], [address], 15:25:34 compounded medication 2021 [facility], [address] [place], [address], 15:25:25 [employer] Thyroid 30 mg tablet 2021 [facility] [address] [place], [address], 16:27:53 Patient TargetsNo targets recorded. Patient Instructions Encounter Date Encounter Id Patient Instructions Last Modified By Organization Details Last Modified Time 07/16/2022 [id number] cervical spondylosis: care instructions cwessling Not available 07/16/2022 16:27:48 neck arthritis: exercises cwessling Not available 07/16/2022 16:27:48 10/12/2024 [id number] knee arthritis: care instructions cwessling Not available [...] on Negati ve negati ve Not Available [facility] (Lab) [address], [place], [address], 03/13/2023 12:57:59 03/11/20 23 03/11/2023 RHEUM ATOID FACTO R (RF), QUANT ITATI VE rf, quantitation <10 IU/mL <=14 Not Available [facility] (Lab) [address], [place], [address], 03/13/2023 12:57:59 03/11/20 23 03/11/2023 CRP, HIGH SENSI TIVIT Y (HSCR P) C-reactive protein, high sensitivity 5.67 mg/L 0.00-3 .00 high Risk Accor ding To AHA/C DC Guide lines : < 1.0 mg/L Low Cardi ovasc ular Risk 1.0-3 .0 mg/L [place] ge Cardi ovasc ular Risk > 3.0 mg/L High Cardi ovasc ular Risk > 10.0 mg/L Acute Infla mmati on Not Available [facility] (Lab) [address], [place], [address], 03/13/2023 12:57:59 03/11/20 23 03/11/2023 SEDIM ENTAT ION RATE, ESR sedimentatio n rate 3 mm/ho ur (based on docume nted legal sex) 0-30 Not Available [facility] (Lab) [address], [place], [address], 03/13/2023 12:58:00 03/11/2003/11/2023 LILIANE SCREE N/REF YOUNG TITER /BROOK COLEMAN anti-nuclear antibody Negati ve negati ve LILIANE titer s and patte rns are perfo rmed using an immun ofluo resce nce assay techn ology . Follo w up testi ng for posit andreina speci mens, if requi red, is perfo rmed using multi plex bead techn ology . Not Available [facility] (Lab) [address], [place], [address], 03/13/2023 12:58:00 03/11/20 23 03/11/2023 HLA-B 27 ANTIG EN hla B27 Negati ve Not Available [facility] (Lab) [address], [place], [address], 03/13/2023 12:58:01 03/11/20 23 03/11/2023 HLA-B 27 ANTIG EN comment hla B27 HLA-B 27 is negat andreina by flow cytom etric scree arnold test. Not Available [facility] (Lab) [address], [place], [address], 03/13/2023 12:58:01 02/25/20 24 02/27/2024 LILIANE SCREE [...] infor willian cosby e refer to http: //[facility] guille caballero.Que stDia gnost ics.c om/fa q/FAQ 177 (This link is being provi ded for infor zurdo mi/ educa jennifer l purpo ses only. ) Not Available [facility] [address], [place], [address], 02/27/2024 09:40:47 02/25/20 24 02/27/2024 ANTIN UCLEA R ANTIB ODIES TITER AND LULÚ RN LILIANE titer 1:80 titer high A low level LILIANE titer may be prese nt in pre-c linic al autoi mmune disea ses and brenton l indiv idual s. Refer ence Range <1:40 Negat andreina 1:40- 1:80 Low Antib juwan Level >1:80 [place] barron Antib juwan Level Not Available [address], [address], 02/27/2024 09:40:47 02/25/20 24 02/27/2024 ANTIN UCLEA [...] Patte rns (http s://d oi.or g/10. 1515/ [facility]- 2017- 0052) Not Available [address], [address], 02/27/2024 09:40:47 02/25/20 24 02/27/2024 RHEUM ATOID FACTO R rheumatoid factor <10 IU/mL <14 normal Not Available [address], [address], 02/27/2024 09:40:48 10/22/20 24 10/26/2024 TSH+F REE T4 TSH 0.73 mIU/L 0.40-4 .50 normal Not Available [address], [address], 10/26/2024 17:33:55 10/22/20 24 10/26/2024 TSH+F REE T4 T4, free 1.0 NG/dL 0.8-1. 8 normal Not Available [address] [place], [address], 10/26/2024 17:33:55 10/22/20 24 10/26/2024 COMPR EHENS ANDREINA METAB OLIC PANEL glucose 105 mg/dL 65-99 high Fasti ng refer ence inter lizzy For someo ne witho ut known diabe ed, a gluco se value betwe en 100 and 125 mg/dL is consi stent with predi abete s and shoul d be confi rmed with a follo w-up test. Not Available [facility] [address] [place], [address], 10/26/2024 17:33:55 10/22/20 24 10/26/2024 COMPR EHENS ANDREINA METAB OLIC PANEL urea nitrogen (BUN) 9 mg/dL 7-25 normal Not Available [address] [address] [place], [address], 10/26/2024 17:33:55 10/22/20 24 10/26/2024 COMPR EHENS ANDREINA METAB OLIC PANEL creatinine 0.83 mg/dL 0.50-1 .05 normal Not Available [facility] [address] [address] [place], [address], 10/26/2024 17:33:55 10/22/20 24 10/26/2024 COMPR EHENS ANDREINA METAB OLIC PANEL eGFR 77 mL/mi n/1.7 3m2 > or = 60 normal Not Available [address] [address] [place], [address], 10/26/2024 17:33:55 10/22/20 24 10/26/2024 COMPR EHENS ANDREINA METAB OLIC PANEL BUN/creatini ne ratio SEE NOTE: (calc ) 6-22 Not Repor barron: BUN and Creat inine are withi n refer ence range . Not Available [facility] [address] [address] [place], [address], 10/26/2024 17:33:55 10/22/20 24 10/26/2024 COMPR EHENS ANDREINA METAB OLIC PANEL sodium 140 mmol/ L 135-14 6 normal Not Available [facility] [address] [place], [address], 10/26/2024 17:33:55 10/22/20 24 10/26/2024 COMPR EHENS ANDREINA METAB OLIC PANEL potassium 4.5 mmol/ L 3.5-5. 3 normal Not Available [address], [address], 10/26/2024 17:33:55 10/22/20 24 10/26/2024 COMPR EHENS ANDREINA METAB OLIC PANEL chloride 104 mmol/ L 98-110 normal Not Available [address], [address], 10/26/2024 17:33:55 10/22/20 24 10/26/2024 COMPR EHENS ANDREINA METAB OLIC PANEL carbon dioxide 27 mmol/ L 20-32 normal Not Available [address], [address], 10/26/2024 17:33:55 10/22/20 24 10/26/2024 COMPR EHENS ANDREINA METAB OLIC PANEL calcium 9.0 mg/dL 8.6-10 .4 normal Not Available [address], [address], 10/26/2024 17:33:55 10/22/20 24 10/26/2024 COMPR EHENS ANDREINA METAB OLIC PANEL protein, total 6.9 g/dL 6.1-8. 1 normal Not Available [address] [place], [address], 10/26/2024 17:33:55 10/22/20 24 10/26/2024 COMPR EHENS ANDREINA METAB OLIC PANEL albumin 4.7 g/dL 3.6-5. 1 normal Not Available [address] [place], [address], 10/26/2024 17:33:55 10/22/20 24 10/26/2024 COMPR EHENS ANDREINA METAB OLIC PANEL globulin 2.2 g/dL_ (calc ) 1.9-3. 7 normal Not Available [address], [address], 10/26/2024 17:33:55 10/22/20 24 10/26/2024 COMPR EHENS ANDREINA METAB OLIC PANEL albumin/glob ulin ratio 2.1 (calc ) 1.0-2. 5 normal Not Available [address], [address], 10/26/2024 17:33:55 10/22/20 24 10/26/2024 COMPR EHENS ANDREINA METAB OLIC PANEL bilirubin, total 0.4 mg/dL 0.2-1. 2 normal Not Available [address], [address], 10/26/2024 17:33:55 10/22/20 24 10/26/2024 COMPR EHENS ANDREINA METAB OLIC PANEL alkaline phosphatase 64 U/L 37-153 normal Not Available [address], [address], 10/26/2024 17:33:55 10/22/20 24 10/26/2024 COMPR EHENS ANDREINA METAB OLIC PANEL AST 21 U/L 10-35 normal Not Available [address], [address], 10/26/2024 17:33:55 10/22/20 24 10/26/2024 COMPR EHENS ANDREINA METAB OLIC PANEL ALT 29 U/L 6-29 normal Not Available [address], [address], 10/26/2024 17:33:55 10/22/20 24 10/26/2024 T3 REVER SE, LC/MS /MS T3 reverse, lc/MS/MS 12 NG/dL 8-25 This test was devel chel and its checo tical perfo rmanc e doris cteri stics have been deter mined by [employer]. It has not been clear ed or appro kaylan by FDA. This assay has been valid ated pursu ant to the CLIA regul ation s and is used for clini amarilys purpo ses. Not Available [facility] [address] [place], [address], 10/26/2024 17:33:56 10/22/20 24 10/26/2024 CBC (INCL UDES DIFF/ PLT) white blood cell count 4.5 thous and/u L 3.8-10 .8 normal Not Available [facility] [address], [address], 10/26/2024 17:33:56 10/22/20 24 10/26/2024 CBC (INCL UDES DIFF/ PLT) red blood cell count 4.56 samira on/uL 3.80-5 .10 normal Not Available [facility] [address] [place], [address], 10/26/2024 17:33:56 10/22/20 24 10/26/2024 CBC (INCL UDES DIFF/ PLT) hemoglobin 14.3 g/dL 11.7-1 5.5 normal Not Available [facility] [address], [address], 10/26/2024 17:33:56 10/22/20 24 10/26/2024 CBC (INCL UDES DIFF/ PLT) hematocrit 43.3 % 35.0-4 5.0 normal Not Available [facility] [address], [address], 10/26/2024 17:33:56 10/22/20 24 10/26/2024 CBC (INCL UDES DIFF/ PLT) MCV 95.0 fL 80.0-1 00.0 normal Not Available [facility] [address], [address], 10/26/2024 17:33:56 10/22/20 24 10/26/2024 CBC (INCL UDES DIFF/ PLT) MCH 31.4 pg 27.0-3 3.0 normal Not Available [address], [address], 10/26/2024 17:33:56 10/22/20 24 10/26/2024 CBC (INCL [...] nt's clini amarilys condi tion. Not Available [address], [address], 10/26/2024 17:33:56 10/22/20 24 10/26/2024 CBC (INCL UDES DIFF/ PLT) RDW 12.8 % 11.0-1 5.0 normal Not Available [address], [address], 10/26/2024 17:33:56 10/22/20 24 10/26/2024 CBC (INCL UDES DIFF/ PLT) platelet count 221 thous and/u L 140-40 0 normal Not Available [address], [address], 10/26/2024 17:33:56 10/22/20 24 10/26/2024 CBC (INCL UDES DIFF/ PLT) MPV 10.0 fL 7.5-12 .5 normal Not Available [address], [address], 10/26/2024 17:33:56 10/22/20 24 10/26/2024 CBC (INCL UDES DIFF/ PLT) absolute neutrophils 2592 cells /uL 1500-7 800 normal Not Available [address], [address], 10/26/2024 17:33:56 10/22/20 24 10/26/2024 CBC (INCL UDES DIFF/ PLT) absolute lymphocytes 1368 cells /uL 850-39 00 normal Not Available [address] [place], [address], 10/26/2024 17:33:56 10/22/20 24 10/26/2024 CBC (INCL UDES DIFF/ PLT) absolute monocytes 392 cells /uL 200-95 0 normal Not Available [address], [address], 10/26/2024 17:33:56 10/22/20 24 10/26/2024 CBC (INCL UDES DIFF/ PLT) absolute eosinophils 131 cells /uL 15-500 normal Not Available [address], [address], 10/26/2024 17:33:56 10/22/20 24 10/26/2024 CBC (INCL UDES DIFF/ PLT) absolute basophils 18 cells /uL 0-200 normal Not Available [address], [address], 10/26/2024 17:33:56 10/22/20 24 10/26/2024 CBC (INCL UDES DIFF/ PLT) neutrophils 57.6 % normal Not Available [address], [address], 10/26/2024 17:33:56 10/22/20 24 10/26/2024 CBC (INCL UDES DIFF/ PLT) lymphocytes 30.4 % normal Not Available [address], [address], 10/26/2024 17:33:56 10/22/20 24 10/26/2024 CBC (INCL UDES DIFF/ PLT) monocytes 8.7 % normal Not Available [address] [address] [place], [address], 10/26/2024 17:33:56 10/22/20 24 10/26/2024 CBC (INCL UDES DIFF/ PLT) eosinophils 2.9 % normal Not Available [facility] [address] [address] [place], [address], 10/26/2024 17:33:56 10/22/20 24 10/26/2024 CBC (INCL UDES DIFF/ PLT) basophils 0.4 % normal Not Available [facility] [address] [address] [place], [address], 10/26/2024 17:33:56 10/22/20 24 10/26/2024 LILIANE SCREE [...] Patte rns (http s://d oi.or g/10. 1515/ [facility]- 2017- 0052) For addit ional infor zurdo caballero, willian e refer to http: //martina han n.Que stDia gnost ics.c om/fa q/FAQ 177 (This link is being provi ded for infor zurdo nal/ educa jennifer l purpo ses only. ) Not Available [facility] [address] [place], [address], 10/26/2024 17:33:56 10/22/20 24 10/26/2024 T3, TOTAL T3, total 146 NG/dL 76-181 normal Not Available [facility] [address] [place], [address], 10/26/2024 17:33:57 10/22/20 24 10/26/2024 HEMOG LOBIN [...] Care in Diabe ed(A DA). Not Available [facility] [address] [place], [address], 10/26/2024 17:33:57 01/12/20 22 01/11/2022 XR, knee, 3 view No observ ation record ed. [facility] [address], [place], [address], 01/12/2022 10:50:53 01/17/20 22 01/16/2022 US, duple x, venou s, lower extre mity No observ ation record ed. [facility] [address], [place], [address], 01/16/2022 20:39:32 07/22/20 22 07/22/2022 XR, cervi amarilys spine No observ ation record ed. [facility] [address], [place], [address], 07/24/2022 13:16:20 07/22/20 22 07/22/2022 XR, cervi amarilys spine No observ ation record ed. [facility] [address], [place], [address], 07/23/2022 21:47:44 01/17/20 23 01/15/2023 bone densi ty No observ ation record ed. [facility] [address], [place], [address], 02/12/2023 16:33:01 01/18/20 23 01/15/2023 bone densi ty No observ ation record ed. [facility] [address], [place], [address], 01/18/2023 00:00:42 01/25/20 23 01/23/2023 US, doppl er, venou s No observ ation record ed. [facility] [address], [place], [address], 01/24/2023 15:47:10 02/27/20 23 02/26/2023 MAMMO , scree arnold, bilat eral No observ ation record ed. [facility] [address], [place], [address], 02/27/2023 07:31:43 08/25/20 23 08/25/2023 XR, ribs, bilat eral, 3 view No observ ation record ed. [address] , [place], [address], 12/29/2023 12:19:51 12/01/19 24 12/01/2023 XR, hand No observ ation record ed. [address], [place], [address], 12/02/2023 01:21:20 12/30/19 24 12/29/2023 XR, thora cic spine , 3 view No observ ation record ed. [facility] [address], [place], [address], 12/31/2023 11:07:24 01/21/20 24 01/21/2024 XR, hand No observ ation record ed. [address], [place], [address], 01/25/2024 20:13:57 02/19/20 24 02/19/2024 XR, wrist No observ ation record ed. [address] , [place], [address], 02/20/2024 18:58:31 05/03/20 24 04/30/2024 MAMMO , scree arnold, bilat eral No observ ation record ed. [facility] [address], [place], [address], 05/04/2024 14:04:31 12/07/19 25 jennifer rossi am No observ ation record ed. [facility] Not Available 2024 23:35:32 01/26/20 25 01/17/2025 lisbet can cardi olite stres s test (PROC ) No observ ation record ed. [facility] [address], [place], [address], 01/25/2025 19:49:28 05/12/20 25 05/12/2025 XR, knee No observ ation record ed. [facility] [address], [place], [address], 05/17/2025 05:43:48 Result Notes None recorded. Problems Name Problem SNOMED Code Status Onset Date Resolution Date Notes Provider Name and Address Organization Details Recorded Time Bronchitis 25762572 Active 2019 William Pompa MD [address] [place] [address], [address] , [place] [facility] 0 14:58:31 Chronic sinusitis 05222139 Active 2019 William Pompa MD [address] [place] [address], [address] , [place] [facility] 0 14:58:37 Lyme disease 03802252 Active 2019 William Pompa MD [address] [place] [address], [address] , [place] [facility] 0 14:58:39 Epigastric pain 39141781 Active 2020 William Pompa MD [address] [place] [address], [address] , [place] [facility] 1 17:53:40 Dysphagia 51513607 Active 2020 William Pompa MD [address] [place] [address], [address] , [place] [facility] 1 13:49:12 Derangemen t of right knee 9930390408884 9109 Active 2021 William Pompa MD [address] [place] [address], [address] , [facility] 2 19:42:19 Hypothyroi dism 20042866 Active 2021 William Pompa MD [address] [place] [address], [address] , [facility] 2 16:09:02 Cervical spondylosi s 917459570 Active 2021 William Pompa MD [address] [place] [address], [address] , [facility] 2 16:24:17 History of Schatzkis ring 2026363264249 9103 Active 2021 William Pompa MD [address] [place] [address], [address] , [facility] 2 16:24:19 Chronic back pain 744337755 Active 2022 William Pompa MD [address] [place] [address], [address] , [facility] 3 16:07:29 Long-term drug therapy Active 2023 William Pompa MD [address] [place] [address], [address] , [facility] 4 12:26:51 Obesity 823318694 Active 2023 William Pompa MD [address] [place] [address], [address] , [facility] 4 12:26:53 Electrocar diogram abnormal 595853950 Active 2024 William Pompa MD [address] [place] [address], [address] , [facility] 5 23:25:09 Problem Notes None recorded. Medical Equipment None [...] Not Available Not Available Not Avai lable Multimjuliana l Reacted 2 q day on non [...] Available Not Avai lable OrthoBiotic 2 qd 02/02 completed Not Available [...] completed Not Available Not Available Not Available Verplanck Thyroid 60 mg tablet 2.5 tablets orally [...] TAKE 1 TABLET BY MOUTH EVERY FRIDAY// RID, MAY INCREASE TO 1 TABLET EVERY DAY [...] completed Not Available Not Available Not Available Verplanck Thyroid take 9 30mg tablets dailly 04/14 [...] completed Not Available Not Available Not Available [employer] Thyroid 30 mg tablet TAKE 5 TABLETS [...] 4 172.72 cm 67 /min 35.5 kg/m2 931594. 18 g 97.2 [degF] 131/84 mm[Hg] [facility] 4 11:00:33 Date Recorded Body height Body mass index (BMI) Body weight Body temperature Heart rate Systolic And Diastolic Provider Name and Address Organization Details Last Updated DateTime 2 172.72 cm 35.3 kg/m2 766170. 43 g 97.5 [degF] 72 /min 109/68 mm[Hg] [facility] 2 12:18:53 Date Recorded Body height Body mass index (BMI) Body weight Body temperature Heart rate Systolic And Diastolic Provider Name and Address Organization Details Last Updated DateTime 3 172.72 cm 35.7 kg/m2 052465. 21 g 97.8 [degF] 70 /min 106/66 mm[Hg] [facility] 3 15:27:49 Date Recorded Body height Body mass index (BMI) Body weight Heart rate Body temperature Systolic And Diastolic Provider Name and Address Organization Details Last Updated DateTime 2 172.72 cm 35.6 kg/m2 078894. 61 g 78 /min 97.5 [degF] 108/69 mm[Hg] [facility] 2 14:41:54 Date Recorded Body height Body mass index (BMI) Body weight Heart rate Body temperature Systolic And Diastolic Provider Name and Address Organization Details Last Updated DateTime 4 172.72 cm 34.5 kg/m2 280664. 47 g 65 /min 97.2 [degF] 109/70 mm[Hg] Tyra Kerrbo [facility] 17:53:35 Social History Question Answer Notes LastModified by Organizat ion Details LastModified Time Tobacco Smoking Status Never Smoker Shoshana Antunez [facility] 03/05/2021 13:17:40 What Was The Date Of Your Most Recent Tobacco Screening? 03/02/2018 Information not available 03/05/2021 How Much Tobacco Do You Smoke? No Information not available 03/05/2021 Sex: Unknown Functional Status None recorded. Mental Status None recorded. Family History Nothing Reported. Medical History Condition Response Coronary Artery Disease N Gout N Kidney Stones N Blood Diseases N Hyperthyroidism N Depression N COPD N Hypothyroidism N Developmental or Behavioral Disorders N Anxiety Disorder N Muscle, Joint, or Bone Problems N Vision or Eye Problems N Arthritis N Head Injury/Concussion N Congenital Anomalies N Cancer N Stroke N ADHD N Bladder or Kidney Problems N Hospital Admission other than N High Cholesterol N Liver Disease N Fibromyalgia N Headaches N Kidney Disease N Ear or Hearing Problems N Thyroid Problems N Skin Problems N Anemia N Constipation N Mental Illness N Diabetes N Bedwetting N Heart Problems/Murmur N Seizures/Epilepsy N Tuberculosis N Diverticulitis N Asthma N Allergies N Reflux/GERD N Heart Disease N Pulmonary Embolism N Hypertension N Chicken Pox N Autism Spectrum Disorder (ASD) N Osteoporosis N Gynecological HistoryNo gynecological history recorded. 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.2 [id number] William Pompa MD Main Office [address] [place] [id number] 04/14/2018 11:49:37 04/14/2018 13:31:52 Toxic effect of heavy metal 88998031 T56.91XD Lyme disease 86467420 A6 9.20 Bacterial overgrowth syndrome 46216872 A04.9 Obesity 290199060 E66.9 Candidiasis 89897531 B37 .9 Exposure t o potentially harmful entity 142790437 Z77.098 Diabetes insipidus 98003 004 E23.2 Nutritiona l deficiency disorder 94999606 E63.[address] of mercury AND/OR its compounds 15557184 T56.1X1D [id number] William Pompa MD Main Office [address] [place] [id number] 06/19/2018 14:14:38 06/19/2018 15:29:18 Lyme disease 15985790 A69.20 Bacterial overgrowth syndrome 39860675 A04.9 Obesity 580951267 E66.9 Candidiasis 19857389 B37 .9 Exposure t o potentially harmful entity 017626025 Z77.098 Diabetes insipidus 26944 004 E23.2 Nutritiona l deficiency disorder 14440832 E63.[address] of mercury AND/OR its compounds 17327487 T56.1X1D 5,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 [id number] William Pompa MD Main Office [address] [place] [address]05-495 3 08/11/2018 18:07:13 08/11/2018 18:45:09 Toxic effect of mercury AND/OR its compounds 67286903 T56.1X1D Bacterial overgrowth syndrome 33495099 A04.9 Lyme disease 76979601 A6 9.20 Obesity 002747111 E66.9 Candidiasis 47482734 B37 .9 Exposure t o potentially harmful entity 794315622 Z77.098 Diabetes insipidus 02004 004 E23.2 Nutritiona l deficiency disorder 35722437 E63.9 5,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 63596391 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 [id number] William Pompa MD Main Office [address] [place] [address] 66914-032 3 12/09/2018 13:53:33 12/09/2018 15:53:48 Toxic effect of mercury AND/OR its compounds 99178843 T56.1X1D Bacterial overgrowth syndrome 44344750 A04.9 Lyme disease 90773362 A6 9.20 Obesity 553815611 E66.9 Candidiasis 12643279 B37 .9 Exposure t o potentially harmful entity 692553676 Z77.098 Diabetes insipidus 23848 004 E23.2 Nutritiona l deficiency disorder 96448677 E63.9 5,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 76836099 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 [id number] William Pompa MD Main Office [address] [place] [address]167-599 3 03/09/2019 12:34:39 03/09/2019 15:15:34 Toxic effect of mercury AND/OR its compounds 71162920 T56.1X1D Bacterial overgrowth syndrome 96408386 A04.9 Lyme disease 91697602 A6 9.20 Obesity 652963988 E66.9 Candidiasis 19493534 B37 .9 Exposure t o potentially harmful entity 492462547 Z77.098 Diabetes insipidus 62515 004 E23.2 Nutritiona l deficiency disorder 60914788 E63.9 5,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 27822198 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 [id number] William Pompa MD Main Office [address] [place] [address] 11/04/2019 13:38:50 11/04/2019 15:05:56 Bronchitis 80164376 J40 Chronic sinusitis 497205 00 J32.9 Lyme disease 16653552 A6 9.20 [id number] William Pompa MD Main Office [address] [place] [address] 02/02/2021 15:51:04 02/02/2021 18:15:24 Epigastric pain 46314464 R10.13 History of Lyme disease 667547525 Z86.19 Hypothyroidism 51248915 E03.9 [id number] William Pompa MD Main Office [address] [place] [address] 38114-963 3 03/05/2021 13:01:02 03/05/2021 13:58:24 Epigastric pain 36285108 R10.13 History of Lyme disease 518169691 Z86.19 Hypothyroidism 57679413 E03.9 Dysphagia 20741883 R13.1 0 Lyme disease 54422002 A6 9.20 [id number] William Pompa MD Main Office [address] [place] [address] [id number] 3 01/10/2022 12:02:50 01/10/2022 13:21:16 Injury of knee 845681163 S89.91XA [id number] William Pompa MD Main Office [address] [place] [address]72-988 3 07/16/2022 14:33:10 07/16/2022 16:32:40 Epigastric pain 36974415 R10.13 History of Lyme disease 093054552 Z86.19 Hypothyroidism 68085024 E03.9 Dysphagia 59958388 R13.1 0 Lyme disease 09231396 A6 9.20 History of Schatzkis ring 7174070610 7420204 Z87.19 Cervical spondylosis 387 517802 M47.812 [id number] William Pompa MD Main Office [address] [place] [address]68-340 3 03/11/2023 14:20:27 03/11/2023 16:22:58 Chronic back pain 229426958 M54.9 Cervical spondylosis 387 810838 M47.812 [id number] William Pompa MD Main Office [address] [place] [address]14-226 3 12/29/2023 10:52:04 12/29/2023 12:35:50 Chronic back pain 896117575 M54.9 Cervical spondylosis 387 144473 M47.812 Hypothyroidism 52180198 E03.9 History of Schatzkis ring 7882128604 2912898 Z87.19 Obesity 810540817 E66.9 Long-term drug therapy 591072321 Z79.899 [id number] William Pompa MD Main Office [address] [place] [address] 92508-325 3 10/12/2024 17:45:45 10/12/2024 18:49:16 Osteoarthritis of knee 573513017 M17.9 Cervical spondylosis 387 851866 M47.812 Hypothyroidism 80725073 E03.9 History of Schatzkis ring 7816973968 7705587 Z87.19 Obesity 568745573 E66.9 Long-term drug therapy 184912356 Z79.899 Anti-nucle ar factor detected 147409633 R76.8 Pre-surger y evaluation 582017316 Z01.818 Health Concerns Section Related Observation LastModified by Organization Detai ls LastModified Time None Recorded Concern Status LastModified by Organization Details LastModified Time None Recorded Advance Directives Directive None Recorded Payers Insurance Date Sequence Insurance Name Policy Number Policy López Covered Member ID López Member ID Guarantor Name 10/01/2024 1 *SELF PAY* Duane Tyler 10/01/2024 1 [employer] (MEDICARE REPLACEMEN T/ADVANTAG E - PPO) [id number] Deirdre Tyler [id number] Deirdre Tyler 12/24/2023 1 [employer] (PPO) [id number] Deirdre Tyler [id number] Deirdre Tyler Notes Date Note Type Note Provider Name and Address Organization Details Recorded Time 2 text/html kicked by own horse ca. 12-29-21 R calf laterally has hurt the entire time and cannot bear weight.Did not fall on it. William Pompa MD [address] [place], [address], [facility] 01/10/2022 13:18:42 2 text/html Needs Thyroid RF Now 5/d of [place] 30 q am01/10/2022 Right knee injury turned out to be a subtle tibial plateau fracture - was treated with 4 weeks on crutches Deo Aj MD. DJD neck recently worse - last X rayed ca. 2013. Sting pain there with certain movements. Stiffness. < 2020 had successful dilatation of Schatzky's ring Jose Adames MD. Feels her Lyme disease has gone into remission since her last iv treatment in 2019, and inflammatory symptoms have not recurred. William Pompa MD [address] [place], [address], [facility] 07/16/2022 16:28:05 3 text/html Neck pain lot of pain since early 06/2022 X ray shows severe spondylosesStabbing pain bilateral cervical and trapezius areas. Entire spine hurts < walking. 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 03/11/2023 16:16:08 4 text/html YearlyBack and neck painNow low thoracic pain since 07/2024 fall from horse. William Pompa MD [address] [place], [address], [facility] 12/29/2023 12:27:42 4 text/html R knee replacement scheduled for 12/2023 Reji Fine MD at [facility] has gotten painful. has had to reduce walking from 15-20k steps/day to 10-12k.No chest pain or dyspnea. William Pompa MD [address] [place], [address], [facility] 10/12/2024 18:35:35 OBGyn Episode No OBEpisode recorded.
--- OUTSIDE RECORDS SUMMARY | 2025-05-19 10:16 | XMS_ITS | Encounter Summary ---
Author Organization [facility] Address [address] [place] [address] Care Team Providers Care Front Counter Attendant Name Role Phone Cliff Syed MD Primary Care Provider [phone] Encounter Details Date Type Department Care Team (Late st Contact Info) Description 06/27/2019 RX Orders Only [facility] [address] [place] [address] Ethel Montoya, PharmD Social History Tobacco Use [...] on filedocumented in this encounter Care Teams Front Counter Attendant Relationship Specialty Start Date End Date Cliff Syed MD [address] [place] [address] PCP - General FAMILY PRACTICE 03/25/19 documented as of this encounter
--- OUTSIDE RECORDS SUMMARY | 2025-05-19 10:16 | XMS_ITS | Clinical Summary ---
Author Organization [facility] Address [address] [facility] [place] [address] Care Team Providers Care Large Engine Assembler Name Role Phone Luis Dudley MD Primary Care Provider [phone] Source Comments [facility],non-owned Affiliates and Associated Physician Practices is amultiple site organization consisting of ambulatory clinics and hospital sitesin [place], [place], [place] and [place]. This disclosure is being madepursuant to the Care Everywhere program and may not contain all information available regarding this patient. Last updated 18.[employer] [facility] Allergies Active Allergy Reactions Criticality Noted Date [...] times daily Active vitamin D, ergocalciferol, (DRISDOL) 15378 UNIT capsuleIndicatio ns:Vitamin d deficiency Take 1 [...] on file Legal Sex Female 6:47 AM [employer] Gender Identity Not on file Sexual Orientation Not on file Occupation Industry Job Start Date Job End Date Not on file Not on file Not on file Not on file Last Filed Vital Signs Vital Sign Reading Time Taken Comments Blood Pressure 126/82 09/27/2019 2:51 PM [employer] Pulse 122 09/27/2019 2:51 PM [employer] Temperature 37.1 C (98.7 F) 09/27/2019 2:51 PM [employer] Respiratory Rate 18 09/27/2019 2:51 PM [employer] Oxygen Saturation 96% 09/27/2019 2:51 PM [employer] Inhaled Oxygen Concentration - - Weight 103 kg (227 lb) 09/27/2019 2:51 PM [employer] Height 172.7 cm (5' 8) 09/27/2019 2:51 PM [employer] Body Mass Index 34.52 09/27/2019 2:51 PM [employer] Plan of Treatment Health Maintenance Due Date [...] COMPREHENSIVE METABOLIC PANEL Routine 10/14/2015 10:37 AM [employer] LIPID PROFILE 11/08/2010 1:05 PM [employer] from Last 3 Months or Most Recently Relevant to Health Maintenance Results * (ABNORMAL) COMPREHENSIVE METABOLIC PANEL (10/14/2015 10:37 AM [employer]) Pathologist [facility] Glucose 89 65 - 99 mg/dL [facility] ([facility]) Comment: Fasting reference interval BUN 15 7 - 25 mg/dL [facility] Creatinine 0.79 0.50 - 1.05 mg/dL [facility] Comment: For patients >49 years of age, the reference limit for Creatinine is approximately 13% higher for people identified as -M[place]ese. eGFR non- 83 > OR = 60 [...] U/L [facility] Comment: Test Performed at: [facility] [address] [place] [address] CLAUDY SHAHID DO,MPH Blood specimen (specimen) BLOOD SPECIMEN / Unknown 10/14/2015 10:37 AM [employer] 10/14/2015 10:37 AM [employer] Janes Iverson MD LAB - CHEMISTRY ORDERABLES Cinda demetra Result Performing Organization Address [facility] Co de Phone Number [facility] ([facility]) [address] * (ABNORMAL) LIPID PROFILE (11/08/2010 1:05 PM [employer]) Cholesterol 251(H) 125 - 200 mg/dL [facility] Comment: Test Performed at: [facility] [address] [place] [address] CLAUDY SHAHID DO,MPH HDL Cholesterol 55 > OR = 46 mg/dL [facility] Triglycerides 153(H) <150 mg/dL [facility] LDL Calculated 165(H) <130 mg/dL (calc) [facility] Comment: Desirable range <100 mg/dL for patients with CHD or diabetes and <70 mg/dL for diabetic patients with known heart disease. CHOL/HDLC RATIO 4.6 < OR = 5.0 (calc) [facility] 11/08/2010 1:05 PM [employer] 11/09/2010 6:21 AM [employer] Luis Dudley MD LAB - CHEMISTRY ORDERABLES Fi nal Result Performing Organization Address [facility] de Phone Number [facility] [address] [place] [address] from Last 3 Months or Most Recently Relevant to Health Maintenance Insurance [employer] Care Teams Large Engine Assembler Relationship Specialty Start Date End Date Luis Dudley MD [address] [address] PCP - General 05/26/09
== END 2025-05-19 10:12 | disposition home or self-care (01) ==
PROVIDERS: PCP Family Medicine; Visit Provider Orthopaedic Surgery
DX: I82.452 Acute embolism and thrombosis of left peroneal vein (principal)
CPT/HCPCS: 93971

== ENCOUNTER 2025-07-27 13:15 | Outpatient (CLI) | payer MEDICARE, SELFPAY ==
--- NOTE | ~2025-07-27 | MM_ITS ---
EXAMINATION: MM screening [facility] BI w sunil HISTORY: Screening TECHNIQUE: Craniocaudal and mediolateral oblique 3-D tomosynthesis images were obtained and synthetic 2-D images were generated. CAD analysis was submitted and interpreted. COMPARISON: Comparison to multiple prior studies sequentially, with oldest reviewed study dated 09/04/2017. BREAST PARENCHYMAL COMPOSITION: Not dense: There are scattered areas of fibroglandular density. FINDINGS: There is no evidence of suspicious mass, calcification, or architectural distortion to suggest malignancy in either breast. There has been no suspicious interval change. IMPRESSION: 1. No mammographic evidence of malignancy. 2. Recommend routine screening mammography in one year. BI-RADS Category 1: Negative Reviewed, dictated and finalized at location B.
== END 2025-07-27 13:16 | disposition home or self-care (01) ==
PROVIDERS: PCP Obstetrics & Gynecology; Visit Provider Obstetrics & Gynecology
DX: Z12.31 Encounter for screening mammogram for malignant neoplasm of breast (principal)
CPT/HCPCS: 77063; 77067

== ENCOUNTER 2025-08-15 12:37 | Outpatient (CLI) | payer MEDICARE, SELFPAY ==
--- NOTE | ~2025-08-15 | US_ITS ---
EXAMINATION: US venous doppler LE , 08/15/2025 12:30 CDT HISTORY: DVT OF L PERONEAL VEIN Comparison: None Technique: Torres-scale and color Doppler images were attempted of the lower saphenofemoral junction, common femoral vein,superficial femoral vein, proximal deep femoral vein, proximal deep femoral vein, popliteal vein and posterior tibial veins. Findings: Deep Venous System:Normal flow, augmentation and compressibility. No echogenic thrombus identified. The contralateral saphenofemoral junction appears unremarkable. Superficial Venous SystemNo superficial thrombophlebitis. Soft tissues: Soft tissues are unremarkable. Impression: Negative for DVT. Reviewed, dictated and finalized at location P. Impression: Negative for DVT.
== END 2025-08-15 12:38 | disposition home or self-care (01) ==
PROVIDERS: PCP Obstetrics & Gynecology; Visit Provider Family Medicine
DX: I82.452 Acute embolism and thrombosis of left peroneal vein (principal)
CPT/HCPCS: 93971

== ENCOUNTER 2025-09-05 00:14 | Emergency (ER) | payer MEDICARE, SELFPAY ==
--- NOTE | ~2025-09-05 | CT_ITS ---
EXAMINATION: CT abdomen pelvis wo con DATE: 09/05/2025 00:51 INDICATION: Left ureteral stone. TECHNIQUE: Computed tomography (CT) of the abdomen and pelvis was performed without intravenous contrast. Automated exposure control and iterative reconstruction technique were employed. The dose-length product was 411.55 mGy-cm. COMPARISON: CT abdomen and pelvis 02/15/2020 FINDINGS: The visualized portions of the lung bases demonstrate mild atelectasis. There is scarring in paraspinal right lower lobe. No pleural effusion. The heart size is normal. No pericardial effusion. There is a small sliding hiatal hernia. The liver, gallbladder, spleen, pancreas, adrenal glands, and right kidney are normal. There is cortical thinning of left kidney. There is a 14 mm cyst in left kidney. There is no urolithiasis. There are no dilated loops of bowel. The appendix is normal. There are no pathologically enlarged lymph nodes. There is no free intraperitoneal fluid. There is moderate thoracic spondylosis and severe lumbar spondylosis. IMPRESSION: 1. No urolithiasis. 2. Small sliding hiatal hernia. Reviewed, dictated and finalized at location E. [place] MANAGER
--- OUTSIDE RECORDS SUMMARY | 2025-09-05 00:17 | XMS_ITS | Data Portability ---
Author Organization DOTTIE - [facility], PClaudetteCClaudette, [facility] Address [address] [place] [address] Assessment No assessment recorded. Plan of Treatment Reminders Order Date Submit Date Provider Last Modified By Organization Details Last Modified Time Details Appointments None recorded. Lab vitamin B12 + folate, serum or blood 2024 025 [facility], [address], [address], [place], [address], 5 07:18:37 vitamin D, 25-hydroxy, total, serum 2024 025 [facility], [address], [address], [place], [address], 5 07:18:37 iron + total iron-bindin g capacity (TIBC), serum 2024 025 [facility], [address], [place], [address], 5 07:18:36 CBC w/ auto diff 2024 025 [facility], [address], [place], [address], 5 07:18:36 TSH + free T4, serum 2024 025 [facility], [address], [place], [address], 5 07:18:35 CMP, serum or plasma 2024 025 FER[facility], [address], [address], [place], [address], 5 07:18:36 LILIANE (antinuclea r antibodies) screen, ifa, serum 2023 024 [facility], [address], [address], [place], [address], 4 07:43:59 CBC w/ auto diff 2023 024 [facility] Not available 4 07:43:59 CMP, serum or plasma 2023 024 [facility] Not available 4 07:43:59 HbA1c (hemoglobin A1c), blood 2023 024 [facility] Not available 4 07:43:59 TSH + free T4, serum 2023 024 [facility] Not available 4 07:43:59 T3, total, serum 2023 024 [facility] Not available 4 07:43:59 T3, reverse, serum 2023 024 [facility] Not available 4 07:43:59 LILIANE + rf (antinuclea r antibodies + rheumatoid factor), quantitativ e, serum 2023 024 [facility] Not available 4 08:00:27 hla-B27, blood 2023 024 [facility] Not available 4 08:00:27 ESR (erythrocyt e sedimentati on rate), blood 2023 024 [facility] Not available 4 08:00:27 CRP, high sensitivity , serum or plasma 2023 024 [facility] Not available 4 08:00:27 CBC w/ auto diff 2023 024 [facility] Not available 4 08:00:28 CMP, serum or plasma 2023 024 [facility] Not available 4 08:00:28 lipid panel, serum 2023 024 [facility] Not available 4 08:00:28 HbA1c (hemoglobin A1c), blood 2023 024 [facility] Not available 4 08:00:28 TSH + free T4, serum 2023 024 [facility] Not available 4 08:00:27 T3, total, serum 2023 024 [facility] Not available 4 08:00:27 T3, reverse, serum 2023 024 [facility] Not available 4 08:00:27 LILIANE + rf (antinuclea r antibodies + rheumatoid factor), quantitativ e, serum 2022 023 [facility] Not available 3 18:23:25 hla-B27, blood 2022 023 [facility] Not available 3 18:23:25 ESR (erythrocyt e sedimentati on rate), blood 2022 023 FERNANDA Not available 3 12:58:00 CRP, high sensitivity , serum or plasma 2022 023 FERNANDA Not available 3 12:57:59 Referral physical therapist referral 2023 024 [facility] [address], [place], [address], 4 08:03:53 physical therapist referral 2022 023 [facility] [address], [place], [address], 3 07:19:32 physical therapist referral 2022 023 [facility] [place], [facility] [address], [place], [address], 3 12:25:27 Procedures None recorded. Surgeries None recorded. Imaging US, duplex, venous, lower extremity 2024 025 [facility], [address], [place], [address], 5 07:36:31 XR, thoracic spine, 3 view 2023 024 [facility], [address], [address] [address], [place], [address], 4 07:17:21 Medication Orders Eliquis 5 mg tablet 2024 025 [facility]/Pharmacy #[id number], [address] [place], [address], 5 17:33:17 compounded medication 2023 024 [facility]/Pharmacy #[id number], [address] [place], [address], 5 16:26:06 compounded medication 2022 023 [facility]/Pharmacy #[id number], [address] [place], [address], 4 17:54:32 Patient TargetsNo targets recorded. Patient Instructions Encounter Date Encounter Id Patient Instructions Last Modified By Organization Details Last Modified Time 10/12/2024 [id number] knee arthritis: care instructions cwessling Not available 10/12/2024 18:35:14 08/25/[id number] She will finish out her Eliquis and not refill it. On long airplane flights, she will be sure to take short walks every hour and take aspirin 325 mg on the day. She we will do her blood work today that did not get done following her last visit on June 23. cwessling Not available 08/25/2025 12:03:58 Reason for Referral Physical Therapist Referral for Cervical spondylosis Referring Physician: William Pompa [facility], Encounter Date: 03/11/2023 Physical Therapist Referral for Chronic back pain Referring Physician: William Pompa [facility], Encounter Date: 03/11/2023 Physical Therapist Referral for Chronic back pain Referring Physician: William Pompa [facility], Encounter Date: 12/29/2023 Results Created Date Observation Date Name Description Value Unit Range Abnormal Flag Note LastModifiedBy Organization Detail LastModifiedTime 03/11/2003/11/2023 RHEUM ATOID FACTO R (RF), QUANT ITATI VE rheumatoid factor, quantitative interpretati on Negati ve negati ve Not Available [facility] (Lab) [address], [place], [address], 03/13/2023 12:57:59 03/11/20 23 03/11/2023 RHEUM ATOID FACTO R (RF), QUANT ITATI VE rf, quantitation <10 IU/mL <=14 Not Available [facility] (Lab) [address], [place], [address], 03/13/2023 12:57:59 03/11/20 23 03/11/2023 CRP, HIGH SENSI TIVIT Y (HSCR P) C-reactive protein, high sensitivity 5.67 mg/L 0.00-3 .00 high Risk Accor ding To AHA/C DC Guide lines : < 1.0 mg/L Low Cardi ovasc ular Risk 1.0-3 .0 mg/L [place] ge Cardi ovasc ular Risk > 3.0 mg/L High Cardi ovasc ular Risk > 10.0 mg/L Acute Infla mmati on Not Available [facility] (Lab) [address], [place], [address], 03/13/2023 12:57:59 03/11/20 23 03/11/2023 SEDIM ENTAT ION RATE, ESR sedimentatio n rate 3 mm/ho ur (based on docume nted legal sex) 0-30 Not Available [facility] (Lab) [address] [facility], [place], [address], 03/13/2023 12:58:00 03/11/20 23 03/11/2023 LILIANE SCREE N/REF YOUNG TITER /BROOK COLEMAN anti-nuclear antibody Negati ve negati ve LILIANE titer s and patte rns are perfo rmed using an immun ofluo resce nce assay techn ology . Follo w up testi ng for posit andreina speci mens, if requi red, is perfo rmed using multi plex bead techn ology . Not Available [facility] (Lab) [address] [facility], [place], [address], 03/13/2023 12:58:00 03/11/20 23 03/11/2023 HLA-B 27 ANTIG EN hla B27 Negati ve Not Available [facility] (Lab) [address] [facility], [place], [address], 03/13/2023 12:58:01 03/11/20 23 03/11/2023 HLA-B 27 ANTIG EN comment hla B27 HLA-B 27 is negat andreina by flow cytom etric scree arnold test. Not Available [facility] (Lab) [address] [place], [address], 03/13/2023 12:58:01 02/25/20 24 02/27/2024 LILIANE SCREE N, IFA, W/REF L TITER AND PATTE RN LILIANE screen, ifa POSITI VE negati ve abnormal LILIANE IFA is a first line scree n for detec ting the prese nce of up to appro ximat daniel 150 autoa ntibo dies in vario us autoi mmune disea ses. A posit andreina LILIANE IFA resul t is sugge stive of autoi mmune disea se and refle xes to titer and patte rn. Furth er labor atory testi ng may be consi dered if clini florencio indic ated. For addit ional infor zurdo caballero, willian e refer to http: //[facility] guille scottQue stDia gnost ics.c om/fa q/FAQ 177 (This link is being provi ded for infor zurdo mi/ educa jennifer l purpo ses only. ) Not Available [address] [address] [place], [address], 02/27/2024 09:40:47 02/25/20 24 02/27/2024 ANTIN UCLEA R ANTIB ODIES TITER AND PATTE RN LILIANE titer 1:80 titer high A low level LILIANE titer may be prese nt in pre-c linic al autoi mmune disea ses and brooke l indiv idual s. Refer ence Range <1:40 Negat andreina 1:40- 1:80 Low Antib juwan Level >1:80 Somers barron Antib juwan Level Not Available [address], [address], 02/27/2024 09:40:47 02/25/20 24 02/27/2024 ANTIN UCLEA [...] Patte rns (http s://d oi.or g/10. 1515/ cclm- 2017- 0052) Not Available [address], [address], 02/27/2024 09:40:47 02/25/20 24 02/27/2024 RHEUM ATOID FACTO R rheumatoid factor <10 IU/mL <14 normal Not Available [address], [address], 02/27/2024 09:40:48 10/22/20 24 10/26/2024 TSH+F REE T4 TSH 0.73 mIU/L 0.40-4 .50 normal Not Available [address], [address], 10/26/2024 17:33:55 10/22/20 24 10/26/2024 TSH+F REE T4 T4, free 1.0 NG/dL 0.8-1. 8 normal Not Available [address], [address], 10/26/2024 17:33:55 10/22/20 24 10/26/2024 COMPR EHENS ANDREINA METAB OLIC PANEL glucose 105 mg/dL 65-99 high Fasti ng refer ence inter lizzy For someo ne witho ut known diabe ed, a gluco se value betwe en 100 and 125 mg/dL is consi stent with predi abete s and shoul d be confi rmed with a follo w-up test. Not Available [address], [address], 10/26/2024 17:33:55 10/22/20 24 10/26/2024 COMPR EHENS ANDREINA METAB OLIC PANEL urea nitrogen (BUN) 9 mg/dL 7-25 normal Not Available [address], [address], 10/26/2024 17:33:55 10/22/20 24 10/26/2024 COMPR EHENS ANDREINA METAB OLIC PANEL creatinine 0.83 mg/dL 0.50-1 .05 normal Not Available [address], [address], 10/26/2024 17:33:55 10/22/20 24 10/26/2024 COMPR EHENS ANDREINA METAB OLIC PANEL eGFR 77 mL/mi n/1.7 3m2 > or = 60 normal Not Available [address] [address] [place], [address], 10/26/2024 17:33:55 10/22/20 24 10/26/2024 COMPR EHENS ANDREINA METAB OLIC PANEL BUN/creatini ne ratio SEE NOTE: (calc ) 6-22 Not Repor barron: BUN and Creat inine are withi n refer ence range . Not Available [address] [address] [place], [address], 10/26/2024 17:33:55 10/22/20 24 10/26/2024 COMPR EHENS ANDREINA METAB OLIC PANEL sodium 140 mmol/ L 135-14 6 normal Not Available [address] [address] [place], [address], 10/26/2024 17:33:55 10/22/20 24 10/26/2024 COMPR EHENS ANDREINA METAB OLIC PANEL potassium 4.5 mmol/ L 3.5-5. 3 normal Not Available [address] [address] [place], [address], 10/26/2024 17:33:55 10/22/20 24 10/26/2024 COMPR EHENS ANDREINA METAB OLIC PANEL chloride 104 mmol/ L 98-110 normal Not Available [address] [address] [place], [address], 10/26/2024 17:33:55 10/22/20 24 10/26/2024 COMPR EHENS ANDREINA METAB OLIC PANEL carbon dioxide 27 mmol/ L 20-32 normal Not Available [address] [address] [place], [address], 10/26/2024 17:33:55 10/22/20 24 10/26/2024 COMPR EHENS ANDREINA METAB OLIC PANEL calcium 9.0 mg/dL 8.6-10 .4 normal Not Available [address] [address] [place], [address], 10/26/2024 17:33:55 10/22/20 24 10/26/2024 COMPR EHENS ANDREINA METAB OLIC PANEL protein, total 6.9 g/dL 6.1-8. 1 normal Not Available [address], [address], 10/26/2024 17:33:55 10/22/20 24 10/26/2024 COMPR EHENS ANDREINA METAB OLIC PANEL albumin 4.7 g/dL 3.6-5. 1 normal Not Available [address], [address], 10/26/2024 17:33:55 10/22/20 24 10/26/2024 COMPR EHENS ANDREINA METAB OLIC PANEL globulin 2.2 g/dL_ (calc ) 1.9-3. 7 normal Not Available [address], [address], 10/26/2024 17:33:55 10/22/20 24 10/26/2024 COMPR EHENS ANDREINA METAB OLIC PANEL albumin/glob ulin ratio 2.1 (calc ) 1.0-2. 5 normal Not Available [address], [address], 10/26/2024 17:33:55 10/22/20 24 10/26/2024 COMPR EHENS ANDREINA METAB OLIC PANEL bilirubin, total 0.4 mg/dL 0.2-1. 2 normal Not Available [address], [address], 10/26/2024 17:33:55 10/22/20 24 10/26/2024 COMPR EHENS ANDREINA METAB OLIC PANEL alkaline phosphatase 64 U/L 37-153 normal Not Available [address] [address] [place], [address], 10/26/2024 17:33:55 10/22/20 24 10/26/2024 COMPR EHENS ANDREINA METAB OLIC PANEL AST 21 U/L 10-35 normal Not Available [address], [address], 10/26/2024 17:33:55 10/22/20 24 10/26/2024 COMPR EHENS ANDREINA METAB OLIC PANEL ALT 29 U/L 6-29 normal Not Available [facility] [address], [address], 10/26/2024 17:33:55 10/22/20 24 10/26/2024 T3 REVER SE, LC/MS /MS T3 reverse, lc/MS/MS 12 NG/dL 8-25 This test was devel oped and its checo tical perfo rmanc e doris cteri stics have been deter mined by [facility]. It has not been clear ed or appro kaylan by FDA. This assay has been valid ated pursu ant to the CLIA regul ation s and is used for clini amarilys purpo ses. Not Available [facility] [address] [address] [place], [address], 10/26/2024 17:33:56 10/22/20 24 10/26/2024 CBC (INCL UDES DIFF/ PLT) white blood cell count 4.5 thous and/u L 3.8-10 .8 normal Not Available [facility] [address], [address], 10/26/2024 17:33:56 10/22/20 24 10/26/2024 CBC (INCL UDES DIFF/ PLT) red blood cell count 4.56 samira on/uL 3.80-5 .10 normal Not Available [address], [address], 10/26/2024 17:33:56 10/22/20 24 10/26/2024 CBC (INCL UDES DIFF/ PLT) hemoglobin 14.3 g/dL 11.7-1 5.5 normal Not Available [facility] [address], [address], 10/26/2024 17:33:56 10/22/20 24 10/26/2024 CBC (INCL UDES DIFF/ PLT) hematocrit 43.3 % 35.0-4 5.0 normal Not Available [facility] [address], [address], 10/26/2024 17:33:56 10/22/20 24 10/26/2024 CBC (INCL UDES DIFF/ PLT) MCV 95.0 fL 80.0-1 00.0 normal Not Available [facility] [address], [address], 10/26/2024 17:33:56 10/22/20 24 10/26/2024 CBC (INCL UDES DIFF/ PLT) MCH 31.4 pg 27.0-3 3.0 normal Not Available [facility] [address], [address], 10/26/2024 17:33:56 10/22/20 24 10/26/2024 CBC (INCL UDES DIFF/ PLT) MCHC 33.0 g/dL 32.0-3 6.0 normal For adult s, a sligh t decre ase in the calcu lated MCHC value (in the range of 30 to 32 g/dL) is most likel y not clini florencio signi salo t; leonides er, it shoul d be inter prete d with cauti on in corre lat n with other red cell jane eters and the patie nt's clini amarilys condi tion. Not Available [facility] [address], [address], 10/26/2024 17:33:56 10/22/20 24 10/26/2024 CBC (INCL UDES DIFF/ PLT) RDW 12.8 % 11.0-1 5.0 normal Not Available [facility] [address], [address], 10/26/2024 17:33:56 10/22/20 24 10/26/2024 CBC (INCL UDES DIFF/ PLT) platelet count 221 thous and/u L 140-40 0 normal Not Available [address], [address], 10/26/2024 17:33:56 10/22/20 24 10/26/2024 CBC (INCL UDES DIFF/ PLT) MPV 10.0 fL 7.5-12 .5 normal Not Available [address], [address], 10/26/2024 17:33:56 10/22/20 24 10/26/2024 CBC (INCL UDES DIFF/ PLT) absolute neutrophils 2592 cells /uL 1500-7 800 normal Not Available [address], [address], 10/26/2024 17:33:56 10/22/20 24 10/26/2024 CBC (INCL UDES DIFF/ PLT) absolute lymphocytes 1368 cells /uL 850-39 00 normal Not Available [address], [address], 10/26/2024 17:33:56 10/22/20 24 10/26/2024 CBC (INCL UDES DIFF/ PLT) absolute monocytes 392 cells /uL 200-95 0 normal Not Available [address], [address], 10/26/2024 17:33:56 10/22/20 24 10/26/2024 CBC (INCL UDES DIFF/ PLT) absolute eosinophils 131 cells /uL 15-500 normal Not Available [address], [address], 10/26/2024 17:33:56 10/22/20 24 10/26/2024 CBC (INCL UDES DIFF/ PLT) absolute basophils 18 cells /uL 0-200 normal Not Available [facility] [address] [address] [place], [address], 10/26/2024 17:33:56 10/22/20 24 10/26/2024 CBC (INCL UDES DIFF/ PLT) neutrophils 57.6 % normal Not Available [address] [place], [address], 10/26/2024 17:33:56 10/22/20 24 10/26/2024 CBC (INCL UDES DIFF/ PLT) lymphocytes 30.4 % normal Not Available [facility] [address] [place], [address], 10/26/2024 17:33:56 10/22/20 24 10/26/2024 CBC (INCL UDES DIFF/ PLT) monocytes 8.7 % normal Not Available [address] [place], [address], 10/26/2024 17:33:56 10/22/20 24 10/26/2024 CBC (INCL UDES DIFF/ PLT) eosinophils 2.9 % normal Not Available [address], [address], 10/26/2024 17:33:56 10/22/20 24 10/26/2024 CBC (INCL UDES DIFF/ PLT) basophils 0.4 % normal Not Available [address], [address], 10/26/2024 17:33:56 10/22/20 24 10/26/2024 LILIANE SCREE [...] Inter natio nal Conse nsus on LILIANE Santana rns (http s://d oi.or g/10. 1515/ [facility]- 0052) For addit ional infor willian cosby e refer to http: //[facility] guille caballero.Honorio stDia gnost ics.c om/fa q/FAQ 177 (This link is being provi ded for infor matio nal/ educa jennifer l purpo ses only. ) Not Available [facility] [address] [place], [address], 10/26/2024 17:33:56 10/22/20 24 10/26/2024 T3, TOTAL T3, total 146 NG/dL 76-181 normal Not Available [facility] [address], [address], 10/26/2024 17:33:57 10/22/20 24 10/26/2024 HEMOG LOBIN A1C hemoglobin A1C 5.3 %_of_ total _HGB <5.7 normal For the purpo se of sneha barrett for the prese nce of diabe ed: <5.7% Consi stent with the absen ce of diabe ed 5.7-6 .4% Consi stent with incre ased risk for diabe ed (pred iabet es) > or =6.5% Consi stent with diabe ed This assay resul t is consi stent with a decre ased risk of diabe ed. Curre ntly, no conse nsus exist janes benz use of hemog lobin A1c for diagn osis of diabe ed in child rosie. Accor tuyet to Janeeri can Diabe ed Assoc iatio n (ADA) guide lines , hemog lobin A1c <7.0% repre sents optim al contr ol in non-p regna nt diabe tic patie nts. Diffe rent ri cs may apply to speci fic patie nt popul ation s. Stand ards of Medic al Care in Diabe ed(A DA). Not Available [address] [address] [place], [address], 10/26/2024 17:33:57 06/24/2006/25/2025 TSH+F REE T4 TSH 1.26 mIU/L 0.40-4 .50 normal Not Available [address] [address] [place], [address], 06/25/2025 07:18:35 06/24/20 25 06/25/2025 TSH+F REE T4 T4, free 1.0 NG/dL 0.8-1. 8 normal Not Available [address] [address] [place], [address], 06/25/2025 07:18:35 06/24/20 25 06/25/2025 IRON AND TOTAL IRON MERLYN NG CAPAC ITY iron, total 86 mcg/d L 45-160 normal Not Available [address] [address] [place], [address], 06/25/2025 07:18:36 06/24/20 25 06/25/2025 IRON AND TOTAL IRON MERLYN NG CAPAC ITY iron binding capacity 327 mcg/d L_(ca lc) 250-45 0 normal Not Available [address] [address] [place], [address], 06/25/2025 07:18:36 06/24/20 25 06/25/2025 IRON AND TOTAL IRON MERLYN NG CAPAC ITY % saturation 26 %_(ca lc) 16-45 normal Not Available [facility] [address] [address] [place], [address], 06/25/2025 07:18:36 06/24/20 25 06/25/2025 COMPR EHENS ANDREINA METAB OLIC PANEL glucose 72 mg/dL 65-99 normal Fasti ng refer ence inter lizzy Not Available [address], [address], 06/25/2025 07:18:36 06/24/20 25 06/25/2025 COMPR EHENS ANDREINA METAB OLIC PANEL urea nitrogen (BUN) 11 mg/dL 7-25 normal Not Available [address], [address], 06/25/2025 07:18:36 06/24/2006/25/2025 COMPR EHENS ANDREINA METAB OLIC PANEL creatinine 0.84 mg/dL 0.50-1 .05 normal Not Available [address], [address], 06/25/2025 07:18:36 06/24/20 25 06/25/2025 COMPR EHENS ANDREINA METAB OLIC PANEL eGFR 76 mL/mi n/1.7 3m2 > or = 60 normal Not Available [address], [address], 06/25/2025 07:18:36 06/24/20 25 06/25/2025 COMPR EHENS ANDREINA METAB OLIC PANEL BUN/creatini ne ratio SEE NOTE: (calc ) 6-22 Not Repor barron: BUN and Creat inine are withi n refer ence range . Not Available [address], [address], 06/25/2025 07:18:36 06/24/2006/25/2025 COMPR EHENS ANDREINA METAB OLIC PANEL sodium 137 mmol/ L 135-14 6 normal Not Available [address], [address], 06/25/2025 07:18:36 06/24/20 25 06/25/2025 COMPR EHENS ANDREINA METAB OLIC PANEL potassium 4.3 mmol/ L 3.5-5. 3 normal Not Available [address], [address], 06/25/2025 07:18:36 06/24/20 25 06/25/2025 COMPR EHENS ANDREINA METAB OLIC PANEL chloride 100 mmol/ L 98-110 normal Not Available [address], [address], 06/25/2025 07:18:36 06/24/20 25 06/25/2025 COMPR EHENS ANDREINA METAB OLIC PANEL carbon dioxide 28 mmol/ L 20-32 normal Not Available [address], [address], 06/25/2025 07:18:36 06/24/20 25 06/25/2025 COMPR EHENS ANDREINA METAB OLIC PANEL calcium 9.8 mg/dL 8.6-10 .4 normal Not Available [address], [address], 06/25/2025 07:18:36 06/24/20 25 06/25/2025 COMPR EHENS ANDREINA METAB OLIC PANEL protein, total 7.5 g/dL 6.1-8. 1 normal Not Available [address], [address], 06/25/2025 07:18:36 06/24/20 25 06/25/2025 COMPR EHENS ANDREINA METAB OLIC PANEL albumin 4.9 g/dL 3.6-5. 1 normal Not Available [address], [address], 06/25/2025 07:18:36 06/24/20 25 06/25/2025 COMPR EHENS ANDREINA METAB OLIC PANEL globulin 2.6 g/dL_ (calc ) 1.9-3. 7 normal Not Available [address], [address], 06/25/2025 07:18:36 06/24/20 25 06/25/2025 COMPR EHENS ANDREINA METAB OLIC PANEL albumin/glob ulin ratio 1.9 (calc ) 1.0-2. 5 normal Not Available [address], [address], 06/25/2025 07:18:36 06/24/20 25 06/25/2025 COMPR EHENS ANDREINA METAB OLIC PANEL bilirubin, total 0.5 mg/dL 0.2-1. 2 normal Not Available [address], [address], 06/25/2025 07:18:36 06/24/20 25 06/25/2025 COMPR EHENS ANDREINA METAB OLIC PANEL alkaline phosphatase 69 U/L 37-153 normal Not Available [address], [address], 06/25/2025 07:18:36 06/24/20 25 06/25/2025 COMPR EHENS ANDREINA METAB OLIC PANEL AST 22 U/L 10-35 normal Not Available [address], [address], 06/25/2025 07:18:36 06/24/20 25 06/25/2025 COMPR EHENS ANDREINA METAB OLIC PANEL ALT 25 U/L 6-29 normal Not Available [address], [address], 06/25/2025 07:18:36 06/24/20 25 06/25/2025 CBC (INCL UDES DIFF/ PLT) white blood cell count 5.5 thous and/u L 3.8-10 .8 normal Not Available [address], [address], 06/25/2025 07:18:36 08/29/06/25/2025 CBC (INCL UDES DIFF/ PLT) red blood cell count 4.65 samira on/uL 3.80-5 .10 normal Not Available [address], [address], 06/25/2025 07:18:36 06/24/2006/25/2025 CBC (INCL UDES DIFF/ PLT) hemoglobin 14.7 g/dL 11.7-1 5.5 normal Not Available [address], [address], 06/25/2025 07:18:36 06/24/2006/25/2025 CBC (INCL UDES DIFF/ PLT) hematocrit 46.2 % 35.0-4 5.0 high Not Available [address], [address], 06/25/2025 07:18:36 06/24/2006/25/2025 CBC (INCL UDES DIFF/ PLT) MCV 99.4 fL 80.0-1 00.0 normal Not Available [address], [address], 06/25/2025 07:18:36 06/24/2006/25/2025 CBC (INCL UDES DIFF/ PLT) MCH 31.6 pg 27.0-3 3.0 normal Not Available [address], [address], 06/25/2025 07:18:36 06/24/2006/25/2025 CBC (INCL UDES DIFF/ PLT) MCHC 31.8 g/dL 32.0-3 6.0 low For adult s, a sligh t decre ase in the calcu lated MCHC value (in the range of 30 to 32 g/dL) is most likel y not clini florencio signi salo t; josev er, it shoul d be inter prete d with cauti on in corre latio n with other red cell jane eters and the patie nt's clini amarilys condi tion. Not Available [facility] [address], [address], 06/25/2025 07:18:36 06/24/2006/25/2025 CBC (INCL UDES DIFF/ PLT) RDW 12.6 % 11.0-1 5.0 normal Not Available [address], [address], 06/25/2025 07:18:36 06/24/2006/25/2025 CBC (INCL UDES DIFF/ PLT) platelet count 253 thous and/u L 140-40 0 normal Not Available [address], [address], 06/25/2025 07:18:36 06/24/2006/25/2025 CBC (INCL UDES DIFF/ PLT) MPV 9.9 fL 7.5-12 .5 normal Not Available [address], [address], 06/25/2025 07:18:36 06/24/2006/25/2025 CBC (INCL UDES DIFF/ PLT) absolute neutrophils 3284 cells /uL 1500-7 800 normal Not Available [address], [address], 06/25/2025 07:18:36 06/24/2006/25/2025 CBC (INCL UDES DIFF/ PLT) absolute lymphocytes 1485 cells /uL 850-39 00 normal Not Available [facility] [address], [address], 06/25/2025 07:18:36 06/24/20 25 06/25/2025 CBC (INCL UDES DIFF/ PLT) absolute monocytes 523 cells /uL 200-95 0 normal Not Available [facility] [address], [address], 06/25/2025 07:18:36 06/24/20 25 06/25/2025 CBC (INCL UDES DIFF/ PLT) absolute eosinophils 182 cells /uL 15-500 normal Not Available [address], [address], 06/25/2025 07:18:36 06/24/20 25 06/25/2025 CBC (INCL UDES DIFF/ PLT) absolute basophils 28 cells /uL 0-200 normal Not Available [facility] [address], [address], 06/25/2025 07:18:36 06/24/20 25 06/25/2025 CBC (INCL UDES DIFF/ PLT) neutrophils 59.7 % normal Not Available [address], [address], 06/25/2025 07:18:36 06/24/2006/25/2025 CBC (INCL UDES DIFF/ PLT) lymphocytes 27.0 % normal Not Available [facility] [address], [address], 06/25/2025 07:18:36 06/24/20 25 06/25/2025 CBC (INCL UDES DIFF/ PLT) monocytes 9.5 % normal Not Available [facility] [address], [address], 06/25/2025 07:18:36 06/24/20 25 06/25/2025 CBC (INCL UDES DIFF/ PLT) eosinophils 3.3 % normal Not Available [facility] [address], [address], 06/25/2025 07:18:36 06/24/20 25 06/25/2025 CBC (INCL UDES DIFF/ PLT) basophils 0.5 % normal Not Available [facility] [address], [address], 06/25/2025 07:18:36 06/24/20 25 06/25/2025 VITAM IN B12/F OLATE , SERUM PANEL vitamin B12 >2000 pg/mL 200-11 00 high Not Available [address] [place], [address], 06/25/2025 07:18:37 06/24/20 25 06/25/2025 VITAM IN B12/F OLATE , SERUM PANEL folate, serum 9.5 NG/mL normal Refer ence Range Low: <3.4 Borde rline : 3.4-5 .4 Brooke l: >5.4 Not Available [facility] [address] [place], [address], 06/25/2025 07:18:37 06/24/20 25 06/25/2025 VITAM IN D,25- OH,TO MARIBEL,I A vitamin D,25-oh,tota l,ia 69 NG/mL 30-100 normal Vitam in D Statu s 25-OH Vitam in D: Defic iency : <20 ng/mL Insuf ficie ncy: 20 - 29 ng/mL Optim al: > or = 30 ng/mL For 25-OH Vitam in D testi ng on patie nts on D2-gonzalez pplem entat ion and patie nts for whom quant itati on of D2 and D3 fract ions is requi red, the [facility](TM ) 25-OH VIT D, (D2,D 3), LC/MS /MS is recom judith d: order code 31776 (vern ents >2yrs ). See Note 1 Note 1 For addit ional infor willian cosby refer to http: [email or web address] q/FAQ 199 (This link is being provi ded for infor zurdo mi/ shalini mccrary purpo ses only. ) Not Available [facility] [address] [place], [address], 06/25/2025 07:18:37 10/30/20 25 08/25/2025 VITAM IN D, 25-OH (TOTA L D2/D3 ) vitamin D, 25-hydroxy, total 80.7 NG/mL 30.0-1 00.0 [place] [address]ive of Defic iency : <20 ng/mL Sugge stive of Insuf ficie ncy: 20-29 ng/mL Sugge stive of Suffi cienc y: 30-10 0 ng/mL Sugge stive of Toxic ity: >150 ng/mL Not Available [facility] (Lab) [address] [facility], [place], [address], 08/26/2025 04:50:43 08/25/20 25 08/25/2025 CMP(C OMPRE HENSI VE METAB OLIC PANEL ) sodium 139 mmol/ L 133-14 6 Not Available [facility] (Lab) [address] [place], [address], 08/26/2025 06:39:48 08/25/20 25 08/25/2025 CMP(C OMPRE HENSI VE METAB OLIC PANEL ) potassium 4.4 mmol/ L 3.5-5. 1 Not Available [facility] (Lab) [address] [place], [address], 08/26/2025 06:39:48 08/25/20 25 08/25/2025 CMP(C OMPRE HENSI VE METAB OLIC PANEL ) chloride 102 mmol/ L 98-107 Not Available [facility] (Lab) [address] [place], [address], 08/26/2025 06:39:48 08/25/20 25 08/25/2025 CMP(C OMPRE HENSI VE METAB OLIC PANEL ) carbon dioxide 29 mmol/ L 21-31 Not Available [facility] (Lab) [address] [place], [address], 08/26/2025 06:39:48 08/25/20 25 08/25/2025 CMP(C OMPRE HENSI VE METAB OLIC PANEL ) anion gap 8 mmol/ L 4-13 Not Available [facility] (Lab) [address] [place] [place], [address], 08/26/2025 06:39:48 08/25/20 25 08/25/2025 CMP(C OMPRE HENSI VE METAB OLIC PANEL ) blood urea nitrogen 14 mg/dL 7-25 Not Available [facility] (Lab) [address] [facility], [place], [address], 08/26/2025 06:39:48 08/25/20 25 08/25/2025 CMP(C OMPRE HENSI VE METAB OLIC PANEL ) creatinine 0.85 mg/dL 0.60-1 .30 Not Available [facility] (Lab) [address] [facility], [place], [address], 08/26/2025 06:39:48 08/25/20 25 08/25/2025 CMP(C OMPRE HENSI VE METAB OLIC PANEL ) egfrcr (CKD-epi 2020) 75 mL/mi n/1.7 3_m2 >=60 Not Available [facility] (Lab) [address] [facility], [place], [address], 08/26/2025 06:39:48 08/25/20 25 08/25/2025 CMP(C OMPRE HENSI VE METAB OLIC PANEL ) calcium 9.7 mg/dL 8.3-10 .5 Not Available [facility] (Lab) [address] [facility], [place], [address], 08/26/2025 06:39:48 08/25/20 25 08/25/2025 CMP(C OMPRE HENSI VE METAB OLIC PANEL ) glucose 96 mg/dL 70-100 Not Available [facility] (Lab) [address] [facility], [place], [address], 08/26/2025 06:39:48 08/25/20 25 08/25/2025 CMP(C OMPRE HENSI VE METAB OLIC PANEL ) protein, total 7.0 g/dL 6.4-8. 3 Not Available [facility] (Lab) [address] [facility], [place], [address], 08/26/2025 06:39:48 08/25/20 25 08/25/2025 CMP(C OMPRE HENSI VE METAB OLIC PANEL ) albumin 4.8 g/dL 3.5-5. 0 Not Available [facility] (Lab) [address] [facility], [place], [address], 08/26/2025 06:39:48 08/25/20 25 08/25/2025 CMP(C OMPRE HENSI VE METAB OLIC PANEL ) ALT 22 units /L 9-43 Not Available [facility] (Lab) [address] [facility], [place], [address], 08/26/2025 06:39:48 08/25/20 25 08/25/2025 CMP(C OMPRE HENSI VE METAB OLIC PANEL ) alkaline phosphatase 64 units /L 34-104 Not Available [facility] (Lab) [address] [facility], [place], [address], 08/26/2025 06:39:48 08/25/20 25 08/25/2025 CMP(C OMPRE HENSI VE METAB OLIC PANEL ) AST 20 units /L 13-39 Not Available [facility] (Lab) [address] [facility], [place], [address], 08/26/2025 06:39:48 08/25/20 25 08/25/2025 CMP(C OMPRE HENSI VE METAB OLIC PANEL ) bilirubin, total 0.6 mg/dL 0.2-1. 2 Not Available [facility] (Lab) [address] [facility], [place], [address], 08/26/2025 06:39:48 08/25/20 25 08/25/2025 CBC W/DIF F WBC 4.6 10'3/ uL 3.5-10 .5 Not Available [facility] (Lab) [address] [place], [address], 08/26/2025 06:39:49 08/25/20 25 08/25/2025 CBC W/DIF F RBC 4.58 10'6/ uL (based on docume nted legal sex) 3.80-5 .20 Not Available [facility] (Lab) [address] [facility], [place], [address], 08/26/2025 06:39:49 08/25/20 25 08/25/2025 CBC W/DIF F HGB 14.7 g/dL (based on docume nted legal sex) 11.6-1 5.4 Not Available [facility] (Lab) [address] [facility], [place], [address], 08/26/2025 06:39:49 08/25/20 25 08/25/2025 CBC W/DIF F HCT 42.2 % (based on docume nted legal sex) 34.0-4 5.0 Not Available [facility] (Lab) [address] [facility], [place], [address], 08/26/2025 06:39:49 08/25/20 25 08/25/2025 CBC W/DIF F MCV 92.1 fL 80.0-9 9.0 Not Available [facility] (Lab) [address] [facility], [place], [address], 08/26/2025 06:39:49 08/25/20 25 08/25/2025 CBC W/DIF F MCH 32.1 pg 27.0-3 4.0 Not Available [facility] (Lab) [address] [facility], [place], [address], 08/26/2025 06:39:49 08/25/20 25 08/25/2025 CBC W/DIF F MCHC 34.8 g/dL 32.0-3 5.5 Not Available [facility] (Lab) [address] [facility], [place], [address], 08/26/2025 06:39:49 08/25/20 25 08/25/2025 CBC W/DIF F RDW 13.0 % 11.0-1 5.0 Not Available [facility] (Lab) [address] [facility], [place], [address], 08/26/2025 06:39:49 08/25/20 25 08/25/2025 CBC W/DIF F plt 234 10'3/ uL 150-40 0 Not Available [facility] (Lab) [address] [facility], [place], [address], 08/26/2025 06:39:49 08/25/20 25 08/25/2025 CBC W/DIF F MPV 10.1 fL 8.8-12 .1 Not Available [facility] (Lab) [address] [facility], [place], [address], 08/26/2025 06:39:49 08/25/20 25 08/25/2025 CBC W/DIF F NRBC's 0.0 % 0.0 Not Available [facility] (Lab) [address] [facility], [place], [address], 08/26/2025 06:39:49 08/25/20 25 08/25/2025 CBC W/DIF F absolute NRBCs 0.0 10'3/ uL no refere nce range establ ished Not Available [facility] (Lab) [address] [facility], [place], [address], 08/26/2025 06:39:49 08/25/20 25 08/25/2025 CBC W/DIF F neutrophils 70.0 % 34.0-7 3.0 Not Available [facility] (Lab) [address] [facility], [place], [address], 08/26/2025 06:39:49 08/25/20 25 08/25/2025 CBC W/DIF F lymphocytes 20.9 % 15.0-5 0.0 Not Available [facility] (Lab) [address] [facility], [place], [address], 08/26/2025 06:39:49 08/25/20 25 08/25/2025 CBC W/DIF F monocytes 6.5 % 1.0-15 .0 Not Available [facility] (Lab) [address] [facility], [place], [address], 08/26/2025 06:39:49 08/25/20 25 08/25/2025 CBC W/DIF F eosinophils 2.2 % 0.0-8. 0 Not Available [facility] (Lab) [address] [facility], [place], [address], 08/26/2025 06:39:49 08/25/20 25 08/25/2025 CBC W/DIF F basophils 0.2 % 0.0-2. 0 Not Available [facility] (Lab) [address] [facility], [place], [address], 08/26/2025 06:39:49 08/25/20 25 08/25/2025 CBC W/DIF F immature granulocytes 0.2 % no define d refere nce range Immat ure Granu locyt es (IG) repre sents autom ated enume ratio n of Metam yeloc ytes, Myelo cytes and Promy elocy ed when IG is < 5%. Blast s are not inclu ded in IG and repor barron separ ately if prese nt. Not Available [facility] (Lab) [address] [facility], [place], [address], 08/26/2025 06:39:49 08/25/20 25 08/25/2025 CBC W/DIF F absolute neutrophils 3.2 10'3/ uL 1.5-8. 0 Not Available [facility] (Lab) [address] [facility], [place], [address], 08/26/2025 06:39:49 08/25/20 25 08/25/2025 CBC W/DIF F absolute lymphocytes 1.0 10'3/ uL 1.0-4. 0 Not Available [facility] (Lab) [address] [facility], [place], [address], 08/26/2025 06:39:49 08/25/20 25 08/25/2025 CBC W/DIF F absolute monocytes 0.3 10'3/ uL 0.2-1. 0 Not Available [facility] (Lab) [address] [place], [address], 08/26/2025 06:39:49 08/25/20 25 08/25/2025 CBC W/DIF F absolute eosinophils 0.1 10'3/ uL 0.0-0. 6 Not Available [facility] (Lab) [address] [facility], [place], [address], 08/26/2025 06:39:49 08/25/20 25 08/25/2025 CBC W/DIF F absolute basophils 0.0 10'3/ uL 0.0-0. 3 Not Available [facility] (Lab) [address] [facility], [place], [address], 08/26/2025 06:39:49 08/25/20 25 08/25/2025 CBC W/DIF F absolute immature granulocytes 0.0 10'3/ uL 0.00-0 .10 Refer ence range s for nonbi nary/ inter sex or unspe cifie d gende r patie nts have not been estab lishe d. Pleas e [facility] for range s estab lishe d for cisge nder patie nts and evalu ate in the clini amarilys sixto xt of the indiv idual patie nt: https :[email or web address] [email or web address] book. nm.or g/gen derx Not Available [facility] (Lab) [address] [facility], [place], [address], 08/26/2025 06:39:49 08/25/20 25 08/25/2025 TSH TSH 0.84 uIU/m L 0.30-5 .33 Not Available [facility] (Lab) [address] [place], [address], 08/26/2025 06:39:50 08/25/20 25 08/25/2025 T4 FREE T4, free 0.73 NG/dL 0.54-1 .24 This assay is susce ptibl e to inter feren ce from high level s of bioti n which may false ly eleva te resul ts. Pleas e corre late with clini amarilys findi ngs. Not Available [facility] (Lab) [address] [facility], [place], [address], 08/26/2025 06:39:50 08/25/20 25 08/25/2025 VITAM IN B12 / FOLAT E PANEL vitamin B12 >1500 pg/mL 180-91 4 high Brooke l Range : 180-9 14 pg/mL . Indet ermin ate Range : 145-1 80 pg/mL . Defic ient Range : <=145 pg/mL . Not Available [facility] (Lab) [address] [facility], [place], [address], 08/26/2025 06:39:51 08/25/20 25 08/25/2025 VITAM IN B12 / FOLAT E PANEL folate, serum 8.4 NG/mL 6.0-20 .0 Not Available [facility] (Lab) [address] [facility], [place], [address], 08/26/2025 06:39:51 08/25/20 25 08/25/2025 IRON, TRANS SARA N W/ CALCU LATED TIBC iron 126 ug/dL 40-170 Not Available [facility] (Lab) [address] [place], [address], 08/26/2025 06:39:51 08/25/20 25 08/25/2025 IRON, TRANS SARA N W/ CALCU LATED TIBC transferrin 248 mg/dL 200-36 0 Not Available [facility] (Lab) [address] [place], [address], 08/26/2025 06:39:51 08/25/20 25 08/25/2025 IRON, TRANS SARA N W/ CALCU LATED TIBC TIBC 347 ug/dL 250-45 0 Not Available [facility] (Lab) [address] [place], [address], 08/26/2025 06:39:51 08/25/20 25 08/25/2025 IRON, TRANS SARA N W/ CALCU LATED TIBC iron saturation 36 % 20-55 Not Available [facility] (Lab) [address], [place], [address], 08/26/2025 06:39:51 02/27/20 23 02/26/2023 MAMMO , scree arnold, bilat eral No observ ation record ed. [facility] [address], [place], [address], 02/27/2023 07:31:43 08/25/20 23 08/25/2023 XR, ribs, bilat eral, 3 view No observ ation record ed. [facility] [address], [place], [address], 12/29/2023 12:19:51 12/01/19 24 12/01/2023 XR, hand No observ ation record ed. [address], [place], [address], 12/02/2023 01:21:20 12/30/19 24 12/29/2023 XR, thora cic spine , 3 view No observ ation record ed. [facility] [address], [place], [address], 12/31/2023 11:07:24 01/21/20 24 01/21/2024 XR, hand No observ ation record ed. [id number] [facility] [address], [place], [address], 01/25/2024 20:13:57 02/19/20 24 02/19/2024 XR, wrist No observ ation record ed. [facility] [address], [place], [address], 02/20/2024 18:58:31 05/03/20 24 04/30/2024 MAMMO , scree arnold, bilat eral No observ ation record ed. [facility] [address], [place], [address], 05/04/2024 14:04:31 12/07/19 elect aden rossi am No observ ation record ed. [facility] Not Available 2024 23:35:32 01/26/20 25 01/17/2025 lisbet can cardi olite stres s test (PROC ) No observ ation record ed. [facility] [address], [place], [address], 01/25/2025 19:49:28 05/12/20 25 05/12/2025 XR, knee No observ ation record ed. [address] [address], [place], [address], 05/17/2025 05:43:48 05/19/20 25 05/19/2025 US, doppl er, venou s No observ ation record ed. [address] [address], [place], [address], 05/19/2025 14:03:32 05/20/20 25 05/19/2025 US, doppl er, venou s No observ ation record ed. [address], [place], [address], 06/02/2025 15:08:26 08/15/20 25 08/15/2025 US, duple x, venou s, lower extre mity No observ ation record ed. [address], [place], [address], 08/20/2025 12:17:01 Result Notes None recorded. Problems Name Problem SNOMED Code Status Onset Date Resolution Date Notes Provider Name and Address Organization Details Recorded Time Bronchitis 42722126 Active 2019 William Pompa MD [address] [place], [address] , [facility] [facility] 0 14:58:31 Chronic sinusitis 80160139 Active 2019 William Pompa MD [address] [place] [address], [address] , [facility] [place] [facility] 0 14:58:37 Lyme disease 56502926 Active 2019 William Pompa MD [address] [place] [address], [address] , [facility] [facility] 0 14:58:39 Epigastric pain 83846841 Active 2020 William Pompa MD [address] [place] [address], [address] , [facility] [facility] 1 17:53:40 Dysphagia 38928575 Active 2020 William Pompa MD [address] [place] [address], [address] , [facility] [facility] 1 13:49:12 Derangemen t of right knee 6977842382348 9109 Active 2021 William Pompa MD [address] [place] [address], [address] , [facility] [place] [facility] 2 19:42:19 Hypothyroi dism 27638547 Active 2021 William Pompa MD [address] [place] [address], [address] , [facility] 2 16:09:02 Cervical spondylosi s 745391163 Active 2021 William Pompa MD [address] [place] [address], [address] , [facility] [facility] 2 16:24:17 History of Schatzkis ring 3396742306206 9103 Active 2021 William Pompa MD [address] [place], [address] , [facility] 2 16:24:19 Chronic back pain 263632239 Active 2022 William Pompa MD [address] [place] [address], [address] , [facility] 3 16:07:29 Long-term drug therapy Active 2023 William Pompa MD [address] [place] [address], [address] , [facility] 4 12:26:51 Obesity 800953586 Active 2023 William Pompa MD [address] [place] [address], [address] , [facility] 4 12:26:53 Electrocar diogram abnormal 119371632 Active 2024 William Pompa MD [address] [place], [address] , [facility] 5 23:25:09 Deep venous thrombosis of peroneal vein 660949419 Active 2024 William Pompa MD [address] [place] [address], [address] , [facility] 5 17:28:30 History of total knee arthroplas ty 4477049325154 Active 2024 William Pompa MD [address] [place] [address], [address] , [facility] 5 12:01:29 Problem Notes None recorded. Medical Equipment None [...] Not Available Not Available Not Avai lable Anh l Reacted 2 q day on non [...] medication INJECT 0.2ML SUBCUTANE OUSLY EACH DAY 06/23 completed Not Available Not Available Not Available compounded medication inject one s.c. q 3 days 12/09 completed Not Available Not Available Not Available Naltrexone 3.0 mg 1qd 01/10 completed Not Available Not Available Not Available OrthoBiotic 2 q day 01/10 completed Not Available Not Available Not Available Anh l Reacted 2 q day on non chelation days. 2017 active Not Available Not Available Not Avai lable Naltrexone 3.0 mg 1qd 03/11 completed Not Available Not Available Not Available compounded medication 1qd 2024 active Not Available Not Available Not Avai lable Eupatorium Compound 1 sc 02/02 completed Not Available Not Available Not Available Anh l Reacted 2 q day on non [...] medication TAKE 1 CAPSULE BY MOUTH DAILY 06/23 completed Not Available Not Available Not Available compounded medication inject 1 SQ everyday 02/02 [...] medication TAKE 1 CAPSULE BY MOUTH DAILY 06/23 completed Not Available Not Available Not Available naltrexone 1.5 mg 1qam 01/10 completed Not [...] compounded medication 200 1m 2d; 12c bid 06/23 completed Not Available Not Available Not Available [...] completed Not Available Not Available Not Available Molina Thyroid 60 mg tablet 2.5 tablets orally [...] Not Available Not Available No t Available atovaquone 250 mg-proguani l 100 mg tablet 01/10 completed Not Available Not Available Not Available spironolact one 100 mg tablet TAKE 1 TABLET BY MOUTH EVERY DAY active Not Available Not Available No t Available prednisone 5 mg tablet TAKE 1 TABLET BY MOUTH EVERY DAY 06/23 completed Not Available Not Available Not Available sodium chloride 0.45 % intravenous solution [...] oxycodone-a cetaminophe n 5 mg-325 mg tablet 1 - 2 TABLET ORALLY EVERY 6 HOURS NEEDED FOR PAIN, MAX DAILY DOSE: 6 TABLETS 06/23 completed Not Available Not Available Not Available [...] Not Available cephalexin 500 mg capsule TAKE 1 CAPSULE BY MOUTH EVERY 8 HOURS FOR 7 DAYS 06/23 completed Not Available Not Available Not Available [...] completed Not Available Not Available Not Available sertraline 50 mg tablet PLEASE SEE ATTACHED FOR DETAILED DIRECTION S 06/23 completed Not Available Not Available Not Available [...] completed Not Available Not Available Not Available Molina Thyroid take 9 30mg tablets dailly 04/14 [...] completed Not Available Not Available Not Available 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 18 g 97.2 [degF] 131/84 mm[Hg] [facility] 4 11:00:33 Date Recorded Body height Body mass index (BMI) Body weight Body temperature Heart rate Systolic And Diastolic Provider Name and Address Organization Details Last Updated DateTime 3 172.72 cm 35.7 kg/m2 272777. 21 g 97.8 [degF] 70 /min 106/66 mm[Hg] [facility] 3 15:27:49 Date Recorded Body height Body mass index (BMI) Body weight Heart rate Body temperature Systolic And Diastolic Provider Name and Address Organization Details Last Updated DateTime 5 172.72 cm 35 kg/m2 912272. 25 g 85 /min 98.5 [degF] 133/80 mm[Hg] [facility] 5 16:27:27 Date Recorded Body height Body mass index (BMI) Body weight Body temperature Heart rate Systolic And Diastolic Provider Name and Address Organization Details Last Updated DateTime 5 172.72 cm 33.8 kg/m2 350336. 94 g 97.4 [degF] 71 /min 106/68 mm[Hg] Roberto Hall [facility] 5 11:18:54 Date Recorded Body height Body mass index (BMI) Body weight Heart rate Body temperature Systolic And Diastolic Provider Name and Address Organization Details Last Updated DateTime 4 172.72 cm 34.5 kg/m2 562449. 47 g 65 /min 97.2 [degF] 109/70 mm[Hg] Tyra Naik [facility] 4 17:53:35 Social History Question Answer Notes LastModified by Organizat ion Details LastModified Time Tobacco Smoking Status Never Smoker Shoshana leon [facility] 03/05/2021 13:17:40 What Was The [...] Diagnosis SNOMED-CT Code Diagnosis ICD10 Code Diagnosis IMO Codes Diagnosis Note [id number] William Pompa MD Main Office [address] [place] [address] 03/02/2018 14:09:24 03/02/2018 15:32:48 Toxic effect of heavy metal 53130987 T56.91XD Lyme disease 34965845 A6 9.20 Bacterial overgrowth syndrome 88744404 A04.9 Obesity 136243598 E66.9 Candidiasis 33433507 B37 .9 Exposure t o potentially harmful entity 492992989 Z77.098 Diabetes insipidus 37005 004 E23.2 57321 William Pompa MD Main Office [address] [place] [address] 04/14/2018 11:49:37 04/14/2018 13:31:52 Toxic effect of heavy metal 39278566 T56.91XD Lyme disease 85307651 A6 9.20 Bacterial overgrowth syndrome 24484735 A04.9 Obesity 335540461 E66.9 Candidiasis 52396921 B37 .9 Exposure t o potentially harmful entity 059320900 Z77.098 Diabetes insipidus 36601 004 E23.2 Nutritiona l deficiency disorder 23048684 E63.[address] of mercury AND/OR its compounds 07986355 T56.1X1D 24146 William Pompa MD Main Office [address] [place] [address] 06/19/2018 14:14:38 06/19/2018 15:29:18 Lyme disease 52797609 A69.20 Bacterial overgrowth syndrome 01232165 A04.9 Obesity 578007401 E66.9 Candidiasis 48149890 B37 .9 Exposure t o potentially harmful entity 553649503 Z77.098 Diabetes insipidus 48751 004 E23.2 Nutritiona l deficiency disorder 18148683 E63.[address] of mercury AND/OR its compounds 41110197 T56.1X1D 5,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 27933 William Pompa MD Main Office [address] [place] [address] 08/11/2018 18:07:13 08/11/2018 18:45:09 Toxic effect of mercury AND/OR its compounds 96220946 T56.1X1D Bacterial overgrowth syndrome 54680820 A04.9 Lyme disease 16402800 A6 9.20 Obesity 058619949 E66.9 Candidiasis 80330998 B37 .9 Exposure t o potentially harmful entity 652327281 Z77.098 Diabetes insipidus 30281 004 E23.2 Nutritiona l deficiency disorder 39426836 E63.9 5,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 60782338 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 [id number] William Pompa MD Main Office [address] [place] [address] 67450-096 3 12/09/2018 13:53:33 12/09/2018 15:53:48 Toxic effect of mercury AND/OR its compounds 44140120 T56.1X1D Bacterial overgrowth syndrome 37552353 A04.9 Lyme disease 48963950 A6 9.20 Obesity 569163324 E66.9 Candidiasis 74328657 B37 .9 Exposure t o potentially harmful entity 553668234 Z77.098 Diabetes insipidus 49193 004 E23.2 Nutritiona l deficiency disorder 90831827 E63.9 5,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 82481433 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 [id number] William Pompa MD Main Office [address] [place] [address] 95139-645 3 03/09/2019 12:34:39 03/09/2019 15:15:34 Toxic effect of mercury AND/OR its compounds 50341370 T56.1X1D Bacterial overgrowth syndrome 45851207 A04.9 Lyme disease 50279788 A6 9.20 Obesity 718017051 E66.9 Candidiasis 46288918 B37 .9 Exposure t o potentially harmful entity 125563561 Z77.098 Diabetes insipidus 59304 004 E23.2 Nutritiona l deficiency disorder 91819175 E63.9 5,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 13479445 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 [id number] William Pompa MD Main Office [address] [place] [address] 86760-680 3 11/04/2019 13:38:50 11/04/2019 15:05:56 Bronchitis 36157638 J40 Chronic sinusitis 203002 00 J32.9 Lyme disease 75453058 A6 9.20 [id number] William Pompa MD Main Office [address] [place] [address] 49857-002 3 02/02/2021 15:51:04 02/02/2021 18:15:24 Epigastric pain 85713949 R10.13 History of Lyme disease 087762388 Z86.19 Hypothyroidism 83814649 E03.9 [id number] William Pompa MD Main Office [address] [place] [address] 39894-275 3 03/05/2021 13:01:02 03/05/2021 13:58:24 Epigastric pain 92404730 R10.13 History of Lyme disease 952154428 Z86.19 Hypothyroidism 30688013 E03.9 Dysphagia 41804404 R13.1 0 Lyme disease 28496604 A6 9.20 [id number] William Pompa MD Main Office [address] [place] [address] 38835-196 3 01/10/2022 12:02:50 01/10/2022 13:21:16 Injury of knee 502561451 S89.91XA [id number] William Pompa MD Main Office [address] [place] [address] 17237-967 3 07/16/2022 14:33:10 07/16/2022 16:32:40 Epigastric pain 70263378 R10.13 History of Lyme disease 339457857 Z86.19 Hypothyroidism 23818370 E03.9 Dysphagia 59894552 R13.1 0 Lyme disease 39123108 A6 9.20 History of Schatzkis ring 9414788251 6881996 Z87.19 Cervical spondylosis 387 594555 M47.812 [id number] William Pompa MD Main Office [address] [place] [address] 69396-870 3 03/11/2023 14:20:27 03/11/2023 16:22:58 Chronic back pain 593197511 M54.9 Cervical spondylosis 387 819425 M47.812 [id number] William Pompa MD Main Office [address] [place] [address] 23917-883 3 12/29/2023 10:52:04 12/29/2023 12:35:50 Chronic back pain 937372857 M54.9 Cervical spondylosis 387 452725 M47.812 Hypothyroidism 00254194 E03.9 History of Schatzkis ring 8508961926 4914801 Z87.19 Obesity 562380649 E66.9 Long-term drug therapy 017501829 Z79.899 [id number] William Pompa MD Main Office [address] [place] [address] 3 10/12/2024 17:45:45 10/12/2024 18:49:16 Osteoarthritis of knee 510264125 M17.9 Cervical spondylosis 387 859963 M47.812 Hypothyroidism 57390470 E03.9 History of Schatzkis ring 2392743273 2213006 Z87.19 Obesity 927048269 E66.9 Long-term drug therapy 124438818 Z79.899 Anti-nucle ar factor detected 279314490 R76.8 Pre-surger y evaluation 615853165 Z01.818 [id number] William Pompa MD Main Office [address] [place] [address] 29669-569 3 06/23/2025 16:05:29 06/23/2025 17:35:56 Deep venous thrombosis of peroneal vein 165443735 I82.452 5995171165 Fatigue 76722100 R53.83 4504948 061800 William Pompa MD Main Office [address] [place] [address] 14093-096 3 08/25/2025 11:15:49 08/25/2025 12:05:27 Deep venous thrombosis of peroneal vein 384312350 I82.452 9513162027 Hypothyroidism 21662968 E03.9 Obesity 184293830 E66.9 History of total knee arthroplasty 6406909127 105 Z96.652 31276713 Health Concerns Section Related Observation LastModified by Organization Detai ls LastModified Time None Recorded Concern Status LastModified by Organization Details LastModified Time None Recorded Advance Directives Directive None Recorded Payers Insurance Date Sequence Insurance Name Policy Number Policy López Covered Member ID López Member ID Guarantor Name 10/01/2024 1 *SELF PAY* Duane Pimentel Jayson 08/23/2025 1 [employer] (MEDICARE REPLACEMEN T/ADVANTAG E - PPO) [id number] Deirdrefabiano Kleinade Tyler [id number] Deirdre Tyler 08/23/2025 1 [employer] (O) [id number] Deirdre Tyler [id number] Deirdre Tyler Notes Date Note Type Note Provider Name and Address Organization Details Recorded Time 3 text/html Neck pain lot of pain since early 06/2022 X ray shows severe spondylosesStabbing pain bilateral cervical and trapezius areas. Entire spine hurts < walking. Walking behind stenotypist is best> heat (slightly2-3h morning stiffness.Feels her Lyme is in remission since 10/2019 William Pompa MD [address] [place] [address], [phone], [facility] 03/11/2023 16:16:08 4 text/html YearlyBack and neck painNow low thoracic pain since 07/2024 fall from horse. William Pompa MD [address] [place] [address], [phone], [facility] 12/29/2023 12:27:42 4 text/html R knee replacement scheduled for 12/2023 Reji Fine MD at [facility] has gotten painful. has had to reduce walking from 15-20k steps/day to 10-12k.No chest pain or dyspnea. William Pompa MD [address] [place], [address], [facility] 10/12/2024 18:35:35 5 text/html 05/12/2025 she had left total knee replacement which was successful and went well initially. 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 She was started on Eliquis. She has since improved and her calf is less sensitive.Fidel Sanchez is her orthopedist. She is able to walk 3000 steps a day but lacks energy for more.She denies chest pain or shortness of breath. William Pompa MD [address] [place], [address], [facility] 06/23/2025 17:33:45 text/html She is here for follow-up on her left calf DVT that followed her 05/12/2025 left total knee replacement. She has no pain now. No swelling. Her new knee is doing fantastic. She has regained mobility. 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 She remains on Eliquis 5 mg twice daily. William Pompa MD [address] [place], [address], [facility] 08/25/2025 12:04:13 OBGyn Episode No OBEpisode recorded.
--- OUTSIDE RECORDS SUMMARY | 2025-09-05 00:17 | XMS_ITS | Data Portability ---
Author Organization [employer], [facility] Address [address] [address] Assessment No assessment recorded. Plan of Treatment [...] LastModifiedBy Organization Detail LastModifiedTime 01/31/20 22 01/16/2022 , [facility] No observ ation record ed. BARCODE Not [...] Updated DateTime 01/29/2022 175.26 cm 34 kg/m2 259058.2 5 g 66 /min 117/77 mm[Hg] [email or web address] 01/29/2022 15:28:24 Date Recorded Body height Body mass index (BMI) Body weight Provider Name and Address Organization Details Last Updated DateTime 02/05/2022 175.26 cm 34 kg/m2 692752.25 g [email or web address] 02/05/2022 11:47:24 Social History None recorded. Functional Status None recorded. Mental Status None recorded. Family History Nothing Reported. Medical History Condition Response HIV or AIDS N Coronary Artery Disease N Other Cancer N Gout N Kidney Stones N Hyperthyroidism N Breast Cancer N Hernia N Head Trauma/Injury N Lung Cancer N Lung Disease N Blood Clots N COPD N Hypothyroidism N Depression N Pacemaker N Parkinson's N Anxiety Disorder N Arthritis N Alcohol / Substance Abuse N Kidney Cancer N Cancer N Melanoma N Stroke N Neck Injury N Leg or Foot Ulcers N High Cholesterol N Skin Cancer N Liver Disease N Rheumatoid Arthritis N Headaches N Fibromyalgia N Concussion N Kidney Disease N Heart Problems N Chronic use of Pain Medication N Prostate Cancer N Migraines N Thyroid Problems N Alzheimers N Autoimmune Disorder N Anemia N Multiple Sclerosis N Tendon Tear N Heart Attack ([place]) N Ulcers N Osteopenia N Diabetes N Bleeding Disorder N Seizures/Epilepsy N Cardiac Stent N Tuberculosis N A-FIB N Urinary Tract Infection N Back Problems N Diverticulitis N Asthma N Lupus N Peripheral Vascular Disease N Sleep Disorder N GERD/Reflux N Aneurysm N Hepatitis N Thyroid Cancer N Heart Disease N Pulmonary Embolism N Hypertension N Osteoporosis N Gynecological HistoryNo gynecological history recorded. Obstetrics History GPAL:G 0 P 0 0 0 0 Past Encounters Encounter ID Performer Location Encounter Start Date Encounter Closed Date Diagnosis/Indication Diagnosis SNOMED-CT Code Diagnosis ICD10 Code Diagnosis IMO Codes Diagnosis Note Abimael Aj MD [facility] [address] [facility] [place] [address] 01/29/2022 15:04:11 01/30/2022 09:03:15 Pain of right knee joint 0576331195 19700 M25.561 [id number] Abimael Aj MD [facility] [address] [facility] [address] [place] [address] 02/05/2022 11:35:46 02/05/2022 15:17:12 Health Concerns Section Related Observation LastModified by Organization Detai ls LastModified Time None Recorded Concern Status LastModified by Organization Details LastModified Time None Recorded Advance Directives Directive None Recorded Payers Insurance Date Sequence Insurance Name Policy Number Policy López Covered Member ID López Member ID Guarantor Name 02/11/2022 1 [employer] (PPO) [id number] Deirdre M Abusharbain [id number] Deirdre Abusharbain OBGyn Episode No OBEpisode recorded.
--- OUTSIDE RECORDS SUMMARY | 2025-09-05 00:17 | XMS_ITS | Patient Health Record ---
Author Organization [facility] Address [address] [place] [address] Care Team Providers Care Business Intelligence Developer Name Role Phone Aletha RAZO, [employer] Primary Care Provider Jelena Yue Talley Unavailable [phone] Allergies No Known Allergies Results Component Value Reference Range Notes UDT Reviewed date:04/08/2025 01:01:56 PM Interpretation: Performing Lab: Notes/Report: Amphetamine (AMP) n 0 - 1000 ng/ml Buprenorphine (BUP) n 0 - 10 ng/ml Oxazepam (BZO) n 0 - 300 ng/ml Cocaine (ROXY) n 0 - 300 ng/ml Methamphetamine (mAMP) n 0 - 300 ng/ml Methylenedioxymethamphetamine (MDMA) n 0 - 500 ng/ml Morphine (MOP) n 0 - 25 ng/ml Methadone (MTD) n 0 - 300 ng/ml Oxycodone (OXY) n 0 - 300 ng/ml THC n 0 - 50 ng/ml x n 0 - 1000 ng/ml x n 0 - 1000 ng/ml x n 0 - 300 ng/ml x n 0 - 300 ng/ml x n 0 - 300 ng/ml Reason For Referral No Information Medications Medication SIG (Take, Route, Frequency, Duration) Notes Start Date End Date 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 Thyroid 30 MG Tablet Oral; Duration: 30 Days Active Meloxicam 15 MG Tablet TAKE 1 TABLET BY MOUTH EVERY DAY Oral; Duration: 30 Days Active Spironolactone 100 MG Tablet Oral; Duration: 90 Days Not-Taking traZODone HCl 100 MG Tablet 1 tablet at bedtime Oral Once a day; Duration: 90 days Active DULoxetine HCl 60 MG Capsule Delayed Release Particles 1 capsule Oral Once a day; Duration: 90 days Active buPROPion HCl ER (SR) 200 MG Tablet Extended Release 12 Hour 1 tablet in the morning Oral Once a day; Duration: 90 days Active Eliquis 5 MG Tablet TAKE 1 TABLET BY BRENDA TH TWICE A DAY Oral; Duration: 30 Days Active Immunizations Vaccine Route Administration Date Status Comme nts Zoster Unknown 07/03/2023 Administered Tdap Unknown 08/12/2017 Administered Td (adult) Unknown 04/26/2014 Administered Pneumococcal polysaccharide PPV23 Unknown 08/20/2021 Ad ministered Pneumococcal conjugate PCV 13 Unknown 04/01/2018 Admini stered Pfizer-Biontech Covid-19 Vac cine 1st dose Unknown 04/16/2022 Administered Pfizer Biontech Covid-19 Vac cine 2nd dose Unknown 08/20/2021 Administered Novel Gvedxziyl-[id number], preservative free Unknown 07/18/2021 Administered Patti Covid-19 Vaccine Unknown 01/02/2021 Administere d Influenza, unspecified formulation Unknown 07/03/2023 A dministered Hep A, Adult Unknown 02/19/2001 Administered Social History Tobacco Use: Social History Observation Description Date Details (start date - stop date) Never Smoker NA - NA Sex Assigned At : Social History Observation Description Sex Assigned At Female Social History Miscellaneous: Social Info Question Answer Notes Safety issues: Do you feel safe at home? Yes Social History Social Info Question Answer Notes Household: Marital Status: Number of Adults in household: 2 Household: Social Info Question Answer Notes Household Marital status: Drug/Alcohol: Social Info Question Answer Notes Drugs Have you used drugs other than those for medical reasons in the past 12 months? Yes Marijuana? Yes AUDIT-C (Standard) Did you have a drink containi ng alcohol in the past year? Yes How often did you have a drink containing alcohol in the past year? 2 to 4 times a month (2 points) How many drinks did you have on a typical day when you were drinking in the past year? 5 or 6 drinks (2 points) How often did you have six or more drinks on one occasion in the past year? 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 No, edibles for pain and sleep Do you drink alcohol? Yes Section Notes: Substance Use Do you or [...] degree you have received?: Doctoral degree (example:PhD, Francine) Are you currently employed?: No (Notes: retired) [...] Do you have a medical power of assistant prosecuting attorney?: Yes Substance Use Do you or [...] degree you have received?: Doctoral degree (example:PhD, Francine) Are you currently employed?: No (Notes: retired) [...] Do you have a medical power of assistant prosecuting attorney?: Yes Problems Problem Type SNOMED Code ICD Code Onset Dates Problem Status W/U Status Risk Notes Problem Mild recurrent major depression (65913580) Major depressive disorder, recurrent, mild (F33.0) 4 Active confirmed Problem Moderate recurrent major depression (05381296) Major depressive disorder, recurrent, moderate (F33.1) Active confirmed Problem Generalized anxiety disorder (98365669) Generalized anxiety disorder (F41.1) 4 Active confirmed Problem Primary insomnia (9159633) Primary insomnia (F51.01) 4 Active confirmed Problem Posttraumatic stress disorder (19394723) PTSD (post-traumatic stress disorder) (F43.10) Active confirmed Problem Alcohol abuse (18973591) Alcohol abuse (F10.10) Active confirmed Problem 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 Problem 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 Vital Signs Heart Rate 81 /min 07/04/2025 Height-cm 175.26 cm 07/04/2025 Blood pressure diastolic 79 mm Hg 07/04/2025 Weight-kg 102.97 kg 07/04/2025 Height 69.00 in 07/04/2025 Blood pressure systolic 124 mm Hg 07/04/2025 Weight 227 lbs 07/04/2025 BMI 33.52 kg/m2 07/04/2025 Encounters Encounter Location Date Provider Diagnosis [facility] [address] [address] 04/06/2025 Yue Comer PTSD (post-traumatic stress disorder) F43.10 ; Major depressive disorder, recurrent, moderate F33.1 ; Alcohol abuse F10.10 ; Primary insomnia F51.01 ; Post-Lyme disease syndrome B94.8 ; Borreliosis A69.20 ; Encounter for screening for depression Z13.31 and Encounter for screening for cardiovascular disorders Z13.6 [facility] [address] [facility] [address] [place] [address] 07/04/2025 Yue Comer Major depressive disorder, recurrent, mild F33.0 ; Generalized anxiety disorder F41.1 ; PTSD (post-traumatic stress disorder) F43.10 and Primary insomnia F51.[address] [address] 12/22/2024 Yue Comer Major depressive disorder, recurrent, mild F33.[address] [address] 12/23/2024 Yue Comer Primary insomnia F51.[address] [address] 06/28/2025 Yue Comer Major depressive disorder, recurrent, moderate F33.1 and PTSD (post-traumatic stress disorder) F43.[address] [address] 05/09/2025 Yue Comer [address] [address] 06/28/2025 Yue Comer Assessments Encounter Date Diagnosis (ICD Code) Assessment Notes Treatment Notes Treatment Clinical Notes Section Notes 04/06/2025 PTSD (post-traumatic stress disorder) (ICD-10 - F43.10) 12/22/2024 Major depressive disorder, recurrent, mild (ICD-10 - F33.0) 12/23/2024 Primary insomnia (ICD-10 - F51.01) 04/06/2025 Major depressive disorder, recurrent, moderate (ICD-10 - F33.1) 06/28/2025 Major depressive disorder, recurrent, moderate (ICD-10 - F33.1) 07/04/2025 Major depressive disorder, recurrent, mild (ICD-10 - F33.0) 07/04/2025 Generalized anxiety disorder (ICD-10 - F41.1) 07/04/2025 PTSD (post-traumatic stress disorder) (ICD-10 - F43.10) 06/28/2025 PTSD (post-traumatic stress disorder) (ICD-10 - F43.10) 04/06/2025 Alcohol abuse (ICD-10 - F10.10) 04/06/2025 Primary insomnia (ICD-10 - F51.01) 07/04/2025 Primary insomnia (ICD-10 - F51.01) 04/06/2025 Post-Lyme [...] night, triggered by a recent trip to [place] where she felt isolated and disconnected due [...] therapy for PTSD with [facility] in [place]. Plan: - Discontinue duloxetine 60mg: - Reduce [...] during medication transition from duloxetine to sertraline 07/04/2025 Other Insomnia Assessment: Patient reports overall satisfactory sleep with current regimen. Uses trazodone at bedtime and occasionally uses cannabis products (non-gummy form) for sleep aid when experiencing increased pain. Plan: - Continue trazodone at bedtime Anxiety, depression, and PTSD Assessment: Patient reports stable mood since last visit in March. Anxiety symptoms were exacerbated during the period of increased pain and fatigue but appear to be improving with overall recovery. Plan: - Continue current medication regimen - Follow up in 4 months - Patient to call if issues arise before scheduled follow-up Fatigue and widespread pain Assessment: Patient reports a 4-week period of extreme fatigue following initial post-operative recovery, severe enough to impair daily activities such as shopping. Concurrent widespread pain affected wrists, elbows, and shoulders. Blood tests were performed and reported as normal. Patient attributes symptoms to possible immune system dysfunction related to history of Lyme disease. Differential diagnosis includes post-operative fatigue, medication side effects, or exacerbation of underlying chronic pain condition. Plan: - Continue to monitor fatigue and pain symptoms - Patient to follow up if symptoms persist or worsen Chronic pain Assessment: Patient reports severe chronic neck pain that impacts sleep. Currently managed with duloxetine, which the patient finds beneficial for pain control. Previously discussed switching to sertraline for anxiety and PTSD symptoms, but decision was made to continue duloxetine due to its efficacy in pain management and recent surgery. Plan: - Continue duloxetine 60 mg daily Medical Decision Making Deirdre is a female patient with a history of knee replacement surgery, Lyme disease, and chronic pain presenting for follow-up. The patient underwent knee replacement on May 12 and experienced a post-operative blood clot, which delayed her rehabilitation. She reports a recent 4-week period of extreme fatigue and widespread pain, which has begun to improve. The fatigue's etiology is unclear, with normal blood tests ruling out common causes. The patient's complex medical history, including Lyme disease, may contribute to her immune system dysfunction and episodes of pain and fatigue. Her current medication regimen, including duloxetine for pain and PTSD symptoms, appears to be managing her mood adequately. The decision to maintain duloxetine instead of switching to sertraline was based on its efficacy for pain management, particularly for her severe neck condition. Sleep has improved with trazodone, and the patient occasionally uses cannabis for pain relief and sleep without experiencing a high. The patient's anxiety symptoms seem to correlate with periods of increased pain and fatigue. Plan Of Treatment No Information Insurance Providers Payer Name Payer Address Payer Phone Subscriber Number Group Number Insured Name Patient Relationship to Insured Coverage Start Date Coverage End Date [employer] Medicare Replacemen t/Advantag e - Ppo [address] [place] [phone] [id number] JEANETTE DONALDSON DEIRDRE Self - patient is the insured Medical (General) History Medical History History ICD Code Past Psychiatric History: An xiety Disorder,Panic Disorder,PTSD, Major Depressive Disorder Primary insomnia Lyme disease dx in 1992 Hypothyroidism Meningitis (associated with Lyme disease ) Surgical History Surgery Date(Month/Year) Tonsilectomy/adenoids 10/27/1962 Sinus surgery 10/27/1982 Hospitalization History Reason Date(Month/Year) Knee replacement 05/12/2025
--- OUTSIDE RECORDS SUMMARY | 2025-09-05 00:17 | XMS_ITS | Clinical Summary ---
Author Organization [facility] [address] [facility] l[address] Address [address] [place] [address] Care Team Providers Care Field Return Repairer Name Role Phone Unavailable Primary Care Provider [...] TABLET BY MOUTH EVERY DAY 3 Active MANAGER SOLUTION Thyroid 30 mg tablet MANAGER SOLUTION Thyroid 30 mg tablet TAKE 5 TABLETS [...] 02/13/2010 Surgical History Surgery Date Site/Laterality Comments [place] DELIVERY ONLY Section - 1990 (Added by TW Conv) [place] DILATION & CURETTAGE DX&/ THER NONOBSTETRIC Dilation [...] on file 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
--- OUTSIDE RECORDS SUMMARY | 2025-09-05 00:18 | XMS_ITS | Data Portability ---
Author Organization [facility] Address [address] [place] [address] Care Team Providers Care Chief Concierge Name Role Phone GERALD KHAN Primary Care [...] Organization Details Last Modified Time Details Appointments [facility] 2024 11:15A M CELINE Narayan Not available Not available Not available Lab culture, urine 2020 021 [facility] (Lab), [address], [place], [address], 07/12/2021 22:42:07 urinalysi s, dipstick 2020 021 lemuel Knox, [address], [address], [place], [address], 07/11/2021 12:00:30 culture, urine 2019 020 [facility] ([facility]), [address], [place], [address], 04/09/2020 12:16:16 Referral None recorded. Procedures None recorded. Surgeries None recorded. Imaging MAMMO, screening , digital, bilateral 2022 023 [facility], [address], [address], [place], [address], 03/14/2024 05:01:41 Medication Orders None recorded. Patient TargetsNo [...] which luis ts the lab in the jerad barrett of ThinP rep Pap Test slide nico gongora, the slide was revie wed by a Cytot echno logis t and/o r Patho logis tClaudette Valenzuela N A A S S A Y [...] and labor atory findi ngs. See https ://Logoworks/s ites/ defau lt/fi les/-0 3- 65853 _002_ 01.pd f for adali caballero. Test perfo rmed by [facility], d/b/a Charity currie, [address] [facility], [place] [address] , Abril Arredondo ra, DO, Labor atory [facility]. HPV High Risk *HPV NOT DETEC [...] and labor atory findi ngs. See https ://Logoworks/s ites/ defau lt/fi les/ 018-0 3- 09466 _002_ .pd f for néstoredilson caballero. Test perfo rmed by [facility], d/b/a [facility], [address], [place] [address] , Abril Arredondo ra, DO, [facility] [place] [facility] tor. End of Repor t Techn ical servi steven provi ded by [facility], d/b/a [facility], [address] [place] [address] Mark Lawson MD, [facility]. Case revie wed and diagn osis rende red at [facility], d/b/a [facility], [address] [place] [address] Mark Lawson MD, Labor [facility] tor. CONFI DENTI AL Not Available [facility] ([facility]) [address] [place] [address] [address], [place], [address], 04/10/2020 14:23:57 04/06/20 20 04/07/2020 HPV DNA, high- risk HPV high risk NOT DETECT ED normal Not Available [facility] ([facility]) [address] [place] [address] [address], [place], [address], 04/10/2020 14:23:58 04/07/20 20 04/09/2020 cultu re, urine specimen source Urine - Void Not Available [facility] ([facility]) [address] [place] [address] [address], [place], [address], 04/09/2020 12:16:16 04/07/20 20 04/09/2020 cultu re, urine culture, urine See Below No growt h Not Available [facility] ([facility]) [address] [place] [address] [address], [place], [address], 04/09/2020 12:16:16 07/11/20 21 07/11/2021 CULTU RE: URINE result report SEE RESULT S BELOW Test: Cultu re: Urine Speci men Sourc e: Urine Voide d Speci men Type: Urine Speci men Date: 2020 1:13 PM Resul t Date: 2020 9:39 PM Resul t Statu s: Final resul t Abnor mal: No Resul ting Lab: [facility] [address] [facility] [address] Tel: CULTU RE ----- ----- ----- --- No growt h in 1 day (dete ction level of 10,00 0 colon ies / ml.) Not Available [facility] (Lab) [address] [facility] [address], [place], [address], 07/12/2021 22:42:07 07/11/20 21 07/11/2021 IMAGE GUIDE D PAP AND HPV REGAR DLESS image guided Pap, HPV regardless of Pap result SEE RESULT S BELOW CASE REPOR T: Cytol ogy Gynec ologi robles Repor t Case: [id number] Autho kieran g Provi reynold: Halima Douglas, GUANACO Colle cted: [...] OSIS: Negat andreina for Intra epith elial Lesio n or Malig nikki (NIL) Atrop hic cell patte rn Elect navjot gonzales marisela d by [...] robles and/o r histo rical findi ngs, fur er inves tigat ion is recom judith d, as clini florencio yadav nted. Not Available [facility] (Lab) [address], [place], [address], 07/16/2021 07:41:56 07/11/2007/11/2021 urina lysis , dipst ick Leukocytes + Not Available Antoino menjivar [address], [place], [address], 07/11/2021 11:57:23 07/17/20 21 07/17/2021 SURGI ROBLES PATHO LOGY surgical pathology SEE RESULT S BELOW CASE REPOR T: Surgi robles Patho logy Repor t Case: [id number] Autho kieran shah Provi reynold: Leah Lara, RUSTAM Colle cted: 07/17 1454 Order ing Locat [...] ional level s exami bessy. Elect navjot antonio d by Harvey Dupont MD on 2020 [...] label ed with the patie nt's name, mohit dumont cs and labi a BX. Recei kaylan in forma doris is a 0.3 cm piece of white -herrera tissu e. The entir e speci men is submi tted in one casse tte. Gross ed by Naheed Childress ll Not Available [facility] (Lab) [address], [place], [address], 07/19/2021 11:05:16 08/21/20 22 08/21/2022 IMAGE GUIDE [...] OSIS: Negat andreina for Intra epith elial Lesio n or Rachelle keller (NIL) . Atrop hic cell damari kaminski. Elect navjot gonzales marisela d by Elma green, Ankush am, CT on 2021 at 7:06 AM [...] robles and/o r histo rical findi ngs, fur er inves tigat ion is recom judith d, as clini florencio yadav nted. Not Available [facility] (Lab) [address], [place], [address], 08/27/2022 08:10:49 09/02/20 23 09/02/2023 IMAGE GUIDE D PAP AND HPV REGAR DLESS image guided Pap, HPV regardless of Pap result SEE RESULT S BELOW CASE REPOR T: Cytol ogy Gynec ologi robles Repor t Case: [id number] [address] kieran shah Provi reynold: Kristine Galvez, RUSTAM Colle cted: 09/02 1500 Order ing Locat ion: [place] [facility] Recei kaylan: 09/03 0313 First Scree n: [place], CT Speci men: Scree arnold Pap - Image d, Cervi x STATE MENT OF ADEQU ACY: Satis facto ry for evalu ation Trans forma tion zone compo nent canno t be defin itive ly ident ified due to the prese nce of atrop hy or other hormo nal heath es FINAL DIAGN OSIS: Negat andreina for Intra epith elial Lesio n or Rachelle keller (NIL) . Atrop hic cell damari rn. Elect navjot gonzales marisela d by Sussy Camp, CT on 2022 at 12:51 PM ----- ----- ----- ----- ----- ----- ----- [...] ut diffe renti ation . COMME NT: This speci men was revie wed by [...] as clini florencio yadav nted. Not Available [facility] (Lab) [address], [place], [address], 09/04/2023 13:54:51 06/02/20 20 06/02/2020 MAMMO , scree arnold, bilat eral No observ ation record ed. [facility] [address], [place], [address], 06/20/2020 20:18:29 09/07/20 21 09/07/2021 MAMMO , scree arnold, bilat eral No observ ation record ed. [facility] [address], [place], [address], 09/13/2021 10:18:57 01/30/20 23 01/15/2023 DEXA, axial skele ton + verte bral fract ure asses sment No observ ation record ed. [facility] [address], [place], [address], 02/02/2023 23:41:45 02/06/20 DEXA, axial skele ton + verte bral fract ure asses sment No observ ation record ed. [facility] [address], [place], [address], 02/06/2023 15:57:04 02/27/20 23 02/26/2023 MAMMO , scree arnold, bilat eral No observ ation record ed. [address] [facility] [address], [place], [address], 08/25/2023 14:15:39 02/27/20 23 02/26/2023 MAMMO , scree arnold, bilat eral No observ ation record ed. [facility] [address], [place], [address], 08/06/2025 19:46:40 07/27/2007/27/2025 imagi ng/di agnos tic resul t No observ ation record ed. [facility] [address], [place], [address], 08/06/2025 19:46:40 08/15/2008/15/2025 US, kathyle x, venou s, lower extre mity No observ ation record ed. [address], [place], [address], 08/15/2025 15:11:40 Result Notes None recorded. Problems Name Problem SNOMED Code Status Onset Date Resolution Date Notes Provider Name and Address Organization Details Recorded Time Leukocyt osis 204065867 Completed 201107/10/2021 LEUKOCYT OSIS NOS;Antony rded Elsewher e: No Locat ion: [facility] S ource: EHR Job Coaching gerber: N Practi ce ID: 0001 Crispin lable Time: 10:00:00 AM Trena leon, [facility] 14:49:02 Screenin g for malignan t neoplasm of cervix Completed 201107/10/2021 Screenin g for malignan t neoplasm s of the cervix;R ecorded Elsewher e: No Locat ion: [facility] S ource: EHR Job Coaching gerber: N Practi ce ID: 0001 Crispin lable Time: 10:00:00 AM Trena leon, [facility] 14:49:05 Ill-defi bessy intestin al infectio n Completed 201207/10/2021 No Show Fee;Prac elicia ID: 0001 Trena leon, [facility] 14:49:07 Sexually transmit barron infectio us disease Completed 201307/10/2021 SPECIAL SCREEN EXAM HPV;Antony rded Elsewher e: No Locat ion: [facility] S ource: EHR Job Coaching gerber: N Practi ce ID: 0001 Crispin lable Time: 11:30:00 AM Trena leon, [facility] 14:49:31 Speciali zed medical examinat ion Completed 201307/10/2021 Gynecolo gical Examinat ion;Antony rded Elsewher e: No Locat ion: [facility] S ource: EHR Job Coaching gerber: N Practi ce ID: 0001 Crispin lable Time: 11:30:00 AM Trena leon, [facility] 14:49:29 Obesity 763436419 Completed 201307/10/2021 Obesity; Recorded Elsewher e: No Locat ion: [facility] S ource: EHR Job Coaching gerber: N Practi ce ID: 0001 Crispin lable Time: 09:30:00 AM Trena leon [facility] 14:49:22 Anxiety state 737004251 Completed 201307/10/2021 Anxiety; Recorded Elsewher e: No Locat ion: [facility] S ource: EHR Job Coaching gerber: N Panchitoti ce ID: 0001 Crispin lable Time: 10:30:00 AM Trena leon [facility] 14:49:06 Depressi ve disorder [id number] Completed 201307/10/2021 Depressi on;Recor ded Elsewher e: No Locat ion: [facility] S ource: EHR Job Coaching gerber: N Panchitoti ce ID: 0001 Crispin lable Time: 10:30:00 AM Trena leon [facility] 14:49:20 Adult health examinat ion Completed 201407/10/2021 ROUTINE MEDICAL EXAM;Rec orded Elsewher e: No Locat ion: [facility] S ource: EHR Job Coaching gerber: N Panchitoti ce ID: 0001 Crispin lable Time: 03:00:00 PM Trena leon [facility] 14:49:10 Atypical glandula r cells on cervical Papanico laou smear [id number] Completed 201407/10/2021 Abnormal glandula r Papanico laou smear of cervix;R ecorded Elsewher e: No Locat ion: [facility] S ource: EHR Job Coaching gerber: N Panchitoti ce ID: 0001 Crispin lable Time: 02:30:00 PM Trena leon [facility] 14:49:27 Pregnanc y test negative [id number] Completed 201407/10/2021 Pregnanc y examinat ion or test, negative result;R ecorded Elsewher e: No Locat ion: [facility] Practi ce ID: 0001 Crispin lable Time: 02:30:00 PM Trena leon [facility] 14:49:09 Screenin g for malignan t neoplasm of rectum Completed 201507/10/2021 Encounte r for screenin g for malignan t neoplasm of rectum;R ecorded Elsewher e: No Locat ion: [facility]: N Panchitoti ce ID: 0001 Crispin lable Time: 10:00:00 AM Trena leon [facility] 14:49:13 Evaluati on finding Completed 201607/10/2021 Unspecif ied abnormal cytologi robles findings in specimen s from cervix uteri;Re corded Elsewher e: No Locat ion: [facility]: N Panchitoti ce ID: 0001 Crispin lable Time: 11:15:00 AM Trena leon, [facility] 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 14:49:[address] Concept Completed 201607/10/2021 Encntr for general adult medical exam w/o abnormal findings ;Recorde d Elsewher e: No Locat ion: [facility]: [facility]: N Practi ce ID: 0001 Crispin lable Time: 10:00:00 AM Trena leon [facility] 14:49:15 Blood leukocyt e number above referenc e range [id number] Completed 201807/10/2021 Elevated white blood cell count, unspecif ied;Antony rded Elsewher e: No Locat ion: Trish gamez [facility] S ource: EHR Job Coaching gerber: N Practi ce ID: 0001 Crispin lable Time: 01:00:00 PM Trena leon [facility] 14:49:21 Body mass index 30+ - obesity [id number] Completed 201807/10/2021 Body mass index (BMI) 35.0-35. 9, adult;Re corded Elsewher e: No Locat ion: [facility] S ource: EHR Job Coaching gerber: N Practi ce ID: 0001 Crispin lable Time: 01:00:00 PM Trenakusum Lopez carolyn [facility] 14:49:[address] Concept Completed 201807/10/2021 Encounte r for general adult medical exam w abnormal findings ;Practic e ID: 0001 Trena Lopez carolyn [facility] 14:49:17 Problem Notes None recorded. Procedures Surgical History Date Name Laterality Status Provider Name and Address Organization Details Recorded Time 08/21/20 22 Date of Last Pap Smear completed Betty Argueta [facility] 08/21/2022 15:11:32 07/17/20 21 Punch Biopsies, Multiple completed Leah Galloway CNM [address], [place], [address], [facility] 07/18/2021 09:34:01 03/02/20 19 Date of Last Mammogram completed Trena Lopez [facility] 07/10/2021 15:00:36 07/06/20 15 Colposcopy completed Betty Argueta [facility] 07/23/2021 15:27:57 03/05/20 15 Colposcopy completed Betty Argueta [facility] 08/21/2022 13:45:32 10/27/18 91 delivery completed [facility] 04/05/2020 13:37:46 10/27/[address] [facility] 07/23/2021 15:29:40 10/27/18 90 Dilation and Curettage completed [facility] 04/05/2020 13:37:24 Imaging Results None recorded. Procedure Notes None recorded. Medical Equipment None Reported. Allergies Allergen ID Allergen Name Allergen Category Reaction Reaction Severity Criticality Documentation Date Start Date Code Code System Note Provider Name and Address Organization Details Recorded Time 953 Product containin g penicilli n (product) medicatio n Not available Not available Not available 04/05/2020 80203 8001 SNOMED Betty Argueta [facility] 2 15:11:11 Medications Name [...] Prescrib ed Elsewher e: Yes Loca tion: [facility] odify By: jesusita castro DateTime : 04/28/20 14 01:00:41 PM Not Available Not Available Not Available trazodone 50 mg tablet take 1 tablet by oral route 3 times every day after meals 07/10 completed Prescrib ed Elsewher e: Yes Loca tion: [facility] odify By: ryland green Encoun conrado DateTime : 03/02/20 19 01:00:00 PM Not Available Not Available Not Available fluconazo le 150 mg tablet take 1 tablet by oral route once 07/10 completed Prescrib ed Elsewher e: Yes [facility] odify By: ryland camp DateTime : 03/02/20 19 01:00:00 PM Not Available Not Available Not Available fluconazo le 200 mg tablet PLEASE SEE ATTACHED FOR DETAILED DIRECTIO NS 07/10 completed Not Available Not Available Not Available meloxicam 15 mg tablet TAKE 1 TABLET BY MOUTH EVERY DAY active Not Available Not Available No t Available spironola ctone 100 mg tablet TAKE 1 TABLET BY MOUTH EVERY DAY active Not Available Not Available No t Available prednison e 5 mg tablet TAKE 1 TABLET BY [...] Prescrib ed Elsewher e: Yes [facility] By: ryland camp DateTime : 03/02/20 19 01:00:00 PM Not Available Not Available Not Available baclofen 20 mg tablet take 1 tablet by oral route 4 times every day 04/28 completed Prescrib ed Elsewher e: Yes Loca tion: [facility] odify By: gerard camp DateTime : 01/16/20 12 08:05:30 PM Not Available Not Available Not Available Jackson Thyroid 15 mg tablet 07/10 completed Prescrib ed Elsewher e: Yes Loca tion: [facility] odify By: gerard camp DateTime : 04/28/20 14 01:00:41 PM Not Available Not Available Not Available oxycodone -acetamin ophen 5 mg-325 mg tablet 1 - 2 TABLET ORALLY EVERY 6 HOURS NEEDED FOR PAIN, MAX DAILY DOSE: 6 TABLETS active Not Available Not Available No t Available progester one 50 mg/mL intramusc ular oil inject 0.1 millilit er by intramus cular route every day 01/28 completed Prescrib ed Elsewher e: Yes Loca tion: Trish gamez [facility] odify By: jesusita castro DateTime : 04/28/20 14 01:00:41 PM Not Available Not Available Not Available famotidin e 20 mg tablet TAKE 1 TABLET BY MOUTH TWICE A DAY 08/21 completed Not Available Not Available Not Available amitripty line 25 mg tablet take 1 tablet by oral route every day at bedtime 01/28 completed Prescrib ed Elsewher e: No Locat ion: [facility] odify By: jesusita castro DateTime : [...] Prescrib ed Elsewher e: Yes Loca tion: [facility] odify By: jesusita castro DateTime : 07/19/20 14 08:45:00 AM Not Available Not Available Not Available trazodone 100 mg tablet TAKE 1 TABLET BY MOUTH EVERYDAY AT BEDTIME active Not Available Not Available No t Available doxycycli ne monohydra te 100 mg capsule TAKE 1 CAPSULE BY MOUTH TWICE A DAY 08/21 completed Not Available Not Available Not Available cephalexi n 500 mg capsule TAKE 1 CAPSULE BY MOUTH EVERY 8 HOURS FOR 7 DAYS 08/22 completed Not Available Not Available Not Available [...] Prescrib ed Elsewher e: Yes [facility] By: gerard camp DateTime : 04/28/20 14 01:00:41 PM Not Available Not Available Not Available Wellbutri n 75 mg tablet take 1 tablet by oral route 3 times every day 07/10 completed Prescrib ed Elsewher e: Yes Loca tion: Trish gamez [facility] odify By: jesusita Gamez ncounter DateTime : 06/10/20 16 10:00:00 AM Not Available Not Available Not Available ranitidin e 150 mg capsule take 1 capsule by oral route 2 times every day 07/10 completed Prescrib ed Elsewher e: Yes Loca tion: Trish gamez [facility] odify By: ryland Lopes ter DateTime : 03/02/20 19 01:00:00 PM Not Available Not Available Not Available gabapenti n 100 mg capsule take 1 by oral route 2 times every day 07/10 completed Prescrib ed Elsewher e: Yes Loca tion: Trish gamez [facility] odify By: ryland Lopes ter DateTime [...] e: Yes Loca tion: Trish gamez [facility] odify By: sameer Gamez ncounter DateTime : 06/06/20 15 03:00:00 PM Not Available Not Available Not Available sertralin e 50 mg tablet PLEASE SEE ATTACHED FOR DETAILED DIRECTIO NS active Not Available Not Available No t Available fludrocor tisone 0.1 mg tablet TAKE 1 TABLET BY MOUTH EVERY FRIDAY/ /FRIDAY, MAY INCREASE TO 1 TABLET EVERY [...] Prescrib ed Elsewher e: Yes Loca tion: [facility] odify By: jesusita castro DateTime : 04/28/20 14 01:00:41 PM Not Available Not Available Not Available duloxetin e 30 mg capsule,d elayed release TAKE 1 CAPSULE BY MOUTH EVERY DAY active Not Available Not Available No t Available duloxetin e 60 mg capsule,d elayed release TAKE 1 CAPSULE BY MOUTH EVERY DAY active Not Available Not Available No t Available Jackson Thyroid 08/21 completed Not Available Not Available [...] Prescrib ed Elsewher e: Yes Loca tion: [facility] odify By: gerard camp DateTime : 01/17/20 12 10:00:00 AM Not Available Not Available Not Available heparin (porcine) 5,000 unit/mL (1 mL) injection cartridge inject 1 millilit er by subcutan eous route every 12 hours 01/28 completed Prescrib ed Elsewher e: Yes [facility] odify By: jesusita Franco kingunter DateTime : 07/06/20 02:30:00 PM Not Available Not Available Not Available 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 04/06/2020 14:54:35 Date Recorded Body height Body mass index (BMI) Body weight Systolic And Diastolic Provider Name and Address Organization Details Last Updated DateTime 07/11/2021 173.99 cm 35.5 kg/m2 070367.39 g 137/53 mm[Hg] Trena Lopez [facility] 07/11/2021 11:44:31 Date Recorded Body height Body mass index (BMI) Body weight Systolic And Diastolic Provider Name and Address Organization Details Last Updated DateTime 07/17/2021 173.99 cm 35.7 kg/m2 565232.98 g 111/73 mm[Hg] Betty Argueta [facility] 07/17/2021 12:58:48 Date Recorded Body height Body mass index (BMI) Body weight Systolic And Diastolic Provider Name and Address Organization Details Last Updated DateTime 08/21/2022 173.99 cm 34.6 kg/m2 451061.84 g 118/76 mm[Hg] Betty Argueta [facility] 08/21/2022 15:09:57 Date Recorded Body weight Systolic And Diastolic Provider Name and Address Organization Details Last Updated DateTime 09/02/2023 569050.27 g 126/72 mm[Hg] Lindsay Ramirez [facility] 09/02/2023 14:10:24 Social History Question Answer Notes LastModified by Organizat ion Details LastModified Time Tobacco Smoking Status Never Smoker Betty leon, [facility] 08/21/2022 15:12:42 Do You Have An Advance Directive? Yes [email or web address] Information n ot available 08/21/2022 How Many Years Have You Consumed Alcohol? 40 [email or web address] Information not available 07/11/2021 Are You Blind Or Do You Have Difficulty Seeing? No [email or web address] Information n ot available 07/11/2021 What Is Your Level Of Caffeine Consumption? Heavy [email or web address] Information not available 07/11/2021 In The 14 Days Before Symptom Onset, Have You Had Close Contact With A Laboratory-confirm ed COVID-19 While That Case Was Ill? No [email or web address] Information n ot available 07/11/2021 In The 14 Days Before Symptom Onset, Have You Had Close Contact With A Person Who Is Under Investigation For COVID-19 While That Person Was Ill? No [email or web address] Information not available 07/11/2021 Have You Been To An Area Known To Be High Risk For COVID-19? No Information not available 07/11/2021 Are You Deaf Or Do You Have Serious Difficulty Hearing? No [email or web address] Information not available 07/11/2021 What Type Of Diet Are You Following? GLUTENFREE [email or web address] Information n ot available 07/11/2021 What Is The Highest Grade Or Level Of School You Have Completed Or The Highest Degree You Have Received? [id number] [email or web address] Information not available 07/11/2021 Are There Any Guns Present In Your Home? Yes [email or web address] Information not available 07/11/2021 Do You Use Protection During Sex? No [email or web address] Information not available 07/11/2021 Do You Use Your Seat Belt Or Car Seat Routinely? Yes [email or web address] Information not available 07/11/2021 Do You Have Smoke And Carbon Monoxide Detectors In Your Home? Yes [email or web address] Information not available 07/11/2021 How Much Tobacco Do You Smoke? No [email or web address] Information not available 07/11/2021 Do You Use Sunscreen Routinely? Yes [email or web address] Information not available 08/21/2022 Have You Used IV Drugs? No [email or web address] Information not available 07/11/2021 Do You Have Difficulty Walking Or Climbing Stairs? No Information not available 08/21/2022 Sex: Unknown Functional Status Question Answer Note LastModified by Organizat ion Details LastModified Time Do you use any illicit or recreational drugs? No [email or web address] Information not available 08/21/2022 What is your level of alcohol consumption? Occasional [email or web address] Information not available 07/11/2021 Are you able to walk independently without assistance or assistive devices? YESWOREST [email or web address] Information not available 07/11/2021 Are you able to care for yourself independently? 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 No [email or web address] Information not available 08/21/2022 What is your exercise level? Heavy [email or web address] Information not available 07/11/2021 Mental Status Question Answer Note LastModified by Organization D etails LastModified Time Do you feel stressed (tense, restless, nervous, or anxious, or unable to sleep at night)? [id number] [email or web address] Information not available 07/11/2021 Family History Relationship Description Onset Age of this Age Resolved Age Notes LastModified by Organization Details LastModified Time Maternal Grandmother Malignant neoplasm of cervix uteri [email or web address] Not available 07/2020 13:36:03 Maternal Grandmother Diabetes mellitus type 2 [...] ICD10 Code Diagnosis IMO Codes Diagnosis Note [id number] Halima Valles [facility] [address] [address] 04/06/2020 14:44:37 04/06/2020 16:24:16 Gynecologic examination [id number] Z01.419 Take Calcium with Vitamin D 12-1500mg daily. Do monthly self breast exams. It is advised to get annual flu shot in the fall and she could obtain at [facility] or [facility] clinic. If you haven't received the Tdap [...] questions call or respond to this email.p [id number] Halima Valles [facility] [address],[place] [address] 07/11/2021 11:36:42 07/11/2021 13:52:44 Routine gynecologic examination done [id number] Z01.419 Leukocytes in urine [id number] R82.79 No symptoms. Will await culture. Gynecologi c examination [id number] Z01.419 Take Calcium with Vitamin D 12-1500mg daily. Do monthly self breast exams. It is advised to get annual flu shot in the fall and she could obtain at [facility] or [facility] clinic. If you haven't received the Tdap [...] call or respond to this email. Vaginitis [id number] N76.0 Biopsy to be scheduled. Discussed possibilit y of lichen sclerosus. Will go ahead and treat with diflucan d/t history of yeast and itching. [id number] Leah Galloway CNM [facility] [address],[place] [address] 07/17/2021 12:41:22 07/18/2021 22:54:49 Lesion of vulva [id number] N90.89 [id number] Leah Galloway CNM [facility] [address],[place] [address] 08/21/2022 14:59:54 08/21/2022 16:04:22 Gynecologic examination [id number] Z01.419 [id number] CELINE Narayan [facility] [address] [address] 09/02/2023 13:22:48 09/02/2023 15:01:59 Gynecologic examination [id number] Z01.419 WWEpostmen opausalpap updatedSTI testing declinedma mmogram order given - due 4dex a UTD - due next ologu susannah UTD / PCPUTD with routine labsRTC in 1 yr or sooner if needed Take Calcium with Vitamin D daily.Do monthly self breast exams.It is advised to get annual flu shot in the fall and she could obtain at [facility] or [facility] care clinic. If you haven't [...] email Screening for malignant neoplasm of breast [id number] Z12.39 Health Concerns Section Related Observation LastModified by Organization Detai ls LastModified Time None Recorded Concern Status LastModified by Organization Details LastModified Time None Recorded Advance Directives Directive Y: Payers Insurance Date Sequence Insurance Name Policy Number Policy López Covered Member ID López Member ID Guarantor Name 09/02/2023 1 [employer] (POS II) [id number] Deirdre Joya Jayson [id number] Deirdre Joya Jayson 09/02/2025 1 [employer] (MEDICARE REPLACEMEN T/ADVANTAG E - PPO) [id number] Deirdre Mahnaz Rosas [id number] Deirdre Mahnaz Tyler Notes Date Note Type Note Provider [...] reportsno depression,no anxiety, andno pmdd. Halima leon [facility] 04/06/2020 16:12:38 1 text/html Annual GYNReported [...] anxiety, andno pmdd. Right labial irritation Halima leon [facility] 07/11/2021 13:06:36 1 text/html ROS as noted in the HPI pt here for labial biopsy per CNM, reviewed risks including bleeding and infection consent signed Leah Galloway CNM [address], [place], [address], [place] [facility] 07/18/2021 09:34:30 2 text/html Annual GYNReported [...] steroid cream for vaginal psoriasis, [place] as noted in the HPI Leah Galloway CNM [address], [place], [address], [facility] 08/21/2022 15:37:54 3 text/html Annual Government Affairs Manager Post-MenopausalReported by PatientGenitourinary symptomsFor menopausal symptoms, patient [...] - 01/2023 CELINE Narayan [address], [place], [address], [facility] 09/02/2023 14:46:04 OBGyn Episode Ob Episode Information Episode Created Date Number of Fetuses Patient Bloodtype Patient rh Status Prepregnancy Weight lbs Domestic Partner Domestic Partner Phone Father Name Cafeteria Manager Status 04/06/20 20 1 CLOSED Fetus Data [...] Domestic Partner Domestic Partner Phone Father Name Cafeteria Manager Status 04/06/20 20 1 CLOSED Fetus Data [...] Domestic Partner Domestic Partner Phone Father Name Cafeteria Manager Status 04/06/20 20 1 CLOSED Fetus Data [...] Domestic Partner Domestic Partner Phone Father Name Cafeteria Manager Status 07/10/20 21 1 CLOSED Fetus Data First Name Last Name Admitted to NICU Weight (g) Sex Living Outcome Pediatric Complications Fetus ID Race Codes Race Delivery Type , Induced [id number] Jose Calculation Initial Jose Date Initial Exam [...]
[2025-09-05 00:19] VITALS: BP 146/89; PULSE 75; RESP 18; TEMP 36.6; O2SAT 95
--- NOTE | 2025-09-05 00:34 | ED.ABDPAIN ---
HPI - Abdominal Pain General Chief Complaint: Abdominal Pain Stated Complaint: Abdominal pain Time Seen by Provider: 09/05/25 00:20 Source: patient Mode of arrival: ambulatory Limitations: no limitations History of Present Illness HPI narrative: This is a 69-year-old female with history of DVT just recently completed Eliquis, hypothyroidism who presents to the ED for flank pain. Patient states that for the past day, she has been having left flank pain. She has noticed a malodorous urine but denies dysuria and hematuria. Also notes that she has been constipated but did have an episode of diarrhea this morning. She has had some nausea but no vomiting. Denies fevers, chills, chest pain, shortness of breath. Related Data Home Medications ?Medication ?Instructions ?Recorded ?Confirmed ?Last Taken ?Type bupropion HCl 200 mg tablet,12 hr 200 mg PO DAILY 09/27/19 07/08/25 01/20/24 History sustained-release (Wellbutrin SR) trazodone 100 mg tablet 100 mg PO HS PRN Sleep 09/27/19 07/08/25 01/20/24 History thyroid (pork) 30 mg tablet (GRAIN SHOVELER 30 mg PO DAILY 12/01/23 07/08/25 01/21/24 History Thyroid) ascorbic acid (vitamin C) 1,500 mg 1,500 mg PO DAILY 01/12/24 07/08/25 01/20/24 History tablet,extended release minerals 1 tablet PO DAILY 01/12/24 07/08/25 01/17/24 History omeprazole magnesium 20 mg 20 mg PO DAILY 01/12/24 07/08/25 01/20/24 History tablet,delayed release (Prilosec OTC) prasterone (DHEA) 25 mg capsule 25 mg PO EVERY OTHER DAY 01/12/24 07/08/25 01/20/24 History (DHEA) spironolactone 100 mg tablet 100 mg PO DAILY ACNE 01/12/24 07/08/25 01/20/24 History vitamin E 400 unit tablet 45 mg PO DAILY 01/12/24 07/08/25 01/17/24 History duloxetine 60 mg capsule,delayed 60 mg PO HS 04/15/25 07/08/25 Unknown History release tirzepatide 5 mg/0.5 mL 5 mg subcut WEEKLY 04/15/25 07/08/25 Unknown History subcutaneous pen injector (Mounjaro) apixaban 2.5 mg tablet (Eliquis) 2.5 mg PO BID 06/03/25 07/08/25 Unknown History Allergies Allergy/AdvReac Type Severity Reaction Status Date / Time Chocolate AdvReac Unknown INCREASES Uncoded 07/08/25 10:26 INFLAMMATION Review of Systems Review of Systems: Gen.: Denies fevers or chills Eyes: Denies eye pain or visual change ENT: Denies congestion Respiratory: Denies shortness of breath or cough CV: Denies chest pain or palpitations GI: As per HPI as per HPI Musculoskeletal: Denies back pain or muscle pain Neuro: Denies numbness, tingling, weakness or focal weakness Skin: Denies rash Except as documented, all other systems reviewed and negative FOR[facility]LY [facility], [facility] Past Medical History Medical History Depression Lupus Hypothyroidism Arthritis Fibromyalgia Musculoskeletal disorder Right knee medial meniscus tear Lyme disease 1982 Postmenopausal Abnormal uterine bleeding Lactose intolerance Sleep apnea Hypercholesterolemia Seasonal allergies Surgical History Surgical History History of total left knee replacement (~05/12/25) Medacta Delivery by section Hx of tonsillectomy Family History Family History Mother Family history of Alzheimer's disease Father Family history of osteoarthritis Social History Social History Alcohol intake: current Drinks per week: 1 Substance use: never Do You Feel Safe in your Home?: Yes Lack of Transportation: No Lack of Food: Never True Current Housing: I Have Housing Concerned About Future Housing: No Difficulty Paying Gas/Electric Bills: No Difficulty Paying for Meds: No Currently Unemployed: No Education: Master's Degree or Higher Difficulty w/ Childcare or Family Care: No Living arrangements: with family Additional living arrangements comments: [facility] Spiritual care concerns: No Exam Narrative: APPEARANCE: No acute distress, nontoxic, resting in bed EYES: EOMI HEENT: Normocephalic, atraumatic, OMM RESPIRATORY: No respiratory distress Clear to auscultation bilaterally with no rhonchi wheezing or rales. CARDIOVASCULAR: Regular rate and rhythm without murmurs rubs or gallops. ABDOMINAL: Soft, mild diffuse tenderness to palpation, CVA tenderness on the left, nondistended, no rebound or guarding MUSCULOSKELETAl: Moves all extremities. No clubbing, cyanosis or edema. NEURO: Awake and alert. Following commands, speech normal, no focal deficits SKIN:: Warm, dry. No rashes lesions or abrasions PSYCHIATRIC: Normal affect/mood, Course Vital Signs Vital signs: Vital Signs Temperature 97.9 F 09/05/25 00:19 Pulse Rate 75 09/05/25 00:19 Respiratory Rate 18 09/05/25 00:19 Blood Pressure 146/89 H 09/05/25 00:19 Pulse Oximetry 95 09/05/25 00:19 Oxygen Delivery Room Air 09/05/25 00:19 Temperature 97.9 F 09/05/25 00:19 Pulse Rate 79 09/05/25 02:19 Respiratory Rate 16 09/05/25 02:19 Blood Pressure 129/80 09/05/25 02:19 Pulse Oximetry 99 09/05/25 02:19 Oxygen Delivery Room Air 09/05/25 00:19 MDM - Abdominal Pain MDM Narrative Medical decision making narrative: 69-year-old female Presenting for left flank pain. On initial evaluation patient was in no acute distress afebrile, hemodynamic stable. Differentials include but are not limited to: Ureterolithiasis, pyelonephritis, MSK pain, constipation, obstruction, PNA, Cancer Notable exam findings: CVA tenderness on the left with diffuse mild abdominal tenderness to palpation. Notable lab findings: CBC and CMP without significant abnormalities. Lipase within normal limits. UA may be consistent with contamination or with UTI. Notable imaging findings: CT abdomen/pelvis showed no acute process. Patient was given morphine with significant improvement of her symptoms. On further discussion with the patient, she has been constipated for the past couple weeks, this may be contributing to her pain at this time. She has also been little more gassy than normal. As her urine is malodorous, she may have a UTI as well so she will be treated for this. She was given the 1st dose of Keflex here. She was given a prescription for Keflex. She was educated on MiraLax use for her constipation. Patient was agreeable to this plan. Given strict return precautions. Medical Records Attestation: I reviewed the patient's medical records. Lab Data Attestation: I reviewed the patient's lab results. 09/05/25 00:30 09/05/25 00:30 Labs: Lab Results 09/05/25 Range/Units 00:30 WBC 6.6 (4.5-10.0) K/mm3 RBC 5.07 (4.2-5.4) M/mm3 Hgb 15.8 H D (12.0-15.0) g/dL Hct 45.2 (37.0-47.0) % MCV 89.2 (80-100) fl MCH 31.2 (26-34) pg MCHC 35.0 (32-36) g/dl RDW 12.3 (11.5-14.5) % Plt Count 242 D (150-375) k/mm3 MPV 9.5 (7.4-10.4) fl Immature Gran % (Auto) 0.3 (0-0.5) % Neut % (Auto) 64.4 (45.5-73.1) % Lymph % (Auto) 25.3 (18.3-44.2) % [place] % (Auto) 7.1 (2.6-8.5) % Eos % (Auto) 2.6 (0-4.4) % Baso % (Auto) 0.3 (0.2-1.2) % Lymph # (Auto) 1.67 (0.9-3.2) K/mm3 [place] # (Auto) 0.5 (0.1-0.6) K/mm3 Eos # (Auto) 0.2 (0-0.3) K/mm3 Baso # (Auto) 0.0 (0.0-0.1) K/mm3 Abs Immat Gran (auto) 0.02 (0.00-0.031) K/mm3 Absolute Neuts (auto) 4.2 (1.3-6.7) K/mm3 Absolute Nucleated RBC 0.000 (0.0-0.012) K/mm3 Nucleated RBC % 0.0 (0.0-0.2) % Sodium 136 L (137-145) mmol/L Potassium 4.2 (3.4-5.0) mmol/L Chloride 99 (98-107) mmol/L Carbon Dioxide 28 (22-30) mmol/L Anion Gap 9 (4-12) mmol/L BUN 14 (7-17) mg/dL Creatinine 0.86 (0.7-1.0) mg/dL Estim Creat Clear Calc 70 ml/min Estimated GFR > 60 (59 - ) Glucose 106 (65-110) mg/dL Calcium 9.4 (8.4-10.2) mg/dL Total Bilirubin 0.5 (0.2-1.3) mg/dL AST 31 (14-36) U/L ALT 35 (6-35) U/L Alkaline Phosphatase 63 (38-126) U/L Total Protein 8.0 (6.3-8.2) g/dL Albumin 5.0 (3.5-5.1) g/dL Lipase 89 (23-300) U/L Urine Color Yellow (Yellow) Urine Appearance Turbid H (Clear) Urine pH 6.5 (5.0-9.0) Ur Specific [place] 1.010 (1.001-1.035) Urine Protein Trace (Negative) mg/dL Urine Glucose (UA) Negative (Negative) mg/dL Urine Ketones Negative (Negative) mg/dL Ur Blood (Man) Trace (Negative) Urine Nitrate Negative (Negative) Urine Bilirubin Negative (Negative) Urine Urobilinogen 0.2 (<2.0) mg/dL Add Ur Microanalysis Reviewed Leukocyte Esterase Rfl 3+ H (Negative) LUBNA/UL Urine RBC 0-2 (0-2) /hpf Urine WBC >100 H (0-3) /hpf Ur Squamous Epith Cells Many H (Few) /hpf Urine Bacteria 4+ H /hpf Urine Casts 0-2 Imaging Data Attestation: I personally reviewed and interpreted this imaging study as follows: Radiologist's impression: CT abdomen/pelvis: No ureterolithiasis. No acute process. Discharge Plan Discharge Clinical Impression: Acute flank pain, Acute UTI Patient Disposition: Home Condition: Stable Instructions: Antibiotic Form, Urinary Tract Infection in Women (ED), Flank Pain (ED) Additional Instructions: Your symptoms may be due to a combination of things. You likely have a UTI so your given a prescription for Keflex to take this as prescribed. Your flank pain may be due to musculoskeletal strain or spasm or due to constipation. You can try taking MiraLax 1 cap daily to assist with the constipation. You may take Tylenol and ibuprofen for pain. Follow up with her PCP in the next week for re-evaluation. Return to the ED for any new or worsening symptoms. For pain, discomfort or temperature greater than or equal to 100.8 ?F please alternate the following 2 medications as needed. First medication- acetaminophen/Tylenol- 1000mg every 6-8 hours as needed for above indications. Second medication- ibuprofen/Motrin-600mg every 6-8 hours as needed for above indication. Patient Language: Guinean Prescriptions: New cephalexin 500 mg capsule 500 mg PO Q12H Qty: 9 0RF ondansetron 4 mg tablet,disintegrating 4 mg PO Q8H PRN (Reason: nausea and vomiting) Qty: 14 0RF No Action trazodone 100 mg Tablet 100 mg PO HS PRN (Reason: Sleep) bupropion HCl [Wellbutrin SR] 200 mg Tablet Sustained-Release 12 Hr 200 mg PO DAILY Patient Comments: QAM Mounjaro 5 mg/0.5 mL pen injector 5 mg subcut WEEKLY Patient Comments: MONDAYS thyroid (pork) [GRAIN SHOVELER Thyroid] 30 mg tablet 30 mg PO DAILY Patient Comments: QAM Eliquis 2.5 mg tablet 2.5 mg PO BID spironolactone 100 mg tablet 100 mg PO DAILY Patient Comments: QAM minerals Tablet 1 tablet PO DAILY prasterone (DHEA) [DHEA] 25 mg Capsule 25 mg PO EVERY OTHER DAY vitamin E 400 unit Tablet 45 mg PO DAILY ascorbic acid (vitamin C) 1,500 mg Tablet Extended Release 1,500 mg PO DAILY omeprazole magnesium [Prilosec OTC] 20 mg Tablet,Delayed Release (Dr/Ec) 20 mg PO DAILY duloxetine 60 mg capsule,delayed release(DR/EC) 60 mg PO HS aspirin [Enteric Coated Aspirin] 81 mg tablet,delayed release (DR/EC) 81 mg PO BID Qty: 28 0RF meloxicam 15 mg tablet 15 mg PO DAILY Qty: 30 0RF prednisone 5 mg tablet 5 mg PO DAILY Qty: 21 0RF oxycodone-acetaminophen 5-325 mg tablet 1 - 2 tablet PO Q6H MDD 6 tablets PRN (Reason: pain) Qty: 30 0RF Follow-up/Referrals: Aletha,MD William [Primary Care Provider, Unknown]
[2025-09-05 00:44] LABS: Hematocrit 45.2 % (37.0-47.0); Hemoglobin 15.8 g/dL (12.0-15.0); Immature Granulocyte Percent A 0.3 % (0-0.5); Lymphocytes Absolute Auto 1.67 K/mm3 (0.9-3.2); Mean Corpuscular HGB Conc 35.0 g/dl (32-36); Mean Corpuscular Hemoglobin 31.2 pg (26-34); Mean Corpuscular Volume 89.2 fl (80-100); Nucleated Red Blood Cells Absolute Auto 0.000 K/mm3 (0.0-0.012); Nucleated Red Blood Cells Perc 0.0 % (0.0-0.2); Platelet Count Result 242 k/mm3 (150-375); Red Blood Count 5.07 M/mm3 (4.2-5.4); White Blood Count 6.6 K/mm3 (4.5-10.0)
--- NOTE | 2025-09-05 00:44 | PC.NURSE ---
pt taken to CT on stretcher
[2025-09-05] MEDS: SODIUM CHLORIDE 0.9% IV 1,000 ML 999 ML IV CONT (00:49)
[2025-09-05 00:50] LABS: Alanine Aminotransferase 35 U/L (6-35); Albumin Level 5.0 g/dL (3.5-5.1); Alkaline Phosphatase 63 U/L (38-126); Anion Gap 9 mmol/L (4-12); Aspartate Amino Transferase 31 U/L (14-36); Bilirubin,Total 0.5 mg/dL (0.2-1.3); Blood Urea Nitrogen 14 mg/dL (7-17); Calcium 9.4 mg/dL (8.4-10.2); Carbon Dioxide 28 mmol/L (22-30); Chloride 99 mmol/L (98-107); Estimated CRCL calculation 70 ml/min; Estimated Glomerular Filt Rate > 60; Glucose 106 mg/dL (65-110); Potassium 4.2 mmol/L (3.4-5.0); Sodium 136 mmol/L (137-145); Total Protein 8.0 g/dL (6.3-8.2)
[2025-09-05] MEDS: MORPHINE SULFATE (*CRX) 4 MG/ML INJ IV PUSH (00:50)
[2025-09-05] MEDS: ONDANSETRON INJ 4 MG/2 ML VIAL IV PUSH (00:50)
[2025-09-05 00:55] LABS: Add Urine Microscopic? YES; Appearance Urine Turbid (Clear); Glucose Urine UA Negative (Negative); Leukocyte Esterase Ur 3+ LEU/UL (Negative); Need Manual Microscopic Reviewed; Nitrate Urine Negative (Negative); Non Pathogenic Casts 0-2; Specific Grav Ur 1.010 (1.001-1.035)
--- NOTE | 2025-09-05 01:14 | PC.NURSE ---
Pt states she has been constipated for about a month now but had an episode of non-bloody diarrhea yesterday, able to pass gas.
[2025-09-05 01:48] LABS: Lipase 89 U/L (23-300)
[2025-09-05] MEDS: CEPHALEXIN 500 MG CAPSULE PO (01:59)
[2025-09-05 02:19] VITALS: BP 129/80; PULSE 79; RESP 16; O2SAT 99
== END 2025-09-05 02:19 | disposition home or self-care (01) ==
PROVIDERS: Emergency Provider Student in an Organized Health Care Education/Training Program; PCP Family Medicine
DX: R10.A2 Flank pain, left side (principal); N39.0 Urinary tract infection, site not specified; F32.A Depression, unspecified; E03.9 Hypothyroidism, unspecified; M79.7 Fibromyalgia; G47.30 Sleep apnea, unspecified; E78.5 Hyperlipidemia, unspecified
CPT/HCPCS: 36415; 74176; 80053; 81001; 83690; 85025; 96361; 96374; 96375; 99284; A9270; J2270; J2405; J7030